=== PATIENT | female | born 1935 | race Caucasian/White ===

== ENCOUNTER 2017-02-08 10:56 | Outpatient (RCR) | payer MEDICARE | END 2017-05-09 | disposition home or self-care (01) | LOC: CARD 10:56 → MERGE 12:00 | PROVIDERS: ATTEND Internal Medicine Cardiovascular Disease | DX: I48.91 Unspecified atrial fibrillation (principal); R07.9 Chest pain, unspecified; I10 Essential (primary) hypertension; R00.2 Palpitations | CPT/HCPCS: 93225; 93226 ==

== ENCOUNTER → 2017-02-08 | Outpatient (CLI) | payer MEDICARE | LOC: CARD 10:46 → MERGE 11:00 | PROVIDERS: ATTEND Internal Medicine Cardiovascular Disease | DX: I48.91 Unspecified atrial fibrillation (principal); I10 Essential (primary) hypertension; R00.2 Palpitations; R07.9 Chest pain, unspecified | CPT/HCPCS: 93306 ==

== ENCOUNTER → 2017-02-15 | Outpatient (CLI) | payer MEDICARE ==
[~2017-02-15] VITALS: Ht 152.4 cm; Wt 47.2 kg
[~2017-02-15] MED LIST: CATHETER FLUSH 10 ML SYR IV PRN; REGADENOSON 0.4 MG/5 ML SYR (LEXISCAN) IV ONE
[2017-02-15 09:33] VITALS: BP 181/75
[2017-02-15 09:38] VITALS: BP 177/71
--- NOTE | 2017-02-15 16:24 | STRESS TEST ---
DATE OF SERVICE: 02/15/2017 LEXISCAN MYOVIEW STRESS TEST REPORT REFERRING PHYSICIAN Dr. Winter. Baseline heart rate is 75. Baseline blood pressure 178/81. Baseline EKG sinus rhythm with no ischemic changes. In summary, the patient was initially scheduled for an exercise Myoview stress test, was unable to exercise, test was converted to Lexiscan Myoview stress test. The patient received 10.31 mCi of technetium-99 Myoview and the resting images were obtained. Then, the patient received 0.4 mg of Lexiscan followed by 30.8 mCi of technetium-99 Myoview. Throughout the rest, there were no EKG changes. The resting and stress images were reviewed and compared in the short axis, horizontal long axis, and vertical long axis views. Review of the images showed good radiotracer uptake with no significant ischemia or infarction on SPECT images. SSS is 0. TID value 0.92. On the gated images, the left ventricle appeared to be normal size with good contractility. Calculated ejection fraction of 95%. I believe it is an overestimation due to small left ventricular size. CONCLUSION: 1. The patient tolerated Lexiscan well. 2. No ischemia or infarction on SPECT images. 3. Small left ventricular size with normal contractility. Calculated ejection fraction of 95%. I believe it is an over estimation of the contractility. Job ID: [id number] DocumentID: [id number] Dictated Date: 02/15/2017 12:02:46 Tongue Trimmer Date: 02/15/2017 15:23:07 Dictated By: JIAN STEPHENSON MD
== END ==
LOC: CARD 07:21 → MERGE 08:00
PROVIDERS: ATTEND Internal Medicine Cardiovascular Disease
DX: I48.91 Unspecified atrial fibrillation (principal); R07.9 Chest pain, unspecified; I10 Essential (primary) hypertension; R00.2 Palpitations
CPT/HCPCS: 78452; 93017

== ENCOUNTER 2018-02-12 09:10 | Observation (INO) | payer MEDICARE ==
[~2018-02-12] VITALS: Ht 152.4 cm; Wt 52.2 kg
[~2018-02-12 09:10] MED LIST changes: +ASPI-999 PO; -CATHETER FLUSH 10 ML SYR IV PRN; +METO-395; -REGADENOSON 0.4 MG/5 ML SYR (LEXISCAN) IV ONE
[2018-02-12] MEDS ORDERED: DILTIAZEM 25 MG/5 ML INJ (CARDIZEM) VIAL ONE (09:21)
[2018-02-12] MEDS ORDERED: DILTIAZEM 25 MG/5 ML INJ (CARDIZEM) VIAL IVP ONE (09:45)
[2018-02-12] MEDS ORDERED: DILTIAZEM IV FOR DRIP 125 MG in NS (IVPB) 100 ML IV SCH (09:45)
[2018-02-12 09:48] LABS: BASOPHILS % (AUTO) 1 % (0-10); EOSINOPHILS # (AUTO) 0.1 10^3/uL (0.0-0.3); EOSINOPHILS % (AUTO) 2 % (0-10); HEMATOCRIT 40 % (35-52); HEMOGLOBIN 13.4 G/DL (11.5-16.0); LYMPHOCYTES # (AUTO) 1.5 X 10^3 (1.0-4.0); LYMPHOCYTES % (AUTO) 37 % (12-44); MEAN CORPUSCULAR HEMOGLOBIN 31 PG (25-34); MEAN CORPUSCULAR HGB CONC 33 G/DL (32-36); MEAN CORPUSCULAR VOLUME 92 FL (80-99); MEAN PLATELET VOLUME 12.3 FL (7.4-10.4); MONOCYTES # (AUTO) 0.6 X 10^3 (0.0-1.0); MONOCYTES % (AUTO) 14 % (0-12); NEUTROPHILS # (AUTO) 1.9 X 10^3 (1.8-7.8); NEUTROPHILS % (AUTO) 47 % (42-75); PLATELET COUNT 140 10^3/uL (130-400); RED BLOOD COUNT 4.37 10^6/uL (4.35-5.85); RED CELL DISTRIBUTION WIDTH 12.4 % (10.0-14.5); WHITE BLOOD COUNT 4.1 10^3/uL (4.3-11.0)
[2018-02-12 10:02] LABS: ALANINE AMINOTRANSFERASE 31 U/L (0-55); ALBUMIN 4.4 GM/DL (3.2-4.5); ALKALINE PHOSPHATASE 84 U/L (40-136); BILIRUBIN,TOTAL 0.5 MG/DL (0.1-1.0); BUN/CREATININE RATIO 19; CALCIUM 9.5 MG/DL (8.5-10.1); CARBON DIOXIDE 20 MMOL/L (21-32); CHLORIDE 100 MMOL/L (98-107); CREATININE SERUM 0.83 MG/DL (0.60-1.30); GFR ESTIMATED > 60; GLUCOSE 137 MG/DL (70-105); POTASSIUM 3.8 MMOL/L (3.6-5.0); SODIUM 133 MMOL/L (135-145); TOTAL PROTEIN 7.9 GM/DL (6.4-8.2)
--- NOTE | 2018-02-12 10:20 | Diagnostic Imaging Report ---
INDICATION: Palpitations, shortness of air. FINDINGS: The lungs are clear. The heart and vessels normal. There is no effusion or pneumothorax. IMPRESSION: No acute appearing abnormality. Dictated by: Dictated on workstation # [id number]
--- NOTE | 2018-02-12 10:31 | ED Cardiac General ---
History of Present Illness General Chief Complaint: Cardiac/General Problems Stated Complaint: HEART FLUTTERING, BP HIGH Nursing Triage Note: PT CO OF HEART FLIPPING AND SOME SOA AND CHEST PRESSURE. STATES STARTED AT 0700 THIS AM Source: patient, family Exam Limitations: no limitations History of Present Illness Date Seen by Provider: Feb 12, 2018 Time Seen by Provider: 10:29 Initial Comments This 82-year-old white female presents with palpitations which she began this morning approximately an hour prior to presentation. Patient has had some associated pressure in her chest and shortness of breath. Patient had a history of atrial fibrillation in the past but on her most recent evaluation with her envelope fold operator, Dr. Wise, she was in a sinus rhythm. Allergies and Home Medications Allergies Coded Allergies: No Allergy Information Available (Unverified , 01/15/17) Patient Home Medication List Home Medication List Reviewed: Yes Review of Systems Review of Systems Constitutional: see HPI EENTM: No Blurred Vision, No Mouth Pain, No Nose Pain Respiratory: See HPI; Denies Cough; Shortness of Air Cardiovascular: See HPI, Chest Pain, Palpitations Gastrointestinal: Denies Abdomen Distended, Denies Diarrhea, Denies Vomiting Genitourinary: No Symptoms Reported Musculoskeletal: No back pain Skin: No change in color Psychiatric/Neurological: No Symptoms Reported Endocrine: No Symptoms Reported Hematologic/Lymphatic: No Symptoms Reported Past Ogmvxcl-Refrzt-Ftzkfi Hx Past Med/Social Hx: Reviewed Nursing Past Med/Soc Hx Patient Social History Recent Foreign Travel: No Contact w/Someone Who Travel: No Recent Infectious Disease Expo: No Recent Hopitalizations: No Seasonal Allergies Seasonal Allergies: No Past Medical History Surgeries: Yes (HYST/BSO) Appendectomy, Hysterectomy, Oophorectomy Respiratory: Yes Pneumonia Cardiac: Yes 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, Hypertension Neurological: No DOSIMETRIST History: Hysterectomy, Menopausal Genitourinary: No Gastrointestinal: No Musculoskeletal: No Endocrine: No HEENT: No Cancer: No Psychosocial: No Integumentary: No Blood Disorders: No Physical Exam Vital Signs Vital Signs - First Documented 02/12/18 09:13 Temp 98.0 Pulse 155 Resp 16 B/P (MAP) 180/100 (126) Pulse Ox 100 O2 Delivery Nasal Cannula O2 Flow Rate 2.00 Capillary Refill : Less Than 3 Seconds Height, Weight, BMI Height: 5'0" Weight: 115lbs. 0.0oz. 52.790351ly; 20.3 BMI Method:Stated General Appearance: No Apparent Distress, WD/WN HEENT: Normal ENT Inspection Neck: Normal Inspection Respiratory: Lungs Clear Cardiovascular: Tachycardia Gastrointestinal: Normal Bowel Sounds Extremity: Normal Range of Motion Neurologic/Psychiatric: Alert, Oriented x3, No Motor/Sensory Deficits Skin: Normal Color, Warm/Dry Progress/Results/Core Measures Results/Orders Lab Results Laboratory Tests Test 02/12/18 09:20 Range/Units White Blood Count 4.1 L 4.3-11.0 10^3/uL Red Blood Count 4.37 4.35-5.85 10^6/uL Hemoglobin 13.4 11.5-16.0 G/DL Hematocrit 40 35-52 % Mean Corpuscular Volume 92 80-99 FL Mean Corpuscular Hemoglobin 31 25-34 PG Mean Corpuscular Hemoglobin Concent 33 32-36 G/DL Red Cell Distribution Width 12.4 10.0-14.5 % Platelet Count 140 130-400 10^3/uL Mean Platelet Volume 12.3 H 7.4-10.4 FL Neutrophils (%) (Auto) 47 42-75 % Lymphocytes (%) (Auto) 37 12-44 % Monocytes (%) (Auto) 14 H 0-12 % Eosinophils (%) (Auto) 2 0-10 % Basophils (%) (Auto) 1 0-10 % Neutrophils # (Auto) 1.9 1.8-7.8 X 10^3 Lymphocytes # (Auto) 1.5 1.0-4.0 X 10^3 Monocytes # (Auto) 0.6 0.0-1.0 X 10^3 Eosinophils # (Auto) 0.1 0.0-0.3 10^3/uL Basophils # (Auto) 0.0 0.0-0.1 10^3/uL Sodium Level 133 L 135-145 MMOL/L Potassium Level 3.8 3.6-5.0 MMOL/L Chloride Level 100 98-107 MMOL/L Carbon Dioxide Level 20 L 21-32 MMOL/L Anion Gap 13 5-14 MMOL/L Blood Urea Nitrogen 16 7-18 MG/DL Creatinine 0.83 0.60-1.30 MG/DL Estimat Glomerular Filtration Rate > 60 BUN/Creatinine Ratio 19 Glucose Level 137 H 70-105 MG/DL Calcium Level 9.5 8.5-10.1 MG/DL Corrected Calcium 9.2 8.5-10.1 MG/DL Total Bilirubin 0.5 0.1-1.0 MG/DL Aspartate Amino Transf (AST/SGOT) 23 5-34 U/L Alanine Aminotransferase (ALT/SGPT) 31 0-55 U/L Alkaline Phosphatase 84 40-136 U/L Troponin I < 0.30 <0.30 NG/ML Total Protein 7.9 6.4-8.2 GM/DL Albumin 4.4 3.2-4.5 GM/DL My Orders Orders - SHANTA DECKER MD Diltiazem Injection (Cardizem Injection) (02/12/18 09:21) Troponin I (02/12/18 09:41) Ekg Tracing (02/12/18:41) Comprehensive Metabolic Panel (02/12/18 09:41) Cbc With Automated Diff (02/12/18 09:41) Chest 1 View, Ap/Pa Only (02/12/18 09:41) Diltiazem Injection (Cardizem Injection) (02/12/18 09:45) Ns (Ivpb) (Sodium C... W/Diltiazem Iv Fo (02/12/18 09:45) Medications Given in ED Current Medications Medications Dose Ordered Sig/Elle Route Start Time Stop Time Status Last Admin Dose Admin Diltiazem HCl 25 mg STK-MED ONCE .ROUTE 02/12/18 09:21 02/12/18 09:23 DC 02/12/18 09:22 10 MG Vital Signs/I&O 02/12/18 02/12/18 09:13 09:57 Temp 98.0 Pulse 155 134 Resp 16 16 B/P (MAP) 180/100 (126) 137/86 Pulse Ox 100 99 O2 Delivery Nasal Cannula O2 Flow Rate 2.00 Blood Pressure Mean: 103 Progress Progress Note : Time: 10:33 Progress Note The patient's initial EKG demonstrated apparent A. fib with RVR. The patient was given 10 mg bolus of Cardizem and placed on a 10 mg per hour drip. The patient's rate decreased to an average ventricular response of approximately 100. The patient continued on the Cardizem drip until there was a questionable brief syncopal episode. Repeat EKG demonstrated a sinus rhythm with a rate of approximately 70 with sinus pauses. The patient's EKG she did not demonstrate evidence of an acute FL. The Cardizem drip was discontinued. Initial ECG Impression Date: Feb 12, 2018 Departure Communication (Admissions) Time/Spoke to Admitting Phy: 10:[address] Wise indirectly while he was in the catheter lab. I will arrange for a monitored bed for the patient and am awaiting his final approval. I will write orders for the patient to bridge her to her bed. Impression Primary Impression: Atrial fibrillation Qualified Codes: I48.0 - Paroxysmal atrial fibrillation Disposition: 09 ADMITTED INPATIENT Condition: Improved Admissions Decision to Admit Reason: Admit from ER (General) Decision to Admit/Date: Feb 12, 2018 Time/Decision to Admit Time: 10:45 Departure-Patient Inst. Referrals: GLADSI FRANCIS MD (PCP/Family) Primary Care Physician SHANTA DECKER MD Feb 12, 2018 10:31
[2018-02-12] MEDS ORDERED: APIXABAN 5 MG (ELIQUIS) TABLET PO ONE (11:45)
--- NOTE | 2018-02-12 12:10 | Consultation-Cardiology ---
HPI-Cardiology Cardiology Consultation Date of Consultation 02/12/18 Date of Admission Time Seen by Provider: 12:06 Indication: chest pain palpitation HPI 82 years old lady with history of questionable atrial flutter ablation in the past. Was in her usual state of health until this morning when she woke up with palpitation and feeling some tightness in her chest and shortness of breath. Came into the emergency room and noted to be in atrial fibrillation with rapid ventricular response. She was given Cardizem and converted to sinus rhythm. Since then she has been feeling well. No further episodes were reported, had transient episode of bradycardia resulted in near syncope. Currently sitting comfortably in bed, denied any chest pain or shortness of breath. Home Medications & Allergies Allergies: Coded Allergies: No Known Drug Allergies (Unverified , 02/12/18) Home Medication List Reviewed: Yes ISR-[id number]-Pjxrvp Hx Patient Social History Marital Status: Recent Foreign Travel: No Recent Infectious Disease Expo: No Recent Hopitalizations: No Past Medical History past medical history as described below Family Medical History Family Medical Hx noncontributory to her current condition Review of Systems Constitutional: no symptoms reported, see HPI EENTM: see HPI, no symptoms reported Respiratory: see HPI; No cough; dyspnea on exertion; No hemoptysis, No orthopnea, No phlegm; short of breath; No stridor, No wheezing, No other Cardiovascular: see HPI, chest pain; No edema, No Hx of Intervention; palpitations; No syncope, No vascular heart diseas, No other Gastrointestinal: no symptoms reported, see HPI Genitourinary: no symptoms reported, see HPI Musculoskeletal: no symptoms reported, see HPI Skin: no symptoms reported, see HPI Psychiatric/Neurological: No Symptoms Reported, See HPI Reviewed Test Results Reviewed Test Results Lab Laboratory Tests Test 02/12/18 09:20 02/12/18 11:05 Range/Units White Blood Count 4.1 L 4.3-11.0 10^3/uL Red Blood Count 4.37 4.35-5.85 10^6/uL Hemoglobin 13.4 11.5-16.0 G/DL Hematocrit 40 35-52 % Mean Corpuscular Volume 92 80-99 FL Mean Corpuscular Hemoglobin 31 25-34 PG Mean Corpuscular Hemoglobin Concent 33 32-36 G/DL Red Cell Distribution Width 12.4 10.0-14.5 % Platelet Count 140 130-400 10^3/uL Mean Platelet Volume 12.3 H 7.4-10.4 FL Neutrophils (%) (Auto) 47 42-75 % Lymphocytes (%) (Auto) 37 12-44 % Monocytes (%) (Auto) 14 H 0-12 % Eosinophils (%) (Auto) 2 0-10 % Basophils (%) (Auto) 1 0-10 % Neutrophils # (Auto) 1.9 1.8-7.8 X 10^3 Lymphocytes # (Auto) 1.5 1.0-4.0 X 10^3 Monocytes # (Auto) 0.6 0.0-1.0 X 10^3 Eosinophils # (Auto) 0.1 0.0-0.3 10^3/uL Basophils # (Auto) 0.0 0.0-0.1 10^3/uL Sodium Level 133 L 135-145 MMOL/L Potassium Level 3.8 3.6-5.0 MMOL/L Chloride Level 100 98-107 MMOL/L Carbon Dioxide Level 20 L 21-32 MMOL/L Anion Gap 13 5-14 MMOL/L Blood Urea Nitrogen 16 7-18 MG/DL Creatinine 0.83 0.60-1.30 MG/DL Estimat Glomerular Filtration Rate > 60 BUN/Creatinine Ratio 19 Glucose Level 137 H 70-105 MG/DL Calcium Level 9.5 8.5-10.1 MG/DL Corrected Calcium 9.2 8.5-10.1 MG/DL Total Bilirubin 0.5 0.1-1.0 MG/DL Aspartate Amino Transf (AST/SGOT) 23 5-34 U/L Alanine Aminotransferase (ALT/SGPT) 31 0-55 U/L Alkaline Phosphatase 84 40-136 U/L Troponin I < 0.30 < 0.30 <0.30 NG/ML Total Protein 7.9 6.4-8.2 GM/DL Albumin 4.4 3.2-4.5 GM/DL Physical Exam Vital Signs Vital Signs - First Documented 02/12/18 09:13 Temp 98.0 Pulse 155 Resp 16 B/P (MAP) 180/100 (126) Pulse Ox 100 O2 Delivery Nasal Cannula O2 Flow Rate 2.00 Capillary Refill : Less Than 3 Seconds Height, Weight, BMI Height: 5'0" Weight: 115lbs. 0.0oz. [id number]; 20.3 BMI Method:Stated General Appearance: No Apparent Distress, WD/WN Eyes: Bilateral Eye Normal Inspection, Bilateral Eye PERRL, Bilateral Eye EOMI HEENT: PERRL/EOMI, TMs Normal, Normal ENT Inspection, Pharynx Normal Neck: Full Range of Motion, Normal Inspection, Non Tender, Supple, Carotid Bruit Respiratory: Chest Non Tender, Lungs Clear, Normal Breath Sounds, No Accessory Muscle Use, No Respiratory Distress Cardiovascular: Regular Rate, Rhythm, No Edema, No Gallop, No JVD, No Murmur, Normal Peripheral Pulses Gastrointestinal: Normal Bowel Sounds, No Organomegaly, No Pulsatile Mass, Non Tender, Soft Back: Normal Inspection, No CVA Tenderness, No Vertebral Tenderness Extremity: Normal Capillary Refill, Normal Inspection, Normal Range of Motion, Non Tender, No Calf Tenderness, No Pedal Edema Neurologic/Psychiatric: Alert, Oriented x3, No Motor/Sensory Deficits, Normal Mood/Affect Skin: Normal Color, Warm/Dry Lymphatic: No Adenopathy A/P-Cardiology Admission Diagnosis acute atrial fibrillation Chest pain nonspecific etiology Palpitation Hypertension Assessment/Plan Paroxysmal atrial fibrillation/flutter, was tachycardic in the emergency room, converted to sinus rhythm, currently feeling well. We will monitor on telemetry , started on Eliquis. I will restart beta blockers. Palpitation, history of irregular heartbeat, reported that she had atrial fibrillation in the 70s or 80s. Currently feeling well. Had a Holter monitor in January 2017 showing multiple PACs and PVCs multiple short runs of paroxysmal atrial tachycardia. Has been on Toprol-XL 50 mg and tolerating it well. Atypical chest pain, reporting improvement, occurred while she was tachycardic. Stress test and 2-D echocardiogram done January 2017 negative for ischemia or infarct, normal EF. Continue to monitor. Hypertension, restart Toprol and monitor blood pressure Nonobstructive carotid artery stenosis per carotid duplex done February 2017. Continue to monitor. Family history of heart disease. JIAN STEPHENSON MD Feb 12, 2018 12:10
[2018-02-12 13:00] VITALS: BP 137/63
[2018-02-12] MEDS: NS IV 1000 ML 1,000 ML IV SCH (13:24)
[2018-02-12] MEDS ORDERED: FLU QUADRIvalent (5+ YOA) 2018-2019 (AFLURIA) 0.5 ML IM ONE (16:00)
[2018-02-12 16:35] VITALS: BP 146/69
[2018-02-12 20:00] VITALS: BP 121/60
[2018-02-12] MEDS: APIXABAN 2.5 MG (ELIQUIS) TABLET PO SCH (20:24)
[2018-02-12 23:50] VITALS: BP 100/52
[2018-02-13 04:30] VITALS: BP 114/57
[2018-02-13 06:49] LABS: BASOPHILS % (AUTO) 0 % (0-10); EOSINOPHILS # (AUTO) 0.1 10^3/uL (0.0-0.3); EOSINOPHILS % (AUTO) 2 % (0-10); HEMATOCRIT 34 % (35-52); HEMOGLOBIN 11.2 G/DL (11.5-16.0); LYMPHOCYTES # (AUTO) 1.2 X 10^3 (1.0-4.0); LYMPHOCYTES % (AUTO) 35 % (12-44); MEAN CORPUSCULAR HEMOGLOBIN 30 PG (25-34); MEAN CORPUSCULAR HGB CONC 33 G/DL (32-36); MEAN CORPUSCULAR VOLUME 93 FL (80-99); MEAN PLATELET VOLUME 12.1 FL (7.4-10.4); MONOCYTES # (AUTO) 0.5 X 10^3 (0.0-1.0); MONOCYTES % (AUTO) 13 % (0-12); NEUTROPHILS # (AUTO) 1.7 X 10^3 (1.8-7.8); NEUTROPHILS % (AUTO) 50 % (42-75); PLATELET COUNT 116 10^3/uL (130-400); RED BLOOD COUNT 3.68 10^6/uL (4.35-5.85); RED CELL DISTRIBUTION WIDTH 12.6 % (10.0-14.5); WHITE BLOOD COUNT 3.4 10^3/uL (4.3-11.0)
[2018-02-13 07:15] LABS: ALANINE AMINOTRANSFERASE 20 U/L (0-55); ALBUMIN 3.7 GM/DL (3.2-4.5); ALKALINE PHOSPHATASE 62 U/L (40-136); BILIRUBIN,TOTAL 0.6 MG/DL (0.1-1.0); BUN/CREATININE RATIO 18; CARBON DIOXIDE 23 MMOL/L (21-32); CHLORIDE 110 MMOL/L (98-107); CREATININE SERUM 0.72 MG/DL (0.60-1.30); GFR ESTIMATED > 60; GLUCOSE 87 MG/DL (70-105); POTASSIUM 4.1 MMOL/L (3.6-5.0); SODIUM 141 MMOL/L (135-145); TOTAL PROTEIN 6.3 GM/DL (6.4-8.2)
[2018-02-13 08:00] VITALS: BP 135/60
[2018-02-13] MEDS: NS IV 1000 ML 1,000 ML IV SCH (08:22)
[2018-02-13] MEDS: APIXABAN 2.5 MG (ELIQUIS) TABLET PO SCH (08:22)
[2018-02-13] MEDS ORDERED: meTOproloL SUCCINATE 50 MG (TOPROL XL) TAB PO SCH (09:00)
[2018-02-13] MEDS ORDERED: APIX2.5T PO (09:37)
--- NOTE | 2018-02-13 09:40 | Clinic Account Progress/Dx ---
Clinic Account Progress/Dx DIAGNOSIS: Date Seen by Provider: Feb 13, 2018 Time Seen by Provider: 09:40 atrial fibrillation, acute Hypertension Palpitation Sinus bradycardia JIAN STEPHENSON MD Feb 13, 2018 09:40
--- NOTE | 2018-02-13 09:40 | Cardiology Progress Note ---
Subjective Date Seen by Provider: Feb 13, 2018 Time Seen by Provider: 09:38 Subjective/Events-last exam patient is feeling better. No further arrhythmia was noted overnight, asking to go home Review of Systems General: No Chills, No Night Sweats, No Fatigue, No Malaise, No Appetite, No Other HEENT: No Head Aches, No Visual Changes, No Eye Pain, No Ear Pain, No Dysphasia , No Sinus Congestion, No Post Nasal Drip, No Sore Throat, No Other Pulmonary: No Dyspnea, No Cough, No Pleuritic Chest Pain, No Other Cardiovascular: No: Chest Pain, Palpitations, Orthopnea, Paroxysmal Noc. Dyspnea, Edema, Lt Headedness, Other Objective-Cardiology Exam Last Set of Vital Signs Vital Signs 02/12/18 02/13/18 02/13/18 11:58 08:00 08:21 Temp 97.8 Pulse 64 Resp 20 B/P (MAP) 135/60 (85) Pulse Ox 97 O2 Delivery Room Air O2 Flow Rate 2.00 Capillary Refill : Less Than 3 Seconds I&O Intake and Output 02/12/18 23:59 Intake Total 640 ml Balance 640 ml Intake Oral 640 ml # Voids 3 Daily Weight Change No General: Alert, Oriented X3, Cooperative HEENT: Atraumatic, PERRLA Neck: Supple, No JVD, No Thyromegaly Lungs: Clear to Auscultation, Normal Air Movement Heart: Regular Rate, Normal S1, Normal S2, No Murmurs Abdomen: Normal Bowel Sounds, Soft, No Tenderness, No Hepatosplenomegaly, No Masses Extremities: No Clubbing, No Cyanosis, No Edema, Normal Pulses, No Tenderness/ Swelling Skin: No Rashes, No Breakdown, No Significant Lesion Neuro: Normal Gait, Normal Speech, Strength at 5/5 X4 Ext, Normal Tone, Sensation Intact Psych/Mental Status: Mental Status NL, Mood NL Results Lab Laboratory Tests 02/13/18 06:31 A/P-Cardiology Admission Diagnosis acute atrial fibrillation Chest pain nonspecific etiology Palpitation Hypertension Assessment/Plan Paroxysmal atrial fibrillation/flutter, was tachycardic in the emergency room, converted to sinus rhythm, currently feeling well. was discharged home. [id number] score is 4, yearly risk of stroke without oral anticoagulation is 4 percent, started on Eliquis 2.5 mg twice daily due to the age over 79 and weight is 60 kg Palpitation, history of irregular heartbeat, reported that she had atrial fibrillation in the 70s or 80s. Currently feeling well. Had a Holter monitor in January 2017 showing multiple PACs and PVCs multiple short runs of paroxysmal atrial tachycardia. Has been on Toprol-XL 50 mg and tolerating it well. Atypical chest pain, reporting improvement, occurred while she was tachycardic. Stress test and 2-D echocardiogram done January 2017 negative for ischemia or infarct, normal EF. Continue to monitor. Hypertension, Continue on Toprol as an outpatient Nonobstructive carotid artery stenosis per carotid duplex done February 2017. Continue to monitor. Family history of heart disease. Clinical Quality Measures DVT/VTE Risk/Contraindication: Risk Factor Score Per Nursin RFS Level Per Nursing on Admit: 2=Moderate JIAN STEPHENSON MD Feb 13, 2018 09:39
[2018-02-13 11:23] VITALS: BP 135/60
== END 2018-02-13 09:37 | disposition home or self-care (01) ==
LOC: EDUNIT# 09:10 → ER 09:11 → UNDOADMOB 10:48 → 4TH 10:48 → UNDODISOB 02-13 11:20
PROVIDERS: ADMIT Internal Medicine Cardiovascular Disease; ATTEND Internal Medicine Cardiovascular Disease
DX: I48.0 Paroxysmal atrial fibrillation (principal); I48.92 Unspecified atrial flutter; I10 Essential (primary) hypertension; R00.2 Palpitations; R00.1 Bradycardia, unspecified; R07.89 Other chest pain; I65.29 Occlusion and stenosis of unspecified carotid artery; Z82.49 Family history of ischemic heart disease and other diseases of the circulatory system
CPT/HCPCS: 36415; 71045; 80053; 84443; 84484; 85025; 93005; 93306; G0378

== ENCOUNTER 2018-03-23 13:50 | Emergency (ER) | payer MEDICARE ==
[~2018-03-23] VITALS: Ht 152.4 cm; Wt 51.3 kg
[~2018-03-23 13:50] MED LIST changes: +APIX2.5T PO
[2018-03-23] MEDS ORDERED: NS IV 1000 ML 1,000 ML IV ONE (15:15)
[2018-03-23 15:29] LABS: BASOPHILS % (AUTO) 0 % (0-10); EOSINOPHILS # (AUTO) 0.1 10^3/uL (0.0-0.3); EOSINOPHILS % (AUTO) 2 % (0-10); HEMATOCRIT 38 % (35-52); HEMOGLOBIN 12.6 G/DL (11.5-16.0); LYMPHOCYTES # (AUTO) 1.1 X 10^3 (1.0-4.0); LYMPHOCYTES % (AUTO) 22 % (12-44); MEAN CORPUSCULAR HEMOGLOBIN 30 PG (25-34); MEAN CORPUSCULAR HGB CONC 33 G/DL (32-36); MEAN CORPUSCULAR VOLUME 92 FL (80-99); MONOCYTES # (AUTO) 0.7 X 10^3 (0.0-1.0); MONOCYTES % (AUTO) 15 % (0-12); NEUTROPHILS % (AUTO) 61 % (42-75); PLATELET COUNT 173 10^3/uL (130-400); RED BLOOD COUNT 4.15 10^6/uL (4.35-5.85); RED CELL DISTRIBUTION WIDTH 12.2 % (10.0-14.5); WHITE BLOOD COUNT 4.9 10^3/uL (4.3-11.0)
[2018-03-23 15:48] LABS: ALANINE AMINOTRANSFERASE 12 U/L (0-55); ALBUMIN 4.3 GM/DL (3.2-4.5); ALKALINE PHOSPHATASE 95 U/L (40-136); BILIRUBIN,TOTAL 0.3 MG/DL (0.1-1.0); BUN/CREATININE RATIO 23; CALCIUM 9.9 MG/DL (8.5-10.1); CARBON DIOXIDE 22 MMOL/L (21-32); CHLORIDE 102 MMOL/L (98-107); CREATININE SERUM 0.74 MG/DL (0.60-1.30); GFR ESTIMATED > 60; GLUCOSE 111 MG/DL (70-105); POTASSIUM 4.5 MMOL/L (3.6-5.0); SODIUM 134 MMOL/L (135-145)
[2018-03-23 16:07] LABS: TSH (THYROID ANALYZER) 2.58 UIU/ML (0.35-4.94)
--- NOTE | 2018-03-23 16:28 | ED Cardiac General ---
History of Present Illness General Chief Complaint: Cardiac/General Problems Stated Complaint: HIGH BP Nursing Triage Note: PT PRESENTS TO ED WITH COMPLAINTS OF PALPIATIONS AND SOA STARING AT 1130 TODAY. PT HAS HX OF AFIB. Source: patient Exam Limitations: no limitations History of Present Illness Date Seen by Provider: Mar 23, 2018 Time Seen by Provider: 15:06 Initial Comments This 82-year-old woman presents to the emergency room with chief complaint of atrial fibrillation with rapid heart rate. She has a history of paroxysmal atrial fibrillation. She takes Eliquis and metoprolol. She has had minimal chest discomfort and shortness of breath. Her heart rate is in the 130s. Symptoms started around 11:[address] 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 Dr. Winter is her PCP. Allergies and Home Medications Allergies Coded Allergies: No Known Drug Allergies (Unverified , 02/12/18) Home Medications Apixaban 2.5 Mg Tablet, 2.5 MG PO BID Prescribed by: JIAN WISE on 02/13/18 0937 Metoprolol Succinate 100 Mg Tab.er.24h, 50 MG DAILY, (Reported) Patient Home Medication List Home Medication List Reviewed: Yes Review of Systems Review of Systems Constitutional: no symptoms reported EENTM: No Symptoms Reported Respiratory: See HPI Cardiovascular: See HPI Gastrointestinal: No Symptoms Reported Genitourinary: No Symptoms Reported Musculoskeletal: no symptoms reported Skin: no symptoms reported Psychiatric/Neurological: No Symptoms Reported Endocrine: No Symptoms Reported Hematologic/Lymphatic: No Symptoms Reported Past Vdjvzjv-Wnimaf-Uddtjv Hx Past Med/Social Hx: Reviewed and Corrections made Patient Social History Alcohol Use: Denies Use Recreational Drug Use: No Smoking Status: Never a Smoker Recent Foreign Travel: No Contact w/Someone Who Travel: No Recent Infectious Disease Expo: No Recent Hopitalizations: No Physical Abuse: No Sexual Abuse: No Mistreated: No Fear: No Immunizations Up To Date Date of Pneumonia Vaccine: Feb 12, 2015 Seasonal Allergies Seasonal Allergies: No Past Medical History Surgeries: Yes (HYST/BSO) Appendectomy, Hysterectomy, Oophorectomy Respiratory: Yes Pneumonia Cardiac: Yes 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 (Paroxysmal), Hypertension Neurological: No : No Reproductive Disorders: No 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 0.0oz. 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 Norm as Tested Skin: Normal Color, Warm/Dry Progress/Results/Core Measures Results/Orders Lab Results Laboratory Tests Test 03/23/18 15:20 Range/Units White Blood Count 4.9 4.3-11.0 10^3/uL Red Blood Count 4.15 L 4.35-5.85 10^6/uL Hemoglobin 12.6 11.5-16.0 G/DL Hematocrit 38 35-52 % Mean Corpuscular Volume 92 80-99 FL Mean Corpuscular Hemoglobin 30 25-34 PG Mean Corpuscular Hemoglobin Concent 33 32-36 G/DL Red Cell Distribution Width 12.2 10.0-14.5 % Platelet Count 173 130-400 10^3/uL Mean Platelet Volume 12.0 H 7.4-10.4 FL Neutrophils (%) (Auto) 61 42-75 % Lymphocytes (%) (Auto) 22 12-44 % Monocytes (%) (Auto) 15 H 0-12 % Eosinophils (%) (Auto) 2 0-10 % Basophils (%) (Auto) 0 0-10 % Neutrophils # (Auto) 3.0 1.8-7.8 X 10^3 Lymphocytes # (Auto) 1.1 1.0-4.0 X 10^3 Monocytes # (Auto) 0.7 0.0-1.0 X 10^3 Eosinophils # (Auto) 0.1 0.0-0.3 10^3/uL Basophils # (Auto) 0.0 0.0-0.1 10^3/uL Sodium Level 134 L 135-145 MMOL/L Potassium Level 4.5 3.6-5.0 MMOL/L Chloride Level 102 98-107 MMOL/L Carbon Dioxide Level 22 21-32 MMOL/L Anion Gap 10 5-14 MMOL/L Blood Urea Nitrogen 17 7-18 MG/DL Creatinine 0.74 0.60-1.30 MG/DL Estimat Glomerular Filtration Rate > 60 BUN/Creatinine Ratio 23 Glucose Level 111 H 70-105 MG/DL Calcium Level 9.9 8.5-10.1 MG/DL Corrected Calcium 9.7 8.5-10.1 MG/DL Magnesium Level 2.5 H 1.8-2.4 MG/DL Total Bilirubin 0.3 0.1-1.0 MG/DL Aspartate Amino Transf (AST/SGOT) 18 5-34 U/L Alanine Aminotransferase (ALT/SGPT) 12 0-55 U/L Alkaline Phosphatase 95 40-136 U/L Troponin I < 0.30 <0.30 NG/ML B-Type Natriuretic Peptide 65.7 <100.0 PG/ML Total Protein 8.0 6.4-8.2 GM/DL Albumin 4.3 3.2-4.5 GM/DL TSH [place] 2.58 0.35-4.94 UIU/ML My Orders Orders - ROSALIA FRANCO MD BNP (03/23/18 14:27) Cbc With Automated Diff (03/23/18 14:27) Comprehensive Metabolic Panel (03/23/18 14:27) Saline Lock/Iv-Start (03/23/18 14:27) Ekg Tracing (03/23/18 14:27) Monitor-Rhythm Ecg Trace Only (03/23/18 14:27) Thyroid Analyzer (03/23/18 15:15) Troponin I (03/23/18 15:15) Saline Lock/Iv-Start (03/23/18 15:15) Ns Iv 1000 Ml (Sodium Chloride 0.9%) (03/23/18 15:15) Chest 1 View, Ap/Pa Only (03/23/18 15:16) Magnesium (03/23/18 15:39) Medications Given in ED Vital Signs/I&O 03/23/18 03/23/18 15:00 16:50 Temp 98.3 98.2 Pulse 131 70 Resp 20 18 B/P (MAP) 165/105 (125) 118/61 (80) Pulse Ox 97 98 03/24/18 00:00 Intake Total 1000 ml Balance 1000 ml Blood Pressure Mean: 125 Progress Progress Note : Progress Note Patient was given IV hydration. There was intent to start a Cardizem drip but patient converted to normal sinus rhythm without intervention. She stayed in sinus rhythm throughout the remainder of her ER visit. Case was discussed with Dr. Wise who recommended that she continue her current medication regimen. She is to return to the emergency room if she has a prolonged episode of A. fib lasting greater than 24 hours or if she becomes symptomatic with another A. fib episode. See discharge instructions. EKG #1: EKG Time: 15:08 Rate: 130 Rhythm: A Fib/Flutter ECG Impression: 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 w/RVR Comment Atrial fibrillation with RVR. No overt ST elevation or depression. EKG #2: EKG Time: 15:14 Rate: 75 Rhythm: Normal Sinus Intervals: Normal ECG Impression: Normal Comment Normal sinus rhythm with no ST elevation or depression. No abnormal intervals or axis deviation. This is a change from prior which was A. fib with RVR. This represents conversion to normal sinus rhythm. Diagnostic Imaging Diagonstic Imaging: Xray Plain Films/CT/US/NM/MRI: chest Comments Chest x-ray viewed by me and report reviewed. See report below: NAME: GRABIEL WINKLER [facility] REC#: [id number] PT STATUS: DEP ER : 1935 PHYSICIAN: ROSALIA FRANCO MD ADMIT DATE: 03/23/18/ER Signed Date of Exam: 03/23/18 CHEST 1 VIEW, AP/PA ONLY PATIENT HISTORY: Shortness of air. TECHNIQUE: Single frontal view of the chest. COMPARISON: 02/12/2018. FINDINGS: The lung volumes are large. No focal consolidation is seen. No large pleural effusion or pneumothorax is seen. The cardiomediastinal silhouette is normal in size and contour. No acute osseous abnormality is seen. IMPRESSION: Large lung volumes with no acute pulmonary abnormality seen. Dictated by: Dictated on workstation # [id number] Dict: 03/23/18 1621 Trans: 03/23/18 1726 Interpreted by: WILFREDO ESPINO MD Electronically signed by: WILRFEDO ESPINO MD 03/23/18 1726 Departure Impression Primary Impression: Paroxysmal atrial fibrillation with RVR Disposition: 01 HOME, SELF-CARE Condition: Improved Departure-Patient Inst. Decision time for Depature: 16:20 Referrals: GLADIS WINTER MD (PCP/Family) Primary Care Physician Patient Instructions: 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 (DC) Add. Discharge Instructions: Continue your medications as directed. Follow-up with Dr. Wise in the clinic as soon as possible. Return to the emergency room if you have prolonged atrial fibrillation over 24 hours or if you have significant symptoms such as shortness of breath, chest pain, lightheadedness, etc. associated with atrial fibrillation. All discharge instructions reviewed with patient and/or family. Voiced understanding. Copy Copies To 1: JIAN WISE MD Copies To 2: GLADIS WINTER MD, JOSHUA T MD Mar 23, 2018 16:28
[2018-03-23 16:50] VITALS: BP 118/61
== END 2018-03-23 16:50 | disposition home or self-care (01) ==
LOC: EDUNIT# 13:50 → ER 13:51
DX: I48.0 Paroxysmal atrial fibrillation (principal); I10 Essential (primary) hypertension; Z79.01 Long term (current) use of anticoagulants; Z90.710 Acquired absence of both cervix and uterus; Z87.19 Personal history of other diseases of the digestive system; Z90.49 Acquired absence of other specified parts of digestive tract; Z87.01 Personal history of pneumonia (recurrent)
CPT/HCPCS: 36415; 71045; 80053; 83735; 83880; 84443; 84484; 85025; 93005; 93041

== ENCOUNTER 2018-04-21 17:46 | Emergency (ER) | payer MEDICARE | END 2018-04-21 19:31 | disposition home or self-care (01) | LOC: ER 17:46 ==

== ENCOUNTER → 2018-04-27 | Day surgery (SDC) | payer MEDICARE ==
[~2018-04-27] VITALS: Ht 152.4 cm; Wt 50.8 kg
[~2018-04-27] MED LIST changes: +LIDOCAINE 1% INJ 20 ML 20 ML VIAL INJ ONE; +LIDOCAINE 1% INJ 20 ML 20 ML VIAL ONE
[2018-04-27 10:00] VITALS: BP 178/85
--- NOTE | 2018-04-27 13:16 | Implantation of Loop Monitor ---
Implant of Loop Monitior IMPLANTATION OF LOOP MONITOR REPORT DATE OF PROCEDURE: 04/27/18 PREOP DIAGNOSIS: paroxysmal atrial fibrillation POSTOP DIAGNOSIS: paroxysmal atrial fibrillation PROCEDURE DETAILS: The patient is a 82 female with history of paroxysmal atrial fibrillation requiring long-term surveillance. Therefore implantable loop recorder was discussed and agreed with the patient. Informed consent was taken. All risks and complications were discussed at length. The patient was draped and prepped in the usual sterile fashion. Local anesthesia was lidocaine, which was given in the substernal area close to the 4th intercostal space. Loop monitor [employer] Serial number [id number] was implanted according to the protocol. Steri-Strips were placed at the end of the procedure. There were no complications and the patient tolerated the procedure well. The device was interrogated with a voltage of. ANESTHESIA: Local anesthesia with lidocaine. COMPLICATIONS: None CONCLUSION: successful loop recorder implantation with no complication FINAL DIAGNOSIS: paroxysmal atrial fibrillation JIAN STEPHENSON MD Apr 27, 2018 13:16
--- NOTE | 2018-04-27 13:45 | NUR ---
ambulatory on dc, follow up appt made
== END | disposition home or self-care (01) ==
LOC: CATH 09:33
PROVIDERS: ATTEND Internal Medicine Cardiovascular Disease
DX: I48.0 Paroxysmal atrial fibrillation (principal); I10 Essential (primary) hypertension; R07.9 Chest pain, unspecified; K92.2 Gastrointestinal hemorrhage, unspecified; Z79.01 Long term (current) use of anticoagulants; Z82.49 Family history of ischemic heart disease and other diseases of the circulatory system
CPT/HCPCS: 33285

== ENCOUNTER 2018-05-25 08:29 | Emergency (ER) | payer MEDICARE ==
[~2018-05-25] VITALS: Ht 152.4 cm; Wt 51.3 kg
[~2018-05-25 08:29] MED LIST changes: -LIDOCAINE 1% INJ 20 ML 20 ML VIAL INJ ONE; -LIDOCAINE 1% INJ 20 ML 20 ML VIAL ONE
--- NOTE | 2018-05-25 08:42 | ED Fall/Injury ---
General Stated Complaint: FALL;HEAD INJ Source: patient Exam Limitations: no limitations History of Present Illness Date Seen by Provider: May 25, 2018 Time Seen by Provider: 08:35 Initial Comments Patient presents to the ER by private conveyance with chief complaint of getting up this morning walking down her steps and she did not realize it was icy so she was not using the hand rail and fell. When she fell she bumped the left side of her head and had a small hematoma that she says has gone down now but she also hyperextended her right shoulder and has having some pain in her shoulder and right lateral posterior neck. She has no history of shoulder or neck injuries or surgeries. She is on Eliquis so she wanted to get checked out to make sure she was not having a bleed. She's having no weakness numbness confusion, gait instability, dysuria, fevers, chills, cough. She slipped on ice. She denies loss of consciousness. She's having no nausea. Allergies and Home Medications Allergies Coded Allergies: No Known Drug Allergies (Unverified , 02/12/18) Home Medications Apixaban 2.5 Mg Tablet, 2.5 MG PO BID Prescribed by: JIAN STEPHENSON on 02/13/18 0937 Metoprolol Succinate 100 Mg Tab.er.24h, 50 MG DAILY, (Reported) Patient Home Medication List Home Medication List Reviewed: Yes Review of Systems Review of Systems Constitutional: No chills, No diaphoresis Eyes: Denies Blindness, Denies Blurred Vision, Denies Drainage Ears, Nose, Mouth, Throat: denies ear pain, denies ear discharge Respiratory: No cough, No short of breath Cardiovascular: No chest pain, No edema Gastrointestinal: No abdominal pain, No constipation, No diarrhea Genitourinary: No discharge, No dysuria Musculoskeletal: No back pain; joint pain, neck pain (right shoulder and right posterior lateral) Past Mlycamn-Vvovzb-Khdaiw Hx Patient Social History Alcohol Use: Denies Use Recreational Drug Use: No Smoking Status: Never a Smoker 2nd Hand Smoke Exposure: Yes Recent Hopitalizations: Yes (2 MONTHS AGO FOR AFIB) Immunizations Up To Date Date of Pneumonia Vaccine: Feb 12, 2015 Seasonal Allergies Seasonal Allergies: No Past Medical History Surgeries: Yes (HYST/BSO) Appendectomy, Hysterectomy, Oophorectomy Respiratory: Yes (USES O2 AT NIGHT) Pneumonia Cardiac: Yes 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, Hypertension Neurological: No Reproductive Disorders: No 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 0.0oz. 50.634555rd; 21.9 BMI Method:Stated General Appearance: WD/WN, no apparent distress HEENT: PERRL/EOMI, normal ENT inspection, TMs normal, pharynx normal, other ( left parietal scalp there is a 2 x 3 cm mildly tender soft, small hematoma) Neck: full range of motion, supple, normal inspection, other (mild posterior lateral paraspinous muscle tenderness. Mild tenderness midline at the C5 through C7 level) Cardiovascular: normal peripheral pulses, regular rate, rhythm, no edema Respiratory: chest non-tender, lungs clear, no respiratory distress, no accessory muscle use Peripheral Pulses: 2+ Radial Pulses (R), 2+ Radial Pulses (L) Gastrointestinal: non tender, soft Back: normal inspection, no vertebral tenderness Extremities: normal range of motion, normal capillary refill, other (of this on range of motion of right shoulder but there is tenderness anterior and posterior in the right glenohumeral joint) Neurologic/Psychiatric: frame nailer II-XII nml as tested, no motor/sensory deficits, alert, normal mood/affect, oriented x 3 Skin: normal color, warm/dry Rasheeda Coma Score Best Eye Response: (4) Open Spontaneously Best Verbal Response: (5) Oriented Best Motor Response: (6) Obeys Commands Rasheeda Total: 15 Progress/Results/Core Measures Results/Orders My Orders Orders - MARTINEZ GONZALEZ Ct Head/Cervical Spine Wo (05/25/18 08:40) Shoulder, Right, 3 Views (05/25/18 08:40) Vital Signs/I&O 05/25/18 08:31 Temp 97.2 Pulse 72 Resp 18 B/P (MAP) 179/85 (116) Pulse Ox 97 O2 Delivery Room Air Progress Progress Note #1: Time: 09:[address] head and neck without contrast to evaluate for her headache injury on Eliquis and her right posterior lateral neck pain.. She is on Eliquis. X-ray of the right shoulder. She has declined anything for pain at this time. Progress Note #2: Time: 10:20 Progress Note Patient's not having much soreness or pain in her neck. C-collar cleared. Right shoulder is okay and she still doesn't want anything for pain. We've discussed conservative care of musculoskeletal injury. Diagnostic Imaging Diagonstic Imaging: Xray Plain Films/CT/US/NM/MRI: other (right shoulder) Comments [facility], [place] NAME: GRABIEL WINKLER MED REC#: [id number] PT STATUS: REG ER : 1935 PHYSICIAN: MARTINEZ GONZALEZ MD ADMIT DATE: 05/25/18/ER Draft Date of Exam:05/25/18 SHOULDER, RIGHT, 3 VIEWS INDICATION: Fall. Shoulder pain. COMPARISON: None. FINDINGS: 3 views of the right shoulder were obtained. There is no fracture, dislocation, or other acute bony abnormality identified. The soft tissues appear unremarkable. No radiopaque foreign bodies identified. The visualized portions of the right lung are clear. IMPRESSION: No acute fractures or dislocations of the right shoulder. Dictated on workstation # [id number] Dict: 05/25/1823 Trans: 05/25/18 0926 CARLOS [id number] Interpreted by: DELICIA SOLITARIO MD Electronically signed by: Reviewed: Reviewed by Me Diagonstic Imaging: CT (noncontrasted) Plain Films/CT/US/NM/MRI: c-spine, head Comments [facility], [place] NAME: GRABIEL WINKLER [facility] REC#: [id number] PT STATUS: REG ER : 1935 PHYSICIAN: MARTINEZ GONZALEZ MD ADMIT DATE: 05/25/18/ER Draft Date of Exam:05/25/18 CT HEAD/CERVICAL SPINE WO PROCEDURE: CT head and CT cervical spine without contrast. TECHNIQUE: Multiple contiguous axial images were obtained through the brain and cervical spine without the use of intravenous contrast. Sagittal and coronal reformations through the cervical spine were then performed. INDICATION: Fall. Trauma to the head. COMPARISON: None FINDINGS: CT HEAD: The ventricles and cortical sulci are diffusely prominent, compatible with age-related volume loss. There are confluent areas of abnormal, low attenuation in the periventricular white matter. This is consistent with small vessel ischemic changes; age-indeterminate. There is no prior study available for comparison. There is no midline shift or mass-effect. No acute intra-axial hemorrhage is seen. There are no abnormal areas of increased or decreased density to suggest acute hemorrhage or edema. No extra-axial masses or collections are present. The bony calvarium is intact. The visualized paranasal sinuses are unremarkable. The mastoid air cells are clear. CT CERVICAL SPINE: Static alignment of the cervical spine is maintained. There is no significant anterolisthesis or retrolisthesis. There is no evidence of jumped facets. Vertebral body heights are maintained. There is no evidence of acute fracture. No bony fragments are seen within the spinal canal. There are mild multilevel degenerative changes consistent with intervertebral disc height loss, as well as multilevel disc osteophyte complex formations and facet arthropathy. These changes appear greatest at the C6-C7 level. Pre- and paravertebral soft tissue structures are unremarkable. Note is made of calcified carotid atherosclerosis. Included portions of the lung apices are unremarkable. IMPRESSION: 1. No acute intracranial abnormality. No CT evidence of mass, acute infarct or intracranial hemorrhage. 2. Small vessel ischemic changes in the periventricular and subcortical white matter; likely chronic. 3. No acute fracture or dislocation of the cervical spine. 4. Mild multilevel degenerative changes, greatest at C6-C7. Dictated on workstation # [id number] Dict: 05/25/18912 Trans: 05/25/18 0921 FLETCHER [id number] Interpreted by: DELICIA SOLITARIO MD Electronically signed by: Reviewed: Reviewed by Me Departure Impression Primary Impression: Fall (on) (from) other stairs and steps, initial encounter Additional Impression: Shoulder pain, right Qualified Codes: M25.511 - Pain in right shoulder Disposition: 01 HOME, SELF-CARE Condition: Stable Departure-Patient Inst. Decision time for Depature: 10:18 Referrals: SELF,GLADIS MD (PCP/Family) Primary Care Physician Patient Instructions: Active Range of Motion Exercises, Neck and Shoulders, LOCAL PHYSICIAN LIST Add. Discharge Instructions: Follow-up with primary care if not seeing some improvement in the next 1-2 weeks. Do the active range of motion exercises lined out in your discharge paperwork several times a day. Use heat and ice as well as topical creams such as icy hot or Biofreeze. Tylenol 1000 mg every 8 hours in addition to ibuprofen 600 mg every 8 hours. MARTINEZ GONZALEZ May 25, 2018 08:42
--- NOTE | 2018-05-25 08:51 | NUR ---
TO CT PER CART C COLLAR REMAINS IN PLACE.
--- NOTE | 2018-05-25 09:17 | NUR ---
BACK FROM CT C COLLAR REMAINS IN PLACE.
--- NOTE | 2018-05-25 09:21 | Diagnostic Imaging Report ---
PROCEDURE: CT head and CT cervical spine without contrast. TECHNIQUE: Multiple contiguous axial images were obtained through the brain and cervical spine without the use of intravenous contrast. Sagittal and coronal reformations through the cervical spine were then performed. INDICATION: Fall. Trauma to the head. COMPARISON: None FINDINGS: CT HEAD: The ventricles and cortical sulci are diffusely prominent, compatible with age-related volume loss. There are confluent areas of abnormal, low attenuation in the periventricular white matter. This is consistent with small vessel ischemic changes; age-indeterminate. There is no prior study available for comparison. There is no midline shift or mass-effect. No acute intra-axial hemorrhage is seen. There are no abnormal areas of increased or decreased density to suggest acute hemorrhage or edema. No extra-axial masses or collections are present. The bony calvarium is intact. The visualized paranasal sinuses are unremarkable. The mastoid air cells are clear. CT CERVICAL SPINE: Static alignment of the cervical spine is maintained. There is no significant anterolisthesis or retrolisthesis. There is no evidence of jumped facets. Vertebral body heights are maintained. There is no evidence of acute fracture. No bony fragments are seen within the spinal canal. There are mild multilevel degenerative changes consistent with intervertebral disc height loss, as well as multilevel disc osteophyte complex formations and facet arthropathy. These changes appear greatest at the C6-C7 level. Pre- and paravertebral soft tissue structures are unremarkable. Note is made of calcified carotid atherosclerosis. Included portions of the lung apices are unremarkable. IMPRESSION: 1. No acute intracranial abnormality. No CT evidence of mass, acute infarct or intracranial hemorrhage. 2. Small vessel ischemic changes in the periventricular and subcortical white matter; likely chronic. 3. No acute fracture or dislocation of the cervical spine. 4. Mild multilevel degenerative changes, greatest at C6-C7. Dictated by: Dictated on workstation # [id number]
--- NOTE | 2018-05-25 09:26 | Diagnostic Imaging Report ---
INDICATION: Fall. Shoulder pain. COMPARISON: None. FINDINGS: 3 views of the right shoulder were obtained. There is no fracture, dislocation, or other acute bony abnormality identified. The soft tissues appear unremarkable. No radiopaque foreign bodies identified. The visualized portions of the right lung are clear. IMPRESSION: No acute fractures or dislocations of the right shoulder. Dictated by: Dictated on workstation # [id number]
[2018-05-25 10:36] VITALS: BP 148/74
== END 2018-05-25 10:40 | disposition home or self-care (01) ==
LOC: EDUNIT# 08:29 → ER 08:30
DX: M25.511 Pain in right shoulder (principal); S09.90XA Unspecified injury of head, initial encounter; I48.91 Unspecified atrial fibrillation; I10 Essential (primary) hypertension; R40.2142 Coma scale, eyes open, spontaneous, at arrival to emergency department; R40.2252 Coma scale, best verbal response, oriented, at arrival to emergency department; R40.2362 Coma scale, best motor response, obeys commands, at arrival to emergency department; Z87.19 Personal history of other diseases of the digestive system; Z79.01 Long term (current) use of anticoagulants; Z90.710 Acquired absence of both cervix and uterus; Z90.49 Acquired absence of other specified parts of digestive tract; Z87.01 Personal history of pneumonia (recurrent); W00.1XXA Fall from stairs and steps due to ice and snow, initial encounter
CPT/HCPCS: 70450; 72125; 73030

== ENCOUNTER → 2018-07-18 | Outpatient (CLI) | payer MEDICARE ==
--- NOTE | 2018-07-18 09:36 | Diagnostic Imaging Report ---
INDICATION: Chest and back pain. TIME OF EXAM: 9:25 AM Comparison is made with prior chest from 04/21/2018. FINDINGS: The heart size is stable. The pulmonary vascularity is unremarkable. No infiltrate, effusion or pneumothorax is detected. IMPRESSION: No acute cardiopulmonary process is detected. Dictated by: Dictated on workstation # [id number]
== END ==
LOC: RAD FS 09:21
PROVIDERS: ATTEND Family Medicine
DX: R07.9 Chest pain, unspecified (principal); R09.1 Pleurisy; M54.5 Low back pain
CPT/HCPCS: 71046

== ENCOUNTER 2018-07-29 11:14 | Emergency (ER) | payer MEDICARE ==
[~2018-07-29] VITALS: Ht 149.9 cm; Wt 51.3 kg
[2018-07-29 11:50] LABS: BASOPHILS % (AUTO) 0 % (0-10); EOSINOPHILS # (AUTO) 0.1 10^3/uL (0.0-0.3); EOSINOPHILS % (AUTO) 1 % (0-10); HEMATOCRIT 40 % (35-52); HEMOGLOBIN 13.1 G/DL (11.5-16.0); LYMPHOCYTES % (AUTO) 17 % (12-44); MEAN CORPUSCULAR HEMOGLOBIN 30 PG (25-34); MEAN CORPUSCULAR HGB CONC 33 G/DL (32-36); MEAN CORPUSCULAR VOLUME 92 FL (80-99); MEAN PLATELET VOLUME 10.8 FL (7.4-10.4); MONOCYTES # (AUTO) 0.9 X 10^3 (0.0-1.0); MONOCYTES % (AUTO) 15 % (0-12); NEUTROPHILS # (AUTO) 3.9 X 10^3 (1.8-7.8); NEUTROPHILS % (AUTO) 66 % (42-75); PLATELET COUNT 167 10^3/uL (130-400); RED CELL DISTRIBUTION WIDTH 12.4 % (10.0-14.5); WHITE BLOOD COUNT 5.8 10^3/uL (4.3-11.0)
[2018-07-29 12:01] LABS: PROTHROMBIN TIME PATIENT 13.4 SEC (12.2-14.7)
[2018-07-29 12:08] LABS: ALANINE AMINOTRANSFERASE 12 U/L (0-55); ALBUMIN 4.4 GM/DL (3.2-4.5); ALKALINE PHOSPHATASE 105 U/L (40-136); AMYLASE 34 U/L (25-125); BILIRUBIN,TOTAL 0.3 MG/DL (0.1-1.0); BUN/CREATININE RATIO 14; CALCIUM 10.1 MG/DL (8.5-10.1); CARBON DIOXIDE 23 MMOL/L (21-32); CHLORIDE 103 MMOL/L (98-107); CREATININE SERUM 0.84 MG/DL (0.60-1.30); GFR ESTIMATED > 60; GLUCOSE 105 MG/DL (70-105); LIPASE 27 U/L (8-78); MAGNESIUM 2.2 MG/DL (1.8-2.4); POTASSIUM 4.1 MMOL/L (3.6-5.0); SODIUM 138 MMOL/L (135-145); TOTAL PROTEIN 8.1 GM/DL (6.4-8.2)
--- NOTE | 2018-07-29 12:19 | ED Cardiac General ---
History of Present Illness General Chief Complaint: General Problems/Pain Stated Complaint: CHEST/UPPER ABD PAIN Nursing Triage Note: AMB TO ROOM REPORTS ABD PAIN FOR 2 WEEKS.YESTERDAY STARTED TOHAVE PAIN ON INSPIATION IN CHEST. SAW DR TYRONE GOTTI PLACED ON CIPRO FOR UTI PATIENT REPORTS SHE HAS NOT TAKEN IT BECAUSE SHE IS AFRAID OF SIDE EFFECTS . ALSO STATES HAS BEEN OUT OF HER ELAQUIS HAS NOT TAKEN BECAUSE SHE HAS NO REFILL'S ,BUT HX OF A FIB. Source: patient Exam Limitations: no limitations History of Present Illness Date Seen by Provider: Jul 29, 2018 Time Seen by Provider: 11:35 Initial Comments 83-year-old female who presents to the emergency room with complaints of mid to epigastric abdominal pain that from time to time radiates to her chest with deep inspiration and is worse when she pushes on her chest for the past 2 weeks. 4 days ago she was seen by her primary care provider for urinary tract symptoms and was placed on Cipro for urinary tract infection but has not taken her medication due to the potential side effects. She reports: Dr. Wise's office today because she is out of her Eliquis and has not taken it for 2 weeks. She takes Eliquis for history of A. fib. She denies shortness of breath, nausea, vomiting, lightheadedness. Timing/Duration: other ( 2 weeks) Location: epigastric Associated Systoms: Denies Symptoms Allergies and Home Medications Allergies Coded Allergies: No Known Drug Allergies (Unverified , 02/12/18) Home Medications Apixaban 2.5 Mg Tablet, 2.5 MG PO BID Prescribed by: JIAN WISE on 02/13/18 0937 Cephalexin 500 Mg Capsule, 500 MG PO TID Prescribed by: CINDA MOSES on 07/29/18 1315 Metoprolol Succinate 100 Mg Tab.er.24h, 50 MG DAILY, (Reported) Patient Home Medication List Home Medication List Reviewed: Yes Review of Systems Review of Systems Constitutional: see HPI; No chills, No fever Respiratory: See HPI, Other (pain with deep breathing) Cardiovascular: See HPI, Chest Pain (with deep breathing) Gastrointestinal: See HPI, Abdominal Pain (epigastric) All Other Systems Reviewed Negative Unless Noted: Yes Past Hdtaenz-Uollww-Rwjfhi Hx Past Med/Social Hx: Reviewed Nursing Past Med/Soc Hx Patient Social History Alcohol Use: Denies Use Recreational Drug Use: No Smoking Status: Never a Smoker 2nd Hand Smoke Exposure: Yes Recent Foreign Travel: No Contact w/Someone Who Travel: No Recent Infectious Disease Expo: No Recent Hopitalizations: Yes (2 MONTHS AGO FOR AFIB) Immunizations Up To Date Date of Pneumonia Vaccine: Feb 12, 2015 Seasonal Allergies Seasonal Allergies: No Past Medical History Surgeries: Yes (HYST/BSO) Appendectomy, Hysterectomy, Oophorectomy Respiratory: Yes (USES O2 AT NIGHT) Pneumonia Cardiac: Yes 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, Hypertension Neurological: No Reproductive Disorders: No [employer] History: Hysterectomy, Menopausal Genitourinary: No Gastrointestinal: Yes Chronic Constipation Musculoskeletal: No Endocrine: No HEENT: No Cancer: No Psychosocial: No Integumentary: No Blood Disorders: No Family Medical History Reviewed Nursing Family Hx Physical Exam Vital Signs Vital Signs - First Documented 07/29/18 11:30 Temp 98.9 Pulse 83 Resp 18 B/P (MAP) 172/82 (112) Pulse Ox 99 O2 Delivery Room Air Capillary Refill : Less Than 3 Seconds Height, Weight, BMI Height: 4'11.00" Weight: 113lbs. 0.0oz. 51.317497cj; 21.9 BMI Method:Stated General Appearance: No Apparent Distress, WD/WN Respiratory: Chest Non Tender, Lungs Clear, Normal Breath Sounds, No Accessory Muscle Use, No Respiratory Distress Cardiovascular: Regular Rate, Rhythm, No Edema, No Gallop, No JVD, No Murmur, Normal Peripheral Pulses Gastrointestinal: Normal Bowel Sounds, No Organomegaly, No Pulsatile Mass, Non Tender Extremity: Normal Capillary Refill, No Pedal Edema Neurologic/Psychiatric: Alert, Oriented x3, Normal Mood/Affect Skin: Normal Color, Warm/Dry Progress/Results/Core Measures Results/Orders Lab Results Laboratory Tests Test 07/29/18 11:41 07/29/18 12:36 Range/Units White Blood Count 5.8 4.3-11.0 10^3/uL Red Blood Count 4.31 L 4.35-5.85 10^6/uL Hemoglobin 13.1 11.5-16.0 G/DL Hematocrit 40 35-52 % Mean Corpuscular Volume 92 80-99 FL Mean Corpuscular Hemoglobin 30 25-34 PG Mean Corpuscular Hemoglobin Concent 33 32-36 G/DL Red Cell Distribution Width 12.4 10.0-14.5 % Platelet Count 167 130-400 10^3/uL Mean Platelet Volume 10.8 H 7.4-10.4 FL Neutrophils (%) (Auto) 66 42-75 % Lymphocytes (%) (Auto) 17 12-44 % Monocytes (%) (Auto) 15 H 0-12 % Eosinophils (%) (Auto) 1 0-10 % Basophils (%) (Auto) 0 0-10 % Neutrophils # (Auto) 3.9 1.8-7.8 X 10^3 Lymphocytes # (Auto) 1.0 1.0-4.0 X 10^3 Monocytes # (Auto) 0.9 0.0-1.0 X 10^3 Eosinophils # (Auto) 0.1 0.0-0.3 10^3/uL Basophils # (Auto) 0.0 0.0-0.1 10^3/uL Prothrombin Time 13.4 12.2-14.7 SEC INR Comment 1.0 0.8-1.4 Activated Partial Thromboplast Time 36 H 24-35 SEC D-Dimer < 0.27 0.00-0.49 UG/ML Sodium Level 138 135-145 MMOL/L Potassium Level 4.1 3.6-5.0 MMOL/L Chloride Level 103 98-107 MMOL/L Carbon Dioxide Level 23 21-32 MMOL/L Anion Gap 12 5-14 MMOL/L Blood Urea Nitrogen 12 7-18 MG/DL Creatinine 0.84 0.60-1.30 MG/DL Estimat Glomerular Filtration Rate > 60 BUN/Creatinine Ratio 14 Glucose Level 105 70-105 MG/DL Calcium Level 10.1 8.5-10.1 MG/DL Corrected Calcium 9.8 8.5-10.1 MG/DL Magnesium Level 2.2 1.8-2.4 MG/DL Total Bilirubin 0.3 0.1-1.0 MG/DL Aspartate Amino Transf (AST/SGOT) 14 5-34 U/L Alanine Aminotransferase (ALT/SGPT) 12 0-55 U/L Alkaline Phosphatase 105 40-136 U/L Myoglobin 22.9 10.0-92.0 NG/ML Troponin I < 0.028 <0.028 NG/ML B-Type Natriuretic Peptide 118.7 H <100.0 PG/ML Total Protein 8.1 6.4-8.2 GM/DL Albumin 4.4 3.2-4.5 GM/DL Amylase Level 34 25-125 U/L Lipase 27 8-78 U/L Urine Color YELLOW Urine Clarity CLEAR Urine pH 5 5-9 Urine Specific Leonard 1.010 L 1.016-1.022 Urine Protein NEGATIVE NEGATIVE Urine Glucose (UA) NEGATIVE NEGATIVE Urine Ketones NEGATIVE NEGATIVE Urine Nitrite NEGATIVE NEGATIVE Urine Bilirubin NEGATIVE NEGATIVE Urine Urobilinogen NORMAL NORMAL MG/DL Urine Leukocyte Esterase 3+ H NEGATIVE Urine RBC (Auto) 2+ H NEGATIVE Urine RBC 0-2 /HPF Urine WBC >100 H /HPF Urine Squamous Epithelial Cells 0-2 /HPF Urine Crystals NONE /LPF Urine Bacteria MODERATE H /HPF Urine Casts NONE /LPF Urine Mucus NEGATIVE /LPF Urine Culture Indicated YES Micro Results Microbiology 07/29/18 Urine Culture - Final, Complete Escherichia coli My Orders Orders - CINDA MOSES Cbc With Automated Diff (07/29/18 11:45) Magnesium (07/29/18 11:45) Chest 1 View, Ap/Pa Only (07/29/18 11:45) Ekg Tracing (07/29/18 11:45) Cardiac Profile 1 (07/29/18 11:45) Comprehensive Metabolic Panel (07/29/18 11:45) Myoglobin Serum (07/29/18 11:45) Protime With Inr (07/29/18 11:45) Partial Thromboplastin Time (07/29/18 11:45) O2 (07/29/18 11:45) Monitor-Rhythm Ecg Trace Only (07/29/18 11:45) Ed Iv/Invasive Line Start (07/29/18 11:45) Lipase (07/29/18 11:45) Amylase (07/29/18 11:45) BNP (07/29/18 11:45) Fibrin Degradation Products (07/29/18 11:45) Ua Culture If Indicated (07/29/18 11:46) Urine Culture (07/29/18 12:36) Ceftriaxone For Iv Use (Rocephin For I (07/29/18 13:15) Medications Given in ED Vital Signs/I&O 07/29/18 07/29/18 11:30 13:52 Temp 98.9 Pulse 83 135 Resp 18 18 B/P (MAP) 172/82 (112) 135/73 (93) Pulse Ox 99 98 O2 Delivery Room Air Blood Pressure Mean: 112 Progress Progress Note : Time: 13:14 Progress Note I have seen and evaluated the patient. I've informed her of her laboratory and imaging studies. She agrees to take a dose of Rocephin in the emergency room and has taken Keflex in the past without difficulty. Her antibiotic will be switched to Keflex for her urinary tract infection. She agrees with plan of care , plans for discharge, return precautions were given. Diagnostic Imaging Diagonstic Imaging: Xray Plain Films/CT/US/NM/MRI: chest Comments [facility]. [place], [place] NAME: GRABIEL WINKLER [facility] REC#: [id number] PT STATUS: REG ER : 1935 PHYSICIAN: CINDA MOSES ADMIT DATE: 07/29/18/ER Draft Date of Exam:07/29/18 CHEST 1 VIEW, AP/PA ONLY CLINICAL INDICATION: Patient reports abdominal pain for 2 weeks. Patient having chest pain on inspiration. EXAM: Portable chest x-ray upright view. COMPARISONS: Chest x-ray dated 07/18/2018. FINDINGS: Lungs/pleura: Lungs are clear. There is no pneumothorax. There is no pleural effusion. Mediastinum: Unremarkable. Pulmonary vasculature: Unremarkable. Heart: Unremarkable. Bones/extrathoracic soft tissue: Unremarkable. IMPRESSION: Stable chest x-ray exam with no interval radiographic evidence of acute cardiopulmonary process. Dictated on workstation # [id number] Dict: 07/29/18 1226 Trans: 07/29/18 1229 [id number] Interpreted by: MALA JOHN MD Electronically signed by: Reviewed: Reviewed by Me Departure Impression Primary Impression: Urinary tract infection Additional Impression: Atypical chest pain Disposition: 01 HOME, SELF-CARE Condition: Stable/Unchanged Departure-Patient Inst. Decision time for Depature: 13:14 Referrals: GLADIS FRANCIS MD (PCP/Family) Primary Care Physician Patient Instructions: Urinary Tract Infection, Adult (DC) Add. Discharge Instructions: Take medications as directed. Drink plenty of fluids to stay hydrated and help flush out your urinary tract. Dr. Wise's office has refilled your Eliquis, your prescriptions at [facility]. Take Eliquis as directed. Follow-up with your primary care provider within 1 week for recheck. Return back to the emergency room for worsening symptoms or concerns as needed. All discharge instructions reviewed with patient and/or family. Voiced understanding. Scripts Cephalexin (Keflex) 500 Mg Capsule 500 MG PO TID for 7 Days, #21 CAP Prov: CINDA MOSES 07/29/18 CINDA MOSES Jul 29, 2018 12:19
--- NOTE | 2018-07-29 12:29 | Diagnostic Imaging Report ---
CLINICAL INDICATION: Patient reports abdominal pain for 2 weeks. Patient having chest pain on inspiration. EXAM: Portable chest x-ray upright view. COMPARISONS: Chest x-ray dated 07/18/2018. FINDINGS: Lungs/pleura: Lungs are clear. There is no pneumothorax. There is no pleural effusion. Mediastinum: Unremarkable. Pulmonary vasculature: Unremarkable. Heart: Unremarkable. Bones/extrathoracic soft tissue: Unremarkable. IMPRESSION: Stable chest x-ray exam with no interval radiographic evidence of acute cardiopulmonary process. Dictated by: Dictated on workstation # [id number]
--- NOTE | 2018-07-29 12:32 | NUR ---
AMB TO BATHROOM
[2018-07-29 12:56] LABS: BACTERIA,URINE MODERATE /HPF; BILIRUBIN,URINE NEGATIVE (NEGATIVE); CLARITY,URINE CLEAR; COLOR,URINE YELLOW; GLUCOSE, URINE (UA) NEGATIVE (NEGATIVE); KETONES,URINE NEGATIVE (NEGATIVE); LEUKOCYTE ESTERASE ,URINE 3+ (NEGATIVE); NITRITE,URINE NEGATIVE (NEGATIVE); PH,URINE 5 (5-9); PROTEIN,URINE NEGATIVE (NEGATIVE); RBC,URINE 0-2 /HPF; SQUAMOUS EPITHELIAL CELL,UR 0-2 /HPF; UROBILINOGEN,URINE NORMAL (NORMAL); WBC,URINE >100 /HPF
[2018-07-29] MEDS ORDERED: CEPH-507 PO (13:15)
[2018-07-29] MEDS ORDERED: cefTRIAXone FOR IV USE 1,000 MG in WATER (STERILE) FOR INJECTION 10 ML IV ONE (13:15)
--- NOTE | 2018-07-29 13:22 | NUR ---
WHEN STARTING ROCEPNIN PATIENT UNSURE OF HAVING ANTIBITOIC WITH SIDE EFFECTS ASSURED HER THAT WE WOULD BE WATCHING. WHILE MEDS INFUSED.
[2018-07-29 13:52] VITALS: BP 135/73
--- OUTSIDE RECORDS SUMMARY | 2018-07-29 14:00 | XMS REPORT | Continuity of Care Document ---
Demographics x Preferred Language Unknown Marital Status Unknown Advent Affiliation Unknown Race Unknown Ethnic Group Unknown Author Organization Unknown Address Unknown Allergies There is no data. Medications There is no data. Problems There is no data. Procedures There is no data. Results Test Result Range LIPID PANEL - 07/18/18 08:00 CHOLESTEROL, TOTAL 220 mg/dL <200 HDL CHOLESTEROL 71 mg/dL >50 TRIGLYCERIDES 92 mg/dL <150 LDL-CHOLESTEROL 129 mg/dL (calc) NRG CHOL/HDLC RATIO 3.1 (calc) <5.0 NON HDL CHOLESTEROL 149 mg/dL (calc) <130 CMP - 07/18/18 08:00 GLUCOSE 93 mg/dL 65-99 UREA NITROGEN (BUN) 19 mg/dL 7-25 CREATININE 0.79 mg/dL 0.60-0.88 eGFR NON-AFR. BURKINAN 69 mL/min/1.73m2 > OR=60 eGFR 80 mL/min/1.73m2 > OR=60 BUN/CREATININE RATIO NOT APPLICABLE (calc) 6-22 SODIUM 139 mmol/L 135-146 POTASSIUM 4.0 mmol/L 3.5-5.3 CHLORIDE 103 mmol/L 98-110 CARBON DIOXIDE 28 mmol/L 20-32 CALCIUM 9.5 mg/dL 8.6-10.4 PROTEIN, TOTAL 7.6 g/dL 6.1-8.1 ALBUMIN 4.5 g/dL 3.6-5.1 GLOBULIN 3.1 g/dL (calc) 1.9-3.7 ALBUMIN/GLOBULIN RATIO 1.5 (calc) 1.0-2.5 BILIRUBIN, TOTAL 0.6 mg/dL 0.2-1.2 ALKALINE PHOSPHATASE 85 U/L 33-130 AST 15 U/L 10-35 ALT 8 U/L 6-29 PT/INR - 07/18/18 08:00 INR 1.0 NRG PT 10.3 sec 9.0-11.5 Encounters ACCT No. Visit Date/Time Discharge Status Pt. Type Provider Facility Loc./Unit Complaint [id number] 07/26/2018 11:20:00 [facility] TITO, GLADIS CARPIOK ESTELA [id number] 07/18/2018 08:00:00 Document Registration
== END 2018-07-29 13:55 | disposition home or self-care (01) ==
LOC: EDUNIT# 11:14 → ER 11:17
DX: N39.0 Urinary tract infection, site not specified (principal); R07.9 Chest pain, unspecified; I48.91 Unspecified atrial fibrillation; Z91.14 Patient's other noncompliance with medication regimen; Z90.710 Acquired absence of both cervix and uterus; Z90.49 Acquired absence of other specified parts of digestive tract; Z99.81 Dependence on supplemental oxygen; Z87.01 Personal history of pneumonia (recurrent); Z87.19 Personal history of other diseases of the digestive system
CPT/HCPCS: 36415; 71045; 80053; 81000; 82150; 83690; 83735; 83874; 83880; 84484; 85025; 85379; 85610; 85730; 87077; 87088; 87186; 93041

== ENCOUNTER 2018-11-11 01:53 | Inpatient (IN) | payer MEDICARE | END 2018-11-12 12:45 | disposition home or self-care (01) | LOC: ER 01:53 → ICU 06:13 ==

== ENCOUNTER → 2019-01-10 | Outpatient (CLI) | payer MEDICARE ==
[~2019-01-10] MED LIST changes: +ACET-2267 PO; +CEPH-507 PO
--- NOTE | 2019-01-10 16:15 | Diagnostic Imaging Report ---
INDICATION: Asymptomatic postmenopausal screening COMPARISON: Baseline FINDINGS: AP Spine L1-L4: [BMD (g/cm2): 0.804] [T-Score: -3.3] [Z-Score: -0.9] [BMD Previous: 0.898] [BMD % Change: -10.5] LT Hip Neck: [BMD (g/cm2): 0.602] [T-Score: -3.1] [Z-Score: -0.5] LT Hip Total: [BMD (g/cm2):0.639] [T-Score:-2.9] [Z-Score: -0.3] [BMD Previous: 0.697] [BMD % Change: -8.3] RT Hip Neck: [BMD (g/cm2):0.631] [T-Score:-2.9] [Z-Score:3.2] RT Hip Total: [BMD (g/cm2):0.672] [T-score:-2.7] [Z-Score:-0.1] [BMD Previous:0.725] [BMD % Change:-7.3] *Indicates significant change from prior examination based on 95% confidence level. World Health Organization criteria for BMD interpretation classify patients as Normal (T-score at or above -1.0), Osteopenic (T-score between -1.0 and -2.5) or Osteoporotic (T-score at or below -2.5). LIMITATIONS AND MODIFICATION: None. FRACTURE RISK (FRAX SCORE): The ten year probability of (%): Major Osteoporotic Fracture: [N/A] Hip Fracture: [N/A] IMPRESSION: 1. Osteoporosis. 2. Baseline examination. 3. See below National Osteoporosis Foundation guidelines on when to potentially initiate pharmacologic therapy. Based on the National Osteoporosis Foundation Guidelines, pharmacologic treatment should be initiated in any of the following, unless clinical conditions suggest otherwise: * Any patient with prior fragility fracture of the hip or vertebrae. A spine fracture indicates 5X risk for subsequent spine fracture and 2X risk for subsequent hip fracture. * Osteoporosis (T-score <-2.5). * Postmenopausal women and men age 50 and older with low bone mass/osteopenia (T-score between -1.0 and -2.5) by DXA and 10-year major osteoporotic fracture greater than 20% or a 10-year probability of hip fracture greater than 3%. These fracture risks are supplied above in the FRAX score, if applicable. * Clinician judgement and/or patient preferences may indicate treatment for people with 10-year fracture probabilities above or below these levels. Dictated by: Dictated on workstation # [id number]
== END ==
LOC: RAD 12:39
PROVIDERS: ATTEND Family Medicine
DX: M81.0 Age-related osteoporosis without current pathological fracture (principal); M19.90 Unspecified osteoarthritis, unspecified site
CPT/HCPCS: 77080

== ENCOUNTER → 2019-07-10 | Outpatient (CLI) | payer MEDICARE ==
[~2019-07-10] MED LIST changes: -METO-395; +MTP100TCR
--- NOTE | 2019-07-10 15:45 | Diagnostic Imaging Report ---
INDICATION: Right wrist pain and swelling. TECHNIQUE: AP, oblique, and lateral views of the right wrist were obtained. FINDINGS: There is a linear lucency in the radial styloid, suspicious for an avulsion fracture. Correlate for point tenderness in this area. There is advanced degenerative change of the 1st carpometacarpal joint. There is degenerative change of the mid carpal joint on the radial side. IMPRESSION: Degenerative findings as described above. There is a linear lucency in the radial styloid which may represent a nondisplaced fracture. Correlate for point tenderness in this area. Dictated by: Dictated on workstation # [id number]
== END ==
LOC: RAD FS 15:13
PROVIDERS: ATTEND Nurse Practitioner Family
DX: M19.031 Primary osteoarthritis, right wrist (principal)
CPT/HCPCS: 73110

== ENCOUNTER → 2019-08-28 | Outpatient (CLI) | payer MEDICARE ==
--- NOTE | 2019-08-28 11:50 | Diagnostic Imaging Report ---
INDICATION: Right shoulder pain and neck stiffness. AP and transscapular views of the right shoulder obtained. No fracture or acute bony abnormality is seen. Glenohumeral joint and AC joint appear unremarkable. IMPRESSION: Negative right shoulder. Dictated by: Dictated on workstation # [id number]
--- NOTE | 2019-08-28 12:00 | Diagnostic Imaging Report ---
INDICATION: Neck pain and stiffness. TECHNIQUE: AP, odontoid, and lateral views of the cervical spine are obtained. FINDINGS: There is diffuse osseous demineralization. There is slight anterolisthesis of C4 on C5, likely related to degenerative facet arthropathy. There is narrowing of the C6-C7 disc space. No acute fracture or subluxation is identified. Prevertebral soft tissues are unremarkable. IMPRESSION: Degenerative findings, most pronounced at C4-C5 and C6-C7, without radiographic evidence of acute cervical spinal abnormality. Dictated by: Dictated on workstation # [id number]
== END ==
LOC: RAD FS 11:30
PROVIDERS: ATTEND Nurse Practitioner Family
DX: M25.511 Pain in right shoulder (principal); M47.812 Spondylosis without myelopathy or radiculopathy, cervical region
CPT/HCPCS: 72040; 73030

== ENCOUNTER 2019-10-18 20:10 | Emergency (ER) | payer MEDICARE ==
[~2019-10-18] VITALS: Ht 152 cm; Wt 57.6 kg
[2019-10-18] MEDS ORDERED: dilTIAZem DRIP PRE-MIX 125 ML IV SCH (20:30)
[2019-10-18] MEDS ORDERED: ASPIRIN 81 MG CHEW (CHILDREN'S ASA) PO ONE (20:30)
--- NOTE | 2019-10-18 20:37 | ED Cardiac General ---
History of Present Illness General Chief Complaint: Cardiac/General Problems Stated Complaint: BACK PAIN,AFIB Nursing Triage Note: PT AMBULATE TO ROOM 05 WITH C/O IRREGULAR HEART RHYTHM AND BACK PAIN. Source: patient, old records History of Present Illness Date Seen by Provider: Oct 18, 2019 Time Seen by Provider: 20:18 Initial Comments PT ARRIVES VIA POV FROM HOME STATES SHE IS HAVING AN "AFIB ATTACK" AND MID BACK PAIN SYMPTOMS BEGAN AFTER SHE WENT OUT AND ATE PIZZ[employer] FOR LUNCH C/O MILD SHORTNESS OF BREATH NO SWEATS NO SWELLING IN LEGS/ FEET STATES SHE HAS BEEN SLIGHTLY DIZZY, NO SYNCOPE NO NAUSEA/VOMITING PT STATES SYMPTOMS ARE WORSE WITH WALKING AND IMPROVED WITH REST PT HAS HAD THIS MULTIPLE TIMES, AND HAS SPONTANEOUSLY CONVERTED OR CONVERTED WITH MEDICATIONS IN THE PAST, NEVER REQUIRED CARDIOVERSION. STATES SHE TAKES ELIQUIS BID AND TOOK HER SECOND DOSE TODAY AT 1500 PT TOOK AN EXTRA 1/2 OF METOPROLOL AT 1500 WELL, WITHOUT IMPROVEMENT. STATES SOMETIMES IT WORKS AND SOMETIMES IT DOESN'T HAS NOT TAKEN HER EVENING MEDICATIONS YET. NO MISSED DOSES OF MEDICATIONS OR MEDICATION CHANGES. PT STATES SHE DOES NOT HAVE A PCP ANYMORE--WAS SEEING DR. FRANCIS IN [facility]: DR. STEPHENSON--HAS NOT SEEN HIM IN A FEW MONTHS--SEES EVERY 6 MONTHS. Allergies and Home Medications Allergies Coded Allergies: No Known Drug Allergies (Unverified , 02/12/18) Home Medications Acetaminophen 500 Mg Tablet, 500-1,000 MG PO Q6H PRN for PAIN-MILD, (Reported) Apixaban 2.5 Mg Tablet, 2.5 MG PO BID, (Reported) Metoprolol Succinate 100 Mg Tab.er.24h, 50 MG BID, (Reported) TAKES 1/2 (100MG) TABLET Patient Home Medication List Home Medication List Reviewed: Yes Review of Systems Review of Systems Constitutional: see HPI; No diaphoresis; dizziness; No malaise, No weakness EENTM: No Symptoms Reported Respiratory: See HPI, SOA With Exertion Cardiovascular: See HPI; Denies Chest Pain, Denies Edema; Irregular Heart Rate, Lightheadedness, Palpitations; Denies Syncope Gastrointestinal: No Symptoms Reported; Denies Abdominal Pain, Denies Nausea, Denies Vomiting Genitourinary: No Symptoms Reported Musculoskeletal: see HPI, back pain Skin: no symptoms reported Psychiatric/Neurological: No Symptoms Reported Endocrine: No Symptoms Reported Hematologic/Lymphatic: No Symptoms Reported Past Wmuclcc-Jbpxja-Faupfo Hx Past Med/Social Hx: Reviewed and Corrections made Patient Social History Alcohol Use: Denies Use Recreational Drug Use: No Smoking Status: Never a Smoker 2nd Hand Smoke Exposure: Yes Recent Foreign Travel: No Contact w/Someone Who Travel: No Recent Infectious Disease Expo: No Recent Hopitalizations: No Physical Abuse: No Sexual Abuse: No Mistreated: No Fear: No Immunizations Up To Date Date of Pneumonia Vaccine: Feb 12, 2015 Seasonal Allergies Seasonal Allergies: No Past Medical History Surgeries: Yes (HYST/BSO; ANKLE FX/ORIF) Appendectomy, Hysterectomy, Oophorectomy, Orthopedic Respiratory: Yes Asthma Currently Using CPAP: No Currently Using BIPAP: No Cardiac: Yes 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, Hypertension Neurological: No Reproductive Disorders: No 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, Menopausal Genitourinary: Yes Bladder Infection Gastrointestinal: Yes Chronic Constipation Musculoskeletal: No Endocrine: Yes Hypothyroidsim HEENT: Yes Cataract Loss of Vision: Bilateral Hearing Impairment: Denies Cancer: No Psychosocial: No Integumentary: No Blood Disorders: No Adverse Reaction/Blood Tranf: No Family Medical History Alzheimer's disease 19 FATHER, Onset:50's - 60 G8 BROTHER, Onset:50's - 60 Cardiovascular disease 19 FATHER, Onset:50's - 60 G8 BROTHER, Onset:50's - 60 No Pertinent Family Hx Physical Exam Vital Signs Vital Signs - First Documented 10/18/19 10/18/19 20:18 23:45 Temp 36.9 Pulse 151 Resp 18 B/P (MAP) 143/115 (124) Pulse Ox 98 O2 Delivery Room Air O2 Flow Rate 2.00 Capillary Refill : Less Than 3 Seconds Height, Weight, BMI Height: 4'11.00" Weight: 116lbs. 0.0oz. 52.956676oc; 24.00 BMI Method:Stated General Appearance: No Apparent Distress, WD/WN, Anxious Neck: Full Range of Motion, Normal Inspection, Non Tender, Supple; No Carotid Bruit, No JVD Respiratory: No Accessory Muscle Use, No Respiratory Distress, Rales (BILATERAL MID AND LOWER LUNGS WITH RALES) Cardiovascular: No JVD, Normal Peripheral Pulses, Systolic Murmur (1-2/6), Irregularly Irregular, Tachycardia Gastrointestinal: Non Tender, Soft Extremity: Normal Capillary Refill, Normal Inspection, Normal Range of Motion, Non Tender, No Calf Tenderness, No Pedal Edema Neurologic/Psychiatric: Alert, Oriented x3, No Motor/Sensory Deficits, Normal Mood/Affect, sensor technician II-XII Norm as Tested Skin: Normal Color, Warm/Dry Progress/Results/Core Measures Results/Orders Lab Results Laboratory Tests Test 10/18/19 20:25 10/18/19 23:30 Range/Units White Blood Count 5.3 4.3-11.0 10^3/uL Red Blood Count 4.37 4.35-5.85 10^6/uL Hemoglobin 12.9 11.5-16.0 G/DL Hematocrit 39 35-52 % Mean Corpuscular Volume 89 80-99 FL Mean Corpuscular Hemoglobin 30 25-34 PG Mean Corpuscular Hemoglobin Concent 33 32-36 G/DL Red Cell Distribution Width 13.2 10.0-14.5 % Platelet Count 168 130-400 10^3/uL Mean Platelet Volume 11.4 H 7.4-10.4 FL Neutrophils (%) (Auto) 57 42-75 % Lymphocytes (%) (Auto) 26 12-44 % Monocytes (%) (Auto) 15 H 0-12 % Eosinophils (%) (Auto) 1 0-10 % Basophils (%) (Auto) 0 0-10 % Neutrophils # (Auto) 3.0 1.8-7.8 X 10^3 Lymphocytes # (Auto) 1.4 1.0-4.0 X 10^3 Monocytes # (Auto) 0.8 0.0-1.0 X 10^3 Eosinophils # (Auto) 0.1 0.0-0.3 10^3/uL Basophils # (Auto) 0.0 0.0-0.1 10^3/uL Prothrombin Time 14.7 12.2-14.7 SEC INR Comment 1.1 0.8-1.4 Activated Partial Thromboplast Time 43 H 24-35 SEC Sodium Level 134 L 135-145 MMOL/L Potassium Level 3.9 3.6-5.0 MMOL/L Chloride Level 103 98-107 MMOL/L Carbon Dioxide Level 21 21-32 MMOL/L Anion Gap 10 5-14 MMOL/L Blood Urea Nitrogen 17 7-18 MG/DL Creatinine 0.76 0.60-1.30 MG/DL Estimat Glomerular Filtration Rate > 60 BUN/Creatinine Ratio 22 Glucose Level 111 H 70-105 MG/DL Calcium Level 9.0 8.5-10.1 MG/DL Corrected Calcium 8.9 8.5-10.1 MG/DL Magnesium Level 2.5 H 1.6-2.4 MG/DL Total Bilirubin 0.4 0.1-1.0 MG/DL Aspartate Amino Transf (AST/SGOT) 17 5-34 U/L Alanine Aminotransferase (ALT/SGPT) 9 0-55 U/L Alkaline Phosphatase 89 40-136 U/L Total Creatine Kinase 34 29-168 U/L Creatine Kinase MB 0.7 <6.6 NG/ML Myoglobin 24.9 10.0-92.0 NG/ML Troponin I < 0.028 < 0.028 <0.028 NG/ML B-Type Natriuretic Peptide 219.9 H <100.0 PG/ML Total Protein 7.8 6.4-8.2 GM/DL Albumin 4.1 3.2-4.5 GM/DL Amylase Level 40 25-125 U/L Lipase 26 8-78 U/L Free Thyroxine 0.96 0.70-1.48 NG/DL TSH [place] Testing 6.01 H 0.35-4.94 UIU/ML My Orders Orders - RALPH MCGUIRE DO Ed Iv/Invasive Line Start (10/18/19 20:19) Ekg Tracing (10/18/19 20:19) O2 (10/18/19 20:19) Monitor-Rhythm Ecg Trace Only (10/18/19 20:19) BNP (10/18/19 20:19) Magnesium (10/18/19 20:19) Thyroid Analyzer (10/18/19 20:19) Cbc With Automated Diff (10/18/19 20:19) Chest 1 View, Ap/Pa Only (10/18/19 20:19) Comprehensive Metabolic Panel (10/18/19 20:19) Myoglobin Serum (10/18/19 20:19) Protime With Inr (10/18/19 20:19) Partial Thromboplastin Time (10/18/19 20:19) O2 (10/18/19 20:19) Ed Iv/Invasive Line Start (10/18/19 20:19) Creatine Kinase (10/18/19 20:19) Creatine Kinase Mb (10/18/19 20:19) Lipase (10/18/19 20:19) Amylase (10/18/19 20:19) Troponin I (10/18/19 20:19) Aspirin Chewable Tablet (Baby Aspirin Ch (10/18/19 20:30) Diltiazem Injection (Cardizem Injection) (10/18/19 20:30) Diltiazem Drip Pre-Mix (Cardizem Drip Pr (10/18/19 20:30) Free T4 (Free Thyroxine) (10/18/19 20:25) Ed Iv/Invasive Line Start (10/18/19 21:55) Ns Iv 1000 Ml (Sodium Chloride 0.9%) (10/18/19 21:55) Ekg Tracing (10/18/19 22:03) Ekg Tracing (10/18/19 22:03) Ekg Tracing (10/18/19 22:46) Ekg Tracing (10/18/19 22:48) Pantoprazole Injection (Protonix Injecti (10/18/19 23:00) Ed Iv/Invasive Line Start (10/18/19 23:07) Ns Iv 1000 Ml (Sodium Chloride 0.9%) (10/18/19 23:07) Ondansetron Injection (Zofran Injectio (10/18/19 23:30) Ed Iv/Invasive Line Start (10/18/19 23:19) Lactated Ringers (Lr 1000 Ml Iv Solution (10/18/19 23:19) Ekg Tracing (10/18/19 23:28) Troponin I (10/18/19 23:28) Fentanyl Injection (Sublimaze Injection (10/19/19 00:00) Atropine Injection (Atropine Injection) (10/19/19 00:00) Atropine 0.4 Mg/Ml 3 Ml Syr (Atropine 0. (10/18/19 23:59) Atropine Inj 10 Mg Syringe (Atropine In (10/19/19 00:15) Ekg Tracing (10/19/19 00:29) Ekg Tracing (10/19/19 00:29) Atropine Inj 10 Mg Syringe (Atropine In (10/19/19 01:30) Atropine Inj 10 Mg Syringe (Atropine In (10/19/19 02:15) Ekg Tracing (10/19/19 04:54) Medications Given in ED Current Medications Medications Dose Ordered Sig/Elle Route Start Time Stop Time Status Last Admin Dose Admin Aspirin 324 mg ONCE ONCE PO 10/18/19 20:30 10/18/19 20:31 DC 10/18/19 20:37 324 MG Atropine Sulfate 0.2 mg ONCE ONCE IV 10/19/19 00:15 10/19/19 00:16 DC 10/19/19 00:15 0.2 MG Atropine Sulfate 0.2 mg ONCE ONCE IV 10/19/19 01:30 10/19/19 01:31 DC 10/19/19 01:26 0.2 MG Atropine Sulfate 0.2 mg ONCE ONCE IV 10/19/19 02:15 10/19/19 02:16 DC 10/19/19 02:06 0.2 MG Atropine Sulfate 1.2 mg STK-MED ONCE .ROUTE 10/18/19 23:59 10/19/19 00:01 DC 10/19/19 00:08 0.2 MG Diltiazem HCl 10 mg ONCE ONCE IVP 10/18/19 20:30 10/18/19 20:31 DC 10/18/19 20:46 10 MG Lactated Ringer's 1,000 ml @ 0 mls/hr Q0M ONCE IV 10/18/19 23:19 10/18/19 23:21 DC 10/18/19 23:25 999 MLS/HR Ondansetron HCl 4 mg ONCE ONCE IVP 10/18/19 23:30 10/18/19 23:31 DC 10/18/19 23:25 4 MG Pantoprazole 40 mg ONCE ONCE IV 10/18/19 23:00 10/18/19 23:01 DC 10/18/19 23:01 40 MG Vital Signs/I&O 10/18/19 10/18/19 20:18 23:45 Temp 36.9 Pulse 151 Resp 18 B/P (MAP) 143/115 (124) Pulse Ox 98 O2 Delivery Room Air Nasal Cannula O2 Flow Rate 2.00 10/19/19 00:00 Intake Total 2000 ml Balance 2000 ml Blood Pressure Mean: 124 Progress Progress Note : Progress Note GIVEN ASPIRIN GIVEN CARDIZEM BOLUS AND PLACED ON A CARDIZEM DRIP--TITRATED UP, THEN DOWN AND EVENTUALLY DC'D , DUE TO JUNCTIONAL BRADYCARDIA AND HYPOTENSION--PT HAVING INTERMITTENT, BRIEF EPISODES SINUS RHYTHM MIDNIGHT--PT NOW IS IN SINUS RHYTHM, BUT STILL WITH BRADYCARDIA GIVEN IV FLUIDS, AND PERIODIC DOSES OF ATROPINE 0.2 MG TO INCREASE HEART RATE AND BLOOD PRESSURE PT STATES SHE IS FEELING BETTER PT C/O EPIGASTRIC BURNING AND NAUSEA--GIVEN PROTONIX AND ZOFRAN. NAUSEA RES OLVED. EVENTUALLY AGREED TO PAIN MEDICATION FOR EPIGASTRIC PAIN--GIVEN 12.5 MCG FENTANYL--EPIGASTRIC PAIN RESOLVED CURRENTLY NO ICU OR CARDIAC STEP DOWN BEDS AVAILABLE HERE, AND PT REFUSES TO BE TRANSFERRED TO ANOTHER FACILITY PT REPEATS A MULTITUDE OF TIMES, THAT "IT WILL GO BACK TO NORMAL IN AN HOUR" PT HELD IN ER REPEAT EKG'S DONE AND 3 HOUR TROPONIN DRAWN--EKG'S NOW SHOWING SINUS BRADYCARDIA, AND REPEAT TROPONIN NEGATIVE. 0400--PT STILL IN SINUS RHYTHM, RATE IN 60'S, BP > 110 SYSTOLIC. PT RESTING QUIETLY. STATES SHE FEELS MUCH BETTER REMAINED IN SINUS RHYTHM AND BP REMAINED STABLE, AT TIME OF DISMISSAL Initial ECG Impression Date: Oct 18, 2019 Initial ECG Impression Time: 20:23 Initial ECG Rate: 142 Initial ECG Rhythm: A Fib/Flutter Initial ECG Impression: 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 w/RVR EKG : EKG Time: 21:50 Rate: 46 Rhythm: SINUS AND JUNCTIONAL BRADYCARDIA Comment EKG#3 AT 2152--RATE 46, JUNCTIONAL RHYTHM EKG#4 AT 2241--RATE 41, JUNCTIONAL RHYTHM EKG #5 AT 2243--RATE 41, SINUS BRADYCARDIA AND JUNCTIONAL RHYTHM EKG #6 AT 2338--RATE 35, JUNCTIONAL RHYTHM. EKG #7 AT 0011--RATE 34, SINUS BRADYCARDIA EKG #8 AT 0016--RATE 39, SINUS BRADYCARDIA EKG #9 AT 0509--RATE 58, NSR, NO ACUTE CHANGES Diagnostic Imaging Comments CXR--CLEAR, NO ACUTE PROCESS, PER RADIOLOGIST REPORT AT 2100 Reviewed: Reviewed by Me Departure Communication (Admissions) 0530--SPOKE WITH DR. STEPHENSON, IS AGREEABLE TO SENDING PT HOME, SHE HAS REMAINED IN SINUS RHYTHM AND VITALS HAVE STABILIZED. HE WILL SEE PT IN FOLLOW UP NEXT WEEK. NO CHANGE IN MEDICATIONS Impression Primary Impression: Paroxysmal atrial fibrillation with rapid ventricular response Disposition: HOME, SELF-CARE Condition: Improved Departure-Patient Inst. Referrals: [facility] (PCP) Primary Care Physician CARROLL MENDOZA APRN (Family) Primary Care Physician JIAN STEPHENSON MD Patient Instructions: 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 (DC) Add. Discharge Instructions: HOME, REST CONTINUE YOUR REGULAR MEDICATIONS PRESCRIBED FOLLOW UP WITH DR. STEPHENSON THIS WEEK FOR FURTHER CARE All discharge instructions reviewed with patient and/or family. Voiced understanding. RALPH MCGUIRE DO Oct 18, 2019 20:37
[2019-10-18 20:42] LABS: BASOPHILS % (AUTO) 0 % (0-10); EOSINOPHILS # (AUTO) 0.1 10^3/uL (0.0-0.3); EOSINOPHILS % (AUTO) 1 % (0-10); HEMATOCRIT 39 % (35-52); HEMOGLOBIN 12.9 G/DL (11.5-16.0); LYMPHOCYTES # (AUTO) 1.4 X 10^3 (1.0-4.0); LYMPHOCYTES % (AUTO) 26 % (12-44); MEAN CORPUSCULAR HEMOGLOBIN 30 PG (25-34); MEAN CORPUSCULAR HGB CONC 33 G/DL (32-36); MEAN CORPUSCULAR VOLUME 89 FL (80-99); MEAN PLATELET VOLUME 11.4 FL (7.4-10.4); MONOCYTES # (AUTO) 0.8 X 10^3 (0.0-1.0); MONOCYTES % (AUTO) 15 % (0-12); NEUTROPHILS % (AUTO) 57 % (42-75); PLATELET COUNT 168 10^3/uL (130-400); RED CELL DISTRIBUTION WIDTH 13.2 % (10.0-14.5); WHITE BLOOD COUNT 5.3 10^3/uL (4.3-11.0)
--- NOTE | 2019-10-18 20:49 | Diagnostic Imaging Report ---
EXAMINATION: Chest 1 view HISTORY: Atrial fibrillation COMPARISON: None available. FINDINGS: The lungs are clear without edema or pneumonia. No pleural effusion or pneumothorax. Heart size is normal. IMPRESSION: 1. Clear lungs. Dictated by: Dictated on workstation # [id number]
[2019-10-18 20:56] LABS: INR 1.1 (0.8-1.4); PROTHROMBIN TIME PATIENT 14.7 SEC (12.2-14.7)
--- NOTE | 2019-10-18 21:01 | NUR ---
CARDIZEM INCREASED TO 10MG PER HOUR PER PROVIDER.
[2019-10-18 21:09] LABS: MAGNESIUM 2.5 MG/DL (1.6-2.4)
[2019-10-18 21:13] LABS: ALANINE AMINOTRANSFERASE 9 U/L (0-55); ALBUMIN 4.1 GM/DL (3.2-4.5); ALKALINE PHOSPHATASE 89 U/L (40-136); AMYLASE 40 U/L (25-125); BILIRUBIN,TOTAL 0.4 MG/DL (0.1-1.0); BUN/CREATININE RATIO 22; CARBON DIOXIDE 21 MMOL/L (21-32); CHLORIDE 103 MMOL/L (98-107); CREATINE KINASE 34 U/L (29-168); CREATININE SERUM 0.76 MG/DL (0.60-1.30); GFR ESTIMATED > 60; GLUCOSE 111 MG/DL (70-105); LIPASE 26 U/L (8-78); POTASSIUM 3.9 MMOL/L (3.6-5.0); SODIUM 134 MMOL/L (135-145); TOTAL PROTEIN 7.8 GM/DL (6.4-8.2)
--- NOTE | 2019-10-18 21:19 | NUR ---
CARDIZEM INCREASED TO 15MG/HR PER PROVIDER.
[2019-10-18 21:21] LABS: CREATINE KINASE MB 0.7 NG/ML (<6.6)
[2019-10-18 21:32] LABS: TSH (THYROID ANALYZER) 6.01 UIU/ML (0.35-4.94)
[2019-10-18] MEDS ORDERED: NS IV 1000 ML 1,000 ML IV SCH ×2 (21:55→23:07)
--- NOTE | 2019-10-18 22:09 | NUR ---
CARDIZEM DECREASED TO 12.5MG/HR PER PROVIDER.
--- NOTE | 2019-10-18 22:19 | NUR ---
CARDIZEM DECREASED TO 10MG/HR PER PROVIDER.
[2019-10-18 22:30] LABS: FREE T4 (FREE THYROXINE) 0.96 NG/DL (0.70-1.48)
--- OUTSIDE RECORDS SUMMARY | 2019-10-18 22:32 | XMS REPORT ---
Author Author Heide FRANCIS [facility] Address [address] [place] [address] Care Team Providers Care Puller Machine Name Role Phone GLADIS FRANCIS Unavailable PROBLEMS Type Condition ICD9-CM Code [id number] Code Onset Dates Condition S tatus SNOMED Code Problem Essential hypertension I10 Active 51880783 Problem Hyperlipemia, mixed E78.2 Active 196163777 Problem Memory loss R41.3 Active 12280406 Problem Palpitations R00.2 Active 8634686 2 Problem Paroxysmal atrial fibrillation I48.0 Active 043622902 Problem Age-related osteoporosis without current pathological fracture M81.0 Active 574386908 Problem Mammogram declined V64.2 Active 7 97629161 Problem CVD (cardiovascular disease) I25.10 A ctive 017240358483620 Problem Dysphagia R13.10 Active 83775003 Problem Nocturnal hypoxemia G47.34 Active 251682631 ALLERGIES No Information ENCOUNTERS Encounter Location Date Diagnosis [address] [address] Jul, Acute cystitis without hematuria N30.[address] [address] Jul, Acute cystitis without hematuria N30.00 [facility] [address] [place] [address] Jul, [facility] [address] [place] [address] Jul, Dysuria R30.0 and Acute cystitis without hematuria N30.[address] [address] Jul, Essential hypertension I10 and Hyperlipe gerardo, mixed E78.[address] [address] Jul, Essential hypertension I10 and Pleurisy R09.1 [facility] [address] [address] 18 Jun, 2018 Paroxysmal atrial fibrillation I48.0 and Essential hypertension I10 IMMUNIZATIONS No Known Immunizations SOCIAL HISTORY Never Assessed REASON FOR VISIT Requests return call PLAN OF CARE VITAL SIGNS MEDICATIONS Unknown Medications RESULTS No Results PROCEDURES No Known procedures INSTRUCTIONS MEDICATIONS ADMINISTERED No Known Medications MEDICAL (GENERAL) HISTORY Type Description Date Medical History Paroxysmal atrial fibrillation Medical History Essential hypertension Medical History Dysphagia Medical History Memory loss Medical History CVD (cardiovascular disease) Medical History Palpitations Medical History Mammogram declined Medical History Age-related osteoporosis without current pathological fracture Medical History Nocturnal hypoxemia Surgical History hysterectomy
--- OUTSIDE RECORDS SUMMARY | 2019-10-18 22:32 | XMS REPORT ---
Author Author Heide FRANCIS [facility] Address [address] [place] [address] Care Team Providers Care Chemical Unit Operator Name Role Phone GRACE FRANCISWELL Unavailable PROBLEMS Type Condition ICD9-CM Code [id number] Code Onset Dates Condition S tatus SNOMED Code Problem Hyperlipemia, mixed E78.2 Active 257641365 Problem Nocturnal hypoxemia G47.34 Active 672335177 Problem Palpitations R00.2 Active 5118107 2 Problem Osteoarthritis, unspecified osteoarthritis type, unspecified site M19.90 Active 837345130 Problem Essential hypertension I10 Active 76275046 Problem Mild depression F32.0 Active 3104 45722 Problem Paroxysmal atrial fibrillation I48.0 Active 946642508 Problem Age-related osteoporosis without current pathological fracture M81.0 Active 254099861 Problem Memory loss R41.3 Active 54282487 Problem CVD (cardiovascular disease) I25.10 A ctive 470707707702557 Problem Dysphagia R13.10 Active 35581170 ALLERGIES Substance Reaction Event Type Date Status Antihistamine dizziness Drug Allergy Jul, Active Adhisive Tape rash Non Drug Allergy Jul, Active Nuts hives Non Drug Allergy Jul, Active Keflex hives Drug Allergy Jul, Active Influenza Virus Vaccine Live hives Drug Allergy Jul, Active Erythromycin hives Drug Allergy Jul, Active Benadryl dizziness Drug Allergy Jul, Active SulfADIAZINE hives Drug Allergy Jul, Active ENCOUNTERS Encounter Location Date Diagnosis [facility] [address] [facility] [id number] [place] [address] Jun, Closed fracture of left wris t, initial encounter S62.102A [address] [id number] [place] [address] Jun, Arthralgia of right wrist M2 5.5[address] [id number] [place] [address] Jun, Essential hypertension I10 ; Hyperlipemia, mixed E78.2 ; Mild depression F32.0 and Osteoarthritis, unspecified osteoarthritis type, unspecified site M19.90 [facility] [address] [id number] [place] [address] May, [address] [id number], [place] [address] Mar, [address] [id number], [place] [address] Jan, Breast pain, right N64.[address] [id number], [place] [address] Jan, Abnormal mammogram of right breast R92.[address] [id number], [place] [address] Dec, Breast pain, right N64.[address] [id number], [place] [address] Dec, Breast pain, right N64.[address] [id number] [place] [address] Dec, Thoracic back pain, unspecif ied back pain laterality, unspecified chronicity M54.6 [facility] [address] [facility] [id number] [address] [place] [address] Dec, Age related osteoporosis, un specified pathological fracture presence M81.0 [facility] [address] [id number], [place] [address] Dec, Osteoarthritis, unspecified osteoarthritis type, unspecified site M19.90 and Age related osteoporosis, unspecified pathological fracture presence M81.0 [facility] [address] [id number], [place] [address] Dec, Age-related osteoporosis wit hout current pathological fracture M81.[address] [id number] [place] [address] Dec, Breast pain, right N64.4 ; E ssential hypertension I10 ; Osteoarthritis, unspecified osteoarthritis type, unspecified site M19.90 ; Hoarseness R49.0 and Hyperlipemia, mixed E78.2 [facility] [address] [id number] [place] [address] Jul, Acute cystitis without hemat uria N30.00 [facility] [address] [id number] [place] [address] Jul, Acute cystitis without hemat uria N30.00 [facility] [id number] [place] [address] Jul, [facility] [address] [facility] [id number] [place] [address] Jul, Dysuria R30.0 and Acute cystitis without hematuria N30.00 [facility] [address] [id number] [place] [address] Jul, Essential hypertension I10 a nd Hyperlipemia, mixed E78.[address] [id number], [place] [address] Jul, Essential hypertension I10 a nd Pleurisy R09.[address] [id number] [place] [address] Jun, Paroxysmal atrial fibrillati on I48.0 and Essential hypertension I10 IMMUNIZATIONS No Known Immunizations SOCIAL HISTORY Never Assessed REASON FOR VISIT back pain PLAN OF CARE Activity Details Follow Up prn Reason: VITAL SIGNS Height 4'11.5" in 2018-07-18 Weight 113 lbs 2018-07-18 BMI 22.44 kg/m2 2018-07-18 Blood pressure systolic 136 mmHg 2018-07-18 Blood pressure diastolic 68 mmHg 2018-07-18 MEDICATIONS Medication Instructions Dosage Frequency Start Date End Date Duration S tatus Eliquis 2.5 MG Orally 2 times a day as directed 12h Active Vitamin D3 1000 UNIT Orally Once a day 1 capsule 24h 30 day(s) Active Vitamin B12 1000 MCG Orally Once a day 1 tablet 24h 30 day(s) Active Metoprolol Succinate ER 100 MG Orally Once a day 1 tablet 24h 30 day(s) Active RESULTS No Results PROCEDURES Procedure Date Ordered Result Body Site [facility] VISIT ESTABLISHED PATIENT July 18, 2018 INSTRUCTIONS MEDICATIONS ADMINISTERED No Known Medications MEDICAL (GENERAL) HISTORY Type Description Date Medical History Paroxysmal atrial fibrillation Medical History Essential hypertension Medical History Dysphagia Medical History Memory loss Medical History CVD (cardiovascular disease) Medical History Palpitations Medical History Mammogram declined Medical History Age-related osteoporosis without current pathological fracture Medical History Nocturnal hypoxemia Medical History Mammogram declined Surgical History hysterectomy Hospitalization History A fib X10
--- OUTSIDE RECORDS SUMMARY | 2019-10-18 22:33 | XMS REPORT | Continuity of Care Document ---
Demographics x Preferred Language Unknown Marital Status Unknown [employer]ar[employer] Affiliation Unknown Race Unknown Ethnic Group Unknown Author Organization Unknown Address Unknown Phone Unavailable Allergies Active Description Code Type Severity Reaction Onset Reported/Identified Relationship to Patient Clinical Status Yes No Allergy Information Available [id number] Drug Allergy Unknown N/A 016 Yes No Allergy Information Available [id number] Drug Allergy Unknown N/A 016 Yes No Known Drug Allergies [id number] Drug Allergy Unknown N/A 02/12/2018 Medications There is no data. Problems Date Dx Coded Attending Type Code Diagnosis Diagnosed By 03/16/2016 MAYNOR BUIKURTISA K Ot I10 ESSENTIAL (PRIMARY) HYPERTENSION 03/16/2016 MAYNOR BUI RALPH K Ot I48.91 UNSPECIFIED ATRIAL FIBRILLATION 03/16/2016 Ot I10 ESSENT IAL (PRIMARY) HYPERTENSION 03/16/2016 Ot I48.91 UNS PECIFIED ATRIAL FIBRILLATION 03/17/2016 MAYNOR BUI RALPH K Ot I10 ESSENTIAL (PRIMARY) HYPERTENSION 03/17/2016 MAYNOR BUI, RALPH K Ot I48.91 UNSPECIFIED ATRIAL FIBRILLATION 03/18/2016 MAYNOR BUI RALPH K Ot I10 ESSENTIAL (PRIMARY) HYPERTENSION 03/18/2016 MAYNOR RALPH K Ot I48.91 UNSPECIFIED ATRIAL FIBRILLATION 03/22/2016 MAYNORBeverley BUI RALPH K Ot I10 ESSENTIAL (PRIMARY) HYPERTENSION 03/22/2016 KURTIS MCGUIRE DOA K Ot I48.91 UNSPECIFIED ATRIAL FIBRILLATION 02/09/2017 JIAN STEPHENSON MD Ot I10 ESSENTIAL (PRIMARY) HYPERTENSION 02/09/2017 JIAN STEPHENSON MD Ot I48. 91 UNSPECIFIED ATRIAL FIBRILLATION 02/09/2017 JIAN STEPHENSON MD Ot R00. 2 PALPITATIONS 02/09/2017 JIAN STEPHENSON MD Ot R07. 9 CHEST PAIN, UNSPECIFIED 02/10/2017 JIAN STEPHENSON MD Ot I10 ESSENTIAL (PRIMARY) HYPERTENSION 02/10/2017 JIAN STEPHENSON MD Ot I48. 91 UNSPECIFIED ATRIAL FIBRILLATION 02/10/2017 JIAN STEPHENSON MD Ot R00. 2 PALPITATIONS 02/10/2017 JIAN STEPHENSON MD J Ot R07. 9 CHEST PAIN, UNSPECIFIED 02/10/2017 JIAN STEPHENSON MD J Ot I10 ESSENTIAL (PRIMARY) HYPERTENSION 02/10/2017 JIAN STEPHENSON MD J Ot I48. 91 UNSPECIFIED ATRIAL FIBRILLATION 02/10/2017 JIAN STEPHENSON MD J Ot R00. 2 PALPITATIONS 02/10/2017 JIAN STEPHENSON MD J Ot R07. 9 CHEST PAIN, UNSPECIFIED 02/15/2017 JIAN STEPHENSON MD J Ot I10 ESSENTIAL (PRIMARY) HYPERTENSION 02/15/2017 JIAN STEPHENSON MD J Ot I48. 91 UNSPECIFIED ATRIAL FIBRILLATION 02/15/2017 JIAN STEPHENSON MD Ot R00. 2 PALPITATIONS 02/15/2017 JIAN STEPHENSON MD Ot R07. 9 CHEST PAIN, UNSPECIFIED 02/15/2017 JIAN STEPHENSON MD J Ot I10 ESSENTIAL (PRIMARY) HYPERTENSION 02/15/2017 JIAN STEPHENSON MD J Ot I48. 91 UNSPECIFIED ATRIAL FIBRILLATION 02/15/2017 JIAN STEPHENSON MD J Ot R00. 2 PALPITATIONS 02/15/2017 JIAN STEPHENSON MD Ot R07. 9 CHEST PAIN, UNSPECIFIED 03/02/2017 JIAN STEPHENSON MD J Ot I10 ESSENTIAL (PRIMARY) HYPERTENSION 03/02/2017 JIAN STEPHENSON MD J Ot I48. 91 UNSPECIFIED ATRIAL FIBRILLATION 03/02/2017 JIAN STEPHENSON MD Ot R00. 2 PALPITATIONS 03/02/2017 JIAN STEPHENSON MD Ot R07. 9 CHEST PAIN, UNSPECIFIED 03/09/2017 JIAN STEPHENSON MD J Ot I10 ESSENTIAL (PRIMARY) HYPERTENSION 03/09/2017 JIAN STEPHENSON MD J Ot I48. 91 UNSPECIFIED ATRIAL FIBRILLATION 03/09/2017 JIAN STEPHENSON MD J Ot R00. 2 PALPITATIONS 03/09/2017 JIAN STEPHENSON MD J Ot R07. 9 CHEST PAIN, UNSPECIFIED 03/18/2017 JIAN STEPHENSON MD J Ot I10 ESSENTIAL (PRIMARY) HYPERTENSION 03/18/2017 JIAN STEPHENSON MD J Ot I48. 91 UNSPECIFIED ATRIAL FIBRILLATION 03/18/2017 JIAN STEPHENSON MD J Ot R00. 2 PALPITATIONS 03/18/2017 JIAN STEPHENSON MD J Ot R07. 9 CHEST PAIN, UNSPECIFIED 05/09/2017 SEEMA COX, JIAN Edwards Ot I10 ESSENTIAL (PRIMARY) HYPERTENSION 05/09/2017 SEEMA COX, JIAN Edwards Ot I48. 91 UNSPECIFIED ATRIAL FIBRILLATION 05/09/2017 SEEMA COX, JIAN Edwards Ot R00. 2 PALPITATIONS 05/09/2017 JIAN STEPHENSON MD Ot R07. 9 CHEST PAIN, UNSPECIFIED 05/14/2017 JIAN STEPHENSON MD Ot I10 ESSENTIAL (PRIMARY) HYPERTENSION 05/14/2017 SEEMA COX, JIAN Edwards Ot I48. 91 UNSPECIFIED ATRIAL FIBRILLATION 05/14/2017 JIAN STEPHENSON MD Ot R00. 2 PALPITATIONS 05/14/2017 JIAN STEPHENSON MD Ot R07. 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 08/09/2017 MAYNOR DO, RALPH K Ot R00.9 UNSPECIFIED ABNORMALITIES OF HEART BEAT 08/09/2017 MAYNOR DO, RALPH K Ot Z87.01 PERSONAL HISTORY OF PNEUMONIA (RECURRENT 08/09/2017 MAYNOR DO, RALPH K Ot Z90.49 ACQUIRED ABSENCE OF OTHER SPECIFIED PART 08/09/2017 MAYNOR DO, RALPH K Ot Z90.710 ACQUIRED ABSENCE OF BOTH CERVIX AND UTER 08/11/2017 MAYNOR DO, RALPH K Ot I10 ESSENTIAL (PRIMARY) HYPERTENSION 08/11/2017 MAYNOR DO, RALPH K Ot I48.91 UNSPECIFIED ATRIAL FIBRILLATION 08/11/2017 MAYNOR DO, RALPH K Ot 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 91 UNSPECIFIED ATRIAL FIBRILLATION 08/16/2017 SEEMA COX, JIAN Edwards Ot R00. 2 PALPITATIONS 08/16/2017 SEEMA COX, JIAN Edwards Ot R07. 9 CHEST PAIN, UNSPECIFIED 08/16/2017 JIAN STEPHENSON MD Ot I10 ESSENTIAL (PRIMARY) HYPERTENSION 08/16/2017 JIAN STEPHENSON MD Ot I48. 91 UNSPECIFIED ATRIAL FIBRILLATION 08/16/2017 JIAN STEPHENSON MD Ot R00. 2 PALPITATIONS 08/16/2017 JIAN STEPHENSON MD Ot R07. 9 CHEST PAIN, UNSPECIFIED 08/16/2017 JIAN STEPHENSON MD Ot I10 ESSENTIAL (PRIMARY) HYPERTENSION 08/16/2017 JIAN SETPHENSON MD Ot I48. 91 UNSPECIFIED ATRIAL FIBRILLATION 08/16/2017 JIAN STEPHENSON MD Ot R00. 2 PALPITATIONS 08/16/2017 JIAN STEPHENSON MD Ot R07. 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 91 UNSPECIFIED ATRIAL FIBRILLATION 02/12/2018 JIAN STEPHENSON MD Ot R00. 2 PALPITATIONS 02/12/2018 JIAN STEPHENSON MD Ot R07. 9 CHEST PAIN, UNSPECIFIED 02/13/2018 JIAN STEPHENSON MD Ot I10 ESSENTIAL (PRIMARY) HYPERTENSION 02/13/2018 JIAN STEPHENSON MD Ot I48. 0 PAROXYSMAL ATRIAL FIBRILLATION 02/13/2018 JIAN STEPHENSON MD Ot I48. 92 UNSPECIFIED ATRIAL FLUTTER 02/13/2018 JIAN STEPHENSON MD Ot I65. 29 OCCLUSION AND STENOSIS OF UNSPECIFIED CA 02/13/2018 JIAN STEPHENSON MD Ot R00. 1 BRADYCARDIA, UNSPECIFIED 02/13/2018 JIAN STEPHENSON MD Ot R00. 2 PALPITATIONS 02/13/2018 JIAN STEPHENSON MD Ot R07. 89 OTHER CHEST PAIN 02/13/2018 JIAN STEPHENSON MD, Ot Z82. 49 FAMILY HX OF ISCHEM HEART DIS AND OTH DI 03/23/2018 ROSALIA FRANCO MD, Ot I10 ESSENTIAL (PRIMARY) HYPERTENSION 03/23/2018 ROSALIA FRANCO MD, Ot I48.0 PAROXYSMAL ATRIAL FIBRILLATION 03/23/2018 ROSALIA FRANCO MD, Ot R00.0 TACHYCARDIA, UNSPECIFIED 03/23/2018 ROSALIA FRANCO MD, Ot Z79.01 HALFWAY (CURRENT) USE OF ANTICOAGULANT 03/23/2018 ROSALIA FRANCO MD Ot Z87.01 PERSONAL HISTORY OF PNEUMONIA (RECURRENT 03/23/2018 ROSALIA FRANCO MD, Ot Z87.19 PERSONAL HISTORY OF OTHER DISEASES OF 03/23/2018 ROSALIA FRANCO MD Ot Z90.49 ACQUIRED ABSENCE OF OTHER SPECIFIED PART 03/23/2018 ROSALIA FRANCO MD Ot Z90.710 ACQUIRED ABSENCE OF BOTH CERVIX AND UTER 03/25/2018 ROSALIA FRANCO MD, Ot I10 ESSENTIAL (PRIMARY) HYPERTENSION 03/25/2018 ROSALIA FRANCO MD, Ot I48.0 PAROXYSMAL ATRIAL FIBRILLATION 03/25/2018 ROSALIA FRANCO MD, Ot R00.0 TACHYCARDIA, UNSPECIFIED 03/25/2018 ROSALIA FRANCO MD Ot Z79.01 BRASS SORTER (CURRENT) USE OF ANTICOAGULANT 03/25/2018 ROSALIA FRANCO MD Ot Z87.01 PERSONAL HISTORY OF PNEUMONIA (RECURRENT 03/25/2018 ROSALIA FRANCO MD Ot Z87.19 PERSONAL HISTORY OF OTHER DISEASES OF 03/25/2018 ROSALIA FRANCO MD Ot Z90.49 ACQUIRED ABSENCE OF OTHER SPECIFIED PART 03/25/2018 ROSALIA FRANCO MD Ot Z90.710 ACQUIRED ABSENCE OF BOTH CERVIX AND UTER 04/05/2018 ROSALIA FRANCO MD Ot I10 ESSENTIAL (PRIMARY) HYPERTENSION 04/05/2018 ROSALIA FRANCO MD Ot I48.0 PAROXYSMAL ATRIAL FIBRILLATION 04/05/2018 ROSALIA FRANCO MD Ot R00.0 TACHYCARDIA, UNSPECIFIED 04/05/2018 ROSALIA FRANCO MD Ot Z79.01 HALFWAY (CURRENT) USE OF ANTICOAGULANT 04/05/2018 ROSALIA FRANCO MD Ot Z87.01 PERSONAL HISTORY OF PNEUMONIA (RECURRENT 04/05/2018 ROSALIA FRANCO MD Ot Z87.19 PERSONAL HISTORY OF OTHER DISEASES OF 04/05/2018 ROSALIA FRANCO MD Ot Z90.49 ACQUIRED ABSENCE OF OTHER SPECIFIED PART 04/05/2018 ROSALIA FRANCO MD Ot Z90.710 ACQUIRED ABSENCE OF BOTH CERVIX AND UTER 04/21/2018 MARTINEZ GONZALEZ MD J Ot I10 ESSENTIAL (PRIMARY) HYPERTENSION 04/21/2018 MARTINEZ GONZALEZ MD Ot I48. 91 UNSPECIFIED ATRIAL FIBRILLATION 04/21/2018 MARTINEZ GONZALEZ MD Ot R00. 2 PALPITATIONS 04/21/2018 MARTINEZ GONZALEZ MD J Ot Z79. 01 BRASS SORTER (CURRENT) USE OF ANTICOAGULANT 04/21/2018 MARTINEZ GONZALEZ MD J Ot Z87. 01 PERSONAL HISTORY OF PNEUMONIA (RECURRENT 04/21/2018 CANELO GONZALEZ MDUS J Ot Z87. 19 PERSONAL HISTORY OF OTHER DISEASES OF TH 04/21/2018 MARTINEZ GONZALEZ MD Ot Z90. 49 ACQUIRED ABSENCE OF OTHER SPECIFIED PART 04/21/2018 MARTINEZ GONZALEZ MD Ot Z90.710 ACQUIRED ABSENCE OF BOTH CERVIX AND UTER 04/22/2018 JIAN STEPHENSON MD Ot I10 ESSENTIAL (PRIMARY) HYPERTENSION 04/22/2018 JIAN STEPHENSON MD Ot I48. 91 UNSPECIFIED ATRIAL FIBRILLATION 04/22/2018 JIAN STEPHENSON MD Ot R00. 2 PALPITATIONS 04/22/2018 JIAN STEPHENSON MD Ot R07. 9 CHEST PAIN, UNSPECIFIED 04/22/2018 JIAN STEPHENSON MD Ot I10 ESSENTIAL (PRIMARY) HYPERTENSION 04/22/2018 JIAN STEPHENSON MD Ot I48. 91 UNSPECIFIED ATRIAL FIBRILLATION 04/22/2018 JIAN STEPHENSON MD Ot R00. 2 PALPITATIONS 04/22/2018 JIAN STEPHENSON MD Ot R07. 9 CHEST PAIN, UNSPECIFIED 04/22/2018 JIAN STEPHENSON MD Ot I10 ESSENTIAL (PRIMARY) HYPERTENSION 04/22/2018 JIAN STEPHENSON MD Ot I48. 91 UNSPECIFIED ATRIAL FIBRILLATION 04/22/2018 JIAN STEPHENSON MD Ot R00. 2 PALPITATIONS 04/22/2018 JIAN STEPHENSON MD Ot R07. 9 CHEST PAIN, UNSPECIFIED 04/25/2018 MARTINEZ GONZALEZ MD Ot I10 ESSENTIAL (PRIMARY) HYPERTENSION 04/25/2018 MARTINEZ GONZALEZ MD Ot I48. 91 UNSPECIFIED ATRIAL FIBRILLATION 04/25/2018 MARTINEZ GONZALEZ MD Ot R00. 2 PALPITATIONS 04/25/2018 MARTINEZ GONZALEZ MD Ot Z79. 01 BRASS SORTER (CURRENT) USE OF ANTICOAGULANT 04/25/2018 MARTINEZ GONZALEZ MD Ot Z87. 01 PERSONAL HISTORY OF PNEUMONIA (RECURRENT 04/25/2018 MARTINEZ GONZALEZ MD Ot Z87. 19 PERSONAL HISTORY OF OTHER DISEASES OF TH 04/25/2018 MARTINEZ GONZALEZ MD Ot Z90. 49 ACQUIRED ABSENCE OF OTHER SPECIFIED PART 04/25/2018 MARTINEZ GONZALEZ MD Ot Z90.710 ACQUIRED ABSENCE OF BOTH CERVIX AND UTER 05/02/2018 JIAN STEPHENSON MD Ot I10 ESSENTIAL (PRIMARY) HYPERTENSION 05/02/2018 JIAN STEPHENSON MD Ot I48. 0 PAROXYSMAL ATRIAL FIBRILLATION 05/02/2018 JIAN STEPHENSON MD Ot K92. 2 GASTROINTESTINAL HEMORRHAGE, UNSPECIFIED 05/02/2018 JIAN STEPHENSON MD Ot R07. 9 CHEST PAIN, UNSPECIFIED 05/02/2018 JIAN STEPHENSON MD Ot Z79. 01 HALFWAY (CURRENT) USE OF ANTICOAGULANT 05/02/2018 JIAN STEPHENSON MD Ot Z82. 49 FAMILY HX OF ISCHEM HEART DIS AND OTH DI 05/16/2018 JIAN STEPHENSON MD Ot I10 ESSENTIAL (PRIMARY) HYPERTENSION 05/16/2018 JIAN STEPHENSON MD Ot I48. 0 PAROXYSMAL ATRIAL FIBRILLATION 05/16/2018 JIAN STEPHENSON MD Ot K92. 2 GASTROINTESTINAL HEMORRHAGE, UNSPECIFIED 05/16/2018 JIAN STEPHENSON MD Ot R07. 9 CHEST PAIN, UNSPECIFIED 05/16/2018 JIAN STEPHENSON MD Ot Z79. 01 HALFWAY (CURRENT) USE OF ANTICOAGULANT 05/16/2018 JIAN STEPHENSON MD Ot Z82. 49 FAMILY HX OF ISCHEM HEART DIS AND OTH DI 05/25/2018 MARTINEZ GONZALEZ MD, Ot I10 ESSENTIAL (PRIMARY) HYPERTENSION 05/25/2018 MARTINEZ GONZALEZ MD Ot I48. 91 UNSPECIFIED ATRIAL FIBRILLATION 05/25/2018 MARTINEZ GONZALEZ MD Ot M25.511 PAIN IN RIGHT SHOULDER 05/25/2018 MARTINEZ GONZALEZ MD Ot R40.2142 COMA SCALE, EYES OPEN, SPONTANEOUS, EMR 05/25/2018 MARTINEZ GONZALEZ MD Ot R40.2252 COMA SCALE, BEST VERBAL RESPONSE, ORIENT 05/25/2018 MARTINEZ GONZALEZ MD Ot R40.2362 COMA SCALE, BEST MOTOR RESPONSE, OBEYS C 05/25/2018 MARTINEZ GONZALEZ MD Ot S09.90XA UNSPECIFIED INJURY OF HEAD, INITIAL ENCO 05/25/2018 MARTINEZ GONZALEZ MD Ot W00.1XXA FALL FROM STAIRS AND STEPS DUE TO ICE AN 05/25/2018 MARTINEZ GONZALEZ MD Ot Z79. 01 HALFWAY (CURRENT) USE OF ANTICOAGULANT 05/25/2018 MARTINEZ GONZALEZ MD Ot Z87. 01 PERSONAL HISTORY OF PNEUMONIA (RECURRENT 05/25/2018 MARTINEZ GONZALEZ MD Ot Z87. 19 PERSONAL HISTORY OF OTHER DISEASES OF TH 05/25/2018 MARTINEZ GONZALEZ MD Ot Z90. 49 ACQUIRED ABSENCE OF OTHER SPECIFIED PART 05/25/2018 MARTINEZ GONZALEZ MD Ot Z90.710 ACQUIRED ABSENCE OF BOTH CERVIX AND UTER 05/27/2018 MARTINEZ GONZALEZ MD Ot I10 ESSENTIAL (PRIMARY) HYPERTENSION 05/27/2018 MARTINEZ GONZALEZ MD Ot I48. 91 UNSPECIFIED ATRIAL FIBRILLATION 05/27/2018 MARTINEZ GONZALEZ MD, Ot M25.511 PAIN IN RIGHT SHOULDER 05/27/2018 MARTINEZ GONZALEZ MD Ot R40.2142 COMA SCALE, EYES OPEN, SPONTANEOUS, EMR 05/27/2018 MARTINEZ GONZALEZ MD, Ot R40.2252 COMA SCALE, BEST VERBAL RESPONSE, ORIENT 05/27/2018 MARTINEZ GONZALEZ MD Ot R40.2362 COMA SCALE, BEST MOTOR RESPONSE, OBEYS C 05/27/2018 MARTINEZ GONZALEZ MD Ot S09.90XA UNSPECIFIED INJURY OF HEAD, INITIAL ENCO 05/27/2018 MARTINEZ GONZALEZ MD, Ot W00.1XXA FALL FROM STAIRS AND STEPS DUE TO ICE AN 05/27/2018 MARTINEZ GONZALEZ MD, Ot Z79. 01 BRASS SORTER (CURRENT) USE OF ANTICOAGULANT 05/27/2018 MARTINEZ GONZALEZ MD, Ot Z87. 01 PERSONAL HISTORY OF PNEUMONIA (RECURRENT 05/27/2018 MARTINEZ GONZALEZ MD, Ot Z87. 19 PERSONAL HISTORY OF OTHER DISEASES OF 05/27/2018 MARTINEZ GONZALEZ MD, Ot Z90. 49 ACQUIRED ABSENCE OF OTHER SPECIFIED PART 05/27/2018 MARTINEZ GONZALEZ MD, Ot Z90.710 ACQUIRED ABSENCE OF BOTH CERVIX AND UTER 07/20/2018 SELF GLADIS COX Ot M54.5 LOW BACK PAIN 07/20/2018 SELF GLADIS COX Ot R07.9 CHEST PAIN, UNSPECIFIED 07/20/2018 SELF GLADIS COX Ot R09.1 PLEURISY 07/20/2018 SELF GLADIS COX Ot M54.5 LOW BACK PAIN 07/20/2018 SELF GLADIS COX Ot R07.9 CHEST PAIN, UNSPECIFIED 07/20/2018 SELF GLADIS COX Ot R09.1 PLEURISY 07/29/2018 CINDA MOSES Ot I48.91 UNSPECIFIED ATRIAL FIBRILLATION 07/29/2018 CINDA MOSES Ot N39.0 URINARY TRACT INFECTION, SITE NOT SPECIF 07/29/2018 CINDA MOSES Ot R07.9 CHEST PAIN, UNSPECIFIED 07/29/2018 BERNCINDA CASTAÑEDA Ot R10.13 EPIGASTRIC PAIN 07/29/2018 CINDA MOSES Ot Z87.01 PERSONAL HISTORY OF PNEUMONIA (RECURRENT 07/29/2018 CINDA MOSES Ot Z87.19 PERSONAL HISTORY OF OTHER DISEASES OF 07/29/2018 MARIANAGARRY CINDA Ot Z90.49 ACQUIRED ABSENCE OF OTHER SPECIFIED PART 07/29/2018 CINDA MOSES Ot Z90.710 ACQUIRED ABSENCE OF BOTH CERVIX AND UTER 07/29/2018 CINDA MOSES Ot Z91.14 PATIENT'S OTHER NONCOMPLIANCE WITH MEDIC 07/29/2018 CINDA MOSES Ot Z99.81 DEPENDENCE ON SUPPLEMENTAL OXYGEN 11/12/2018 AZ FISH MD Ot 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 11/12/2018 AZ FISH MD Ot I10 ESSENTIAL (PRIMARY) HYPERTENSION 11/12/2018 AZ FISH MD Ot I48 .0 PAROXYSMAL ATRIAL FIBRILLATION 11/12/2018 AZ FISH MD Ot I65.29 OCCLUSION AND STENOSIS OF UNSPECIFIED CA 11/12/2018 AZ FISH MD Ot K59.09 OTHER CONSTIPATION 11/12/2018 AZ FISH MD Ot R91 .1 SOLITARY PULMONARY NODULE 11/12/2018 AZ FISH MD Ot Z79.01 HALFWAY (CURRENT) USE OF ANTICOAGULANT 11/12/2018 AZ FISH MD Ot Z82.49 FAMILY HX OF ISCHEM HEART DIS AND OTH DI 11/12/2018 AZ FISH MD Ot Z87.01 PERSONAL HISTORY OF PNEUMONIA (RECURRENT 11/12/2018 AZ FISH MD Ot 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 11/12/2018 AZ FISH MD Ot I11 .0 HYPERTENSIVE HEART DISEASE WITH HEART FA 11/12/2018 AZ FISH MD Ot I48 .0 PAROXYSMAL ATRIAL FIBRILLATION 11/12/2018 AZ FISH MD Ot I50 .9 HEART FAILURE, UNSPECIFIED 11/12/2018 AZ FISH MD Ot I65.29 OCCLUSION AND STENOSIS OF UNSPECIFIED CA 11/12/2018 AZ FISH MD Ot K59.09 OTHER CONSTIPATION 11/12/2018 AZ FISH MD Ot R91 .1 SOLITARY PULMONARY NODULE 11/12/2018 ZA FISH MD Ot Z79.01 BRASS SORTER (CURRENT) USE OF ANTICOAGULANT 11/12/2018 AZ FISH MD Ot Z82.49 FAMILY HX OF ISCHEM HEART DIS AND OTH DI 11/12/2018 AZ FISH MD Ot Z87.01 PERSONAL HISTORY OF PNEUMONIA (RECURRENT 12/07/2018 JIAN STEPHENSON MD Ot I10 ESSENTIAL (PRIMARY) HYPERTENSION 12/07/2018 JIAN STEPHENSON MD Ot I48. 91 UNSPECIFIED ATRIAL FIBRILLATION 12/07/2018 JIAN STEPHENSON MD J Ot R00. 2 PALPITATIONS 12/07/2018 JIAN STEPHENSON MD J Ot R07. 9 CHEST PAIN, UNSPECIFIED 12/07/2018 JIAN STEPHENSON MD J Ot I10 ESSENTIAL (PRIMARY) HYPERTENSION 12/07/2018 JIAN STEPHENSON MD J Ot I48. 91 UNSPECIFIED ATRIAL FIBRILLATION 12/07/2018 JIAN STEPHENSON MD Ot R00. 2 PALPITATIONS 12/07/2018 JIAN STEPHENSON MD Ot R07. 9 CHEST PAIN, UNSPECIFIED 12/07/2018 JIAN STEPHENSON MD J Ot I10 ESSENTIAL (PRIMARY) HYPERTENSION 12/07/2018 JIAN STEPHENSON MD J Ot I48. 91 UNSPECIFIED ATRIAL FIBRILLATION 12/07/2018 JIAN STEPHENSON MD Ot R00. 2 PALPITATIONS 12/07/2018 JIAN STEPHENSON MD Ot R07. 9 CHEST PAIN, UNSPECIFIED 12/07/2018 JIAN STEPHENSON MD Ot I10 ESSENTIAL (PRIMARY) HYPERTENSION 12/07/2018 JIAN STEPHENSON MD Ot I48. 0 PAROXYSMAL ATRIAL FIBRILLATION 12/07/2018 JIAN STEPHENSON MD Ot K92. 2 GASTROINTESTINAL HEMORRHAGE, UNSPECIFIED 12/07/2018 JIAN STEPHENSON MD Ot R07. 9 CHEST PAIN, UNSPECIFIED 12/07/2018 JIAN STEPHENSON MD Ot Z79. 01 BRASS SORTER (CURRENT) USE OF ANTICOAGULANT 12/07/2018 JIAN STEPHENSON MD Ot Z82. 49 FAMILY HX OF ISCHEM HEART DIS AND OTH DI 12/07/2018 SELF GLADIS COX Ot M54.5 LOW BACK PAIN 12/07/2018 GLADIS FRANCIS MD Ot R07.9 CHEST PAIN, UNSPECIFIED 12/07/2018 GLADIS FRANCIS MD Ot R09.1 PLEURISY 01/09/2019 SELF GLADIS COX Ot M19.90 UNSPECIFIED OSTEOARTHRITIS, UNSPECIFIED 01/09/2019 TITO COX, GLADIS Ot M19.90 UNSPECIFIED OSTEOARTHRITIS, UNSPECIFIED 01/10/2019 SELF , GLADIS Ot M19.90 UNSPECIFIED OSTEOARTHRITIS, UNSPECIFIED 01/10/2019 SELF , GLADIS Ot M19.90 UNSPECIFIED OSTEOARTHRITIS, UNSPECIFIED 04/17/2019 JIAN STEPHENSON MD Ot I10 ESSENTIAL (PRIMARY) HYPERTENSION 04/17/2019 JIAN STEPHENSON MD Ot I48. 91 UNSPECIFIED ATRIAL FIBRILLATION 04/17/2019 JIAN STEPHENSON MD Ot R00. 2 PALPITATIONS 04/17/2019 JIAN STEPHENSON MD Ot R07. 9 CHEST PAIN, UNSPECIFIED 04/17/2019 JIAN STEPHENSON MD Ot I10 ESSENTIAL (PRIMARY) HYPERTENSION 04/17/2019 JIAN STEPHENSON MD Ot I48. 91 UNSPECIFIED ATRIAL FIBRILLATION 04/17/2019 JIAN STEPHENSON MD Ot R00. 2 PALPITATIONS 04/17/2019 JIAN STEPHENSON MD Ot R07. 9 CHEST PAIN, UNSPECIFIED 04/17/2019 JIAN STEPHENSON MD Ot I10 ESSENTIAL (PRIMARY) HYPERTENSION 04/17/2019 JIAN STEPHENSON MD Ot I48. 91 UNSPECIFIED ATRIAL FIBRILLATION 04/17/2019 JIAN STEPHENSON MD Ot R00. 2 PALPITATIONS 04/17/2019 JIAN STEPHENSON MD Ot R07. 9 CHEST PAIN, UNSPECIFIED 04/17/2019 JIAN STEPHENSON MD Ot I10 ESSENTIAL (PRIMARY) HYPERTENSION 04/17/2019 JIAN STEPHENSON MD Ot I48. 0 PAROXYSMAL ATRIAL FIBRILLATION 04/17/2019 JIAN STEPHENSON MD Ot K92. 2 GASTROINTESTINAL HEMORRHAGE, UNSPECIFIED 04/17/2019 JIAN STEPHENSON MD Ot R07. 9 CHEST PAIN, UNSPECIFIED 04/17/2019 JIAN STEPHENSON MD Ot Z79. 01 HALFWAY (CURRENT) USE OF ANTICOAGULANT 04/17/2019 JIAN STEPHENSON MD Ot Z82. 49 FAMILY HX OF ISCHEM HEART DIS AND OTH DI 04/17/2019 GLADIS FRANCIS MD Ot M54.5 LOW BACK PAIN 04/17/2019 GLADIS FRANCIS MD Ot R07.9 CHEST PAIN, UNSPECIFIED 04/17/2019 GLADIS FRANCIS MD Ot R09.1 PLEURISY 04/17/2019 GLADIS FRANCIS MD Ot M19.90 UNSPECIFIED OSTEOARTHRITIS, UNSPECIFIED 04/17/2019 SELF GLADIS COX Ot M81.0 AGE-RELATED OSTEOPOROSIS W/O CURRENT PAT 07/10/2019 SEEMA COX, JIAN Edwards Ot I10 ESSENTIAL (PRIMARY) HYPERTENSION 07/10/2019 SEEMA COX, JIAN Edwards Ot I48. 91 UNSPECIFIED ATRIAL FIBRILLATION 07/10/2019 SEEMA COX, JIAN J Ot R00. 2 PALPITATIONS 07/10/2019 SEEMA COX, JIAN J Ot R07. 9 CHEST PAIN, UNSPECIFIED 07/10/2019 SEEMA COX, JIAN J Ot I10 ESSENTIAL (PRIMARY) HYPERTENSION 07/10/2019 SEEMA COX, JIAN J Ot I48. 91 UNSPECIFIED ATRIAL FIBRILLATION 07/10/2019 SEEMA COX, JIAN J Ot R00. 2 PALPITATIONS 07/10/2019 SEEMA COX, JIAN Edwards Ot R07. 9 CHEST PAIN, UNSPECIFIED 07/10/2019 SEEMA COX, JIAN J Ot I10 ESSENTIAL (PRIMARY) HYPERTENSION 07/10/2019 SEEMA COX, JIAN J Ot I48. 91 UNSPECIFIED ATRIAL FIBRILLATION 07/10/2019 SEEMA COX, JIAN J Ot R00. 2 PALPITATIONS 07/10/2019 SEEMA COX, JIAN Edwards Ot R07. 9 CHEST PAIN, UNSPECIFIED 07/10/2019 SEEMA COX, JIAN J Ot I10 ESSENTIAL (PRIMARY) HYPERTENSION 07/10/2019 SEEMA COX, JIAN Edwards Ot I48. 0 PAROXYSMAL ATRIAL FIBRILLATION 07/10/2019 SEEMA COX, JIAN Edwards Ot K92. 2 GASTROINTESTINAL HEMORRHAGE, UNSPECIFIED 07/10/2019 JIAN STEPHENSON MD Ot R07. 9 CHEST PAIN, UNSPECIFIED 07/10/2019 SEEMA COX, JIAN Edwards Ot Z79. 01 HALFWAY (CURRENT) USE OF ANTICOAGULANT 07/10/2019 JIAN STEPHENSON MD Ot Z82. 49 FAMILY HX OF ISCHEM HEART DIS AND OTH DI 07/10/2019 GLADIS FRANCIS MD Ot M54.5 LOW BACK PAIN 07/10/2019 GLADIS FRANCIS MD Ot R07.9 CHEST PAIN, UNSPECIFIED 07/10/2019 GLADIS FRANCIS MD Ot R09.1 PLEURISY 07/10/2019 GLADIS FRANCIS MD Ot M19.90 UNSPECIFIED OSTEOARTHRITIS, UNSPECIFIED 07/10/2019 GLADIS FRANCIS MD Ot M81.0 AGE-RELATED OSTEOPOROSIS W/O CURRENT PAT 07/13/2019 ECTOR MENDOZA Ot M19.03 1 PRIMARY OSTEOARTHRITIS, RIGHT WRIST 07/13/2019 ECTOR MENDOZA Ot M19.03 1 PRIMARY OSTEOARTHRITIS, RIGHT WRIST 07/18/2019 SEEMA COX, BASGOOD J Ot I10 ESSENTIAL (PRIMARY) HYPERTENSION 07/18/2019 SEEMA COX, BASHAR J Ot I48. 91 UNSPECIFIED ATRIAL FIBRILLATION 07/18/2019 SEEMA COX, BASHAR J Ot R00. 2 PALPITATIONS 07/18/2019 SEEMA COX, JIAN J Ot R07. 9 CHEST PAIN, UNSPECIFIED 07/18/2019 SEEMA COX, BASHAR J Ot I10 ESSENTIAL (PRIMARY) HYPERTENSION 07/18/2019 SEEMA COX, BASHAR J Ot I48. 91 UNSPECIFIED ATRIAL FIBRILLATION 07/18/2019 JIAN STEPHENSON MD J Ot R00. 2 PALPITATIONS 07/18/2019 SEEMA COX, JIAN J Ot R07. 9 CHEST PAIN, UNSPECIFIED 07/18/2019 SEEMA COX, BASHAR J Ot I10 ESSENTIAL (PRIMARY) HYPERTENSION 07/18/2019 SEEMA COX, BASHAR J Ot I48. 91 UNSPECIFIED ATRIAL FIBRILLATION 07/18/2019 SEEMA COX, JIAN J Ot R00. 2 PALPITATIONS 07/18/2019 SEEMA COX, BASHAR J Ot R07. 9 CHEST PAIN, UNSPECIFIED 07/18/2019 SEEMA COX, BASHAR J Ot I10 ESSENTIAL (PRIMARY) HYPERTENSION 07/18/2019 SEEMA COX, JIAN J Ot I48. 0 PAROXYSMAL ATRIAL FIBRILLATION 07/18/2019 SEEMA COX, DAMIANHAR J Ot K92. 2 GASTROINTESTINAL HEMORRHAGE, UNSPECIFIED 07/18/2019 SEEMA COX, JIAN J Ot R07. 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 49 FAMILY HX OF ISCHEM HEART DIS AND OTH DI 07/18/2019 TITO COX, GLADIS Ot M54.5 LOW BACK PAIN 07/18/2019 GLADIS FRANCIS MD Ot R07.9 CHEST PAIN, UNSPECIFIED 07/18/2019 SELF GLADIS COX Ot R09.1 PLEURISY 07/18/2019 SELF GLADIS COX Ot M19.90 UNSPECIFIED OSTEOARTHRITIS, UNSPECIFIED 07/18/2019 SELF GLADIS COX Ot M81.0 AGE-RELATED OSTEOPOROSIS W/O CURRENT PAT 07/18/2019 ECTOR MENDOZA Ot M19.03 1 PRIMARY OSTEOARTHRITIS, RIGHT WRIST 07/20/2019 ECTOR MENDOZA Ot M19.03 1 PRIMARY OSTEOARTHRITIS, RIGHT WRIST Procedures There is no data. Results Test Result Range Complete blood count (CBC) with automate d white blood cell (WBC) differential - 03/16/16 05:25 Blood leukocytes automated count (number/volume) 4.5 10*3/uL 4.3-11.0 Blood erythrocytes automated count (number/volume) 4.41 10*6/uL 4.35-5.85 Venous blood hemoglobin measurement (mass/volume) 13.6 g/dL 11.5-16.0 Blood hematocrit (volume fraction) 40 % 35-52 Automated erythrocyte mean corpuscular volume 90 [ foz_us] 80-99 Automated erythrocyte mean corpuscular h emoglobin (mass per erythrocyte) 31 pg 25-34 Automated erythrocyte mean corpuscular h emoglobin concentration measurement (mass/volume) 34 g/dL 32-36 Automated erythrocyte distribution width ratio 11. 9 % 10.0- 14.5 Automated blood platelet count (count/volume) 159 10*3/uL 130-400 Automated blood platelet mean volume measurement 11.6 [foz_us] 7.4-10.4 Automated blood neutrophils/100 leukocytes 41 % 42-75 Automated blood lymphocytes/100 leukocytes 44 % 12-44 Blood monocytes/100 leukocytes 14 % 0-12 Automated blood eosinophils/100 leukocytes 1 % 0-10 Automated blood basophils/100 leukocytes 0 % 0-10 Blood neutrophils automated count (number/volume) 1.8 10*3 1.8-7.8 Blood lymphocytes automated count (number/volume) 2.0 10*3 1.0-4.0 Blood monocytes automated count (number/volume) 0. 6 10*3 0.0-1.0 Automated eosinophil count 0.1 10*3/uL 0 .0-0.3 Automated blood basophil count (count/volume) 0.0 10*3/uL 0.0-0.1 PT panel in platelet poor plasma by coag ulation assay - 03/16/16 05:25 Prothrombin time (PT) in platelet poor plasma by coagu lation assay 12.3 s 12.2-14.7 INR in platelet poor plasma or blood by coagulation as say 0.9 0.8-1.4 Activated partial thromboplastin time (a PTT) in platelet poor plasma bycoagulation assay - 03/16/16 05:25 Activated partial thromboplastin time (a PTT) in platelet poor plasma bycoagulation assay 32 s 24-35 Comprehensive metabolic panel - 03/16/16 05:25 Serum or plasma sodium measurement (moles/volume) 139 mmol/L 135-145 Serum or plasma potassium measurement (moles/volume) 3.8 mmol/L 3.6-5.0 Serum or plasma chloride measurement (moles/volume) 106 mmol/L 98-107 Carbon dioxide 23 mmol/L 21-32 Serum or plasma anion gap determination (moles/volume) 10 mmol/L 5-14 Serum or plasma urea nitrogen measurement (mass/volume ) 11 mg/dL 7-18 Serum or plasma creatinine measurement (mass/volume) 0.94 mg/dL 0.60-1.30 Serum or plasma urea nitrogen/creatinine mass ratio 12 NRG Serum or plasma creatinine measurement w ith calculation of estimated glomerular filtration rate 57 NRG Serum or plasma glucose measurement (mass/volume) 108 mg/dL 70-105 Serum or plasma calcium measurement (mass/volume) 9.2 mg/dL 8.5-10.1 Serum or plasma total bilirubin measurement (mass/volu me) 0.6 mg/dL 0.1-1.0 Serum or plasma alkaline phosphatase ranjith surement (enzymatic activity/volume) 66 U/L 40-136 Serum or plasma aspartate aminotransfera se measurement (enzymatic activity/volume) 16 U/L 5-34 Serum or plasma alanine aminotransferase measurement (enzymatic activity/volume) 8 U/L 0-55 Serum or plasma protein measurement (mass/volume) 7.1 g/dL 6.4-8.2 Serum or plasma albumin measurement (mass/volume) 4.4 g/dL 3.2-4.5 Magnesium - 03/16/16 05:25 Magnesium 2.2 mg/dL 1.8-2.4 Serum or plasma creatine kinase measurem ent (enzymatic activity/volume) - 03/16/16 05:25 Serum or plasma creatine kinase measurem ent (enzymatic activity/volume) 47 U/L 29-168 Serum or plasma lithium measurement (mol es/volume) - 03/16/16 05:25 BNP level 209.2 pg/mL <100.0 Serum or plasma creatine kinase MB measu rement (enzymatic activity/volume) - 03/16/16 05:25 Serum or plasma creatine kinase MB measu rement (enzymatic activity/volume) 0.7 ng/mL <6.6 Serum or plasma troponin i.cardiac measu rement (mass/volume) - 03/16/16 05:25 Serum or plasma troponin i.cardiac measurement (mass/v olume) < ng/mL <0.30 Serum or plasma thyrotropin measurement by detection limit <=0.05 miu/l (units/volume) - 03/16/16 05:25 Serum or plasma thyrotropin measurement by detection limit <=0.05 miu/l (units/volume) 3.08 u[iU]/mL 0.35-4.94 Complete blood count (CBC) with automate d white blood cell (WBC) differential - 08/09/17 01:44 Blood leukocytes automated count (number/volume) 4.6 10*3/uL 4.3-11.0 Blood erythrocytes automated count (number/volume) 3.98 10*6/uL 4.35-5.85 Venous blood hemoglobin measurement (mass/volume) 12.3 g/dL 11.5-16.0 Blood hematocrit (volume fraction) 36 % 35-52 Automated erythrocyte mean corpuscular volume 91 [ foz_us] 80-99 Automated erythrocyte mean corpuscular h emoglobin (mass per erythrocyte) 31 pg 25-34 Automated erythrocyte mean corpuscular h emoglobin concentration measurement (mass/volume) 34 g/dL 32-36 Automated erythrocyte distribution width ratio 12. 4 % 10.0- 14.5 Automated blood platelet count (count/volume) 150 10*3/uL 130-400 Automated blood platelet mean volume measurement 11.9 [foz_us] 7.4-10.4 Automated blood neutrophils/100 leukocytes 47 % 42-75 Automated blood lymphocytes/100 leukocytes 30 % 12-44 Blood monocytes/100 leukocytes 20 % 0-12 Automated blood eosinophils/100 leukocytes 2 % 0-10 Automated blood basophils/100 leukocytes 1 % 0-10 Blood neutrophils automated count (number/volume) 2.2 10*3 1.8-7.8 Blood lymphocytes automated count (number/volume) 1.4 10*3 1.0-4.0 Blood monocytes automated count (number/volume) 0. 9 10*3 0.0-1.0 Automated eosinophil count 0.1 10*3/uL 0 .0-0.3 Automated blood basophil count (count/volume) 0.0 10*3/uL 0.0-0.1 PT panel in platelet poor plasma by coag ulation assay - 08/09/17 01:44 Prothrombin time (PT) in platelet poor plasma by coagu lation assay 12.5 s 12.2-14.7 INR in platelet poor plasma or blood by coagulation as say 0.9 0.8-1.4 Activated partial thromboplastin time (a PTT) in platelet poor plasma bycoagulation assay - 08/09/17 01:44 Activated partial thromboplastin time (a PTT) in platelet poor plasma bycoagulation assay 34 s 24-35 Comprehensive metabolic panel - 08/09/17 01:44 Serum or plasma sodium measurement (moles/volume) 136 mmol/L 135-145 Serum or plasma potassium measurement (moles/volume) 4.3 mmol/L 3.6-5.0 Serum or plasma chloride measurement (moles/volume) 103 mmol/L 98-107 Carbon dioxide 25 mmol/L 21-32 Serum or plasma anion gap determination (moles/volume) 8 mmol/L 5-14 Serum or plasma urea nitrogen measurement (mass/volume ) 15 mg/dL 7-18 Serum or plasma creatinine measurement (mass/volume) 0.75 mg/dL 0.60-1.30 Serum or plasma urea nitrogen/creatinine mass ratio 20 NRG Serum or plasma creatinine measurement w ith calculation of estimated glomerular filtration rate > NRG Serum or plasma glucose measurement (mass/volume) 109 mg/dL 70-105 Serum or plasma calcium measurement (mass/volume) 9.3 mg/dL 8.5-10.1 Serum or plasma total bilirubin measurement (mass/volu me) 0.4 mg/dL 0.1-1.0 Serum or plasma alkaline phosphatase ranjith surement (enzymatic activity/volume) 86 U/L 40-136 Serum or plasma aspartate aminotransfera se measurement (enzymatic activity/volume) 15 U/L 5-34 Serum or plasma alanine aminotransferase measurement (enzymatic activity/volume) 10 U/L 0-55 Serum or plasma protein measurement (mass/volume) 7.1 g/dL 6.4-8.2 Serum or plasma albumin measurement (mass/volume) 4.1 g/dL 3.2-4.5 Serum or plasma creatine kinase measurem ent (enzymatic activity/volume) - 08/09/17 01:44 Serum or plasma creatine kinase measurem ent (enzymatic activity/volume) 28 U/L 29-168 Blood manual differential performed dete ction - 08/09/17 01:44 Blood monocytes/100 leukocytes 19 % NRG Manual blood segmented neutrophils/100 leukocytes 57 % NRG Blood band neutrophils/100 leukocytes 1 % NRG Manual blood lymphocytes/100 leukocytes 22 % NRG Manual eosinophils/100 leukocytes in nose 1 % NRG Blood erythrocyte morphology finding identification NORMAL NRG Serum or plasma lithium measurement (mol es/volume) - 08/09/17 01:44 BNP level 218.3 pg/mL <100.0 Serum or plasma creatine kinase MB measu rement (enzymatic activity/volume) - 08/09/17 01:44 Serum or plasma creatine kinase MB measu rement (enzymatic activity/volume) 0.5 ng/mL <6.6 Serum or plasma troponin i.cardiac measu rement (mass/volume) - 08/09/17 01:44 Serum or plasma troponin i.cardiac measurement (mass/v olume) < ng/mL <0.30 Serum or plasma thyrotropin measurement by detection limit <=0.05 miu/l (units/volume) - 08/09/17 01:44 Serum or plasma thyrotropin measurement by detection limit <=0.05 miu/l (units/volume) 4.76 u[iU]/mL 0.35-4.94 Complete blood count (CBC) with automate d white blood cell (WBC) differential - 02/12/18 09:20 Blood leukocytes automated count (number/volume) 4.1 10*3/uL 4.3-11.0 Blood erythrocytes automated count (number/volume) 4.37 10*6/uL 4.35-5.85 Venous blood hemoglobin measurement (mass/volume) 13.4 g/dL 11.5-16.0 Blood hematocrit (volume fraction) 40 % 35-52 Automated erythrocyte mean corpuscular volume 92 [ foz_us] 80-99 Automated erythrocyte mean corpuscular h emoglobin (mass per erythrocyte) 31 pg 25-34 Automated erythrocyte mean corpuscular h emoglobin concentration measurement (mass/volume) 33 g/dL 32-36 Automated erythrocyte distribution width ratio 12. 4 % 10.0- 14.5 Automated blood platelet count (count/volume) 140 10*3/uL 130-400 Automated blood platelet mean volume measurement 12.3 [foz_us] 7.4-10.4 Automated blood neutrophils/100 leukocytes 47 % 42-75 Automated blood lymphocytes/100 leukocytes 37 % 12-44 Blood monocytes/100 leukocytes 14 % 0-12 Automated blood eosinophils/100 leukocytes 2 % 0-10 Automated blood basophils/100 leukocytes 1 % 0-10 Blood neutrophils automated count (number/volume) 1.9 10*3 1.8-7.8 Blood lymphocytes automated count (number/volume) 1.5 10*3 1.0-4.0 Blood monocytes automated count (number/volume) 0. 6 10*3 0.0-1.0 Automated eosinophil count 0.1 10*3/uL 0 .0-0.3 Automated blood basophil count (count/volume) 0.0 10*3/uL 0.0-0.1 Comprehensive metabolic panel - 02/12/18 09:20 Serum or plasma sodium measurement (moles/volume) 133 mmol/L 135-145 Serum or plasma potassium measurement (moles/volume) 3.8 mmol/L 3.6-5.0 Serum or plasma chloride measurement (moles/volume) 100 mmol/L 98-107 Carbon dioxide 20 mmol/L 21-32 Serum or plasma anion gap determination (moles/volume) 13 mmol/L 5-14 Serum or plasma urea nitrogen measurement (mass/volume ) 16 mg/dL 7-18 Serum or plasma creatinine measurement (mass/volume) 0.83 mg/dL 0.60-1.30 Serum or plasma urea nitrogen/creatinine mass ratio 19 NRG Serum or plasma creatinine measurement w ith calculation of estimated glomerular filtration rate > NRG Serum or plasma glucose measurement (mass/volume) 137 mg/dL 70-105 Serum or plasma calcium measurement (mass/volume) 9.5 mg/dL 8.5-10.1 Serum or plasma total bilirubin measurement (mass/volu me) 0.5 mg/dL 0.1-1.0 Serum or plasma alkaline phosphatase ranjith surement (enzymatic activity/volume) 84 U/L 40-136 Serum or plasma aspartate aminotransfera se measurement (enzymatic activity/volume) 23 U/L 5-34 Serum or plasma alanine aminotransferase measurement (enzymatic activity/volume) 31 U/L 0-55 Serum or plasma protein measurement (mass/volume) 7.9 g/dL 6.4-8.2 Serum or plasma albumin measurement (mass/volume) 4.4 g/dL 3.2-4.5 CALCIUM CORRECTED 9.2 mg/dL 8.5-10.1 Serum or plasma troponin i.cardiac measu rement (mass/volume) - 02/12/18 09:20 Serum or plasma troponin i.cardiac measurement (mass/v olume) < ng/mL <0.30 Serum or plasma troponin i.cardiac measu rement (mass/volume) - 02/12/18 11:05 Serum or plasma troponin i.cardiac measurement (mass/v olume) < ng/mL <0.30 Complete blood count (CBC) with automate d white blood cell (WBC) differential - 02/13/18 06:31 Blood leukocytes automated count (number/volume) 3.4 10*3/uL 4.3-11.0 Blood erythrocytes automated count (number/volume) 3.68 10*6/uL 4.35-5.85 Venous blood hemoglobin measurement (mass/volume) 11.2 g/dL 11.5-16.0 Blood hematocrit (volume fraction) 34 % 35-52 Automated erythrocyte mean corpuscular volume 93 [ foz_us] 80-99 Automated erythrocyte mean corpuscular h emoglobin (mass per erythrocyte) 30 pg 25-34 Automated erythrocyte mean corpuscular h emoglobin concentration measurement (mass/volume) 33 g/dL 32-36 Automated erythrocyte distribution width ratio 12. 6 % 10.0- 14.5 Automated blood platelet count (count/volume) 116 10*3/uL 130-400 Automated blood platelet mean volume measurement 12.1 [foz_us] 7.4-10.4 Automated blood neutrophils/100 leukocytes 50 % 42-75 Automated blood lymphocytes/100 leukocytes 35 % 12-44 Blood monocytes/100 leukocytes 13 % 0-12 Automated blood eosinophils/100 leukocytes 2 % 0-10 Automated blood basophils/100 leukocytes 0 % 0-10 Blood neutrophils automated count (number/volume) 1.7 10*3 1.8-7.8 Blood lymphocytes automated count (number/volume) 1.2 10*3 1.0-4.0 Blood monocytes automated count (number/volume) 0. 5 10*3 0.0-1.0 Automated eosinophil count 0.1 10*3/uL 0 .0-0.3 Automated blood basophil count (count/volume) 0.0 10*3/uL 0.0-0.1 Comprehensive metabolic panel - 02/13/18 06:31 Serum or plasma sodium measurement (moles/volume) 141 mmol/L 135-145 Serum or plasma potassium measurement (moles/volume) 4.1 mmol/L 3.6-5.0 Serum or plasma chloride measurement (moles/volume) 110 mmol/L 98-107 Carbon dioxide 23 mmol/L 21-32 Serum or plasma anion gap determination (moles/volume) 8 mmol/L 5-14 Serum or plasma urea nitrogen measurement (mass/volume ) 13 mg/dL 7-18 Serum or plasma creatinine measurement (mass/volume) 0.72 mg/dL 0.60-1.30 Serum or plasma urea nitrogen/creatinine mass ratio 18 NRG Serum or plasma creatinine measurement w ith calculation of estimated glomerular filtration rate > NRG Serum or plasma glucose measurement (mass/volume) 87 mg/dL 70-105 Serum or plasma calcium measurement (mass/volume) 9.0 mg/dL 8.5-10.1 Serum or plasma total bilirubin measurement (mass/volu me) 0.6 mg/dL 0.1-1.0 Serum or plasma alkaline phosphatase ranjith surement (enzymatic activity/volume) 62 U/L 40-136 Serum or plasma aspartate aminotransfera se measurement (enzymatic activity/volume) 17 U/L 5-34 Serum or plasma alanine aminotransferase measurement (enzymatic activity/volume) 20 U/L 0-55 Serum or plasma protein measurement (mass/volume) 6.3 g/dL 6.4-8.2 Serum or plasma albumin measurement (mass/volume) 3.7 g/dL 3.2-4.5 CALCIUM CORRECTED 9.2 mg/dL 8.5-10.1 Serum or plasma troponin i.cardiac measu rement (mass/volume) - 02/13/18 06:31 Serum or plasma troponin i.cardiac measurement (mass/v olume) < ng/mL <0.30 THYROID STIMULATING HORMONE - 02/13/18 0 6:31 THYROID STIMULATING HORMONE 2.93 u[iU]/mL 0.35-4.94 Complete blood count (CBC) with automate d white blood cell (WBC) differential - 03/23/18 15:20 Blood leukocytes automated count (number/volume) 4.9 10*3/uL 4.3-11.0 Blood erythrocytes automated count (number/volume) 4.15 10*6/uL 4.35-5.85 Venous blood hemoglobin measurement (mass/volume) 12.6 g/dL 11.5-16.0 Blood hematocrit (volume fraction) 38 % 35-52 Automated erythrocyte mean corpuscular volume 92 [ foz_us] 80-99 Automated erythrocyte mean corpuscular h emoglobin (mass per erythrocyte) 30 pg 25-34 Automated erythrocyte mean corpuscular h emoglobin concentration measurement (mass/volume) 33 g/dL 32-36 Automated erythrocyte distribution width ratio 12. 2 % 10.0- 14.5 Automated blood platelet count (count/volume) 173 10*3/uL 130-400 Automated blood platelet mean volume measurement 12.0 [foz_us] 7.4-10.4 Automated blood neutrophils/100 leukocytes 61 % 42-75 Automated blood lymphocytes/100 leukocytes 22 % 12-44 Blood monocytes/100 leukocytes 15 % 0-12 Automated blood eosinophils/100 leukocytes 2 % 0-10 Automated blood basophils/100 leukocytes 0 % 0-10 Blood neutrophils automated count (number/volume) 3.0 10*3 1.8-7.8 Blood lymphocytes automated count (number/volume) 1.1 10*3 1.0-4.0 Blood monocytes automated count (number/volume) 0. 7 10*3 0.0-1.0 Automated eosinophil count 0.1 10*3/uL 0 .0-0.3 Automated blood basophil count (count/volume) 0.0 10*3/uL 0.0-0.1 Comprehensive metabolic panel - 03/23/18 15:20 Serum or plasma sodium measurement (moles/volume) 134 mmol/L 135-145 Serum or plasma potassium measurement (moles/volume) 4.5 mmol/L 3.6-5.0 Serum or plasma chloride measurement (moles/volume) 102 mmol/L 98-107 Carbon dioxide 22 mmol/L 21-32 Serum or plasma anion gap determination (moles/volume) 10 mmol/L 5-14 Serum or plasma urea nitrogen measurement (mass/volume ) 17 mg/dL 7-18 Serum or plasma creatinine measurement (mass/volume) 0.74 mg/dL 0.60-1.30 Serum or plasma urea nitrogen/creatinine mass ratio 23 NRG Serum or plasma creatinine measurement w ith calculation of estimated glomerular filtration rate > NRG Serum or plasma glucose measurement (mass/volume) 111 mg/dL 70-105 Serum or plasma calcium measurement (mass/volume) 9.9 mg/dL 8.5-10.1 Serum or plasma total bilirubin measurement (mass/volu me) 0.3 mg/dL 0.1-1.0 Serum or plasma alkaline phosphatase ranjith surement (enzymatic activity/volume) 95 U/L 40-136 Serum or plasma aspartate aminotransfera se measurement (enzymatic activity/volume) 18 U/L 5-34 Serum or plasma alanine aminotransferase measurement (enzymatic activity/volume) 12 U/L 0-55 Serum or plasma protein measurement (mass/volume) 8.0 g/dL 6.4-8.2 Serum or plasma albumin measurement (mass/volume) 4.3 g/dL 3.2-4.5 CALCIUM CORRECTED 9.7 mg/dL 8.5-10.1 Magnesium - 03/23/18 15:20 Magnesium 2.5 mg/dL 1.8-2.4 Serum or plasma troponin i.cardiac measu rement (mass/volume) - 03/23/18 15:20 Serum or plasma troponin i.cardiac measurement (mass/v olume) < ng/mL <0.30 Serum or plasma thyrotropin measurement by detection limit <=0.05 miu/l (units/volume) - 03/23/18 15:20 Serum or plasma thyrotropin measurement by detection limit <=0.05 miu/l (units/volume) 2.58 u[iU]/mL 0.35-4.94 Serum or plasma lithium measurement (mol es/volume) - 03/23/18 15:20 BNP level 65.7 pg/mL <100.0 Complete blood count (CBC) with automate d white blood cell (WBC) differential - 04/21/18 17:45 Blood leukocytes automated count (number/volume) 4.6 10*3/uL 4.3-11.0 Blood erythrocytes automated count (number/volume) 4.08 10*6/uL 4.35-5.85 Venous blood hemoglobin measurement (mass/volume) 12.3 g/dL 11.5-16.0 Blood hematocrit (volume fraction) 37 % 35-52 Automated erythrocyte mean corpuscular volume 91 [ foz_us] 80-99 Automated erythrocyte mean corpuscular h emoglobin (mass per erythrocyte) 30 pg 25-34 Automated erythrocyte mean corpuscular h emoglobin concentration measurement (mass/volume) 33 g/dL 32-36 Automated erythrocyte distribution width ratio 12. 3 % 10.0- 14.5 Automated blood platelet count (count/volume) 141 10*3/uL 130-400 Automated blood platelet mean volume measurement 11.8 [foz_us] 7.4-10.4 Automated blood neutrophils/100 leukocytes 58 % 42-75 Automated blood lymphocytes/100 leukocytes 28 % 12-44 Blood monocytes/100 leukocytes 12 % 0-12 Automated blood eosinophils/100 leukocytes 2 % 0-10 Automated blood basophils/100 leukocytes 0 % 0-10 Blood neutrophils automated count (number/volume) 2.7 10*3 1.8-7.8 Blood lymphocytes automated count (number/volume) 1.3 10*3 1.0-4.0 Blood monocytes automated count (number/volume) 0. 5 10*3 0.0-1.0 Automated eosinophil count 0.1 10*3/uL 0 .0-0.3 Automated blood basophil count (count/volume) 0.0 10*3/uL 0.0-0.1 Comprehensive metabolic panel - 04/21/18 17:45 Serum or plasma sodium measurement (moles/volume) 134 mmol/L 135-145 Serum or plasma potassium measurement (moles/volume) 4.2 mmol/L 3.6-5.0 Serum or plasma chloride measurement (moles/volume) 102 mmol/L 98-107 Carbon dioxide 22 mmol/L 21-32 Serum or plasma anion gap determination (moles/volume) 10 mmol/L 5-14 Serum or plasma urea nitrogen measurement (mass/volume ) 18 mg/dL 7-18 Serum or plasma creatinine measurement (mass/volume) 0.75 mg/dL 0.60-1.30 Serum or plasma urea nitrogen/creatinine mass ratio 24 NRG Serum or plasma creatinine measurement w ith calculation of estimated glomerular filtration rate > NRG Serum or plasma glucose measurement (mass/volume) 116 mg/dL 70-105 Serum or plasma calcium measurement (mass/volume) 9.1 mg/dL 8.5-10.1 Serum or plasma total bilirubin measurement (mass/volu me) 0.3 mg/dL 0.1-1.0 Serum or plasma alkaline phosphatase ranjith surement (enzymatic activity/volume) 85 U/L 40-136 Serum or plasma aspartate aminotransfera se measurement (enzymatic activity/volume) 19 U/L 5-34 Serum or plasma alanine aminotransferase measurement (enzymatic activity/volume) 12 U/L 0-55 Serum or plasma protein measurement (mass/volume) 7.1 g/dL 6.4-8.2 Serum or plasma albumin measurement (mass/volume) 4.1 g/dL 3.2-4.5 CALCIUM CORRECTED 9.0 mg/dL 8.5-10.1 THYROID STIMULATING HORMONE - 04/21/18 1 7:45 THYROID STIMULATING HORMONE 3.86 u[iU]/mL 0.35-4.94 LIPID PANEL - 07/18/18 08:00 CHOLESTEROL, TOTAL 220 mg/dL <200 HDL CHOLESTEROL 71 mg/dL >50 TRIGLYCERIDES 92 mg/dL <150 LDL-CHOLESTEROL 129 mg/dL (calc) NRG CHOL/HDLC RATIO 3.1 (calc) <5.0 NON HDL CHOLESTEROL 149 mg/dL (calc) <13 0 CMP - 07/18/18 08:00 GLUCOSE 93 mg/dL 65-99 UREA NITROGEN (BUN) 19 mg/dL 7-25 CREATININE 0.79 mg/dL 0.60-0.88 eGFR NON-AFR. BELGIAN 69 mL/min/1.73m2 > OR = 60 eGFR 80 mL/min/1.73m2 > OR = 60 BUN/CREATININE RATIO NOT APPLICABLE (calc) 6-22 SODIUM 139 mmol/L 135-146 POTASSIUM 4.0 mmol/L 3.5-5.3 CHLORIDE 103 mmol/L 98-110 CARBON DIOXIDE 28 mmol/L 20-32 CALCIUM 9.5 mg/dL 8.6-10.4 PROTEIN, TOTAL 7.6 g/dL 6.1-8.1 ALBUMIN 4.5 g/dL 3.6-5.1 GLOBULIN 3.1 g/dL (calc) 1.9-3.7 ALBUMIN/GLOBULIN RATIO 1.5 (calc) 1.0-2. 5 BILIRUBIN, TOTAL 0.6 mg/dL 0.2-1.2 ALKALINE PHOSPHATASE 85 U/L 33-130 AST 15 U/L 10-35 ALT 8 U/L 6-29 PT/INR - 07/18/18 08:00 INR 1.0 NRG PT 10.3 sec 9.0-11.5 Complete blood count (CBC) with automate d white blood cell (WBC) differential - 07/29/18 11:41 Blood leukocytes automated count (number/volume) 5.8 10*3/uL 4.3-11.0 Blood erythrocytes automated count (number/volume) 4.31 10*6/uL 4.35-5.85 Venous blood hemoglobin measurement (mass/volume) 13.1 g/dL 11.5-16.0 Blood hematocrit (volume fraction) 40 % 35-52 Automated erythrocyte mean corpuscular volume 92 [ foz_us] 80-99 Automated erythrocyte mean corpuscular h emoglobin (mass per erythrocyte) 30 pg 25-34 Automated erythrocyte mean corpuscular h emoglobin concentration measurement (mass/volume) 33 g/dL 32-36 Automated erythrocyte distribution width ratio 12. 4 % 10.0- 14.5 Automated blood platelet count (count/volume) 167 10*3/uL 130-400 Automated blood platelet mean volume measurement 10.8 [foz_us] 7.4-10.4 Automated blood neutrophils/100 leukocytes 66 % 42-75 Automated blood lymphocytes/100 leukocytes 17 % 12-44 Blood monocytes/100 leukocytes 15 % 0-12 Automated blood eosinophils/100 leukocytes 1 % 0-10 Automated blood basophils/100 leukocytes 0 % 0-10 Blood neutrophils automated count (number/volume) 3.9 10*3 1.8-7.8 Blood lymphocytes automated count (number/volume) 1.0 10*3 1.0-4.0 Blood monocytes automated count (number/volume) 0. 9 10*3 0.0-1.0 Automated eosinophil count 0.1 10*3/uL 0 .0-0.3 Automated blood basophil count (count/volume) 0.0 10*3/uL 0.0-0.1 PT panel in platelet poor plasma by coag ulation assay - 07/29/18 11:41 Prothrombin time (PT) in platelet poor plasma by coagu lation assay 13.4 s 12.2-14.7 INR in platelet poor plasma or blood by coagulation as say 1.0 0.8-1.4 Activated partial thromboplastin time (a PTT) in platelet poor plasma bycoagulation assay - 07/29/18 11:41 Activated partial thromboplastin time (a PTT) in platelet poor plasma bycoagulation assay 36 s 24-35 Comprehensive metabolic panel - 07/29/18 11:41 Serum or plasma sodium measurement (moles/volume) 138 mmol/L 135-145 Serum or plasma potassium measurement (moles/volume) 4.1 mmol/L 3.6-5.0 Serum or plasma chloride measurement (moles/volume) 103 mmol/L 98-107 Carbon dioxide 23 mmol/L 21-32 Serum or plasma anion gap determination (moles/volume) 12 mmol/L 5-14 Serum or plasma urea nitrogen measurement (mass/volume ) 12 mg/dL 7-18 Serum or plasma creatinine measurement (mass/volume) 0.84 mg/dL 0.60-1.30 Serum or plasma urea nitrogen/creatinine mass ratio 14 NRG Serum or plasma creatinine measurement w ith calculation of estimated glomerular filtration rate > NRG Serum or plasma glucose measurement (mass/volume) 105 mg/dL 70-105 Serum or plasma calcium measurement (mass/volume) 10.1 mg/dL 8.5-10.1 Serum or plasma total bilirubin measurement (mass/volu me) 0.3 mg/dL 0.1-1.0 Serum or plasma alkaline phosphatase ranjith surement (enzymatic activity/volume) 105 U/L 40-136 Serum or plasma aspartate aminotransfera se measurement (enzymatic activity/volume) 14 U/L 5-34 Serum or plasma alanine aminotransferase measurement (enzymatic activity/volume) 12 U/L 0-55 Serum or plasma protein measurement (mass/volume) 8.1 g/dL 6.4-8.2 Serum or plasma albumin measurement (mass/volume) 4.4 g/dL 3.2-4.5 CALCIUM CORRECTED 9.8 mg/dL 8.5-10.1 Magnesium - 07/29/18 11:41 Magnesium 2.2 mg/dL 1.8-2.4 Serum or plasma troponin i.cardiac measu rement (mass/volume) - 07/29/18 11:41 Serum or plasma troponin i.cardiac measurement (mass/v olume) < ng/mL <0.028 Myoglobin, serum - 07/29/18 11:41 Myoglobin, serum 22.9 ng/mL 10.0-92.0 Serum or plasma amylase measurement (enz ymatic activity/volume) - 07/29/18 11:41 Serum or plasma amylase measurement (enzymatic activit y/volume) 34 U/L 25-125 Lipase - 07/29/18 11:41 Lipase 27 U/L 8-78 Serum or plasma lithium measurement (mol es/volume) - 07/29/18 11:41 BNP level 118.7 pg/mL <100.0 Fibrin D-dimer FEU measurement in platel et poor plasma (mass/volume) - 07/29/18 11:41 Fibrin D-dimer FEU measurement in platelet poor plasma (mass/volume) < ug/mL 0.00-0.49 Complete urinalysis with reflex to cultu re - 07/29/18 12:36 Urine color determination YELLOW NRG Urine clarity determination CLEAR NR G Urine pH measurement by test strip 5 5-9 Specific gravity of urine by test strip 1.010 1.016-1.022 Urine protein assay by test strip, semi-quantitative NEGATIVE NEGATIVE Urine glucose detection by automated test strip NE GATIVE NEGATIVE Erythrocytes detection in urine sediment by light micr oscopy 2+ NEGATIVE Urine ketones detection by automated test strip NE GATIVE NEGATIVE Urine nitrite detection by test strip NEGATIVE NEGATIVE Urine total bilirubin detection by test strip NEGA TIVE NEGATIVE Urine urobilinogen measurement by automated test strip (mass/volume) NORMAL NORMAL Urine leukocyte esterase detection by dipstick 3+ NEGATIVE Automated urine sediment erythrocyte cou nt by microscopy (number/high power field) [HPF] NRG Automated urine sediment leukocyte count by microscopy (number/high power field) > [HPF] NRG Bacteria detection in urine sediment by light microsco py MODERATE NRG Squamous epithelial cells detection in u rine sediment by light microscopy 0-2 NRG Crystals detection in urine sediment by light microsco py NONE NRG Casts detection in urine sediment by light microscopy NONE NRG Mucus detection in urine sediment by light microscopy NEGATIVE NRG Complete urinalysis with reflex to culture YES NRG Bacterial urine culture - 07/29/18 12:36 Bacterial urine culture [id number] NRG COLONY COUNT >100,000/ML NRG FTX;REPORTABLE SUSCEPTIBILITY REPORT RCD 07/31 09:0 5 NRG FREE TEXT ENTRY 3 ORGANISM ID REPORT D 07/30 14:0 5 NRG RML Sensitivity Panel - 07/29/18 12:36 Gentamicin susceptibility test by minimum inhibitory c oncentration <= NRG Trimethoprim/sulfamethoxazole susceptibi lity test by minimum inhibitoryconcentration <= NRG Levofloxacin susceptibility test by minimum inhibitory concentration <= NRG Ampicillin susceptibility test by minimum inhibitory c oncentration <= NRG Cefazolin susceptibility test by minimum inhibitory co ncentration <= NRG Ceftriaxone susceptibility test by minimum inhibitory concentration <= NRG Ciprofloxacin susceptibility test by minimum inhibitor y concentration <= NRG Meropenem susceptibility test by minimum inhibitory co ncentration <= NRG Nitrofurantoin susceptibility test by mi nimum inhibitory concentration <= NRG Amoxicillin and clavulanate potassium susc BRADLEY <= NRG UA W/ MICROSCOPY - 08/08/18 12:22 COLOR YELLOW YELLOW APPEARANCE CLEAR CLEAR SPECIFIC GRAVITY 1.009 1.001-1.035 PH 6.5 5.0-8.0 GLUCOSE NEGATIVE NEGATIVE BILIRUBIN NEGATIVE NEGATIVE KETONES NEGATIVE NEGATIVE OCCULT BLOOD NEGATIVE NEGATIVE PROTEIN NEGATIVE NEGATIVE NITRITE NEGATIVE NEGATIVE LEUKOCYTE ESTERASE NEGATIVE NEGATIVE WBC 0-5 /HPF < OR = 5 RBC NONE SEEN /HPF < OR = 2 SQUAMOUS EPITHELIAL CELLS 10-20 /HPF < O R = 5 BACTERIA FEW /HPF NONE SEEN HYALINE CAST NONE SEEN /LPF NONE SEEN YEAST MODERATE /HPF NONE SEEN Complete blood count (CBC) with automate d white blood cell (WBC) differential - 11/11/18 01:55 Blood leukocytes automated count (number/volume) 5.2 10*3/uL 4.3-11.0 Blood erythrocytes automated count (number/volume) 4.40 10*6/uL 4.35-5.85 Venous blood hemoglobin measurement (mass/volume) 13.0 g/dL 11.5-16.0 Blood hematocrit (volume fraction) 40 % 35-52 Automated erythrocyte mean corpuscular volume 91 [ foz_us] 80-99 Automated erythrocyte mean corpuscular h emoglobin (mass per erythrocyte) 30 pg 25-34 Automated erythrocyte mean corpuscular h emoglobin concentration measurement (mass/volume) 33 g/dL 32-36 Automated erythrocyte distribution width ratio 13. 1 % 10.0- 14.5 Automated blood platelet count (count/volume) 140 10*3/uL 130-400 Automated blood platelet mean volume measurement 11.3 [[facility]] 7.4-10.4 Automated blood neutrophils/100 leukocytes 45 % 42-75 Automated blood lymphocytes/100 leukocytes 33 % 12-44 Blood monocytes/100 leukocytes 21 % 0-12 Automated blood eosinophils/100 leukocytes 1 % 0-10 Automated blood basophils/100 leukocytes 0 % 0-10 Blood neutrophils automated count (number/volume) 2.3 10*3 1.8-7.8 Blood lymphocytes automated count (number/volume) 1.7 10*3 1.0-4.0 Blood monocytes automated count (number/volume) 1. 1 10*3 0.0-1.0 Automated eosinophil count 0.1 10*3/uL 0 .0-0.3 Automated blood basophil count (count/volume) 0.0 10*3/uL 0.0-0.1 PT panel in platelet poor plasma by coag ulation assay - 11/11/18 01:55 Prothrombin time (PT) in platelet poor plasma by coagu lation assay 13.2 s 12.2-14.7 INR in platelet poor plasma or blood by coagulation as say 1.0 0.8-1.4 Activated partial thromboplastin time (a PTT) in platelet poor plasma bycoagulation assay - 11/11/18 01:55 Activated partial thromboplastin time (a PTT) in platelet poor plasma bycoagulation assay 36 s 24-35 Comprehensive metabolic panel - 11/11/18 01:55 Serum or plasma sodium measurement (moles/volume) 139 mmol/L 135-145 Serum or plasma potassium measurement (moles/volume) 4.3 mmol/L 3.6-5.0 Serum or plasma chloride measurement (moles/volume) 102 mmol/L 98-107 Carbon dioxide 25 mmol/L 21-32 Serum or plasma anion gap determination (moles/volume) 12 mmol/L 5-14 Serum or plasma urea nitrogen measurement (mass/volume ) 20 mg/dL 7-18 Serum or plasma creatinine measurement (mass/volume) 0.86 mg/dL 0.60-1.30 Serum or plasma urea nitrogen/creatinine mass ratio 23 NRG Serum or plasma creatinine measurement w ith calculation of estimated glomerular filtration rate > NRG Serum or plasma glucose measurement (mass/volume) 103 mg/dL 70-105 Serum or plasma calcium measurement (mass/volume) 10.1 mg/dL 8.5-10.1 Serum or plasma total bilirubin measurement (mass/volu me) 0.3 mg/dL 0.1-1.0 Serum or plasma alkaline phosphatase ranjith surement (enzymatic activity/volume) 102 U/L 40-136 Serum or plasma aspartate aminotransfera se measurement (enzymatic activity/volume) 17 U/L 5-34 Serum or plasma alanine aminotransferase measurement (enzymatic activity/volume) 9 U/L 0-55 Serum or plasma protein measurement (mass/volume) 7.9 g/dL 6.4-8.2 Serum or plasma albumin measurement (mass/volume) 4.3 g/dL 3.2-4.5 CALCIUM CORRECTED 9.9 mg/dL 8.5-10.1 Magnesium - 11/11/18 01:55 Magnesium 2.3 mg/dL 1.8-2.4 Manual absolute plasma cell count - 10/18 10/05 01:55 Blood monocytes/100 leukocytes 20 % NRG Manual blood segmented neutrophils/100 leukocytes 41 % NRG Blood band neutrophils/100 leukocytes 4 % NRG Manual blood lymphocytes/100 leukocytes 35 % NRG Blood erythrocyte morphology finding identification NORMAL NRG Manual blood nucleated erythrocytes/100 leukocytes ratio 1 NRG Serum or plasma troponin i.cardiac measu rement (mass/volume) - 11/11/18 01:55 Serum or plasma troponin i.cardiac measurement (mass/v olume) < ng/mL <0.028 Myoglobin, serum - 11/11/18 01:55 Myoglobin, serum 25.5 ng/mL 10.0-92.0 Serum or plasma lithium measurement (mol es/volume) - 11/11/18 01:55 BNP PT 269.3 pg/mL <100.0 Serum or plasma thyrotropin measurement by detection limit <=0.05 miu/l (units/volume) - 11/11/18 01:55 Serum or plasma thyrotropin measurement by detection limit <=0.05 miu/l (units/volume) 4.77 u[iU]/mL 0.35-4.94 Complete urinalysis with reflex to cultu re - 11/11/18 02:22 Urine color determination YELLOW NRG Urine clarity determination CLEAR NR G Urine pH measurement by test strip 7 5-9 Specific gravity of urine by test strip 1.010 1.016-1.022 Urine protein assay by test strip, semi-quantitative NEGATIVE NEGATIVE Urine glucose detection by automated test strip NE GATIVE NEGATIVE Erythrocytes detection in urine sediment by light micr oscopy NEGATIVE NEGATIVE Urine ketones detection by automated test strip NE GATIVE NEGATIVE Urine nitrite detection by test strip NEGATIVE NEGATIVE Urine total bilirubin detection by test strip NEGA TIVE NEGATIVE Urine urobilinogen measurement by automated test strip (mass/volume) NORMAL NORMAL Urine leukocyte esterase detection by dipstick NEG ATIVE NEGATIVE Automated urine sediment erythrocyte cou nt by microscopy (number/high power field) NONE NRG Automated urine sediment leukocyte count by microscopy (number/high power field) NONE NRG Bacteria detection in urine sediment by light microsco py NEGATIVE NRG Squamous epithelial cells detection in u rine sediment by light microscopy RARE NRG Crystals detection in urine sediment by light microsco py NONE NRG Casts detection in urine sediment by light microscopy NONE NRG Mucus detection in urine sediment by light microscopy NEGATIVE NRG Complete urinalysis with reflex to culture NO NRG Serum or plasma troponin i.cardiac measu rement (mass/volume) - 11/11/18 04:00 Serum or plasma troponin i.cardiac measurement (mass/v olume) < ng/mL <0.028 Complete blood count (CBC) with automate d white blood cell (WBC) differential - 11/12/18 03:27 Blood leukocytes automated count (number/volume) 5.4 10*3/uL 4.3-11.0 Blood erythrocytes automated count (number/volume) 3.72 10*6/uL 4.35-5.85 Venous blood hemoglobin measurement (mass/volume) 11.0 g/dL 11.5-16.0 Blood hematocrit (volume fraction) 34 % 35-52 Automated erythrocyte mean corpuscular volume 92 [ foz_us] 80-99 Automated erythrocyte mean corpuscular h emoglobin (mass per erythrocyte) 30 pg 25-34 Automated erythrocyte mean corpuscular h emoglobin concentration measurement (mass/volume) 32 g/dL 32-36 Automated erythrocyte distribution width ratio 13. 5 % 10.0- 14.5 Automated blood platelet count (count/volume) 123 10*3/uL 130-400 Automated blood platelet mean volume measurement 11.9 [foz_us] 7.4-10.4 Automated blood neutrophils/100 leukocytes 49 % 42-75 Automated blood lymphocytes/100 leukocytes 34 % 12-44 Blood monocytes/100 leukocytes 17 % 0-12 Automated blood eosinophils/100 leukocytes 1 % 0-10 Automated blood basophils/100 leukocytes 0 % 0-10 Blood neutrophils automated count (number/volume) 2.6 10*3 1.8-7.8 Blood lymphocytes automated count (number/volume) 1.8 10*3 1.0-4.0 Blood monocytes automated count (number/volume) 0. 9 10*3 0.0-1.0 Automated eosinophil count 0.1 10*3/uL 0 .0-0.3 Automated blood basophil count (count/volume) 0.0 10*3/uL 0.0-0.1 Whole blood basic metabolic panel - 10/18 11/04 03:27 Serum or plasma sodium measurement (moles/volume) 139 mmol/L 135-145 Serum or plasma potassium measurement (moles/volume) 3.7 mmol/L 3.6-5.0 Serum or plasma chloride measurement (moles/volume) 106 mmol/L 98-107 Carbon dioxide 23 mmol/L 21-32 Serum or plasma anion gap determination (moles/volume) 10 mmol/L 5-14 Serum or plasma urea nitrogen measurement (mass/volume ) 20 mg/dL 7-18 Serum or plasma creatinine measurement (mass/volume) 0.82 mg/dL 0.60-1.30 Serum or plasma urea nitrogen/creatinine mass ratio 24 NRG Serum or plasma creatinine measurement w ith calculation of estimated glomerular filtration rate > NRG Serum or plasma glucose measurement (mass/volume) 86 mg/dL 70-105 Serum or plasma calcium measurement (mass/volume) 8.8 mg/dL 8.5-10.1 Serum or plasma phosphate measurement (m ass/volume) - 11/12/18 03:27 Serum or plasma phosphate measurement (mass/volume) 3.2 mg/dL 2.3-4.7 Magnesium - 11/12/18 03:27 Magnesium 1.8 mg/dL 1.8-2.4 Lipid 1996 panel - 11/12/18 03:27 Serum or plasma triglyceride measurement (mass/volume) 71 mg/dL <150 Serum or plasma cholesterol measurement (mass/volume) 160 mg/dL < 200 Serum or plasma cholesterol in HDL measurement (mass/v olume) 51 mg/dL 40-60 Cholesterol in LDL [mass/volume] in serum or plasma by direct assay 105 mg/dL 1-129 Serum or plasma cholesterol in VLDL measurement (mass/ volume) 14 mg/dL 5-40 [facility] - 01/03/19 16:49 GLUCOSE 116 mg/dL 65-99 UREA NITROGEN (BUN) 19 mg/dL 7-25 CREATININE 0.86 mg/dL 0.60-0.88 eGFR NON-AFR. BELGIAN 62 mL/min/1.73m2 > OR = 60 eGFR 72 mL/min/1.73m2 > OR = 60 BUN/CREATININE RATIO NOT APPLICABLE (calc) 6-22 SODIUM 139 mmol/L 135-146 POTASSIUM 4.2 mmol/L 3.5-5.3 CHLORIDE 103 mmol/L 98-110 CARBON DIOXIDE 26 mmol/L 20-32 CALCIUM 9.3 mg/dL 8.6-10.4 PROTEIN, TOTAL 7.5 g/dL 6.1-8.1 ALBUMIN 4.3 g/dL 3.6-5.1 GLOBULIN 3.2 g/dL (calc) 1.9-3.7 ALBUMIN/GLOBULIN RATIO 1.3 (calc) 1.0-2. 5 BILIRUBIN, TOTAL 0.5 mg/dL 0.2-1.2 ALKALINE PHOSPHATASE 93 U/L 33-130 AST 14 U/L 10-35 ALT 7 U/L 6-29 VITAMIN D, 25-H - 01/03/19 16:49 VITAMIN D,25-OH,TOTAL,IA 31 ng/mL 30-10 0 [facility] - 07/10/19 16:04 GLUCOSE 102 mg/dL 65-139 UREA NITROGEN (BUN) 22 mg/dL 7-25 CREATININE 0.84 mg/dL 0.60-0.88 eGFR NON-AFR. BELGIAN 64 mL/min/1.73m2 > OR = 60 eGFR 74 mL/min/1.73m2 > OR = 60 BUN/CREATININE RATIO NOT APPLICABLE (calc) 6-22 SODIUM 137 mmol/L 135-146 POTASSIUM 4.5 mmol/L 3.5-5.3 CHLORIDE 103 mmol/L 98-110 CARBON DIOXIDE 26 mmol/L 20-32 CALCIUM 9.5 mg/dL 8.6-10.4 PROTEIN, TOTAL 7.4 g/dL 6.1-8.1 ALBUMIN 4.1 g/dL 3.6-5.1 GLOBULIN 3.3 g/dL (calc) 1.9-3.7 ALBUMIN/GLOBULIN RATIO 1.2 (calc) 1.0-2. 5 BILIRUBIN, TOTAL 0.5 mg/dL 0.2-1.2 ALKALINE PHOSPHATASE 83 U/L 37-153 AST 13 U/L 10-35 ALT 8 U/L 6-29 URIC ACID, SERUM - 07/10/19 16:04 URIC ACID 3.4 mg/dL 2.5-7.0 ESR/SED RATE - 07/10/19 16:04 SED RATE BY MODIFIED WESTERGREN 19 mm/h < OR = 30 RA (RHEUMATOID) FACTOR - 07/10/19 16:04 RHEUMATOID FACTOR 15 IU/mL <14 [facility] - 07/10/19 16:04 AUDREY SCREEN, IFA NEGATIVE NEGATIVE Complete blood count (CBC) with automate d white blood cell (WBC) differential - 10/18/19 20:25 Blood leukocytes automated count (number/volume) 5.3 10*3/uL 4.3-11.0 Blood erythrocytes automated count (number/volume) 4.37 10*6/uL 4.35-5.85 Venous blood hemoglobin measurement (mass/volume) 12.9 g/dL 11.5-16.0 Blood hematocrit (volume fraction) 39 % 35-52 Automated erythrocyte mean corpuscular volume 89 [ foz_us] 80-99 Automated erythrocyte mean corpuscular h emoglobin (mass per erythrocyte) 30 pg 25-34 Automated erythrocyte mean corpuscular h emoglobin concentration measurement (mass/volume) 33 g/dL 32-36 Automated erythrocyte distribution width ratio 13. 2 % 10.0- 14.5 Automated blood platelet count (count/volume) 168 10*3/uL 130-400 Automated blood platelet mean volume measurement 11.4 [foz_us] 7.4-10.4 Automated blood neutrophils/100 leukocytes 57 % 42-75 Automated blood lymphocytes/100 leukocytes 26 % 12-44 Blood monocytes/100 leukocytes 15 % 0-12 Automated blood eosinophils/100 leukocytes 1 % 0-10 Automated blood basophils/100 leukocytes 0 % 0-10 Blood neutrophils automated count (number/volume) 3.0 10*3 1.8-7.8 Blood lymphocytes automated count (number/volume) 1.4 10*3 1.0-4.0 Blood monocytes automated count (number/volume) 0. 8 10*3 0.0-1.0 Automated eosinophil count 0.1 10*3/uL 0 .0-0.3 Automated blood basophil count (count/volume) 0.0 10*3/uL 0.0-0.1 PT panel in platelet poor plasma by coag ulation assay - 10/18/19 20:25 Prothrombin time (PT) in platelet poor plasma by coagu lation assay 14.7 s 12.2-14.7 INR in platelet poor plasma or blood by coagulation as say 1.1 0.8-1.4 Activated partial thromboplastin time (a PTT) in platelet poor plasma bycoagulation assay - 10/18/19 20:25 Activated partial thromboplastin time (a PTT) in platelet poor plasma bycoagulation assay 43 s 24-35 Magnesium - 10/18/19 20:25 Magnesium 2.5 mg/dL 1.6-2.4 Comprehensive metabolic panel - 10/18/19 20:25 Serum or plasma sodium measurement (moles/volume) 134 mmol/L 135-145 Serum or plasma potassium measurement (moles/volume) 3.9 mmol/L 3.6-5.0 Serum or plasma chloride measurement (moles/volume) 103 mmol/L 98-107 Carbon dioxide 21 mmol/L 21-32 Serum or plasma anion gap determination (moles/volume) 10 mmol/L 5-14 Serum or plasma urea nitrogen measurement (mass/volume ) 17 mg/dL 7-18 Serum or plasma creatinine measurement (mass/volume) 0.76 mg/dL 0.60-1.30 Serum or plasma urea nitrogen/creatinine mass ratio 22 NRG Serum or plasma creatinine measurement w ith calculation of estimated glomerular filtration rate > NRG Serum or plasma glucose measurement (mass/volume) 111 mg/dL 70-105 Serum or plasma calcium measurement (mass/volume) 9.0 mg/dL 8.5-10.1 Serum or plasma total bilirubin measurement (mass/volu me) 0.4 mg/dL 0.1-1.0 Serum or plasma alkaline phosphatase ranjith surement (enzymatic activity/volume) 89 U/L 40-136 Serum or plasma aspartate aminotransfera se measurement (enzymatic activity/volume) 17 U/L 5-34 Serum or plasma alanine aminotransferase measurement (enzymatic activity/volume) 9 U/L 0-55 Serum or plasma protein measurement (mass/volume) 7.8 g/dL 6.4-8.2 Serum or plasma albumin measurement (mass/volume) 4.1 g/dL 3.2-4.5 CALCIUM CORRECTED 8.9 mg/dL 8.5-10.1 Serum or plasma creatine kinase measurem ent (enzymatic activity/volume) - 10/18/19 20:25 Serum or plasma creatine kinase measurem ent (enzymatic activity/volume) 34 U/L 29-168 Serum or plasma creatine kinase MB measu rement (enzymatic activity/volume) - 10/18/19 20:25 Serum or plasma creatine kinase MB measu rement (enzymatic activity/volume) 0.7 ng/mL <6.6 Myoglobin, serum - 10/18/19 20:25 Myoglobin, serum 24.9 ng/mL 10.0-92.0 Serum or plasma lithium measurement (mol es/volume) - 10/18/19 20:25 BNP PT 219.9 pg/mL <100.0 Serum or plasma amylase measurement (enz ymatic activity/volume) - 10/18/19 20:25 Serum or plasma amylase measurement (enzymatic activit y/volume) 40 U/L 25-125 Lipase - 10/18/19 20:25 Lipase 26 U/L 8-78 Serum or plasma troponin i.cardiac measu rement (mass/volume) - 10/18/19 20:25 Serum or plasma troponin i.cardiac measurement (mass/v olume) < ng/mL <0.028 Serum or plasma thyroxine (T4) free jamia urement (mass/volume) - 10/18/19 20:25 Serum or plasma thyroxine (T4) free measurement (mass/ volume) 0.96 ng/dL 0.70-1.48 Serum or plasma thyrotropin measurement by detection limit <=0.05 miu/l (units/volume) - 10/18/19 20:25 Serum or plasma thyrotropin measurement by detection limit <=0.05 miu/l (units/volume) 6.01 u[iU]/mL 0.35-4.94 Encounters ACCT No. Visit Date/Time Discharge Status Pt. Type Provider Facility Loc./Unit Complaint [id number] 08/28/2019 10:40:00 08/28/2019 23:59: 59 CLS Outpatient SELF[facility]ADIS [facility] [id number] 07/10/2019 14:40:00 Document Registration [id number] 01/03/2019 15:15:00 Document Registration [id number] 08/08/2018 12:40:00 Document Registration [id number] 07/18/2018 08:00:00 Document Registration [id number] 08/28/2019 11:30:00 23:59:59 CLS Outpatient REJIECTOR INSTRUCTION DEAN [facility] RAD FS M25.511 [id number] 07/10/2019 15:13:00 23:59:59 CLS Outpatient REJIECTOR INSTRUCTION DEAN [facility] RAD FS M25.531 [id number] 01/10/2019 12:39:00 23:59:59 CLS Outpatient SELF GLADIS COX [facility] RAD OSTEOARTHRITIS [id number] 12/21/2018 07:45:00 23:59:59 CLS Preadmit TAB ROLDAN [facility] CARD AF [id number] 11/11/2018 11:40:00 12:37:00 DIS Inpatient AZ FISH MD [facility] ICU ATRIAL FIB WITH RVR;MIL D CHF [id number] 07/29/2018 11:17:00 13:55:00 DIS Emergency CINDA MOSES [facility] ER CHEST/UPPER ABD PAIN [id number] 07/18/2018 09:21:00 23:59:59 CLS Outpatient SELF GLDAIS COX [facility] RAD FS R09.1 [id number] 05/25/2018 08:30:00 10:40:00 DIS Emergency MARTINEZ GONZALEZ MD [facility] ER FALL;HEAD INJ [id number] 04/27/2018 09:33:00 23:59:59 CLS Outpatient JIAN STEPHENSON MD [facility] AFIB [id number] 04/21/2018 17:46:00 19:31:00 DIS Emergency LISA COX, MARTINEZ Edwards [facility] ER SOB [id number] 03/23/2018 13:51:00 018 16:50:00 DIS Emergency SALVADOR COX, ROSALIA Celestin [facility] ER HIGH BP [id number] 02/12/2018 13:00:00 018 09:37:00 DIS Inpatient JIAN STEPHENSON MD [facility] 4TH A-FIB,RVR,CONVERTED [id number] 08/09/2017 01:37:00 018 06:58:00 DIS Emergency MAYNOR RALPH BUI [facility] ER IRREG HEART [id number] 05/10/2017 12:00:00 23:59:59 CLS Preadmit JIAN STEPHENSON MD [facility] CARD AF [id number] 02/08/2017 10:56:00 018 00:01:00 DIS Outpatient JIAN STEPHENSON MD [facility] CARD AF [id number] 02/15/2017 07:21:00 23:59:59 CLS Outpatient JIAN STEPHENSON MD [facility] CARD AF [id number] 02/08/2017 10:46:00 23:59:59 CLS Outpatient JIAN STEPHENSON MD [facility] CARD AF [id number] 10/18/2019 20:11:[address] Emergency MAYNOR RALPH BUI [facility] ER BACK PAIN,AFIB [id number] 03/16/2016 05:18:00 Document Registration [id number] 01/15/2017 08:30:00 017 23:59:59 CLS Preadmit JIAN STEPHENSON MD [facility] CARD AF [id number] 01/15/2017 08:28:00 23:59:59 CLS Preadmit JIAN STEPHENSON MD [facility] CARD AF [id number] 03/16/2016 05:18:00 016 06:31:00 DIS Emergency RALPH MCGUIRE DO [facility] ER A FIB
--- NOTE | 2019-10-18 22:40 | NUR ---
CARDIZEM DECREASED TO 7.5MG/HR PER PROVIDER.
--- NOTE | 2019-10-18 22:55 | NUR ---
CARDIZEM DECREASED TO 5MG/HR PER PROVIDER.
[2019-10-18] MEDS ORDERED: PANTOPRAZOLE 40 MG (PROTONIX) VIAL IV ONE (23:00)
--- NOTE | 2019-10-18 23:10 | NUR ---
CARDIZEM STOPPED PER PROVIDER.
[2019-10-18] MEDS ORDERED: LACTATED RINGERS 1,000 ML IV ONE (23:19)
[2019-10-18] MEDS ORDERED: ONDANSETRON 4 MG/2 ML (SDV) Z0FRAN IVP ONE (23:30)
[2019-10-18] MEDS ORDERED: ATROPINE 1.2 MG/3 ML (0.4 MG/ML) SYR ONE (23:59)
[2019-10-19] MEDS ORDERED: fentaNYL INJECTION 100 MCG/2 ML AMP IVP ONE
[2019-10-19] MEDS ORDERED: ATROPINE INJ 0.4 MG/ML SDV IV ONE
[2019-10-19] MEDS ORDERED: ATROPINE INJECTION 1 MG/10 ML SYR (ABBOTT) IV ONE ×3 (00:15→02:15)
--- NOTE | 2019-10-19 03:46 | NUR ---
PT SLEEPING IN BED. PT AWAKENS EASILY AND STATES THERE IS NOTHING SHE NEEDS AT THIS TIME.
--- NOTE | 2019-10-19 05:34 | NUR ---
PT'S SON CONTACTED AND GIVEN UPDATE ON PT CONDITION. SON INFORMED THAT PT WILL BE DISCHARGED AND SON STATES THAT HE WILL COME TO GET PT.
[2019-10-19 06:24] VITALS: BP 147/79
== END 2019-10-19 06:24 | disposition home or self-care (01) ==
LOC: EDUNIT# 20:10 → ER 20:11
DX: I48.0 Paroxysmal atrial fibrillation (principal); J45.909 Unspecified asthma, uncomplicated; I10 Essential (primary) hypertension; K59.09 Other constipation; E03.9 Hypothyroidism, unspecified; R11.0 Nausea; R10.13 Epigastric pain; Z79.01 Long term (current) use of anticoagulants; Z79.899 Other long term (current) drug therapy
CPT/HCPCS: 36415; 71045; 80053; 82150; 82550; 82553; 83690; 83735; 83874; 83880; 84439; 84443; 84484; 85025; 85610; 85730; 93005; 93041; 96361; 96365; 96366; 96375; 96376

== ENCOUNTER 2020-06-09 09:16 | Emergency (ER) | payer MEDICARE ==
[~2020-06-09] VITALS: Ht 152 cm; Wt 45.0 kg
[2020-06-09] MEDS ORDERED: ASPIRIN 81 MG CHEW (CHILDREN'S ASA) PO ONE (09:30)
[2020-06-09 09:35] LABS: BASOPHILS % (AUTO) 0 % (0-10); EOSINOPHILS % (AUTO) 0 % (0-10); HEMATOCRIT 37 % (35-52); HEMOGLOBIN 12.3 g/dL (11.5-16.0); LYMPHOCYTES % (AUTO) 23 % (12-44); MEAN CORPUSCULAR HEMOGLOBIN 30 pg (25-34); MEAN CORPUSCULAR HGB CONC 33 g/dL (32-36); MEAN CORPUSCULAR VOLUME 92 fL (80-99); MEAN PLATELET VOLUME 11.6 fL (9.0-12.2); MONOCYTES # (AUTO) 0.7 10^3/uL (0.0-1.0); MONOCYTES % (AUTO) 15 % (0-12); NEUTROPHILS # (AUTO) 2.7 10^3/uL (1.8-7.8); NEUTROPHILS % (AUTO) 60 % (42-75); PLATELET COUNT 150 10^3/uL (130-400); WHITE BLOOD COUNT 4.4 10^3/uL (4.3-11.0)
[2020-06-09 09:41] LABS: ALBUMIN 3.8 GM/DL (3.2-4.5); CHLORIDE 104 MMOL/L (98-107); INR 1.1 (0.8-1.4); PROTHROMBIN TIME PATIENT 14.4 SEC (12.2-14.7); SODIUM 137 MMOL/L (135-145)
[2020-06-09 09:42] LABS: CALCIUM 8.6 MG/DL (8.5-10.1)
[2020-06-09 09:43] LABS: GLUCOSE 99 MG/DL (70-105); TOTAL PROTEIN 7.4 GM/DL (6.4-8.2)
[2020-06-09 09:44] LABS: CARBON DIOXIDE 23 MMOL/L (21-32)
[2020-06-09 09:45] LABS: BILIRUBIN,TOTAL 0.9 MG/DL (0.1-1.0)
[2020-06-09 09:47] LABS: ALKALINE PHOSPHATASE 85 U/L (40-136); CREATININE SERUM 0.81 MG/DL (0.60-1.30); GFR ESTIMATED > 60
[2020-06-09 09:48] LABS: BUN/CREATININE RATIO 17
[2020-06-09 09:50] LABS: ALANINE AMINOTRANSFERASE 9 U/L (0-55); MAGNESIUM 2.1 MG/DL (1.6-2.4)
--- NOTE | 2020-06-09 09:55 | Diagnostic Imaging Report ---
EXAMINATION: Chest radiograph, portable AP view. DATE: 06/09/2020 9:43 AM INDICATION: 84-year-old female, chest pain. COMPARISON: October 18, 2019. FINDINGS: Stable overall appearance of the cardiomediastinal silhouette. There is no identified pneumothorax. There are reticulonodular appearing opacities in the left midlung which appear fairly similar to the comparison exam. There is no identified interval focal airspace consolidation. IMPRESSION: 1. Predominantly reticulonodular appearing opacities in the left midlung which appear similar to October 18, 2019. 2. No radiographically apparent interval acute cardiopulmonary abnormality. Dictated by: Dictated on workstation # [id number]
--- NOTE | 2020-06-09 11:10 | ED Cardiac General ---
History of Present Illness General Chief Complaint: Cardiac/General Problems Stated Complaint: PALPITATIONS Nursing Triage Note: ARRIVED VIA EMS FROM HOME AFTER WAKING UP WITH PALPITATIONS AND POSSILBE SYNCOPAL EPISODE. STATES SHE FEELS BETTER NOW. Source: patient, EMS Exam Limitations: no limitations History of Present Illness Date Seen by Provider: Jun 09, 2020 Time Seen by Provider: 09:22 Initial Comments Here with report of waking up with palpitations. States that she could feel it pounding in her chest. Does have history of A. fib and occasional RVR. She had not taken her medicine yet this morning. She did take it for that. Apparently she has previously been on half dose of metoprolol but took both halves so had taken a full dose this morning. EMS was summoned as she was feeling like she w as going to pass out or nearly passed out. On EMS arrival, patient was noted to be in sinus rhythm and actually doing better. Had normal blood pressures. Normal blood sugar. Patient brought here for further evaluation. 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 ASA po HOME SCHOOL TEACHER: No (On Eliquis) Associated Systoms: Chest Pain; No Cough, No Diaphoresis, No Fever/Chills, No Headaches, No Nausea/Vomiting, No Shortness of Air; Syncope, Weakness Allergies and Home Medications Allergies Coded Allergies: No Known Drug Allergies (Unverified , 02/12/18) Home Medications Acetaminophen 500 Mg Tablet, 500-1,000 MG PO Q6H PRN for PAIN-MILD, (Reported) Apixaban 2.5 Mg Tablet, 2.5 MG PO BID, (Reported) Metoprolol Succinate 100 Mg Tab.er.24h, 50 MG BID, (Reported) TAKES 1/2 (100MG) TABLET Patient Home Medication List Home Medication List Reviewed: Yes Review of Systems Review of Systems Constitutional: see HPI; No chills, No fever EENTM: No Symptoms Reported Respiratory: See HPI Cardiovascular: See HPI Gastrointestinal: See HPI Genitourinary: No Symptoms Reported Psychiatric/Neurological: See HPI All Other Systems Reviewed Negative Unless Noted: Yes Past Fdpbodp-Mgwhgb-Qukoza Hx Past Med/Social Hx: Reviewed Nursing Past Med/Soc Hx Patient Social History Alcohol Use: Denies Use 2nd Hand Smoke Exposure: Yes Recent Infectious Disease Expo: No Recent Hopitalizations: No Immunizations Up To Date Date of Pneumonia Vaccine: Feb 12, 2015 Seasonal Allergies Seasonal Allergies: No Past Medical History Surgeries: Yes (HYST/BSO; ANKLE FX/ORIF) Appendectomy, Hysterectomy, Oophorectomy, Orthopedic Respiratory: Yes Asthma Currently Using CPAP: No Currently Using BIPAP: No Cardiac: Yes 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, Hypertension Neurological: No Reproductive Disorders: No 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 History: Hysterectomy, Menopausal Genitourinary: Yes Bladder Infection Gastrointestinal: Yes Chronic Constipation Musculoskeletal: No Endocrine: Yes Hypothyroidsim HEENT: Yes Cataract Loss of Vision: Bilateral Hearing Impairment: Denies Cancer: No Psychosocial: No Integumentary: No Blood Disorders: No Adverse Reaction/Blood Tranf: No Family Medical History Reviewed Nursing Family Hx Alzheimer's disease 19 FATHER, Onset:50's - 60 G8 BROTHER, Onset:50's - 60 Cardiovascular disease 19 FATHER, Onset:50's - 60 G8 BROTHER, Onset:50's - 60 No Pertinent Family Hx Physical Exam Vital Signs Vital Signs - First Documented 06/09/20 09:16 Temp 36.4 Pulse 70 Resp 16 B/P (MAP) 153/67 (95) Pulse Ox 96 O2 Delivery Room Air Capillary Refill : Less Than 3 Seconds Height, Weight, BMI Height: 4'11.00" Weight: 116lbs. 0.0oz. 52.332367bj; 19.00 BMI Method:Stated General Appearance: No Apparent Distress, WD/WN HEENT: PERRL/EOMI, Pharynx Normal Neck: Non Tender, Supple Respiratory: Lungs Clear, Normal Breath Sounds Cardiovascular: Regular Rate, Rhythm, No Murmur Gastrointestinal: Non Tender, Soft Extremity: Normal Range of Motion, Non Tender Neurologic/Psychiatric: Alert, Oriented x3 Skin: Normal Color, Warm/Dry Progress/Results/Core Measures Results/Orders Lab Results Laboratory Tests Test 06/09/20 09:22 06/09/20 11:25 Range/Units White Blood Count 4.4 4.3-11.0 10^3/uL Red Blood Count 4.05 3.80-5.11 10^6/uL Hemoglobin 12.3 11.5-16.0 g/dL Hematocrit 37 35-52 % Mean Corpuscular Volume 92 80-99 fL Mean Corpuscular Hemoglobin 30 25-34 pg Mean Corpuscular Hemoglobin Concent 33 32-36 g/dL Red Cell Distribution Width 12.5 10.0-14.5 % Platelet Count 150 130-400 10^3/uL Mean Platelet Volume 11.6 9.0-12.2 fL Immature Granulocyte % (Auto) 2 % Neutrophils (%) (Auto) 60 42-75 % Lymphocytes (%) (Auto) 23 12-44 % Monocytes (%) (Auto) 15 H 0-12 % Eosinophils (%) (Auto) 0 0-10 % Basophils (%) (Auto) 0 0-10 % Neutrophils # (Auto) 2.7 1.8-7.8 10^3/uL Lymphocytes # (Auto) 1.0 1.0-4.0 10^3/uL Monocytes # (Auto) 0.7 0.0-1.0 10^3/uL Eosinophils # (Auto) 0.0 0.0-0.3 10^3/uL Basophils # (Auto) 0.0 0.0-0.1 10^3/uL Immature Granulocyte # (Auto) 0.1 0.0-0.1 10^3/uL Prothrombin Time 14.4 12.2-14.7 SEC INR Comment 1.1 0.8-1.4 Activated Partial Thromboplast Time 29 24-35 SEC Sodium Level 137 135-145 MMOL/L Potassium Level 4.0 3.6-5.0 MMOL/L Chloride Level 104 98-107 MMOL/L Carbon Dioxide Level 23 21-32 MMOL/L Anion Gap 10 5-14 MMOL/L Blood Urea Nitrogen 14 7-18 MG/DL Creatinine 0.81 0.60-1.30 MG/DL Estimat Glomerular Filtration Rate > 60 BUN/Creatinine Ratio 17 Glucose Level 99 70-105 MG/DL Calcium Level 8.6 8.5-10.1 MG/DL Corrected Calcium 8.8 8.5-10.1 MG/DL Magnesium Level 2.1 1.6-2.4 MG/DL Total Bilirubin 0.9 0.1-1.0 MG/DL Aspartate Amino Transf (AST/SGOT) 16 5-34 U/L Alanine Aminotransferase (ALT/SGPT) 9 0-55 U/L Alkaline Phosphatase 85 40-136 U/L Myoglobin 32.8 10.0-92.0 NG/ML Troponin I < 0.028 < 0.028 <0.028 NG/ML Total Protein 7.4 6.4-8.2 GM/DL Albumin 3.8 3.2-4.5 GM/DL My Orders Orders - MANAN PINO MD Cbc With Automated Diff (06/09/20 09:29) Magnesium (06/09/20:29) Chest 1 View, Ap/Pa Only (06/09/20:29) Ekg Tracing (06/09/20:29) Comprehensive Metabolic Panel (06/09/20:) Myoglobin Serum (06/09/20:) Protime With Inr (06/09/20) Partial Thromboplastin Time (06/09/20:29) Monitor-Rhythm Ecg Trace Only (06/09/20:) Lipid Panel (06/10/20 06:00) Troponin I (06/09/20:29) Aspirin Chewable Tablet (Baby Aspirin Ch (06/09/20 09:30) Troponin I (06/09/20 11:04) Medications Given in ED Current Medications Medications Dose Ordered Sig/Elle Route Start Time Stop Time Status Last Admin Dose Admin Aspirin 324 mg ONCE ONCE PO 06/09/20 09:30 06/09/20 09:31 DC 06/09/20 09:44 324 MG Vital Signs/I&O 06/09/20 09:16 Temp 36.4 Pulse 70 Resp 16 B/P (MAP) 153/67 (95) Pulse Ox 96 O2 Delivery Room Air Blood Pressure Mean: 95 Progress Progress Note : Progress Note Seen and evaluated. IV, labs, EKG and chest x-ray ordered. ASA 324 mg p.o. ordered. Monitor patient. 1100: Patient doing much better and heart rate in the 60s. No return of atrial fibrillation or rapid rate. We will repeat troponin and continue to monitor. If troponin remains negative and patient remains in sinus rhythm with rate control that and will likely DC home. Patient is in agreement with this. Monitor patient. 1153: Repeat troponin negative. Remains in sinus rhythm and overall feeling well. No indication for admission and is safe to go home at this point. Patient agrees and prefers. Patient's daughter called for a ride. Discharged home with return precautions. Patient verbalized understanding of instructions and agreement with plan. Initial ECG Impression Date: Jun 09, 2020 Initial ECG Impression Time: 09:22 Initial ECG Rate: 67 Initial ECG Rhythm: Normal Sinus Comment Sinus rhythm with normal axis. No evidence of ST elevation SD. Similar morphology to previous of 10/18/2019 although improved rate. Interpreted by me. Diagnostic Imaging Diagonstic Imaging: Xray Plain Films/CT/US/NM/MRI: chest Comments [facility], [place] NAME: GRABIEL WINKLER [facility] REC#: [id number] PT STATUS: REG ER : 1935 PHYSICIAN: MANAN PINO MD ADMIT DATE: 06/09/20/ER Signed Date of Exam:06/09/20 CHEST 1 VIEW, AP/PA ONLY EXAMINATION: Chest radiograph, portable AP view. DATE: 06/09/2020 9:43 AM INDICATION: 84-year-old female, chest pain. COMPARISON: October 18, 2019. FINDINGS: Stable overall appearance of the cardiomediastinal silhouette. There is no identified pneumothorax. There are reticulonodular appearing opacities in the left midlung which appear fairly similar to the comparison exam. There is no identified interval focal airspace consolidation. IMPRESSION: 1. Predominantly reticulonodular appearing opacities in the left midlung which appear similar to October 18, 2019. 2. No radiographically apparent interval acute cardiopulmonary abnormality. Dictated by: Dictated on workstation # [id number] Dict: 06/09/2048 Trans: 06/09/20 100[address] [facility] [phone] Interpreted by: PRABHAKAR ELIZONDO MD Electronically signed by: PRABHAKAR ELIZONDO MD 06/09/20 1001 Departure Impression Primary Impression: Paroxysmal atrial fibrillation with rapid ventricular response Disposition: 01 HOME, SELF-CARE Condition: Improved Departure-Patient Inst. Decision time for Depature: 11:55 Referrals: [facility]/SEArvind (PCP) Primary Care Physician CARROLL MENDOZA APRN (Family) Primary Care Physician Patient Instructions: 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 (DC) Add. Discharge Instructions: All discharge instructions reviewed with patient and/or family. Voiced understanding. Continue to take home medications as previously prescribed. Follow-up with your doctor this week for recheck and further evaluation. Return for worse pain, fever, vomiting, weakness, breathing problems or other concerns as needed. MANAN PINO MD Jun 09, 2020 11:10
[2020-06-09 12:04] VITALS: BP 121/81
== END 2020-06-09 12:04 | disposition home or self-care (01) ==
LOC: EDUNIT# 09:16 → ER 09:17
DX: I48.0 Paroxysmal atrial fibrillation (principal); I10 Essential (primary) hypertension; Z77.22 Contact with and (suspected) exposure to environmental tobacco smoke (acute) (chronic); Z82.49 Family history of ischemic heart disease and other diseases of the circulatory system; Z79.01 Long term (current) use of anticoagulants
CPT/HCPCS: 36415; 71045; 80053; 83735; 83874; 84484; 85025; 85610; 85730; 93005; 93041

== ENCOUNTER → 2020-08-20 | Outpatient (CLI) | payer MEDICARE | LOC: CARD 08:11 | PROVIDERS: ATTEND Physician Assistant | DX: I08.3 Combined rheumatic disorders of mitral, aortic and tricuspid valves (principal); I10 Essential (primary) hypertension | CPT/HCPCS: 93306 ==

== ENCOUNTER 2021-01-14 14:15 | Inpatient (IN) | payer MEDICARE ==
[~2021-01-14] VITALS: Ht 149.9 cm; Wt 53.5 kg
[2021-01-14 14:17] VITALS: BP 138/99
[2021-01-14] MEDS ORDERED: ASPIRIN 81 MG CHEW (CHILDREN'S ASA) PO ONE (14:30)
[2021-01-14] MEDS ORDERED: dilTIAZem DRIP PRE-MIX 125 ML IV SCH (14:30)
[2021-01-14 14:39] LABS: BASOPHILS # (AUTO) 0.1 10^3/uL (0.0-0.1); BASOPHILS % (AUTO) 0 % (0-10); EOSINOPHILS % (AUTO) 0 % (0-10); HEMATOCRIT 38 % (35-52); HEMOGLOBIN 12.2 g/dL (11.5-16.0); LYMPHOCYTES # (AUTO) 1.6 X 10^3 (1.0-4.0); LYMPHOCYTES % (AUTO) 13 % (12-44); MEAN CORPUSCULAR HEMOGLOBIN 30 pg (25-34); MEAN CORPUSCULAR HGB CONC 33 g/dL (32-36); MEAN CORPUSCULAR VOLUME 93 fL (80-99); MEAN PLATELET VOLUME 12.6 fL (9.0-12.2); MONOCYTES # (AUTO) 1.9 X 10^3 (0.0-1.0); MONOCYTES % (AUTO) 16 % (0-12); NEUTROPHILS # (AUTO) 7.9 X 10^3 (1.8-7.8); NEUTROPHILS % (AUTO) 66 % (42-75); PLATELET COUNT 165 10^3/uL (130-400)
[2021-01-14 14:46] LABS: ALBUMIN 3.9 GM/DL (3.2-4.5)
[2021-01-14 14:48] LABS: CALCIUM 9.4 MG/DL (8.5-10.1)
[2021-01-14 14:49] LABS: INR 1.1 (0.8-1.4); PROTHROMBIN TIME PATIENT 14.8 SEC (12.2-14.7); TOTAL PROTEIN 7.8 GM/DL (6.4-8.2)
[2021-01-14 14:51] LABS: BILIRUBIN,TOTAL 1.9 MG/DL (0.1-1.0)
[2021-01-14 14:53] LABS: CREATININE SERUM 1.12 MG/DL (0.60-1.30)
[2021-01-14 14:55] LABS: MAGNESIUM 2.2 MG/DL (1.6-2.4)
--- NOTE | 2021-01-14 15:09 | ED General ---
General Chief Complaint: COVID19 Suspect/Confirmed Stated Complaint: CP,WEANKESS,SOB,AFIB Nursing Triage Note: PT SENT FROM [facility] FOR FURTHER EVALUATION OF SOA, FATIGUE, AND AFIB. Source of Information: Patient Exam Limitations: No Limitations (SANAZ HART APRN) History of Present Illness Date Seen by Provider: Jan 14, 2021 Time Seen by Provider: 14:30 Initial Comments To ER by private vehicle from [facility] with reports of about 2 weeks of body aches shortness of breath diarrhea nausea as well as palpitations. No chest pain no cough no fevers. She is not vaccinated against Covid. She was found to be in atrial fibrillation with rapid ventricular respon se. She is on Eliquis for a history of paroxysmal atrial fibrillation. However she has not been taking it consistently for about 2 months because of intermittent left-sided nosebleeds. She states that she has been taking about 1 pill a day and only on some days. Timing/Duration: 5-6 Days Severity: Moderate Associated Systoms: Malaise, Weakness (SANAZ HART APRN) Allergies and Home Medications Allergies Coded Allergies: No Known Drug Allergies (Unverified , 02/12/18) Patient Home Medication List Home Medication List Reviewed: Yes (SANAZ HART APRN) Apixaban (Eliquis) 2.5 Mg Tablet, 2.5 MG PO BID, (Reported) Entered as Reported by: HEAVEN ROGERS on 11/11/18 1314 Last Action: Reviewed Metoprolol Succinate (Metoprolol Succinate) 100 Mg Tab.er.24h, 50 MG BID, (Repor arabella) Entered as Reported by: YODIT REDDY on 08/09/17 0147 Last Action: Reviewed Review of Systems Review of Systems Constitutional: see HPI, malaise, weakness EENTM: see HPI Respiratory: no symptoms reported Cardiovascular: see HPI; No chest pain; palpitations Genitourinary: no symptoms reported Musculoskeletal: no symptoms reported Skin: no symptoms reported Psychiatric/Neurological: No Symptoms Reported Hematologic/Lymphatic: No Symptoms Reported (SANAZ HART APRN) Past Evetxvu-Rhiimu-Gnehmf Hx Patient Social History Tobacco Use?: No Use of E-Cig and/or Vaping dev: No Substance use?: No Alcohol Use?: No Pt feels they are or have been: No (SANAZ HART APRN) Seasonal Allergies Seasonal Allergies: No (SANAZ HART APRN) Past Medical History Surgeries: Yes (HYST/BSO; ANKLE FX/ORIF) Appendectomy, Hysterectomy, Oophorectomy, Orthopedic Respiratory: Yes Asthma Currently Using CPAP: No Currently Using BIPAP: No Cardiac: Yes 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, Hypertension Neurological: No Reproductive Disorders: No 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, 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 Genitourinary: Yes Bladder Infection Gastrointestinal: Yes Chronic Constipation Musculoskeletal: No Endocrine: Yes Hypothyroidsim HEENT: Yes Cataract Loss of Vision: Bilateral Hearing Impairment: Denies Cancer: No Psychosocial: No Integumentary: No Blood Disorders: No Adverse Reaction/Blood Tranf: No (SANAZ HART APRN) Family Medical History Alzheimer's disease 19 FATHER, Onset:50's - 60 G8 BROTHER, Onset:50's - 60 Cardiovascular disease 19 FATHER, Onset:50's - 60 G8 BROTHER, Onset:50's - 60 No Pertinent Family Hx (SANAZ HART APRN) Physical Exam Vital Signs Vital Signs - First Documented 01/14/21 14:17 Pulse 163 Resp 22 B/P (MAP) 138/99 (112) Pulse Ox 99 O2 Delivery Room Air (ROSALIA FRANCO MD) Vital Signs Capillary Refill : Less Than 3 Seconds (SANAZ HART APRN) Height, Weight, BMI Height: 4'11.00" Weight: 116lbs. 0.0oz. 52.110259ad; 23.00 BMI Method:Stated General Appearance: No Apparent Distress, WD/WN Eyes: Bilateral Eye Normal Inspection, Bilateral Eye PERRL, Bilateral Eye EOMI Neck: Full Range of Motion, Normal Inspection Respiratory: No Accessory Muscle Use, No Respiratory Distress Cardiovascular: Irregularly Irregular, Tachycardia (EKG initially shows atrial fibrillation with a rapid ventricular response rate of 186.) Gastrointestinal: Normal Bowel Sounds, Non Tender, Soft Extremity: Normal Capillary Refill, Normal Inspection Neurologic/Psychiatric: Alert, Oriented x3 Skin: Normal Color, Warm/Dry (SANAZ HART APRN) Progress/Results/Core Measures Suspected Sepsis SIRS Temperature: Pulse: 163 Respiratory Rate: 22 Laboratory Tests 01/14/21 14:25: White Blood Count 12.0H Blood Pressure 138 /99 Mean: 112 Laboratory Tests 01/14/21 14:25: Creatinine 1.12, INR Comment 1.1, Platelet Count 165, Total Bilirubin 1.9H (SANAZ HART APRN) Results/Orders Lab Results Laboratory Tests Test 01/14/21 14:25 Range/Units White Blood Count 12.0 H 4.3-11.0 10^3/uL Red Blood Count 4.02 3.80-5.11 10^6/uL Hemoglobin 12.2 11.5-16.0 g/dL Hematocrit 38 35-52 % Mean Corpuscular Volume 93 80-99 fL Mean Corpuscular Hemoglobin 30 25-34 pg Mean Corpuscular Hemoglobin Concent 33 32-36 g/dL Red Cell Distribution Width 14.2 10.0-14.5 % Platelet Count 165 130-400 10^3/uL Mean Platelet Volume 12.6 H 9.0-12.2 fL Immature Granulocyte % (Auto) 5 % Neutrophils (%) (Auto) 66 42-75 % Lymphocytes (%) (Auto) 13 12-44 % Monocytes (%) (Auto) 16 H 0-12 % Eosinophils (%) (Auto) 0 0-10 % Basophils (%) (Auto) 0 0-10 % Neutrophils # (Auto) 7.9 H 1.8-7.8 X 10^3 Lymphocytes # (Auto) 1.6 1.0-4.0 X 10^3 Monocytes # (Auto) 1.9 H 0.0-1.0 X 10^3 Eosinophils # (Auto) 0.0 0.0-0.3 10^3/uL Basophils # (Auto) 0.1 0.0-0.1 10^3/uL Immature Granulocyte # (Auto) 0.5 H 0.0-0.1 10^3/uL Prothrombin Time 14.8 H 12.2-14.7 SEC INR Comment 1.1 0.8-1.4 Activated Partial Thromboplast Time 32 24-35 SEC D-Dimer 2.12 H 0.00-0.49 UG/ML Sodium Level 130 L 135-145 MMOL/L Potassium Level 5.0 3.6-5.0 MMOL/L Chloride Level 98 98-107 MMOL/L Carbon Dioxide Level 20 L 21-32 MMOL/L Anion Gap 12 5-14 MMOL/L Blood Urea Nitrogen 39 H 7-18 MG/DL Creatinine 1.12 0.60-1.30 MG/DL Estimat Glomerular Filtration Rate 46 BUN/Creatinine Ratio 35 Glucose Level 123 H 70-105 MG/DL Calcium Level 9.4 8.5-10.1 MG/DL Corrected Calcium 9.5 8.5-10.1 MG/DL Magnesium Level 2.2 1.6-2.4 MG/DL Total Bilirubin 1.9 H 0.1-1.0 MG/DL Aspartate Amino Transf (AST/SGOT) 208 H 5-34 U/L Alanine Aminotransferase (ALT/SGPT) 241 H 0-55 U/L Alkaline Phosphatase 128 40-136 U/L Myoglobin 175.0 H 10.0-92.0 NG/ML Troponin I < 0.028 <0.028 NG/ML B-Type Natriuretic Peptide 1419.9 H <100.0 PG/ML Total Protein 7.8 6.4-8.2 GM/DL Albumin 3.9 3.2-4.5 GM/DL SARS-CoV-2 RNA (RT-PCR) Not Detected Not Detecte (ROSALIA FRANCO MD) Vital Signs/I&O 01/14/21 14:17 Pulse 163 Resp 22 B/P (MAP) 138/99 (112) Pulse Ox 99 O2 Delivery Room Air (ROSALIA FRANCO MD) Vital Signs/I&O Capillary Refill : Less Than 3 Seconds (SANAZ HART APRN) Blood Pressure Mean: 112 Departure Communication (Admissions) NAME: GRABIEL WINKLER [facility] REC#: [id number] PT STATUS: REG ER : 1935 PHYSICIAN: SANAZ HART APRN ADMIT DATE: 01/14/21/ER Draft Date of Exam:01/14/21 CHEST 1 VIEW, AP/PA ONLY INDICATION: Chest pain. COMPARISON: June 09, 2020. TECHNIQUE: Single radiograph of the chest dated January 14, 2021. FINDINGS: The cardiac silhouette is within normal limits in size. No significant pulmonary vascular congestion. Mild interstitial opacities are identified within the bilateral mid and lower lungs, left greater than right. These have slightly worsened since the prior examination. No significant pleural effusion. No pneumothorax. No acute osseous abnormality. IMPRESSION: Mild left greater than right interstitial opacities, slightly worsened since the prior examination. This may relate to an underlying interstitial infiltrate, COVID could be considered. Interstitial edema is felt less likely given lack of pulmonary vascular congestion and pleural effusion. Dictated on workstation # [id number] Dict: 01/14/21 1521 Trans: 01/14/21 1531 [id number] [id number] Interpreted by: BLANCA BOCANEGRA MD Electronically signed by: (SANAZ HART APRN) Impression Primary Impression: Paroxysmal atrial fibrillation with rapid ventricular response Disposition: ADMITTED INPATIENT Condition: Stable Admissions Decision to Admit Reason: Admit from ER (General) Decision to Admit/Date: Jan 14, 2021 Time/Decision to Admit Time: 15:08 (SANAZ HART APRN) Departure-Patient Inst. Referrals: LUH RUVALCABA MD (PCP/Family) Primary Care Physician ATTENDING PHYSICIAN NOTE: I was physically present as attending physician in the emergency department during the care of this patient, but I was not directly involved in the decision making or delivery of care for this patient. (ROSALIA FRANCO MD) SANAZ HART APRN Jan 14, 2021 15:08 ROSALIA FRANCO MD Jan 16, 2021 11:10
--- NOTE | 2021-01-14 15:32 | Diagnostic Imaging Report ---
INDICATION: Chest pain. COMPARISON: June 09, 2020. TECHNIQUE: Single radiograph of the chest dated January 14, 2021. FINDINGS: The cardiac silhouette is within normal limits in size. No significant pulmonary vascular congestion. Mild interstitial opacities are identified within the bilateral mid and lower lungs, left greater than right. These have slightly worsened since the prior examination. No significant pleural effusion. No pneumothorax. No acute osseous abnormality. IMPRESSION: Mild left greater than right interstitial opacities, slightly worsened since the prior examination. This may relate to an underlying interstitial infiltrate, COVID could be considered. Interstitial edema is felt less likely given lack of pulmonary vascular congestion and pleural effusion. Dictated by: Dictated on workstation # [id number]
[2021-01-14] MEDS ORDERED: APIXABAN 5 MG (ELIQUIS) TABLET PO ONE (15:45)
[2021-01-14] MEDS ORDERED: FUROSEMIDE 40 MG/4 ML INJ (LASIX) IVP ONE (16:15)
--- NOTE | 2021-01-14 18:41 | Tele-ICU Progress Note ---
Progress Note Video assessment done , Hemodynamically stable Available charting reviewed, discussed with RN NO TELE-ICU CONSULT REQUESTED CONTINUE TO MONITOR PER USUAL TELE-ICU PROTOCOL No need for Tele-ICU interventions Plans as delineated by bedside physicians / consultants Now in ICU, BP stable , on RA , AA A/P PAF , RVR - rate 120 with Cardizem gtt -K WNL, - AC - was on eleiquis at home Focused Exam Height, Weight, BMI Height: 4'11.00" Weight: 116lbs. 0.0oz. 52.310425dw; 23.85 BMI Method:Stated BRIDGETTE JOSÉ MD Jan 14, 2021 18:41
[2021-01-14] MEDS ORDERED: CATHETER FLUSH 10 ML SYR IV PRN (19:15)
[2021-01-14] MEDS: dilTIAZem DRIP PRE-MIX 125 ML IV SCH ×2 (20:10→22:54)
[2021-01-14] MEDS ORDERED: APIXABAN 5 MG (ELIQUIS) TABLET PO SCH (21:00)
[2021-01-14] MEDS: CATHETER FLUSH 10 ML SYR IV SCH (21:40)
[2021-01-15 05:23] LABS: BASOPHILS % (AUTO) 0 % (0-10); EOSINOPHILS # (AUTO) 0.1 10^3/uL (0.0-0.3); EOSINOPHILS % (AUTO) 1 % (0-10); HEMATOCRIT 35 % (35-52); HEMOGLOBIN 11.1 g/dL (11.5-16.0); LYMPHOCYTES # (AUTO) 1.2 10^3/uL (1.0-4.0); LYMPHOCYTES % (AUTO) 17 % (12-44); MEAN CORPUSCULAR HEMOGLOBIN 30 pg (25-34); MEAN CORPUSCULAR HGB CONC 32 g/dL (32-36); MEAN CORPUSCULAR VOLUME 93 fL (80-99); MEAN PLATELET VOLUME 12.8 fL (9.0-12.2); MONOCYTES # (AUTO) 1.1 10^3/uL (0.0-1.0); MONOCYTES % (AUTO) 16 % (0-12); NEUTROPHILS # (AUTO) 4.3 10^3/uL (1.8-7.8); NEUTROPHILS % (AUTO) 63 % (42-75); PLATELET COUNT 120 10^3/uL (130-400); WHITE BLOOD COUNT 6.8 10^3/uL (4.3-11.0)
[2021-01-15 05:54] LABS: ALBUMIN 3.5 GM/DL (3.2-4.5); BILIRUBIN,TOTAL 1.4 MG/DL (0.1-1.0); CREATININE SERUM 0.88 MG/DL (0.60-1.30); MAGNESIUM 2.2 MG/DL (1.6-2.4); PHOSPHORUS 2.6 MG/DL (2.3-4.7); POTASSIUM 3.4 MMOL/L (3.6-5.0); TOTAL PROTEIN 6.7 GM/DL (6.4-8.2)
[2021-01-15] MEDS: CATHETER FLUSH 10 ML SYR IV SCH ×3 (06:31→22:28)
[2021-01-15] MEDS: dilTIAZem DRIP PRE-MIX 125 ML IV SCH ×2 (07:22→22:29)
[2021-01-15] MEDS ORDERED: KCL 20 MEQ TAB (K-DUR) PO ONE (08:00)
[2021-01-15] MEDS ORDERED: APIXABAN 5 MG (ELIQUIS) TABLET PO SCH (08:00)
[2021-01-15] MEDS: APIXABAN 2.5 MG (ELIQUIS) TABLET PO SCH ×2 (08:42→17:12)
--- NOTE | 2021-01-15 09:44 | Tele-ICU Consult ---
History of Present Illness History of Present Illness Date Seen by Provider: Jan 15, 2021 Time Seen by Provider: 09:38 Date of Admission History of Present Illness 85 F with a fib now V rate is about 120-160, on IV Cardizem drip @ 15 mg/min BP 110/67, pt is awake alert, oriented, not cyanotic, not diaphoretic, Last echo I can see in 2017 was normal LVEF Will get echo Covid neg CXR looks mildly congested, had good response to Lasix in ED Allergies and Home Medications Allergies Coded Allergies: No Known Drug Allergies (Unverified , 02/12/18) Home Medications Apixaban 2.5 Mg Tablet, 2.5 MG PO BID, (Reported) Metoprolol Succinate 100 Mg Tab.er.24h, 50 MG BID, (Reported) TAKES 1/2 (100MG) TABLET Past Medical/Social/Family Hx Patient Social History Tobacco Use?: No Smoking Status: Never a Smoker Smokeless Tobacco Frequency: Never a User Use of E-Cig and/or Vaping dev: No Substance use?: No Alcohol Use?: No Pt stated abuse/neglect: No Immunizations Up To Date Influenza Vaccine Up-to-Date: No; Not Current Tetanus Booster (TDap): Unknown Hepatitis A: Yes Date of Pneumonia Vaccine: Feb 12, 2015 Current Status status: No status: No Advance Directives: Yes Advance Directive Location: WITH SON Communicates: Verbally Primary Language: Uruguayan Preferred Spoken Language: Uruguayan Is interpretation needed?: No Sensory deficits: Vision impairment Implanted or Applied Medical D: None Past Medical History PMHx: Atrial fibrillation SurgHx: Hysterectomy Ankle fracture repair Review of Systems Constitutional: see HPI EENTM: see HPI Respiratory: see HPI Cardiovascular: see HPI Gastrointestinal: see HPI Genitourinary: see HPI Musculoskeletal: see HPI Skin: see HPI Psychiatric/Neurological: See HPI Sepsis Event Evaluation Height, Weight, BMI Height: 4'11.00" Weight: 116lbs. 0.0oz. 52.254778ck; 23.85 BMI Method:Stated Exam Exam Patient acknowledged, consented, and participated in this virtual visit which was conducted using real time audio/video Vital Signs Date Time Temp Pulse Resp B/P (MAP) Pulse Ox O2 Delivery O2 Flow Rate FiO2 01/15/21 08:41 97 Nasal Cannula 2.00 01/15/21 07:52 97 Nasal Cannula 2.00 01/15/21 07:51 35.5 01/15/21 06:37 122 01/15/21 06:15 128 18 96/72 95 Nasal Cannula 2.00 01/15/21 05:00 111 17 107/84 97 Nasal Cannula 2.00 01/15/21 04:00 94 Nasal Cannula 2.00 01/15/21 04:00 36.3 01/15/21 04:00 116 24 94/71 95 Nasal Cannula 2.00 01/15/21 04:00 92 Nasal Cannula 2.00 01/15/21 03:00 98 17 107/63 Nasal Cannula 2.00 01/15/21 02:00 103 29 106/72 96 Nasal Cannula 2.00 01/15/21 01:00 84 20 97/66 96 Nasal Cannula 2.00 01/15/21 01:00 84 01/15/21 00:41 92 Nasal Cannula 2.00 01/15/21 00:00 129 24 100/76 90 Room Air 01/14/21 23:30 36.1 01/14/21 23:28 90 Room Air 01/14/21 23:00 97 21 99/55 90 Room Air 01/14/21 22:00 98 110/73 91 Room Air 01/14/21 21:00 97 12 140/83 94 Room Air 01/14/21 20:48 35.8 01/14/21 20:00 92 Room Air 01/14/21 20:00 121 29 149/76 91 Room Air 01/14/21 19:45 105 20 116/78 90 Room Air 01/14/21 19:30 95 16 109/100 90 Room Air 01/14/21 19:15 112 26 142/99 90 Room Air 01/14/21 19:00 113 22 140/104 86 Room Air 01/14/21 19:00 113 01/14/21 18:49 36.1 01/14/21 18:20 93 Room Air 01/14/21 14:17 163 22 138/99 (112) 99 Room Air I & O 01/15/21 07:00 Intake Total 314.9 ml Output Total 1100 ml Balance -785.1 ml Height & Weight Height: 4'11.00" Weight: 116lbs. 0.0oz. 52.550023lv; 23.85 BMI Method:Stated General Appearance: No Apparent Distress, WD/WN, Anxious, Mild Distress Neck: Full Range of Motion, Normal Inspection Respiratory: No Accessory Muscle Use, No Respiratory Distress, Crackles, Other (lower lobe coarse crackles) Cardiovascular: Irregularly Irregular, Tachycardia (EKG initially shows atrial fibrillation with a rapid ventricular response rate of 186.) Capillary Refill: Less Than 3 Seconds Gastrointestinal: normal bowel sounds, non tender Extremity: Normal Capillary Refill, Normal Inspection, Pedal Edema (trace edema in ankles) Neurologic/Psychiatric: Alert, Oriented x3 Skin: Normal Color, Warm/Dry Results Lab Laboratory Tests 01/14/21 14:25 01/15/21 04:32 Assessment/Plan Assessment/Plan a fib with still high V rate on 15 mg/m of IV Cardizem, will give IV lopressor 2.5 mg x 1 would get echo, cardiology to see I gave IV lopressor 2.5 which slowed HR but briefly dropped BP to 80/60 Given IV bolus by analytics leader, RN called that she is in resp distress and has lower lobe crackles, will give 20 mg IV push Lasix Critical Care: Critically Ill Patient Time spent with patient (mins): 35 CORINNA CHAVEZ MD Jan 15, 2021 09:44
[2021-01-15] MEDS ORDERED: meTOprolol 5 MG/5 ML (LOPRESSOR) VIAL IV ONE (10:00)
[2021-01-15] MEDS ORDERED: NS IV 1000 ML 1,000 ML ONE (10:06)
[2021-01-15] MEDS ORDERED: NS IV 1000 ML 1,000 ML IV ONE (10:15)
[2021-01-15] MEDS ORDERED: FUROSEMIDE 40 MG/4 ML INJ (LASIX) ONE (11:26)
[2021-01-15] MEDS ORDERED: FUROSEMIDE 40 MG/4 ML INJ (LASIX) IVP ONE (11:30)
--- NOTE | 2021-01-15 13:27 | Consultation-Cardiology ---
HPI-Cardiology Cardiology Consultation Date of Consultation 01/15/21 Date of Admission Time Seen by Provider: 13:24 Indication: Atrial fibrillation HPI 85-year-old lady with paroxysmal atrial fibrillation/flutter, admitted through the emergency room with atrial fibrillation rapid ventricular response, was having palpitation, on my evaluation she was still tachycardic and borderline hypotensive. Denied any chest pain. No syncope or near syncopal episode. No shortness of breath. Home Medications & Allergies Allergies: Coded Allergies: No Known Drug Allergies (Unverified , 02/12/18) Home Medication List Reviewed: Yes UNV-Bubpej-Otibyb Hx Patient Social History Smoking Status: Never a Smoker 2nd Hand Smoke Exposure: Yes Recent Hopitalizations: No Have you traveled recently?: No Alcohol Use?: No Immunizations Up To Date Date of Pneumonia Vaccine: Feb 12, 2015 Family Medical History Significant Family History: No Pertinent Family Hx Family History: Alzheimer's disease 19 FATHER, Onset:50's - 60 G8 BROTHER, Onset:50's - 60 Cardiovascular disease 19 FATHER, Onset:50's - 60 G8 BROTHER, Onset:50's - 60 Review of Systems-General Review of Systems Constitutional: see HPI EENTM: see HPI Respiratory: see HPI Cardiovascular: see HPI Gastrointestinal: see HPI Genitourinary: see HPI Musculoskeletal: see HPI Skin: see HPI Psychiatric/Neurological: See HPI Reviewed Test Results Reviewed Test Results Lab Laboratory Tests Test 01/14/21 14:25 01/15/21 04:32 Range/Units White Blood Count 12.0 H 6.8 4.3-11.0 10^3/uL Red Blood Count 4.02 3.73 L 3.80-5.11 10^6/uL Hemoglobin 12.2 11.1 L 11.5-16.0 g/dL Hematocrit 38 35 35-52 % Mean Corpuscular Volume 93 93 80-99 fL Mean Corpuscular Hemoglobin 30 30 25-34 pg Mean Corpuscular Hemoglobin Concent 33 32 32-36 g/dL Red Cell Distribution Width 14.2 14.0 10.0-14.5 % Platelet Count 165 120 L 130-400 10^3/uL Mean Platelet Volume 12.6 H 12.8 H 9.0-12.2 fL Immature Granulocyte % (Auto) 5 3 % Neutrophils (%) (Auto) 66 63 42-75 % Lymphocytes (%) (Auto) 13 17 12-44 % Monocytes (%) (Auto) 16 H 16 H 0-12 % Eosinophils (%) (Auto) 0 1 0-10 % Basophils (%) (Auto) 0 0 0-10 % Neutrophils # (Auto) 7.9 H 4.3 1.8-7.8 10^3/uL Lymphocytes # (Auto) 1.6 1.2 1.0-4.0 10^3/uL Monocytes # (Auto) 1.9 H 1.1 H 0.0-1.0 10^3/uL Eosinophils # (Auto) 0.0 0.1 0.0-0.3 10^3/uL Basophils # (Auto) 0.1 0.0 0.0-0.1 10^3/uL Immature Granulocyte # (Auto) 0.5 H 0.2 H 0.0-0.1 10^3/uL Prothrombin Time 14.8 H 12.2-14.7 SEC INR Comment 1.1 0.8-1.4 Activated Partial Thromboplast Time 32 24-35 SEC D-Dimer 2.12 H 0.00-0.49 UG/ML Sodium Level 130 L 135 135-145 MMOL/L Potassium Level 5.0 3.4 L 3.6-5.0 MMOL/L Chloride Level 98 100 98-107 MMOL/L Carbon Dioxide Level 20 L 24 21-32 MMOL/L Anion Gap 12 11 5-14 MMOL/L Blood Urea Nitrogen 39 H 32 H 7-18 MG/DL Creatinine 1.12 0.88 0.60-1.30 MG/DL Estimat Glomerular Filtration Rate 46 61 BUN/Creatinine Ratio 35 36 Glucose Level 123 H 97 70-105 MG/DL Calcium Level 9.4 9.0 8.5-10.1 MG/DL Corrected Calcium 9.5 9.4 8.5-10.1 MG/DL Magnesium Level 2.2 2.2 1.6-2.4 MG/DL Total Bilirubin 1.9 H 1.4 H 0.1-1.0 MG/DL Aspartate Amino Transf (AST/SGOT) 208 H 232 H 5-34 U/L Alanine Aminotransferase (ALT/SGPT) 241 H 299 H 0-55 U/L Alkaline Phosphatase 128 105 40-136 U/L Myoglobin 175.0 H 10.0-92.0 NG/ML Troponin I < 0.028 <0.028 NG/ML B-Type Natriuretic Peptide 1419.9 H <100.0 PG/ML Total Protein 7.8 6.7 6.4-8.2 GM/DL Albumin 3.9 3.5 3.2-4.5 GM/DL SARS-CoV-2 RNA (RT-PCR) Not Detected Not Detecte Percent Immature Platelet Fraction 13.5 H 0.0-7.6 % Phosphorus Level 2.6 2.3-4.7 MG/DL Triglycerides Level 93 <150 MG/DL Cholesterol Level 143 < 200 MG/DL LDL Cholesterol Direct 100 1-129 MG/DL VLDL Cholesterol 19 5-40 MG/DL HDL Cholesterol 37 L 40-60 MG/DL Physical Exam Physical Exam Vital Signs Vital Signs - First Documented 01/14/21 01/14/21 01/15/21 14:17 18:49 00:41 Temp 36.1 Pulse 163 Resp 22 B/P (MAP) 138/99 (112) Pulse Ox 99 O2 Delivery Room Air O2 Flow Rate 2.00 Capillary Refill : Less Than 3 Seconds Height, Weight, BMI Height: 4'11.00" Weight: 116lbs. 0.0oz. 52.256295tx; 23.85 BMI Method:Stated General Appearance: No Apparent Distress, WD/WN, Anxious, Mild Distress Neck: Full Range of Motion, Normal Inspection Respiratory: No Accessory Muscle Use, No Respiratory Distress, Crackles, Other (lower lobe coarse crackles) Cardiovascular: Irregularly Irregular, Tachycardia (EKG initially shows atrial fibrillation with a rapid ventricular response rate of 186.) Gastrointestinal: Normal Bowel Sounds, Non Tender, Soft Extremity: Normal Capillary Refill, Normal Inspection, Pedal Edema (trace edema in ankles) Neurologic/Psychiatric: Alert, Oriented x3 Skin: Normal Color, Warm/Dry A/P-Cardiology Admission Diagnosis Paroxysmal atrial fibrillation Palpitation Tachycardia Hypotension Assessment/Plan Paroxysmal atrial fibrillation, currently in atrial fibrillation with rapid ventricular response, patient reported that she has stopped taking Eliquis and she was taking it sporadically due to nosebleed. She is on Cardizem drip and still borderline tachycardic, I had a long discussion with the patient and her family and recommended ANMOL and electrical cardioversion, patient is very hesitant to have any procedure done, does not want any procedure although she is tachycardic. I will try to add digoxin and evaluate tolerance and response. [id number] score of 4, yearly risk of stroke without oral anticoagulation is 4%. Patient was on Eliquis 2.5 mg twice daily but apparently she was not taking it at home, she has used the pill or 2 occasionally History of peripheral edema, better at this time History of GI bleed with blood in her stool in the past, monitor H&H, has been refusing colonoscopy Hypertension, currently borderline hypotensive Mild carotid stenosis nonobstructive disease Family history of atherosclerotic disease. JIAN STEPHENSON MD Jan 15, 2021 13:27
[2021-01-15] MEDS ORDERED: DIGOXIN 0.25 MG/ML (LANOXIN) 2 ML AMP IV NR (13:30)
[2021-01-15] MEDS ORDERED: ACETAMINOPHEN 325 MG TABLET PO PRN (15:45)
[2021-01-15] MEDS ORDERED: meTOproloL SUCCINATE 50 MG (TOPROL XL) TAB PO NR (17:15)
--- NOTE | 2021-01-15 21:59 | Diagnostic Imaging Report ---
EXAM: Pelvis radiograph EXAM DATE: 01/15/2021 COMPARISON: None. HISTORY: Foreign body evaluation. TECHNIQUE: Single view of the pelvis. FINDINGS: There is no acute fracture, dislocation, or destructive osseous process. Moderate amount of air and stool seen throughout the colon. No radiopaque foreign body is seen to correspond to missing catheter piece per patient history. Soft tissues are normal. IMPRESSION: 1. No visualized radiopaque foreign body. Dictated by: Dictated on workstation # [id number]
--- NOTE | 2021-01-15 22:00 | History & Physical ---
HPI History of Present Illness: 85 yo F that presented to the ER with shortenss of breath that has been getting worse the last few weeks. Upon arriving to the ER patient was found to have a heart rate in the 180s. She has known atrial fibrillation and takes her OAC ocassionally due to severe nose bleed last year. Patient denies any chest pain with episodes but is short of breath. States that she has not missed any of her rate control medications. Source: patient Exam Limitations: no limitations Date seen by provider: Jan 15, 2021 Time Seen by Provider: 10:45 Attending Physician Dina Rosas MD PCP Haider Guerra MD Consult Date of Admission Jan 14, 2021 at 15:46 Home Medications Home Medications Reviewed patient Home Medication Reconciliation performed by pharmacy medication reconciliations lab support technician and/or nursing. Patients Allergies have been reviewed. Allergies Coded Allergies: No Known Drug Allergies (Unverified , 02/12/18) [id number]-Zhwpfk Hx Patient Social History Smoking Status: Never a Smoker 2nd Hand Smoke Exposure: Yes Recent Hopitalizations: No Alcohol Use?: No Have you traveled recently?: No Immunizations Up To Date Date of Pneumonia Vaccine: Feb 12, 2015 Past Medical History PMHx: Atrial fibrillation SurgHx: Hysterectomy Ankle fracture repair Family Medical History Significant Family History: No Pertinent Family Hx Family History: Alzheimer's disease 19 FATHER, Onset:50's - 60 G8 BROTHER, Onset:50's - 60 Cardiovascular disease 19 FATHER, Onset:50's - 60 G8 BROTHER, Onset:50's - 60 Review of Systems ([facility]) Constitutional: No dizziness; malaise, weakness EENTM: no symptoms reported; No mouth pain, No nose congestion, No nose pain Respiratory: No cough, No dyspnea on exertion; short of breath Cardiovascular: No chest pain, No edema; palpitations Gastrointestinal: no symptoms reported; No abdominal pain, No constipation, No diarrhea, No loss of appetite, No nausea, No vomiting Genitourinary: no symptoms reported; No dysuria : No Musculoskeletal: no symptoms reported Skin: No lesions, No rash Psychiatric/Neurological: No Symptoms Reported Reviewed Test Results Reviewed Test Results Lab Laboratory Tests Test 01/15/21 04:32 Range/Units White Blood Count 6.8 4.3-11.0 10^3/uL Red Blood Count 3.73 L 3.80-5.11 10^6/uL Hemoglobin 11.1 L 11.5-16.0 g/dL Hematocrit 35 35-52 % Mean Corpuscular Volume 93 80-99 fL Mean Corpuscular Hemoglobin 30 25-34 pg Mean Corpuscular Hemoglobin Concent 32 32-36 g/dL Red Cell Distribution Width 14.0 10.0-14.5 % Platelet Count 120 L 130-400 10^3/uL Mean Platelet Volume 12.8 H 9.0-12.2 fL Immature Granulocyte % (Auto) 3 % Neutrophils (%) (Auto) 63 42-75 % Lymphocytes (%) (Auto) 17 12-44 % Monocytes (%) (Auto) 16 H 0-12 % Eosinophils (%) (Auto) 1 0-10 % Basophils (%) (Auto) 0 0-10 % Neutrophils # (Auto) 4.3 1.8-7.8 10^3/uL Lymphocytes # (Auto) 1.2 1.0-4.0 10^3/uL Monocytes # (Auto) 1.1 H 0.0-1.0 10^3/uL Eosinophils # (Auto) 0.1 0.0-0.3 10^3/uL Basophils # (Auto) 0.0 0.0-0.1 10^3/uL Immature Granulocyte # (Auto) 0.2 H 0.0-0.1 10^3/uL Percent Immature Platelet Fraction 13.5 H 0.0-7.6 % Sodium Level 135 135-145 MMOL/L Potassium Level 3.4 L 3.6-5.0 MMOL/L Chloride Level 100 98-107 MMOL/L Carbon Dioxide Level 24 21-32 MMOL/L Anion Gap 11 5-14 MMOL/L Blood Urea Nitrogen 32 H 7-18 MG/DL Creatinine 0.88 0.60-1.30 MG/DL Estimat Glomerular Filtration Rate 61 BUN/Creatinine Ratio 36 Glucose Level 97 70-105 MG/DL Calcium Level 9.0 8.5-10.1 MG/DL Corrected Calcium 9.4 8.5-10.1 MG/DL Phosphorus Level 2.6 2.3-4.7 MG/DL Magnesium Level 2.2 1.6-2.4 MG/DL Total Bilirubin 1.4 H 0.1-1.0 MG/DL Aspartate Amino Transf (AST/SGOT) 232 H 5-34 U/L Alanine Aminotransferase (ALT/SGPT) 299 H 0-55 U/L Alkaline Phosphatase 105 40-136 U/L Total Protein 6.7 6.4-8.2 GM/DL Albumin 3.5 3.2-4.5 GM/DL Triglycerides Level 93 <150 MG/DL Cholesterol Level 143 < 200 MG/DL LDL Cholesterol Direct 100 1-129 MG/DL VLDL Cholesterol 19 5-40 MG/DL HDL Cholesterol 37 L 40-60 MG/DL Physical Exam-([facility]) Physical Exam Vital Signs VS - Last 72 Hours, by Label 01/14/21 01/14/21 01/14/21 01/14/21 14:17 18:20 18:49 19:00 Temp 36.1 Pulse 163 113 Resp 22 B/P (MAP) 138/99 (112) Pulse Ox 99 93 O2 Delivery Room Air Room Air 01/14/21 01/14/21 01/14/21 01/14/21 19:00 19:15 19:30 19:45 Pulse 113 112 95 105 Resp 22 26 16 20 B/P (MAP) 140/104 142/99 109/100 116/78 Pulse Ox 86 90 90 90 O2 Delivery Room Air Room Air Room Air Room Air 01/14/21 01/14/21 01/14/21 01/14/21 20:00 20:00 20:48 21:00 Temp 35.8 Pulse 121 97 Resp 29 12 B/P (MAP) 149/76 140/83 Pulse Ox 91 92 94 O2 Delivery Room Air Room Air Room Air 01/14/21 01/14/21 01/14/21 01/14/21 22:00 23:00 23:28 23:30 Temp 36.1 Pulse 98 97 Resp 21 B/P (MAP) 110/73 99/55 Pulse Ox 91 90 90 O2 Delivery Room Air Room Air Room Air 01/15/21 01/15/21 01/15/21 01/15/21 00:00 00:41 01:00 01:00 Pulse 129 84 84 Resp 24 20 B/P (MAP) 100/76 97/66 Pulse Ox 90 92 96 O2 Delivery Room Air Nasal Cannula Nasal Cannula O2 Flow Rate 2.00 2.00 01/15/21 01/15/21 01/15/21 01/15/21 02:00 03:00 04:00 04:00 Pulse 103 98 116 Resp 29 17 24 B/P (MAP) 106/72 107/63 94/71 Pulse Ox 96 92 95 O2 Delivery Nasal Cannula Nasal Cannula Nasal Cannula Nasal Cannula O2 Flow Rate 2.00 2.00 2.00 2.00 01/15/21 01/15/21 01/15/21 01/15/21 04:00 04:00 05:00 06:15 Temp 36.3 Pulse 111 128 Resp 17 18 B/P (MAP) 107/84 96/72 Pulse Ox 94 97 95 O2 Delivery Nasal Cannula Nasal Cannula Nasal Cannula O2 Flow Rate 2.00 2.00 2.00 01/15/21 01/15/21 01/15/21 01/15/21 06:37 07:00 07:51 07:52 Temp 35.5 Pulse 122 126 Resp 25 B/P (MAP) 105/65 Pulse Ox 90 97 O2 Delivery Nasal Cannula Nasal Cannula O2 Flow Rate 2.00 2.00 01/15/21 01/15/21 01/15/21 01/15/21 08:00 08:41 09:00 10:00 Pulse 122 147 134 Resp 15 37 19 B/P (MAP) 129/98 98/74 86/53 Pulse Ox 93 97 86 95 O2 Delivery Nasal Cannula Nasal Cannula Nasal Cannula Nasal Cannula O2 Flow Rate 2.00 2.00 2.00 2.00 01/15/21 01/15/21 01/15/21 01/15/21 11:00 11:42 11:43 12:00 Pulse 129 122 Resp 20 33 B/P (MAP) 121/101 114/91 Pulse Ox 87 93 90 O2 Delivery Nasal Cannula Nasal Cannula Nasal Cannula Nasal Cannula O2 Flow Rate 2.00 7.00 8.00 8.00 01/15/21 01/15/21 01/15/21 01/15/21 12:01 12:29 13:00 14:00 Temp 35.9 Pulse 114 124 160 Resp 32 26 B/P (MAP) 114/80 96/49 Pulse Ox 95 O2 Delivery Nasal Cannula Nasal Cannula O2 Flow Rate 8.00 8.00 01/15/21 01/15/21 01/15/21 01/15/21 15:00 16:00 16:00 16:52 Temp 36.3 Pulse 144 151 Resp 26 26 B/P (MAP) 126/81 132/85 Pulse Ox 91 98 88 O2 Delivery Nasal Cannula Nasal Cannula Nasal Cannula O2 Flow Rate 8.00 8.00 8.00 01/15/21 01/15/21 01/15/21 01/15/21 17:00 18:00 19:00 20:00 Temp 36.7 Pulse 130 123 112 Resp 26 39 B/P (MAP) 144/99 100/58 Pulse Ox 74 91 O2 Delivery Nasal Cannula Nasal Cannula O2 Flow Rate 8.00 8.00 01/15/21 20:07 Pulse Ox 97 O2 Delivery Nasal Cannula O2 Flow Rate 8.00 Capillary Refill : Less Than 3 Seconds General Appearance: WD/WN, no apparent distress Neck: non-tender, full range of motion Respiratory: chest non-tender, lungs clear, normal breath sounds, no respiratory distress, no accessory muscle use Cardiovascular: no edema, no murmur, tachycardia Gastrointestinal: normal bowel sounds, non tender, soft Extremities: normal range of motion, normal inspection, no pedal edema, no calf tenderness, normal capillary refill 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/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 as tested, no motor/sensory deficits, alert, normal mood/affect, oriented x 3 Skin: normal color, warm/dry Lymphatic: no adenopathy Assessment/Plan Assessment/Plan Admission Status: Observation (1) Paroxysmal atrial fibrillation with rapid ventricular response Status: Acute Assessment & Plan: - Cardiology consulted and managing, appreciate recommendations (2) Elevated LFTs Status: Acute Assessment & Plan: - Abdominal US ordered (3) HTN (hypertension) Status: Chronic Assessment & Plan: - Continue home meds Qualifiers: Qualified Codes: I10 - Essential (primary) hypertension (4) DVT prophylaxis Status: Acute Assessment & Plan: - Continue OAC DINA ROSAS MD Jan 15, 2021 22:00
[2021-01-16] MEDS ORDERED: LORazepam INJ 2 MG/ML (ATIVAN) VIAL IVP PRN (03:30)
[2021-01-16] MEDS ORDERED: LORazepam INJ 2 MG/ML (ATIVAN) VIAL ONE (03:33)
[2021-01-16 04:59] LABS: BASOPHILS % (AUTO) 0 % (0-10); EOSINOPHILS % (AUTO) 0 % (0-10); HEMATOCRIT 36 % (35-52); HEMOGLOBIN 11.8 g/dL (11.5-16.0); LYMPHOCYTES # (AUTO) 0.9 10^3/uL (1.0-4.0); LYMPHOCYTES % (AUTO) 13 % (12-44); MEAN CORPUSCULAR HEMOGLOBIN 30 pg (25-34); MEAN CORPUSCULAR HGB CONC 33 g/dL (32-36); MEAN CORPUSCULAR VOLUME 94 fL (80-99); MEAN PLATELET VOLUME 12.5 fL (9.0-12.2); MONOCYTES # (AUTO) 1.3 10^3/uL (0.0-1.0); MONOCYTES % (AUTO) 19 % (0-12); NEUTROPHILS # (AUTO) 4.6 10^3/uL (1.8-7.8); NEUTROPHILS % (AUTO) 65 % (42-75); PLATELET COUNT 128 10^3/uL (130-400); WHITE BLOOD COUNT 7.1 10^3/uL (4.3-11.0)
[2021-01-16 05:10] LABS: ALBUMIN 3.5 GM/DL (3.2-4.5); POTASSIUM 3.7 MMOL/L (3.6-5.0)
[2021-01-16 05:11] LABS: CALCIUM 8.6 MG/DL (8.5-10.1)
[2021-01-16 05:15] LABS: BILIRUBIN,TOTAL 1.4 MG/DL (0.1-1.0)
[2021-01-16] MEDS: CATHETER FLUSH 10 ML SYR IV SCH ×3 (05:15→22:00)
[2021-01-16 05:16] LABS: CREATININE SERUM 0.74 MG/DL (0.60-1.30); PHOSPHORUS 1.3 MG/DL (2.3-4.7)
[2021-01-16 05:19] LABS: MAGNESIUM 2.1 MG/DL (1.6-2.4)
[2021-01-16 05:22] LABS: ANISOCYTOSIS SLIGHT; BAND NEUTROPHILS 5 %; BASOPHILS % (MANUAL) 0 %; EOSINOPHILS % (MANUAL) 0 %; LYMPHOCYTES % (MANUAL) 20 %; MONOCYTES % (MANUAL) 9 %; NEUTROPHILS % (MANUAL) 64 %; POLYCHROMASIA SLIGHT; REACTIVE LYMPHOCYTES 2 %; ROULEAUX SLIGHT
[2021-01-16] MEDS: POTASSIUM CL 10MEQ/50ML IVPB 50 ML IV SCH (05:48)
[2021-01-16] MEDS: KCL 20 MEQ TAB (K-DUR) PO SCH (05:49)
[2021-01-16] MEDS: MAGNESIUM 1 GM/100 ML IVPB 100 ML IV SCH (05:49)
[2021-01-16] MEDS ORDERED: NS IV 1000 ML 1,000 ML ONE (07:42)
[2021-01-16] MEDS ORDERED: LIDOCAINE 2% VISCOUS 15 ML UDC ONE (07:42)
[2021-01-16] MEDS ORDERED: proPOfol 200 MG/20 ML (DIPRIVAN) VIAL IV ONE ×2 (08:05→10:48)
[2021-01-16] MEDS ORDERED: MIDAZOLAM 5 MG/5 ML (VERSED) VIAL ONE (08:05)
--- NOTE | 2021-01-16 08:51 | Conscious Sedation/ASA ---
Conscious Sedation Pre-Proced Time 08:00 ASA Score 3 For ASA 3 and 4: Consider anesthesia and medical clearance. Also, for patients with a history of failed moderate sedation consider anesthesia. Airway Lungs Heart ASA score ASA 1: a normal healthy patient ASA 2: a patient with a mild systemic disease (mid diabetes, controlled hypertension, obesity x ASA 3: a patient with a severe systemic disease that limits activity (angina, COPD, prior Myocardial infarction) ASA 4: a patient with an incapacitating disease that is a constant threat to life (CHF, renal failure) ASA 5: a moribund patient not expected to survive 24 hrs. (ruptured aneurysm) ASA 6: a declared brain- patient whose organs are being harvested. For emergent operations, add the letter E after the classification Mallampati Classification Grade 3 Sedation Plan Analgesia, Amnesia, Plan communicated to team members, Discussed options with patient/fam, Discussed risks with patient/fam The patient is an appropriate candidate to undergo the planned procedure, sedation, and anesthesia. The patient immediately re-assessed prior to indication. JIAN STEPHENSON MD Jan 16, 2021 08:51
--- NOTE | 2021-01-16 08:56 | Cardiology Progress Note ---
Subjective Date Seen by Provider: Jan 16, 2021 Time Seen by Provider: 08:53 Subjective/Events-last exam Patient is feeling well, still very anxious. Still in atrial fibrillation Review of Systems General: No Chills, No Night Sweats; Fatigue; No Malaise, No Appetite, No Other HEENT: No Head Aches, No Visual Changes, No Eye Pain, No Ear Pain, No Dysphasia, No Sinus Congestion, No Post Nasal Drip, No Sore Throat, No Other Pulmonary: No Dyspnea, No Cough, No Pleuritic Chest Pain, No Other Cardiovascular: Palpitations; No: Chest Pain, Orthopnea, Paroxysmal Noc. Dyspnea, Edema, Lt Headedness, Other Objective-Cardiology Exam Last Set of Vital Signs Vital Signs 01/16/21 01/16/21 06:00 08:00 Temp 35.8 Pulse 99 Resp 22 B/P (MAP) 94/67 Pulse Ox 94 O2 Delivery Nasal Cannula O2 Flow Rate 6.00 I&O Intake and Output 01/16/21 00:00 Intake Total 2000 ml Output Total 1925 ml Balance 75 ml Intake Oral 1000 ml IV Total 1000 ml Output Urine Total 1925 ml General: Alert, Oriented X3, Cooperative HEENT: Atraumatic, PERRLA Neck: Supple, No JVD, No Thyromegaly Lungs: Clear to Auscultation, Normal Air Movement Heart: Normal S1, Normal S2, No Murmurs, Other (Atrial fibrillation with rapid ventricular response) Abdomen: Normal Bowel Sounds, Soft, No Tenderness, No Hepatosplenomegaly, No Masses Extremities: No Clubbing, No Cyanosis, No Edema, Normal Pulses, No Tenderness/Swelling Skin: No Rashes, No Breakdown, No Significant Lesion Neuro: Normal Gait, Normal Speech, Strength at 5/5 X4 Ext, Normal Tone, Sensation Intact Psych/Mental Status: Mental Status NL, Mood NL Results Lab Laboratory Tests 01/16/21 04:05 A/P-Cardiology Admission Diagnosis Paroxysmal atrial fibrillation Palpitation Tachycardia Hypotension Assessment/Plan Paroxysmal atrial fibrillation, currently in atrial fibrillation with rapid ventricular response, patient reported that she has stopped taking Eliquis and she was taking it sporadically due to nosebleed. ANMOL was done today which showed normal left ventricular size and function, prominent left atrium and left atrial appendage with echogenic density suspicious of a thrombus in the left atrial appendage subsequently cardioversion cannot be done and she will need to be on uninterrupted oral anticoagulation for 6 weeks. I started her on digoxin, metoprolol and started oral Cardizem and planning to stop the drip and evaluate if we can achieve adequate heart rate control. [id number] score of 4, yearly risk of stroke without oral anticoagulation is 4%. Patient was on Eliquis 2.5 mg twice daily but apparently she was not taking it at home, she has used the pill or 2 occasionally, educated on the importance of compliance with medication History of peripheral edema, better at this time History of GI bleed with blood in her stool in the past, monitor H&H, has been refusing colonoscopy, starting Protonix Hypertension, currently borderline hypotensive Mild carotid stenosis nonobstructive disease Family history of atherosclerotic disease. JIAN STEPHENSON MD Jan 16, 2021 08:56
[2021-01-16] MEDS: PANTOPRAZOLE 40 MG (PROTONIX) TAB PO SCH (09:00)
--- NOTE | 2021-01-16 09:46 | Diagnostic Imaging Report ---
INDICATION: PROCEDURE: Ultrasound abdomen complete. TECHNIQUE: Multiple real-time grayscale images were obtained of the abdomen in various projections. INDICATION: Elevated liver enzymes FINDINGS: The liver is normal in size. There is a cyst in the dome of the liver measuring 3.5 cm. There is hepatopedal flow in the main portal vein. There is no cholelithiasis, gallbladder wall thickening or pericholecystic fluid. The common bile duct not well-visualized. The visualized portions of the pancreas are unremarkable. Spleen is normal in size. The aorta is nonaneurysmal. There is a 6 cm cyst in the left kidney. Kidneys are otherwise unremarkable. There is no ascites. Emerson's sign is negative. IMPRESSION: Cyst in the liver and left kidney, otherwise unremarkable abdominal ultrasound Dictated by: Dictated on workstation # [id number]
--- NOTE | 2021-01-16 10:03 | Anesthesia-General Post-Op ---
MAC Patient Condition Mental Status/LOC: Same as Preop Cardiovascular: Satisfactory Nausea/Vomiting: Absent Respiratory: Satisfactory Pain: Controlled Complications: Absent Post Op Complications Complications None Follow Up Care/Instructions Patient Instructions None needed. Anesthesiology Discharge Order Discharge Order Patient is doing well, no complaints, stable vital signs, no apparent adverse anesthesia problems. DOMINGO CELAYA DO Jan 16, 2021 10:02
[2021-01-16] MEDS: APIXABAN 2.5 MG (ELIQUIS) TABLET PO SCH ×2 (10:56→18:16)
[2021-01-16] MEDS: DIGOXIN 0.125 MG (LANOXIN) TAB PO SCH (10:56)
[2021-01-16] MEDS: meTOproloL SUCCINATE 50 MG (TOPROL XL) TAB PO SCH ×2 (10:58→20:56)
--- NOTE | 2021-01-16 11:25 | Diagnostic Imaging Report ---
EXAMINATION: CT pelvis without intravenous contrast. TECHNIQUE: Multiple contiguous axial images were obtained through the pelvis without the administration of intravenous contrast. All CT scans use one or more of the following dose optimizing techniques: automated exposure control, MA and/or KvP adjustment based on patient size and exam type or iterative reconstruction. HISTORY: Possible foreign body, self-removal of a left Sarmiento with the tip missing. COMPARISON: None available. FINDINGS: Visualized portions of the kidneys are normal. There is no hydronephrosis. Urinary bladder is normal. No foreign body is seen in the bladder or urethra. Visualized bowel is normal in caliber without obstruction or inflammation. No free fluid or air. No pelvic lymphadenopathy. Aorta is normal in caliber without aneurysm. There are no suspicious osseus lesions. IMPRESSION: 1. No foreign body seen in the bladder or urethra. Dictated by: Dictated on workstation # [id number]
--- NOTE | 2021-01-16 14:46 | Pulmonary Progress Note ---
SANAZ CHANG MED STUDENT 01/16/21 1446: Subjective Date Seen by a Provider: Jan 16, 2021 Time Seen by a Provider: 06:55 Subjective/Events-last exam Heide states she does not have any pain or nausea. She is on 6L NC. Per night RN, became severly confused last night and pulled at lines and tubing, pulling her dunn catheter out. The tip of the dunn catheter is reportedly missing. The patient is currently confused but pleasant, not restless. Sepsis Event Evaluation Height, Weight, BMI Height: 4'11.00" Weight: 116lbs. 0.0oz. 52.710194fe; 23.85 BMI Method:Stated Exam Exam Patient acknowledged, consented, and participated in this virtual visit which was conducted using real time audio/video Vital Signs Date Time Temp Pulse Resp B/P (MAP) Pulse Ox O2 Delivery O2 Flow Rate FiO2 01/16/21 12:00 35.3 01/16/21 12:00 128 16 107/70 96 Nasal Cannula 6.00 01/16/21 11:00 140 29 117/98 95 Nasal Cannula 6.00 01/16/21 10:00 98 21 122/99 99 Nasal Cannula 6.00 01/16/21 09:00 115 21 100/69 93 Nasal Cannula 6.00 01/16/21 08:00 121 25 104/60 94 Nasal Cannula 6.00 01/16/21 08:00 35.8 01/16/21 07:00 105 32 103/77 98 Nasal Cannula 6.00 01/16/21 07:00 117 01/16/21 06:00 99 22 94/67 94 Nasal Cannula 6.00 01/16/21 05:00 101 22 100/69 92 Nasal Cannula 6.00 01/16/21 04:05 Nasal Cannula 6.00 01/16/21 04:04 36.0 Nasal Cannula 6.00 01/16/21 04:00 133 21 102/56 96 Nasal Cannula 6.00 01/16/21 03:00 115 21 112/98 98 Nasal Cannula 6.00 01/16/21 02:00 105 21 108/73 98 Nasal Cannula 6.00 01/16/21 01:00 106 18 116/88 100 Nasal Cannula 6.00 01/16/21 01:00 130 01/16/21 00:00 121 24 97 Nasal Cannula 6.00 01/16/21 00:00 36.0 01/15/21 23:59 97 Nasal Cannula 8.00 01/15/21 23:00 130 20 10 Nasal Cannula 6.00 01/15/21 22:00 114 21 114/85 100 Nasal Cannula 6.00 01/15/21 21:00 131 22 90 Nasal Cannula 6.00 01/15/21 20:07 97 Nasal Cannula 8.00 01/15/21 20:00 112 26 117/88 100 Nasal Cannula 6.00 01/15/21 20:00 36.7 01/15/21 19:00 112 26 119/108 96 Nasal Cannula 6.00 01/15/21 19:00 112 01/15/21 18:00 123 39 100/58 91 Nasal Cannula 8.00 01/15/21 17:00 130 26 144/99 74 Nasal Cannula 8.00 01/15/21 16:52 88 Nasal Cannula 8.00 01/15/21 16:00 151 26 132/85 98 Nasal Cannula 8.00 01/15/21 16:00 36.3 01/15/21 15:00 144 26 126/81 91 Nasal Cannula 8.00 I & O 01/16/21 07:00 Intake Total 2000 ml Output Total 1875 ml Balance 125 ml Height & Weight Height: 4'11.00" Weight: 116lbs. 0.0oz. 52.416517is; 23.85 BMI Method:Stated General Appearance: No Apparent Distress, WD/WN, Anxious, Mild Distress Neck: Full Range of Motion, Normal Inspection Respiratory: No Accessory Muscle Use, No Respiratory Distress, Crackles (on exhalation) Cardiovascular: Irregularly Irregular, Tachycardia (rate currently 110-140) Capillary Refill: Less Than 3 Seconds Gastrointestinal: normal bowel sounds, non tender, soft Extremity: Normal Capillary Refill, Normal Inspection, Pedal Edema (trace edema in ankles) Neurologic/Psychiatric: Alert; No Oriented x3; Other Skin: Normal Color, Warm/Dry Results Lab Laboratory Tests 01/15/21 04:32 01/16/21 04:05 Assessment/Plan Assessment/Plan Afib with RVR -rate currently 110-140's -cardiology plans ANMOL with possible defibrillation this am -currently on Eliquis Nighttime agitation -illness and hospitalization are likely contributory, but patient does seem to have some baseline mental decline -imaging study to search for the missing part of the dunn catheter per radiology's suggestion increased oxygen demand -now on 6L NC. Lungs clear; low suspicion for primary respiratory pathology at this time BRIDGETTE JOSÉ MD 01/16/21 1640: Supervisory-Addendum Brief Verification & Attestation Participated in pt care: history, MDM, physical Personally performed: exam, history, MDM, supervision of care Care discussed with: Medical Student Procedures: n/a PLAN as above A medical student performed and documented this service. I reviewed all information documented by the medical student and made modifications to such information, when appropriate. Medical student performed patients physical exam. Medical decision making was done during tele-rounds with this medical student and a bedside RN . Plans in collaboration with bedside consultants and IM MDs. Discussed with RN to reach out if any questions or concerns A total of 20minutes of critical care time was devoted to this patient today, required to treat and/or prevent further deterioration of critical care condition ( as above) . SANAZ CHANG MED STUDENT Jan 16, 2021 14:46 BRIDGETTE JOSÉ MD Jan 16, 2021 16:40
--- NOTE | 2021-01-16 15:49 | CONSULTATION REPORT ---
DATE OF SERVICE: 01/16/2021 ATTENDING PRIMARY CARE PHYSICIAN: Dr. Haider Guerra. HISTORY OF PRESENT ILLNESS: The patient is an 85-year-old female who was brought to the Emergency Department from the [facility] by private vehicle for complaints of body aches as well as shortness of breath, diarrhea, nausea as well as palpitations. She was found to be in atrial fibrillation with RVR and is on Eliquis for history of paroxysmal atrial fibrillation. She had reported she has not been taking it consistently for about two months because of intermittent left side nosebleeds. She was admitted to the ICU. She is confused and during her stay last night, she was found in the morris and she had removed her IV as well as her Sarmiento catheter. Staff identified that a portion of the tip of the Sarmiento catheter was missing and the tubing and bag were intact. They were unable to locate the missing portion of the Sarmiento catheter and we were consulted. She did undergo an abdominal ultrasound this morning, in which there was only a cyst identified of the liver and left kidney, but otherwise unremarkable. She then underwent a CT of the pelvis where there was no foreign body identified in the bladder or urethra. PAST MEDICAL HISTORY: Atrial fibrillation. PAST SURGICAL HISTORY: Hysterectomy, repair of ankle fracture, appendectomy, cataracts. ALLERGIES: No known drug allergies. MEDICATIONS: Eliquis 2.5 mg b.i.d., metoprolol 50 mg b.i.d. SOCIAL HISTORY: Negative for smoke. Negative for alcohol. FAMILY HISTORY: Father and brother, cardiovascular disease and Alzheimer's disease. VITAL SIGNS: Blood pressure is 107/70. Pulse 128, respirations 16, pulse ox 96% on 6 liters nasal cannula, temperature 35.3 degrees Celsius. REVIEW OF SYSTEMS: This is a well-nourished elderly female who is confused. She did report episodes of shortness of breath, but no difficulty breathing. No chest pain, but did report palpitations. No nausea, vomiting or abdominal pain. No diarrhea or constipation. No red blood per rectum. No dark tarry stools. No fever or chills. She did report weakness. All other review of systems negative. PHYSICAL EXAMINATION: CHEST: Clear. Good breath sounds bilaterally. HEART: Irregular. No murmurs with tachycardia. EXTREMITIES: No lower extremity edema. Negative Homans sign. HEENT: No scleral icterus. NECK: No cervical lymphadenopathy. ABDOMEN: Soft, nontender, nondistended. SKIN: Warm, dry and pink. NEUROLOGIC: She is awake, alert and oriented x2 to person and time, but not to place. ASSESSMENT AND PLAN: An 85-year-old female with atrial fibrillation with RVR, who also has episodes of confusion. She did remove her Sarmiento catheter as well as IV last night and part of the Sarmiento catheter tip was missing and not able to be located by staff. We were consulted and did order a CT cystogram, which was normal with no foreign bodies identified. We will continue to have staff watch the patient for avoiding any signs of obstruction. Job ID: [id number] DocumentID: [id number] Dictated Date: 01/16/2021 15:33:08 Wafer Fab Operator Date: 01/16/2021 15:47:52 Dictated By: CINDY COX APRN
--- NOTE | 2021-01-16 21:28 | Progress Note ---
Subjective Subjective/Events-last exam Patient denies any chest pain or palpitations. Still having shortness of breath. Tolerating PO diet. Review of Systems Pulmonary: Dyspnea; No Cough Cardiovascular: No: Chest Pain, Palpitations Gastrointestinal: No: Nausea, Vomiting, Abdominal Pain Neurological: Weakness, Incoordination Objective Exam Last Set of Vital Signs Vital Signs Date Time Temp Pulse Resp B/P (MAP) Pulse Ox O2 Delivery O2 Flow Rate FiO2 01/16/21 21:07 35.8 98 Room Air 01/16/21 16:00 114 23 102/63 6.00 Capillary Refill : Less Than 3 Seconds I&O Intake and Output 01/16/21 00:00 Intake Total 2000 ml Output Total 1925 ml Balance 75 ml Intake Oral 1000 ml IV Total 1000 ml Output Urine Total 1925 ml General: Alert, Oriented X3, Mild Distress Lungs: Clear to Auscultation, Normal Air Movement Heart: Regular Rate, No Murmurs Abdomen: Normal Bowel Sounds, Soft, No Tenderness, No Masses Extremities: No Edema, No Tenderness/Swelling Neuro: Normal Speech, Sensation Intact, Cranial Nerves 3-12 NL Results/Procedures Lab Laboratory Tests 01/16/21 04:05: White Blood Count 7.1, Red Blood Count 3.88, Hemoglobin 11.8, Hematocrit 36, Mean Corpuscular Volume 94, Mean Corpuscular Hemoglobin 30, Mean Corpuscular H emoglobin Concent 33, Red Cell Distribution Width 13.9, Platelet Count 128L, Mean Platelet Volume 12.5H, Immature Granulocyte % (Auto) 3, Neutrophils (%) (Auto) 65, Lymphocytes (%) (Auto) 13, Monocytes (%) (Auto) 19H, Eosinophils (%) (Auto) 0, Basophils (%) (Auto) 0, Neutrophils # (Auto) 4.6, Lymphocytes # (Auto) 0.9L, Monocytes # (Auto) 1.3H, Eosinophils # (Auto) 0.0, Basophils # (Auto) 0.0, Immature Granulocyte # (Auto) 0.2H, Neutrophils % (Manual) 64, Lymphocytes % (Manual) 20, Monocytes % (Manual) 9, Eosinophils % (Manual) 0, Basophils % (Manual) 0, Band Neutrophils 5, Reactive Lymphocytes 2, Polychromasia SLIGHT, Anisocytosis SLIGHT, Rouleau SLIGHT, Sodium Level 135, Potassium Level 3.7, Chloride Level 102, Carbon Dioxide Level 23, Anion Gap 10, Blood Urea Nitrogen 15, Creatinine 0.74, Estimat Glomerular Filtration Rate 74, BUN/Creatinine Ratio 20, Glucose Level 105, Calcium Level 8.6, Corrected Calcium 9.0, Phosphorus Level 1.3L, Magnesium Level 2.1, Total Bilirubin 1.4H, Aspartate Amino Transf (AST/SGOT) 143H, Alanine Aminotransferase (ALT/SGPT) 313H, Alkaline Phosphatase 109, Total Protein 7.0, Albumin 3.5 Microbiology 01/14/21 MRSA Screen - Final, Complete MRSA not isolated Assessment/Plan Assessment/Plan (1) Paroxysmal atrial fibrillation with rapid ventricular response Status: Acute Assessment & Plan: - Cardiology consulted and managing, appreciate recommendations 01/16: ANMOL done with concerns for clot so patient did not receive cardioversion (2) Elevated LFTs Status: Acute Assessment & Plan: - Abdominal US ordered 01/16: Small simple cyst in liver and kidney (3) HTN (hypertension) Status: Chronic Assessment & Plan: - Continue home meds Qualifiers: Qualified Codes: I10 - Essential (primary) hypertension (4) DVT prophylaxis Status: Acute Assessment & Plan: - Continue OAC MARY HURTADO MD Jan 16, 2021 21:28
[2021-01-17 04:59] LABS: BASOPHILS % (AUTO) 0 % (0-10); EOSINOPHILS % (AUTO) 1 % (0-10); HEMATOCRIT 36 % (35-52); HEMOGLOBIN 11.6 g/dL (11.5-16.0); LYMPHOCYTES # (AUTO) 0.8 10^3/uL (1.0-4.0); LYMPHOCYTES % (AUTO) 16 % (12-44); MEAN CORPUSCULAR HEMOGLOBIN 30 pg (25-34); MEAN CORPUSCULAR HGB CONC 32 g/dL (32-36); MEAN CORPUSCULAR VOLUME 94 fL (80-99); MEAN PLATELET VOLUME 12.3 fL (9.0-12.2); MONOCYTES % (AUTO) 18 % (0-12); NEUTROPHILS # (AUTO) 3.4 10^3/uL (1.8-7.8); NEUTROPHILS % (AUTO) 64 % (42-75); PLATELET COUNT 158 10^3/uL (130-400); WHITE BLOOD COUNT 5.3 10^3/uL (4.3-11.0)
[2021-01-17 05:25] LABS: ALBUMIN 3.5 GM/DL (3.2-4.5); POTASSIUM 3.5 MMOL/L (3.6-5.0)
[2021-01-17 05:28] LABS: TOTAL PROTEIN 6.9 GM/DL (6.4-8.2)
[2021-01-17 05:29] LABS: BILIRUBIN,TOTAL 1.1 MG/DL (0.1-1.0)
[2021-01-17 05:31] LABS: CREATININE SERUM 0.71 MG/DL (0.60-1.30); PHOSPHORUS 1.6 MG/DL (2.3-4.7)
[2021-01-17 05:34] LABS: MAGNESIUM 2.1 MG/DL (1.6-2.4)
[2021-01-17] MEDS: MAGNESIUM 1 GM/100 ML IVPB 100 ML IV SCH (06:00)
[2021-01-17] MEDS: POTASSIUM CL 10MEQ/50ML IVPB 50 ML IV SCH (06:00)
[2021-01-17] MEDS: KCL 20 MEQ TAB (K-DUR) PO SCH (06:01)
[2021-01-17] MEDS: CATHETER FLUSH 10 ML SYR IV SCH ×3 (06:17→22:37)
[2021-01-17] MEDS ORDERED: KCL 20 MEQ TAB (K-DUR) PO ONE (08:00)
[2021-01-17] MEDS: meTOproloL SUCCINATE 50 MG (TOPROL XL) TAB PO SCH ×2 (08:01→19:52)
[2021-01-17] MEDS: APIXABAN 2.5 MG (ELIQUIS) TABLET PO SCH ×2 (08:01→17:03)
[2021-01-17] MEDS: DIGOXIN 0.125 MG (LANOXIN) TAB PO SCH (08:01)
[2021-01-17] MEDS: PANTOPRAZOLE 40 MG (PROTONIX) TAB PO SCH (08:02)
--- NOTE | 2021-01-17 08:20 | Cardiology Progress Note ---
Subjective Date Seen by Provider: Jan 17, 2021 Time Seen by Provider: 08:18 Subjective/Events-last exam Patient is laying down in bed, feeling better, was confused and agitated yesterday, pulled out her IV, feeling better today. Review of Systems General: No Chills, No Night Sweats; Fatigue; No Malaise, No Appetite, No Other HEENT: No Head Aches, No Visual Changes, No Eye Pain, No Ear Pain, No Dysphasia, No Sinus Congestion, No Post Nasal Drip, No Sore Throat, No Other Pulmonary: No Dyspnea, No Cough, No Pleuritic Chest Pain, No Other Cardiovascular: No: Chest Pain, Palpitations, Orthopnea, Paroxysmal Noc. Dyspnea, Edema, Lt Headedness, Other Objective-Cardiology Exam Last Set of Vital Signs Vital Signs 01/16/21 01/17/21 01/17/21 01/17/21 01/17/21 18:00 03:56 06:00 07:00 08:06 Temp 35.8 Pulse 85 Resp 21 B/P (MAP) 105/84 Pulse Ox 97 O2 Delivery Room Air O2 Flow Rate 6.00 I&O Intake and Output 01/17/21 00:00 Intake Total 430 ml Output Total 250 ml Balance 180 ml Intake Oral 430 ml Output Urine Total 250 ml # Voids 3 # Bowel Movements 1 General: Alert, Oriented X3, Mild Distress HEENT: Atraumatic, PERRLA Neck: Supple, No JVD, No Thyromegaly Lungs: Clear to Auscultation, Normal Air Movement Heart: Normal S1, Normal S2, No Murmurs, Other (Atrial fibrillation) Abdomen: Normal Bowel Sounds, Soft, No Tenderness, No Masses Extremities: No Edema, No Tenderness/Swelling Skin: No Rashes, No Breakdown, No Significant Lesion Neuro: Normal Speech, Sensation Intact, Cranial Nerves 3-12 NL Psych/Mental Status: Mental Status NL, Mood NL Results Lab Laboratory Tests 01/17/21 04:25 A/P-Cardiology Admission Diagnosis Paroxysmal atrial fibrillation Palpitation Tachycardia Hypotension Assessment/Plan Paroxysmal atrial fibrillation, currently in atrial fibrillation with rapid ventricular response, patient reported that she has stopped taking Eliquis and she was taking it sporadically due to nosebleed. ANMOL was done on January 16, 2021 which showed normal left ventricular size and function, prominent left atrium and left atrial appendage with echogenic density suspicious of a thrombus in the left atrial appendage subsequently cardioversion cannot be done and she will need to be on uninterrupted oral anticoagulation for 6 weeks. Patient is currently on Cardizem CD 240 mg daily, metoprolol 50 mg twice daily and digoxin 0.125 mg daily. Monitor heart rate [id number] score of 4, yearly risk of stroke without oral anticoagulation is 4%. Patient was on Eliquis 2.5 mg twice daily but apparently she was not taking it at home, she has used the pill or 2 occasionally, educated on the importance of compliance with medication History of peripheral edema, better at this time History of GI bleed with blood in her stool in the past, monitor H&H, has been refusing colonoscopy, starting Protonix Hypertension, currently borderline hypotensive Mild carotid stenosis nonobstructive disease Family history of atherosclerotic disease. JAIN STEPHENSON MD Jan 17, 2021 08:20
--- NOTE | 2021-01-17 09:37 | Tele-ICU Progress Note ---
Subjective Date Seen by a Provider: Jan 17, 2021 Time Seen by a Provider: 09:33 Subjective/Events-last exam She is admitted with atrial fibrillation with rapid ventricular rate currently on diltiazem drip and oral diltiazem and metoprolol has been started. Currently her heart rate is ranging anywhere from 85-120/min. She is in no acute respiratory distress. Video visit made and discussed with the patient. Sepsis Event Evaluation Height, Weight, BMI Height: 4'11.00" Weight: 116lbs. 0.0oz. 52.017615im; 23.85 BMI Method:Stated Exam Exam Patient acknowledged, consented, and participated in this virtual visit which was conducted using real time audio/video Vital Signs Date Time Temp Pulse Resp B/P (MAP) Pulse Ox O2 Delivery O2 Flow Rate FiO2 01/17/21 09:00 121 21 95 Room Air 01/17/21 08:06 97 Room Air 01/17/21 08:00 105 11 98/84 95 Room Air 01/17/21 07:00 85 01/17/21 07:00 111 24 90/61 94 Room Air 01/17/21 06:00 142 21 105/84 88 Room Air 01/17/21 05:00 128 21 99/64 91 Room Air 01/17/21 04:00 123 22 131/85 94 Room Air 01/17/21 04:00 Room Air 01/17/21 03:56 35.8 01/17/21 03:00 105 22 90/53 94 Room Air 01/17/21 02:00 16 23 90/77 94 Room Air 01/17/21 01:00 120 01/17/21 01:00 120 32 116/60 95 Room Air 01/17/21 00:18 36.5 01/17/21 00:00 129 24 106/80 94 Room Air 01/17/21 00:00 Room Air 01/16/21 23:00 133 21 95/80 88 Room Air 01/16/21 22:00 134 24 123/81 94 Room Air 01/16/21 21:07 35.8 98 Room Air 01/16/21 21:00 112 16 106/85 96 Room Air 01/16/21 20:00 154 17 120/88 92 Room Air 01/16/21 20:00 Room Air 01/16/21 19:00 130 01/16/21 19:00 130 28 102/64 94 Room Air 01/16/21 18:00 142 27 129/99 96 Nasal Cannula 6.00 01/16/21 17:00 126 27 96 Nasal Cannula 6.00 01/16/21 16:00 114 23 102/63 Nasal Cannula 6.00 01/16/21 16:00 Room Air 01/16/21 15:00 125 27 103/55 Nasal Cannula 6.00 01/16/21 14:00 105 22 102/86 Nasal Cannula 6.00 01/16/21 13:00 117 01/16/21 13:00 128 22 95/70 Nasal Cannula 6.00 01/16/21 12:00 35.3 01/16/21 12:00 Room Air 01/16/21 12:00 128 16 107/70 96 Nasal Cannula 6.00 01/16/21 11:00 140 29 117/98 95 Nasal Cannula 6.00 01/16/21 10:00 98 21 122/99 99 Nasal Cannula 6.00 I & O 01/17/21 07:00 Intake Total 650 ml Output Total 0 ml Balance 650 ml Height & Weight Height: 4'11.00" Weight: 116lbs. 0.0oz. 52.468129xl; 23.85 BMI Method:Stated General Appearance: No Apparent Distress, WD/WN, Anxious, Mild Distress Neck: Full Range of Motion, Normal Inspection Respiratory: No Accessory Muscle Use, No Respiratory Distress, Crackles (on exhalation) Cardiovascular: Irregularly Irregular, Tachycardia (rate currently 110-140) Capillary Refill: Less Than 3 Seconds Gastrointestinal: normal bowel sounds, non tender, soft Extremity: Normal Capillary Refill, Normal Inspection, Pedal Edema (trace edema in ankles) Neurologic/Psychiatric: Alert; No Oriented x3; Other Skin: Normal Color, Warm/Dry Other comments PE PER ATTENDING Results Lab Laboratory Tests 01/16/21 04:05 01/17/21 04:25 Meds REVIEWED Radiology NAME: GRABIEL WINKLER MED REC#: [id number] PT STATUS: ADM Rk : 1935 PHYSICIAN: SANAZ HART APRN ADMIT DATE: 01/14/21/ICU Signed Date of Exam:01/14/21 CHEST 1 VIEW, AP/PA ONLY INDICATION: Chest pain. COMPARISON: June 09, 2020. TECHNIQUE: Single radiograph of the chest dated January 14, 2021. FINDINGS: The cardiac silhouette is within normal limits in size. No significant pulmonary vascular congestion. Mild interstitial opacities are identified within the bilateral mid and lower lungs, left greater than right. These have slightly worsened since the prior examination. No significant pleural effusion. No pneumothorax. No acute osseous abnormality. IMPRESSION: Mild left greater than right interstitial opacities, slightly worsened since the prior examination. This may relate to an underlying interstitial infiltrate, COVID could be considered. Interstitial edema is felt less likely given lack of pulmonary vascular congestion and pleural effusion. Dictated by: Dictated on workstation # [id number] Dict: 01/14/21 1521 Trans: 01/14/21 1727 [id number] Interpreted by: BLANCA BOCANEGRA MD Electronically signed by: BLANCA BOCANEGRA MD 01/14/211726 Assessment/Plan Assessment/Plan 1. Paroxysmal atrial fibrillation with rapid ventricular response was on Cardizem drip which was discontinued and started on oral diltiazem. 2. History of peripheral edema improved. 3. History of hypertension currently stable. 4. Questionable left atrial appendage thrombus. Recommendations 1. Continue anticoagulation with the Eliquis 2. Cardizem CD and metoprolol for control of the ventricular rate 3. Monitor for any hypotension. 4. Potassium and magnesium have been supplemented. 5. Video visit made and discussed with the COAL TRAMMER. Critical Care: Critically Ill Patient Time spent with patient (mins): 25 GLEN CHAVEZ MD Jan 17, 2021 09:37
--- NOTE | 2021-01-17 10:52 | Progress Note - Hospitalist ---
Subjective HPI/CC On Admission Date Seen by Provider: Jan 17, 2021 Time Seen by Provider: 10:45 Subjective/Events-last exam Patient seen and examined Patient feels pretty good wet room worker spoke with son and they are trying to get additional caregivers in the home Dr. Wise is managing medication for A. fib Cardioversion not performed due to possible clot seen in the atrium Eliquis maintained Transferring to stepdown Discharge tomorrow Review of Systems General: Fatigue Cardiovascular: Palpitations Objective Exam Vital Signs Vital Signs Date Time Temp Pulse Resp B/P (MAP) Pulse Ox O2 Delivery O2 Flow Rate FiO2 01/18/21 04:00 77 16 142/77 96 Room Air 01/17/21 16:00 36.9 01/16/21 18:00 6.00 Capillary Refill : Less Than 3 Seconds General Appearance: No Apparent Distress, WD/WN, Chronically ill, Thin Respiratory: Lungs Clear, Normal Breath Sounds Cardiovascular: Irregularly Irregular, Tachycardia Neurologic/Psychiatric: Alert, Oriented x3, No Motor/Sensory Deficits, Normal Mood/Affect Results/Procedures Lab Patient resulted labs reviewed. Assessment/Plan Assessment and Plan Assess & Plan/Chief Complaint Assessment: Chronic A. fib now with rapid ventricular response Possible clot in atrium on ANMOL Cardioversion not performed Advanced age Frail status Cognitive deficit Plan: Transfer to stepdown Appreciate Dr. Wise Critical Care Critically Ill Patient CHRISTINA KOWALSKI DO Jan 17, 2021 10:52
[2021-01-17] MEDS: dilTIAZem DRIP PRE-MIX 125 ML IV SCH (18:28)
[2021-01-18 06:08] LABS: BASOPHILS % (AUTO) 0 % (0-10); EOSINOPHILS % (AUTO) 1 % (0-10); HEMATOCRIT 34 % (35-52); HEMOGLOBIN 10.8 g/dL (11.5-16.0); LYMPHOCYTES # (AUTO) 1.3 10^3/uL (1.0-4.0); LYMPHOCYTES % (AUTO) 24 % (12-44); MEAN CORPUSCULAR HEMOGLOBIN 30 pg (25-34); MEAN CORPUSCULAR HGB CONC 32 g/dL (32-36); MEAN CORPUSCULAR VOLUME 94 fL (80-99); MEAN PLATELET VOLUME 12.1 fL (9.0-12.2); MONOCYTES # (AUTO) 0.8 10^3/uL (0.0-1.0); MONOCYTES % (AUTO) 15 % (0-12); NEUTROPHILS # (AUTO) 3.1 10^3/uL (1.8-7.8); NEUTROPHILS % (AUTO) 56 % (42-75); PLATELET COUNT 143 10^3/uL (130-400); WHITE BLOOD COUNT 5.5 10^3/uL (4.3-11.0)
[2021-01-18 06:22] LABS: ALBUMIN 3.3 GM/DL (3.2-4.5); POTASSIUM 4.6 MMOL/L (3.6-5.0)
[2021-01-18 06:23] LABS: CALCIUM 9.1 MG/DL (8.5-10.1)
[2021-01-18 06:25] LABS: TOTAL PROTEIN 6.5 GM/DL (6.4-8.2)
[2021-01-18 06:26] LABS: BILIRUBIN,TOTAL 0.7 MG/DL (0.1-1.0)
[2021-01-18 06:28] LABS: CREATININE SERUM 0.81 MG/DL (0.60-1.30); PHOSPHORUS 1.9 MG/DL (2.3-4.7)
[2021-01-18 06:31] LABS: MAGNESIUM 2.6 MG/DL (1.6-2.4)
[2021-01-18] MEDS: MAGNESIUM 1 GM/100 ML IVPB 100 ML IV SCH (07:10)
[2021-01-18] MEDS: CATHETER FLUSH 10 ML SYR IV SCH (07:10)
[2021-01-18] MEDS: POTASSIUM CL 10MEQ/50ML IVPB 50 ML IV SCH (07:10)
[2021-01-18] MEDS: KCL 20 MEQ TAB (K-DUR) PO SCH (07:10)
[2021-01-18] MEDS: PANTOPRAZOLE 40 MG (PROTONIX) TAB PO SCH (09:33)
[2021-01-18] MEDS: APIXABAN 2.5 MG (ELIQUIS) TABLET PO SCH (09:33)
[2021-01-18] MEDS: DIGOXIN 0.125 MG (LANOXIN) TAB PO SCH (09:33)
[2021-01-18] MEDS: meTOproloL SUCCINATE 50 MG (TOPROL XL) TAB PO SCH (09:33)
[2021-01-18] MEDS ORDERED: PANT40TA52 PO (11:47)
[2021-01-18] MEDS ORDERED: APIX2.5T PO (11:47)
[2021-01-18] MEDS ORDERED: DIGO125T18 PO (11:47)
[2021-01-18] MEDS ORDERED: METO50TA7 PO (11:47)
[2021-01-18] MEDS ORDERED: DILT240C91 PO (11:47)
--- NOTE | 2021-01-18 11:47 | Discharge Summary ---
Discharge Summary Hospital Course Was the Problem List Reviewed?: Yes Problems/Dx: (1) Paroxysmal atrial fibrillation with rapid ventricular response Status: Acute Hospital Course Date of Admission: Jan 16, 2021 at 12:51 Admission Diagnosis : Family Physician/Provider: Haider Guerra MD Date of Discharge: 01/18/21 Discharge Diagnosis: A. fib with RVR, dementia Hospital Course: Patient had a brief hospital course she was admitted for A. fib with RVR m ultiple medications were changed by Dr. Wise patient tolerated well and she was discharged in improved condition. Cognitive deficit noted. Labs and Pending Lab Test: Laboratory Tests 01/18/21 05:40: White Blood Count 5.5, Red Blood Count 3.57L, Hemoglobin 10.8L, Hematocrit 34L, Mean Corpuscular Volume 94, Mean Corpuscular Hemoglobin 30, Mean Corpuscular Hemoglobin Concent 32, Red Cell Distribution Width 14.1, Platelet Count 143, Mean Platelet Volume 12.1, Immature Granulocyte % (Auto) 5, Neutrophils (%) (Auto) 56, Lymphocytes (%) (Auto) 24, Monocytes (%) (Auto) 15H, Eosinophils (%) (Auto) 1, Basophils (%) (Auto) 0, Neutrophils # (Auto) 3.1, Lymphocytes # (Auto) 1.3, Monocytes # (Auto) 0.8, Eosinophils # (Auto) 0.0, Basophils # (Auto) 0.0, Immature Granulocyte # (Auto) 0.3H, Sodium Level 134L, Potassium Level 4.6, Chloride Level 104, Carbon Dioxide Level 21, Anion Gap 9, Blood Urea Nitrogen 14, Creatinine 0.81, Estimat Glomerular Filtration Rate 67, BUN/Creatinine Ratio 17, Glucose Level 97, Calcium Level 9.1, Corrected Calcium 9.7, Phosphorus Level 1.9L, Magnesium Level 2.6H, Total Bilirubin 0.7, Aspartate Amino Transf (AST/SGOT) 52H, Alanine Aminotransferase (ALT/SGPT) 162H, Alkaline Phosphatase 106, Total Protein 6.5, Albumin 3.3 Microbiology 01/14/21 MRSA Screen - Final, Complete MRSA not isolated Home Meds Active Reported Eliquis (Apixaban) 2.5 Mg Tablet 2.5 Mg PO BID Metoprolol Succinate 100 Mg Tab.er.24h 50 Mg BID TAKES 1/2 (100MG) TABLET Assessment/Pt Instructions Dr. Wise as scheduled Discharge Planning: <30 minutes discharge planning Discharge Instructions Discharge Diet: No Restrictions Activity as Tolerated: Yes Discharge Physical Examination Vital Signs Vital Signs Date Time Temp Pulse Resp B/P (MAP) Pulse Ox O2 Delivery O2 Flow Rate FiO2 01/18/21 11:30 36.5 70 13 126/68 97 Room Air 01/16/21 18:00 6.00 General Appearance: No Apparent Distress, WD/WN, Chronically ill Allergies: Coded Allergies: No Known Drug Allergies (Unverified , 02/12/18) Discharge Summary Date of Admission Jan 16, 2021 at 12:51 Date of Discharge Discharge Date: Jan 18, 2021 Discharge Diagnosis Assessment: Chronic A. fib now with rapid ventricular response Possible clot in atrium on ANMOL Cardioversion not performed Advanced age Frail status Cognitive deficit Plan: Transfer to stepdown Appreciate CHRISTINA Jimenez DO Jan 18, 2021 11:47
--- NOTE | 2021-01-18 12:03 | Progress Note - Cardiology ---
Cardiology SOAP Progress Note Subjective: No cp or palp or syncope or shortness of breath No swelling No n/v/d Wishes to go home Objective: I&O/Vital Signs 01/18/21 01/18/21 01/18/21 01/18/21 01:00 04:00 07:00 07:40 Temp 36.8 Pulse 63 77 67 65 Resp 16 21 B/P (MAP) 142/77 122/64 Pulse Ox 96 95 O2 Delivery Room Air Room Air 01/18/21 01/18/21 08:26 11:30 Temp 36.5 Pulse 70 Resp 13 B/P (MAP) 126/68 Pulse Ox 97 97 O2 Delivery Room Air Room Air 01/18/21 00:00 Intake Total 250 ml Balance 250 ml Weight (Pounds): 116 Weight (Ounces): 0.0 Weight (Calculated Kilograms): 52.772476 Constitutional: AAO x 3 Respiratory: No accessory muscle use; other (good, bilateral air entry) Cardiovascular: regular rate-rhythm, S1 and S2, systolic murmur (soft GISSELL at card base) Gastrointestional: No tender; soft; No guarding, No rebound; audible bowel sounds Extremities: No clubbing, No cyanosis, No significant edema Neurologic/Psychiatric: oriented x 3, other (moves all her limbs equally) Skin: No rash on exposed areas, No ulcerations on exposed areas Results/Procedures: Labs Laboratory Tests 01/18/21 05:40: White Blood Count 5.5, Red Blood Count 3.57L, Hemoglobin 10.8L, Hematocrit 34L, Mean Corpuscular Volume 94, Mean Corpuscular Hemoglobin 30, Mean Corpuscular Hemoglobin Concent 32, Red Cell Distribution Width 14.1, Platelet Count 143, Mean Platelet Volume 12.1, Immature Granulocyte % (Auto) 5, Neutrophils (%) (Auto) 56, Lymphocytes (%) (Auto) 24, Monocytes (%) (Auto) 15H, Eosinophils (%) (Auto) 1, Basophils (%) (Auto) 0, Neutrophils # (Auto) 3.1, Lymphocytes # (Auto) 1.3, Monocytes # (Auto) 0.8, Eosinophils # (Auto) 0.0, Basophils # (Auto) 0.0, Immature Granulocyte # (Auto) 0.3H, Sodium Level 134L, Potassium Level 4.6, Chloride Level 104, Carbon Dioxide Level 21, Anion Gap 9, Blood Urea Nitrogen 14, Creatinine 0.81, Estimat Glomerular Filtration Rate 67, BUN/Creatinine Ratio 17, Glucose Level 97, Calcium Level 9.1, Corrected Calcium 9.7, Phosphorus Level 1.9L, Magnesium Level 2.6H, Total Bilirubin 0.7, Aspartate Amino Transf (AST/SGOT) 52H, Alanine Aminotransferase (ALT/SGPT) 162H, Alkaline Phosphatase 106, Total Protein 6.5, Albumin 3.3 Microbiology 01/14/21 MRSA Screen - Final, Complete MRSA not isolated Laboratory Tests 01/17/21 04:25 01/18/21 05:40 A/P: Assessment: PAF - h/o noncompliance with meds, including rate-controlling agents and anticoag - ANMOL on 01/16/21: normal LVEF, 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 F/u with Dr Wise next week * I answered her CV-related questions ACACIA PALMER MD FACP [facility] CCDS Jan 18, 2021 12:03
== END 2021-01-18 13:15 | disposition home or self-care (01) | DRG 310 ==
LOC: EDUNIT# 14:15 → ER 14:17 → ICU 15:46 → UNDOADMOB 15:46 → OBSVTOIN 01-16 12:51 → INTOOBSV 01-16 12:51 → CSD 01-17 13:58 → ICU 01-17 13:58 → UNDODISIN 01-18 13:15
PROVIDERS: ADMIT Family Medicine; ATTEND Family Medicine
DX: I48.0 Paroxysmal atrial fibrillation (principal); I51.3 Intracardiac thrombosis, not elsewhere classified; F03.90 Unspecified dementia, unspecified severity, without behavioral disturbance, psychotic disturbance, mood disturbance, and anxiety; R45.1 Restlessness and agitation; R00.0 Tachycardia, unspecified; N28.1 Cyst of kidney, acquired; Z66 Do not resuscitate; K76.89 Other specified diseases of liver; R60.9 Edema, unspecified; E03.9 Hypothyroidism, unspecified; I65.29 Occlusion and stenosis of unspecified carotid artery; J45.909 Unspecified asthma, uncomplicated; K59.09 Other constipation; H54.7 Unspecified visual loss; Z87.19 Personal history of other diseases of the digestive system; Z79.01 Long term (current) use of anticoagulants; Z79.899 Other long term (current) drug therapy; Z20.822 Contact with and (suspected) exposure to COVID-19; Z82.49 Family history of ischemic heart disease and other diseases of the circulatory system
CPT/HCPCS: 36415; 71045; 72170; 72192; 76700; 80053; 80061; 80162; 83735; 83874; 83880; 84100; 84484; 85007; 85025; 85027; 85379; 85610; 85730; 87081; 87636; 93005; 93041; 93306; 93312; 93320; 93325; G0378

== ENCOUNTER 2021-01-29 08:20 | Emergency (ER) | payer MEDICARE ==
[~2021-01-29] VITALS: Ht 152 cm; Wt 49.0 kg
[~2021-01-29 08:20] MED LIST changes: +DIGO125T18 PO; +DILT240C91 PO; +METO50TA7 PO; +PANT40TA52 PO
--- NOTE | 2021-01-29 08:42 | ED Cardiac General ---
History of Present Illness General Chief Complaint: Cardiac/General Problems Stated Complaint: AFIB W RVR History of Present Illness Date Seen by Provider: Jan 29, 2021 Time Seen by Provider: 08:42 Initial Comments 85-year-old female presents with some mild shortness of breath and palpitations and tachycardia. Patient has a known history of atrial fib she is currently on diltiazem metoprolol Eliquis. She had only been on diltiazem until about 10 days ago when she was released from the hospital and had a medication adjustment. Patient reports that she only drinks about a glass of water a day because she just kind of forgets to drink. Patient had some mild shortness of breath and was very anxious when EMS arrived. Patient reports that since EMS arrived she has felt a lot better. Patient denies any fevers chills or other systemic complaints. Patient reports that she has not taken any of her medication this morning. Allergies and Home Medications Allergies Coded Allergies: No Known Drug Allergies (Unverified , 02/12/18) Patient Home Medication List Home Medication List Reviewed: Yes Apixaban (Eliquis) 2.5 Mg Tablet, 2.5 MG PO BID Prescribed by: CHRISTINA KOWALSKI on 01/18/21 114 Digoxin (Digox) 125 Mcg Tablet, 0.125 MG PO DAILY Prescribed by: CHRISTINA KOWALSKI on 01/18/21 114 Diltiazem HCl (Diltiazem 24Hr ER) 240 Mg Cap.er.24h, 240 MG PO DAILY Prescribed by: CHRISTINA KOWALSKI on 01/18/21 114 Metoprolol Succinate (Metoprolol Succinate) 50 Mg Tab.er.24h, 50 MG PO BID Prescribed by: CHRISTINA KOWALSKI on 01/18/21 114 Pantoprazole Sodium (Pantoprazole Sodium) 40 Mg Tablet.dr, 40 MG PO DAILY Prescribed by: CHRISTINA KOWALSKI on 01/18/21 114 Review of Systems Review of Systems Constitutional: No chills, No fever EENTM: No Symptoms Reported Respiratory: Cough, Shortness of Air Cardiovascular: Denies Chest Pain; Irregular Heart Rate, Palpitations Gastrointestinal: Denies Abdominal Pain, Denies Nausea Musculoskeletal: no symptoms reported Skin: no symptoms reported Psychiatric/Neurological: No Symptoms Reported Endocrine: No Symptoms Reported Hematologic/Lymphatic: No Symptoms Reported Past Ucpuwpi-Olqqso-Brbpbh Hx Seasonal Allergies Seasonal Allergies: No Past Medical History Surgery/Hospitalization HX: HYSTERECTOMY, APPY, CHOLY Surgeries: Yes (HYST/BSO; ANKLE FX/ORIF) Appendectomy, Hysterectomy, Oophorectomy, Orthopedic Respiratory: Yes Asthma Currently Using CPAP: No Currently Using BIPAP: No Cardiac: Yes 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, Hypertension Neurological: No Reproductive Disorders: No 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, 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 Genitourinary: Yes Bladder Infection Gastrointestinal: Yes Chronic Constipation Musculoskeletal: No Endocrine: Yes Hypothyroidsim HEENT: Yes Cataract Loss of Vision: Bilateral Hearing Impairment: Denies Cancer: No Psychosocial: No Integumentary: No Blood Disorders: No Adverse Reaction/Blood Tranf: No Family Medical History Alzheimer's disease 19 FATHER, Onset:50's - 60 G8 BROTHER, Onset:50s - Cardiovascular disease 19 FATHER, Onset:50's - 60 G8 BROTHER, Onset: - No Pertinent Family Hx Physical Exam Vital Signs Vital Signs - First Documented 01/29/21 08:35 Temp 36.4 Pulse 114 Resp 18 B/P (MAP) 141/82 (101) Pulse Ox 94 O2 Delivery Nasal Cannula Capillary Refill : Height, Weight, BMI Height: 4'11.00" Weight: 116lbs. 0.0oz. 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 II- XII Norm as Tested Skin: Normal Color, Warm/Dry Progress/Results/Core Measures Results/Orders Lab Results Laboratory Tests Test 01/29/21 08:40 01/29/21 09:38 Range/Units White Blood Count 7.3 4.3-11.0 10^3/uL Red Blood Count 3.87 3.80-5.11 10^6/uL Hemoglobin 11.8 11.5-16.0 g/dL Hematocrit 37 35-52 % Mean Corpuscular Volume 96 80-99 fL Mean Corpuscular Hemoglobin 31 25-34 pg Mean Corpuscular Hemoglobin Concent 32 32-36 g/dL Red Cell Distribution Width 15.1 H 10.0-14.5 % Platelet Count 180 130-400 10^3/uL Mean Platelet Volume 12.2 9.0-12.2 fL Immature Granulocyte % (Auto) 2 % Neutrophils (%) (Auto) 68 42-75 % Lymphocytes (%) (Auto) 14 12-44 % Monocytes (%) (Auto) 15 H 0-12 % Eosinophils (%) (Auto) 0 0-10 % Basophils (%) (Auto) 0 0-10 % Neutrophils # (Auto) 5.0 1.8-7.8 10^3/uL Lymphocytes # (Auto) 1.0 1.0-4.0 10^3/uL Monocytes # (Auto) 1.1 H 0.0-1.0 10^3/uL Eosinophils # (Auto) 0.0 0.0-0.3 10^3/uL Basophils # (Auto) 0.0 0.0-0.1 10^3/uL Immature Granulocyte # (Auto) 0.2 H 0.0-0.1 10^3/uL Sodium Level 135 135-145 MMOL/L Potassium Level 4.5 3.6-5.0 MMOL/L Chloride Level 104 98-107 MMOL/L Carbon Dioxide Level 19 L 21-32 MMOL/L Anion Gap 12 5-14 MMOL/L Blood Urea Nitrogen 18 7-18 MG/DL Creatinine 0.80 0.60-1.30 MG/DL Estimat Glomerular Filtration Rate 68 BUN/Creatinine Ratio 23 Glucose Level 110 H 70-105 MG/DL Calcium Level 9.1 8.5-10.1 MG/DL Corrected Calcium 9.3 8.5-10.1 MG/DL Magnesium Level 2.2 1.6-2.4 MG/DL Total Bilirubin 1.2 H 0.1-1.0 MG/DL Aspartate Amino Transf (AST/SGOT) 39 H 5-34 U/L Alanine Aminotransferase (ALT/SGPT) 60 H 0-55 U/L Alkaline Phosphatase 83 40-136 U/L Total Protein 7.2 6.4-8.2 GM/DL Albumin 3.7 3.2-4.5 GM/DL Urine Color YELLOW Urine Clarity CLEAR Urine pH 6.0 5-9 Urine Specific [place] 1.025 H 1.016-1.022 Urine Protein NEGATIVE NEGATIVE Urine Glucose (UA) NEGATIVE NEGATIVE Urine Ketones NEGATIVE NEGATIVE Urine Nitrite NEGATIVE NEGATIVE Urine Bilirubin NEGATIVE NEGATIVE Urine Urobilinogen 0.2 < = 1.0 MG/DL Urine Leukocyte Esterase 1+ H NEGATIVE Urine RBC (Auto) 1+ H NEGATIVE Urine RBC 2-5 H /HPF Urine WBC 5-10 H /HPF Urine Squamous Epithelial Cells 10-25 H /HPF Urine Crystals NONE /LPF Urine Bacteria MODERATE H /HPF Urine Casts NONE /LPF Urine Mucus SMALL H /LPF Urine Culture Indicated YES My Orders Orders - NAJERA,MYLES L DO Chest 1 View, Ap/Pa Only (01/29/21 08:42) Cbc With Automated Diff (01/29/21 08:42) Comprehensive Metabolic Panel (01/29/21 08:42) Magnesium (01/29/21 08:42) Ua Culture If Indicated (01/29/21 08:42) Nursing Communication (Order) (01/29/21 08:42) Ekg Tracing (01/29/21 08:39) Diltiazem Injection (Cardizem Injection) (01/29/21 09:00) Diltiazem Cd 24 Hr Capsule (Cardizem Cd (01/30/21 09:00) Urine Culture (01/29/21 09:38) Metoprolol Tartrate Injection (Lopressor (01/29/21 10:15) Medications Given in ED Current Medications Medications Dose Ordered Sig/Elle Route Start Time Stop Time Status Last Admin Dose Admin Diltiazem HCl 10 mg ONCE ONCE IVP 01/29/21 09:00 01/29/21 09:01 DC 01/29/21 09:02 10 MG Metoprolol Tartrate 5 mg ONCE ONCE IV 01/29/21 10:15 01/29/21 10:16 DC 01/29/21 10:14 5 MG Vital Signs/I&O 01/29/21 08:35 Temp 36.4 Pulse 114 Resp 18 B/P (MAP) 141/82 (101) Pulse Ox 94 O2 Delivery Nasal Cannula Progress Progress Note : Progress Note Patient symptoms improved with some IV fluids and medications. I suspect that patient had a combination of some mild dehydration along with not taking her a.m. meds with a history of A. fib. Patient symptoms improved significantly while staying. Patient has a suspect urine but seems to be contaminated so will await cultures. Patient stable discharged Initial ECG Impression Date: Jan 29, 2021 Initial ECG Impression Time: 08:39 Initial ECG Rate: 128 Initial ECG Rhythm: A Fib/Flutter Initial ECG Impression: 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 Comment Atrial fib Diagnostic Imaging Diagonstic Imaging: Xray Plain Films/CT/US/NM/MRI: chest Comments Date of Exam:01/29/21 CHEST 1 VIEW, AP/PA ONLY Indication: Shortness of breath and atrial fibrillation. TIME OF EXAM: 8:55 AM Comparison is made with prior chest from 01/14/2021. Heart size stable. There are some interstitial opacities in both lungs, similar to prior exam. No parenchymal consolidation is seen. There is no effusion or pneumothorax identified. IMPRESSION: Stable interstitial changes when compared to examination from 01/14/2021. Departure Impression Primary Impression: Atrial fibrillation Qualified Codes: I48.91 - Unspecified atrial fibrillation Disposition: 01 HOME, SELF-CARE Condition: Stable Departure-Patient Inst. Referrals: LUH RUVALCABA MD (PCP/Family) Primary Care Physician Patient Instructions: 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 Add. Discharge Instructions: Follow-up with Dr. Wise's office to review your medication Return to the ER as needed All discharge instructions reviewed with patient and/or family. Voiced understanding. MYLES NAJERA DO Jan 29, 2021 08:42
[2021-01-29 08:51] LABS: BASOPHILS % (AUTO) 0 % (0-10); EOSINOPHILS % (AUTO) 0 % (0-10); HEMATOCRIT 37 % (35-52); HEMOGLOBIN 11.8 g/dL (11.5-16.0); LYMPHOCYTES % (AUTO) 14 % (12-44); MEAN CORPUSCULAR HEMOGLOBIN 31 pg (25-34); MEAN CORPUSCULAR HGB CONC 32 g/dL (32-36); MEAN CORPUSCULAR VOLUME 96 fL (80-99); MEAN PLATELET VOLUME 12.2 fL (9.0-12.2); MONOCYTES # (AUTO) 1.1 10^3/uL (0.0-1.0); MONOCYTES % (AUTO) 15 % (0-12); NEUTROPHILS % (AUTO) 68 % (42-75); PLATELET COUNT 180 10^3/uL (130-400); WHITE BLOOD COUNT 7.3 10^3/uL (4.3-11.0)
--- NOTE | 2021-01-29 09:11 | Diagnostic Imaging Report ---
Indication: Shortness of breath and atrial fibrillation. TIME OF EXAM: 8:55 AM Comparison is made with prior chest from 01/14/2021. Heart size stable. There are some interstitial opacities in both lungs, similar to prior exam. No parenchymal consolidation is seen. There is no effusion or pneumothorax identified. IMPRESSION: Stable interstitial changes when compared to examination from 01/14/2021. Dictated by: Dictated on workstation # [id number]
[2021-01-29 09:17] LABS: ALBUMIN 3.7 GM/DL (3.2-4.5); BILIRUBIN,TOTAL 1.2 MG/DL (0.1-1.0); CALCIUM 9.1 MG/DL (8.5-10.1); CREATININE SERUM 0.8 MG/DL (0.60-1.30); MAGNESIUM 2.2 MG/DL (1.6-2.4); POTASSIUM 4.5 MMOL/L (3.6-5.0); TOTAL PROTEIN 7.2 GM/DL (6.4-8.2)
[2021-01-29 09:54] LABS: BILIRUBIN,URINE NEGATIVE (NEGATIVE); CLARITY,URINE CLEAR; COLOR,URINE YELLOW; GLUCOSE, URINE (UA) NEGATIVE (NEGATIVE); KETONES,URINE NEGATIVE (NEGATIVE); LEUKOCYTE ESTERASE ,URINE 1+ (NEGATIVE); NITRITE,URINE NEGATIVE (NEGATIVE); PROTEIN,URINE NEGATIVE (NEGATIVE)
[2021-01-29 10:03] LABS: BACTERIA,URINE MODERATE /HPF
[2021-01-29] MEDS ORDERED: meTOprolol 5 MG/5 ML (LOPRESSOR) VIAL IV ONE (10:15)
[2021-01-29 10:52] VITALS: BP 99/88
== END 2021-01-29 10:52 | disposition home or self-care (01) ==
LOC: EDUNIT# 08:20 → ER 08:21
DX: I48.91 Unspecified atrial fibrillation (principal); J45.909 Unspecified asthma, uncomplicated; I10 Essential (primary) hypertension; R00.0 Tachycardia, unspecified; Z79.01 Long term (current) use of anticoagulants
CPT/HCPCS: 36415; 71045; 80053; 81000; 83735; 85025; 87088; 93005

== ENCOUNTER 2021-02-11 10:55 | Inpatient (IN) | payer MEDICARE ==
[~2021-02-11] VITALS: Ht 152.4 cm; Wt 54.1 kg
--- NOTE | 2021-02-11 11:49 | Tele-ICU Consult ---
History of Present Illness History of Present Illness Date Seen by Provider: Feb 11, 2021 Time Seen by Provider: 11:11 Date of Admission This virtual visit was conducted using real time audio/video. Thank you for asking us to see this patient for Afib/RVR. Pt is admitted directly from facility mechanic's office. PMH: afib, lung nodule, htn. SH: smoking history N FH: Non-contributory. ROS: as in HPI PE: HR 110-130 afib O2 sat 93% on RA HEENT: No obvious masses, adenopathy or JVD. Chest: clear to auscultation. CV: Irreg. S1 S2 No murmur or added sounds. Abd: Non-tender. Bowel sounds Y. : Unremarkable. Sarmiento N. CHIEF ENGINEER'S HELPER/psychiatric: Alert and oriented, grossly intact. No obvious focal findings. Extremities: No edema. Capillary refill < 3 seconds. Skin: unremarkable. Results: Labs and imaging pending A/P: Afib/RVR; to start Cardizem drip. Labs pending. Video assessment done using teleICU camera, rest of exam as per RN. Critical Care: critically ill patient. cont Dig., Metoprolol and Eliquis. Consider DVT prophylaxis. Discussed with RN Rosamaria. Asked RN to reach out to eICU if any questions or concerns later. Time spent with patient/coordination of care with other health professionals (mins): 20 Allergies and Home Medications Allergies Coded Allergies: No Known Drug Allergies (Unverified , 02/12/18) Home Medications Apixaban 2.5 Mg Tablet, 2.5 MG PO BID Prescribed by: CHRISTINA KOWALSKI on 01/18/21 114 Digoxin 125 Mcg Tablet, 0.125 MG PO DAILY Prescribed by: CHRISTINA KOWALSKI on 01/18/21 114 Diltiazem HCl 240 Mg Cap.er.24h, 240 MG PO DAILY Prescribed by: CHRISTINA KOWALSKI on 01/18/21 114 Metoprolol Succinate 50 Mg Tab.er.24h, 50 MG PO BID Prescribed by: CHRISTINA KOWALSKI on 01/18/21 114 Pantoprazole Sodium 40 Mg Tablet.dr, 40 MG PO DAILY Prescribed by: CHRISTINA KOWALSKI on 01/18/21 114 Past Medical/Social/Family Hx Immunizations Up To Date Tetanus Booster (TDap): Unknown Hepatitis A: Yes Date of Pneumonia Vaccine: Feb 12, 2015 Current Status Primary Language: Tristanian Past Medical History PMHx: Atrial fibrillation SurgHx: Hysterectomy Ankle fracture repair Review of Systems Constitutional: no symptoms reported EENTM: see HPI Respiratory: see HPI Cardiovascular: see HPI Gastrointestinal: see HPI Genitourinary: see HPI Musculoskeletal: see HPI Skin: see HPI Psychiatric/Neurological: See HPI All Other Systems Reviewed Negative Unless Noted: Yes Sepsis Event Evaluation Height, Weight, BMI Height: 4'11.00" Weight: 116lbs. 0.0oz. 52.390171id; 21.00 BMI Method:Stated Exam Exam Patient acknowledged, consented, and participated in this virtual visit which was conducted using real time audio/video Height & Weight Height: 4'11.00" Weight: 116lbs. 0.0oz. 52.829505xw; 21.00 BMI Method:Stated General Appearance: No Apparent Distress Peripheral Pulses: 1+ Dorsalis Pedis (R), 1+ Left Dors-Pedis (L) Assessment/Plan Assessment/Plan See free text Critical Care: Critically Ill Patient MAYELA LOPEZ MD Feb 11, 2021 11:49
[2021-02-11] MEDS: dilTIAZem DRIP PRE-MIX 125 ML IV SCH ×2 (11:55→23:38)
[2021-02-11] MEDS ORDERED: meTOproloL SUCCINATE 50 MG (TOPROL XL) TAB PO NR (12:01)
[2021-02-11] MEDS ORDERED: DIGOXIN 0.25 MG/ML (LANOXIN) 2 ML AMP IV NR (12:01)
[2021-02-11 13:06] LABS: HEMATOCRIT 40 % (35-52); HEMOGLOBIN 12.7 g/dL (11.5-16.0); MEAN CORPUSCULAR HEMOGLOBIN 30 pg (25-34); MEAN CORPUSCULAR HGB CONC 32 g/dL (32-36); MEAN CORPUSCULAR VOLUME 95 fL (80-99); MEAN PLATELET VOLUME 11.9 fL (9.0-12.2); PLATELET COUNT 176 10^3/uL (130-400); WHITE BLOOD COUNT 5.7 10^3/uL (4.3-11.0)
[2021-02-11 13:25] LABS: CHLORIDE 102 MMOL/L (98-107); POTASSIUM 3.9 MMOL/L (3.6-5.0); SODIUM 133 MMOL/L (135-145)
[2021-02-11 13:26] LABS: CALCIUM 9.4 MG/DL (8.5-10.1)
[2021-02-11 13:27] LABS: GLUCOSE 108 MG/DL (70-105); TOTAL PROTEIN 7.5 GM/DL (6.4-8.2)
[2021-02-11 13:28] LABS: CARBON DIOXIDE 22 MMOL/L (21-32)
[2021-02-11 13:29] LABS: BILIRUBIN,TOTAL 0.9 MG/DL (0.1-1.0)
[2021-02-11 13:30] LABS: ALKALINE PHOSPHATASE 92 U/L (40-136)
[2021-02-11 13:31] LABS: CREATININE SERUM 0.76 MG/DL (0.60-1.30); GFR ESTIMATED 72
[2021-02-11 13:32] LABS: BUN/CREATININE RATIO 18
[2021-02-11 13:33] LABS: ALANINE AMINOTRANSFERASE 51 U/L (0-55)
[2021-02-11] MEDS ORDERED: APIX2.5T PO (14:35)
[2021-02-11] MEDS ORDERED: DILT240C91 PO (14:35)
[2021-02-11] MEDS ORDERED: METO50TA7 PO (14:35)
[2021-02-11] MEDS ORDERED: PANT40TA52 PO (14:35)
[2021-02-11] MEDS: APIXABAN 2.5 MG (ELIQUIS) TABLET PO SCH (21:25)
[2021-02-12 04:26] LABS: EOSINOPHILS % (AUTO) 1 % (0-10); MEAN CORPUSCULAR HEMOGLOBIN 31 pg (25-34)
[2021-02-12 04:28] LABS: BASOPHILS % (AUTO) 0 % (0-10); HEMATOCRIT 35 % (35-52); HEMOGLOBIN 11.3 g/dL (11.5-16.0); LYMPHOCYTES # (AUTO) 0.7 10^3/uL (1.0-4.0); LYMPHOCYTES % (AUTO) 15 % (12-44); MEAN CORPUSCULAR HGB CONC 32 g/dL (32-36); MEAN CORPUSCULAR VOLUME 96 fL (80-99); MEAN PLATELET VOLUME 11.7 fL (9.0-12.2); MONOCYTES # (AUTO) 0.9 10^3/uL (0.0-1.0); MONOCYTES % (AUTO) 18 % (0-12); NEUTROPHILS # (AUTO) 3.2 10^3/uL (1.8-7.8); NEUTROPHILS % (AUTO) 65 % (42-75); PLATELET COUNT 134 10^3/uL (130-400)
[2021-02-12 04:58] LABS: POTASSIUM 3.9 MMOL/L (3.6-5.0)
[2021-02-12 04:59] LABS: CALCIUM 8.7 MG/DL (8.5-10.1)
[2021-02-12 05:03] LABS: PHOSPHORUS 3.1 MG/DL (2.3-4.7)
[2021-02-12 05:04] LABS: CREATININE SERUM 0.69 MG/DL (0.60-1.30)
[2021-02-12 05:09] LABS: BAND NEUTROPHILS 1 %; EOSINOPHILS % (MANUAL) 1 %; LYMPHOCYTES % (MANUAL) 8 %; MONOCYTES % (MANUAL) 16 %; NEUTROPHILS % (MANUAL) 74 %
[2021-02-12] MEDS ORDERED: KCL 20 MEQ TAB (K-DUR) PO SCH (06:00)
[2021-02-12] MEDS ORDERED: POTASSIUM CL 10MEQ/50ML IVPB 50 ML IV SCH (06:00)
[2021-02-12] MEDS ORDERED: MAGNESIUM 1 GM/100 ML IVPB 100 ML IV SCH (06:00)
[2021-02-12] MEDS ORDERED: DIGOXIN 0.125 MG (LANOXIN) TAB PO SCH (09:00)
[2021-02-12] MEDS ORDERED: meTOproloL SUCCINATE 50 MG (TOPROL XL) TAB PO SCH (09:00)
--- NOTE | 2021-02-12 09:01 | Tele-ICU Progress Note ---
Subjective Date Seen by a Provider: Feb 12, 2021 Time Seen by a Provider: 08:15 Subjective/Events-last exam This virtual visit was conducted using real time audio/video. Thank you for asking us to see this patient for Afib/RVR. Pt is admitted directly from boiler attendant's office. PE: HR 80 afib O2 sat 96% on RA HEENT: No obvious masses, adenopathy or JVD. Chest: clear to auscultation. CV: Irreg. S1 S2 No murmur or added sounds. Abd: Non-tender. Bowel sounds Y. : Unremarkable. Sarmiento N. ENGINE ROOM OPERATOR/psychiatric: Alert and oriented, grossly intact. No obvious focal findings. Extremities: No edema. Capillary refill < 3 seconds. Skin: unremarkable. Results: Labs and imaging pending A/P: Afib/RVR; Cardizem drip converting to PO. Hb 11.3. Video assessment done using teleICU camera, rest of exam as per RN. Critical Care: critically ill patient. cont Dig., Metoprolol and Eliquis. Discussed with ALMA Degroot. Consider transfer. . Asked RN to reach out to eICU if any questions or concerns later. Time spent with patient/coordination of care with other health professionals (mins): 15 Sepsis Event Evaluation Height, Weight, BMI Height: 4'11.00" Weight: 116lbs. 0.0oz. 52.349885kw; 23.20 BMI Method:Stated Exam Exam Patient acknowledged, consented, and participated in this virtual visit which was conducted using real time audio/video Vital Signs Date Time Temp Pulse Resp B/P (MAP) Pulse Ox O2 Delivery O2 Flow Rate FiO2 02/12/21 07:45 36.8 Room Air 02/12/21 07:45 96 Room Air 02/12/21 06:00 75 22 96/59 Room Air 02/12/21 05:00 83 23 107/60 Room Air 02/12/21 04:02 Room Air 02/12/21 04:00 69 21 111/79 Room Air 02/12/21 04:00 36.3 02/12/21 03:00 71 22 117/79 96 Room Air 02/12/21 02:00 71 24 111/64 95 Room Air 02/12/21 01:00 69 23 124/67 88 Room Air 02/12/21 01:00 53 02/12/21 00:00 36.8 67 22 100/59 90 Room Air 02/12/21 00:00 70 22 116/62 96 Room Air 02/11/21 23:51 Room Air 02/11/21 23:00 63 22 119/80 95 Room Air 02/11/21 22:00 67 22 100/59 90 Room Air 02/11/21 21:00 80 21 111/58 91 Room Air 02/11/21 20:00 Room Air 02/11/21 20:00 36.4 02/11/21 20:00 78 25 107/70 91 Room Air 02/11/21 19:27 36.4 02/11/21 19:00 95 02/11/21 19:00 128 21 113/60 93 Room Air 02/11/21 18:13 104 22 130/77 93 Room Air 02/11/21 17:11 130 28 108/84 92 Room Air 02/11/21 16:38 Room Air 02/11/21 16:00 74 28 123/74 93 Room Air 02/11/21 16:00 36.7 02/11/21 15:00 85 24 134/112 94 Room Air 02/11/21 14:00 96 28 118/76 95 Room Air 02/11/21 13:35 Room Air 02/11/21 13:00 114 28 128/82 94 Room Air 02/11/21 13:00 84 02/11/21 12:45 116 21 121/97 93 Room Air 02/11/21 12:35 36.3 02/11/21 11:31 120 136/97 02/11/21 11:25 Room Air I & O 02/12/21 06:59 Intake Total 470 ml Balance 470 ml Height & Weight Height: 4'11.00" Weight: 116lbs. 0.0oz. 52.912110zf; 23.20 BMI Method:Stated General Appearance: No Apparent Distress Capillary Refill: Less Than 3 Seconds Peripheral Pulses: 1+ Dorsalis Pedis (R), 1+ Left Dors-Pedis (L) Results Lab Laboratory Tests 02/11/21 12:50 02/12/21 04:17 Assessment/Plan Assessment/Plan See free text. Critical Care: Critically Ill Patient MAYELA LOPEZ MD Feb 12, 2021 09:01
[2021-02-12] MEDS: APIXABAN 2.5 MG (ELIQUIS) TABLET PO SCH (09:06)
--- NOTE | 2021-02-12 12:01 | Cardiology History & Physical ---
HPI-Cardiology Cardiology Consultation Date of Consultation 02/12/21 Date of Admission Time Seen by Provider: 10:50 Indication: Afib with RVR HPI Patient is an 85 y/o female with history of PAF, HTN. Presented to the clinic with complaints of increased shortness of breath and peripheral edema. Noted to be tachycardic still and was admitted to ICU for AFib with RVR and started on Cardizem gtt. Was recently seen in ER on 01/29/21 for afib with RVR, has been noncompliant with her medications at home. Denies any chest pain or dizziness. Today, HR is better controlled and patient is feeling better, peripheral edema improving and reports improvement in her dyspnea. PMH-Cardiology Immunizations Up To Date Date of Pneumonia Vaccine: Feb 12, 2015 Seasonal Allergies Seasonal Allergies: No Surgeries Yes (HYST/BSO; ANKLE FX/ORIF) Respiratory Yes Cardiovascular Yes 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, Hypertension Neurological No Reproductive System Hx Reproductive Disorders: No Hysterectomy, Menopausal Genitourinary Yes Bladder Infection Gastrointestinal Yes Chronic Constipation Musculoskeletal No Endocrine Yes Hypothyroidsim HEENT Yes Cataract Loss of Vision: Bilateral Hearing Impairment: Denies Cancer No Psychosocial No Integumentary No Blood Transfusions No Adverse Rxn to Transfusion: No Social History Patient Social History Marrital Status: single Smoking: Never smoker Dip or chew tobacco?: No Have you traveled recently?: No Alcohol Use?: No Family Hx Significant Family History: No Pertinent Family Hx Family History: Alzheimer's disease 19 FATHER, Onset:50's - 60 G8 BROTHER, Onset:50's - 60 Cardiovascular disease 19 FATHER, Onset:50's - 60 G8 BROTHER, Onset:50's - 60 ROS-Cardiology Review of Systems General: No Night Sweats; Fatigue, Malaise HEENT: No Visual Changes, No Eye Pain Pulmonary: Dyspnea; No Cough Cardiovascular: Edema; No: Chest Pain, Palpitations, Paroxysmal Noc. Dyspnea, Lt Headedness Gastrointestinal: No: Nausea, Vomiting, Abdominal Pain Genitourinary: No Dysuria, No Frequency Musculoskeletal: No: back pain Neurological: Weakness Home Medications & Allergies Allergies: Coded Allergies: No Known Drug Allergies (Unverified , 02/12/18) Home Medication List Reviewed: Yes Exam-Cardiology Vital Signs Vital Signs Date Time Temp Pulse Resp B/P (MAP) Pulse Ox O2 Delivery O2 Flow Rate FiO2 02/12/21 12:00 96 Room Air 02/12/21 09:00 72 29 106/75 02/12/21 07:45 36.8 Exam General Appearance: Alert, Oriented X3 HEENT: Atraumatic, PERRLA Respiratory: Clear to Auscultation, Normal Air Movement Cardiovascular: Other (irregulary irregular) Abdominal: Normal Bowel Sounds, Soft Extremities: No Clubbing, No Edema, Other (+1 edema BLE) Skin: No Rashes, No Significant Lesion Neuro: Cranial Nerves 3-12 NL Psych/Mental Status: Other (Patient appears anxious) Results Labs Labs Laboratory Tests 02/12/21 04:17: White Blood Count 5.0, Red Blood Count 3.68L, Hemoglobin 11.3L, Hematocrit 35, M tremayne Corpuscular Volume 96, Mean Corpuscular Hemoglobin 31, Mean Corpuscular Hemoglobin Concent 32, Red Cell Distribution Width 14.8H, Platelet Count 134, Mean Platelet Volume 11.7, Immature Granulocyte % (Auto) 1, Neutrophils (%) (Auto) 65, Lymphocytes (%) (Auto) 15, Monocytes (%) (Auto) 18H, Eosinophils (%) (Auto) 1, Basophils (%) (Auto) 0, Neutrophils # (Auto) 3.2, Lymphocytes # (Auto) 0.7L, Monocytes # (Auto) 0.9, Eosinophils # (Auto) 0.0, Basophils # (Auto) 0.0, Immature Granulocyte # (Auto) 0.1, Neutrophils % (Manual) 74, Lymphocytes % (Manual) 8, Monocytes % (Manual) 16, Eosinophils % (Manual) 1, Band Neutrophils 1, Percent Immature Platelet Fraction 6.6, Sodium Level 136, Potassium Level 3 .9, Chloride Level 105, Carbon Dioxide Level 21, Anion Gap 10, Blood Urea Nitrogen 11, Creatinine 0.69, Estimat Glomerular Filtration Rate 81, BUN/Creatinine Ratio 16, Glucose Level 100, Calcium Level 8.7, Phosphorus Level 3.1, Magnesium Level 2.0 Microbiology 02/11/21 MRSA Screen - Final, Complete MRSA not isolated A/P-Cardiology Admission Diagnosis AFib with RVR HTN SUJATA Admission Status: Observation Assessment/Plan Paroxysmal atrial fibrillation/ flutter, appears to be more persistent at this time. Was hospitalized last month for Afib with RVR, ANMOL showed echogenic density in the left atrial appendage, suspicious of a thrombus, unable to perform cardioversion. Admitted for afib with RVR, responded well to IV Cardizem and digoxin. HR is much better controlled. Has been noncompliant with medications at home. Discussed the importance of compliance with medications. Echocardiogram done on 08/20/2020 showing normal left ventricular size, EF 55 to 60%, grade 2 diastolic dysfunction, moderate to severe MR, mild AR, moderate severe TR, PA pressure 50 to 55 mmHg ANMOL was done on 01/16/2021 showing dilated left atrium and left atrial appendage with echogenic density in the left atrial appendage suspicious of a thrombus, dilated right atrium, mild LVH with normal ejection fraction 60%, moderate to moderately severe mitral regurgitation, aortic valve sclerosis. Reaction to the metal of the loop recorder. Unable to tolerate it and it was extracted. [id number] score of 4, yearly risk of stroke without oral anticoagulation is 4 percent, patient is maintained on Eliquis 2.5 mg twice daily. Intermittent ringing in ears History of GI bleed with blood in her stool, patient reports occasional episode of bright red blood in her stool. Refusing colonoscopy. No active bleeding at this time. Continue to monitor. Hypertension, controlled. Continue to monitor blood pressure/heart rate. Nonobstructive carotid artery stenosis per carotid duplex done July 2020. Family history of heart disease. Increased confusion, mainly at night, possible dementia, discussed with patient and family, recommend f/u with PCP This is Jaqui Aparicio PA-C, as a scribe for Dr. Wise. Patient was seen and evaluated with Jaqui, she was admitted yesterday for atrial fibrillation with rapid ventricular response, started on Cardizem drip, heart rate became better, switch her to oral Cardizem. This morning she is feeling better. No new complaint. No complication. We discussed going home. Hospital course: Patient was started on Cardizem drip, I added digoxin then restarted Cardizem orally. Heart rate is better, sitting comfortably, I will continue current medication and planning to discharge her home today. Educated in length on compliance with medication taking her medication regularly. Final diagnosis: Atrial fibrillation Tachycardia Palpitation Hypertension JAQUI LOWE Feb 12, 2021 12:01 JIAN WISE MD Feb 12, 2021 13:45
[2021-02-12] MEDS ORDERED: DIGO125T18 PO (13:42)
[2021-02-12] MEDS ORDERED: DILT240C91 PO (13:42)
[2021-02-12 14:30] VITALS: BP 124/49
== END 2021-02-12 14:30 | disposition home or self-care (01) | DRG 310 ==
LOC: ICU 11:11 → INTOOBSV 11:11 → OBSVTOIN 11:11 → UNDOADMOB 11:11 → EDSTATUS 15:52 → UNDODISIN 02-12 14:30
PROVIDERS: ADMIT Internal Medicine Cardiovascular Disease; ATTEND Internal Medicine Cardiovascular Disease
DX: I48.0 Paroxysmal atrial fibrillation (principal); I10 Essential (primary) hypertension; I65.29 Occlusion and stenosis of unspecified carotid artery; E03.9 Hypothyroidism, unspecified; I48.92 Unspecified atrial flutter; H93.13 Tinnitus, bilateral; Z82.49 Family history of ischemic heart disease and other diseases of the circulatory system; F03.90 Unspecified dementia, unspecified severity, without behavioral disturbance, psychotic disturbance, mood disturbance, and anxiety; Z79.01 Long term (current) use of anticoagulants; Z79.899 Other long term (current) drug therapy; Z91.14 Patient's other noncompliance with medication regimen
CPT/HCPCS: 36415; 80048; 80053; 80162; 83735; 84100; 85007; 85027; 87081; 93005

== ENCOUNTER 2021-04-14 00:46 | Emergency (ER) | payer MEDICARE ==
[~2021-04-14] VITALS: Ht 150 cm; Wt 43.0 kg
[2021-04-14 01:01] LABS: BASOPHILS % (AUTO) 1 % (0-10); EOSINOPHILS # (AUTO) 0.2 10^3/uL (0.0-0.3); EOSINOPHILS % (AUTO) 2 % (0-10); HEMATOCRIT 46 % (35-52); LYMPHOCYTES # (AUTO) 1.1 10^3/uL (1.0-4.0); LYMPHOCYTES % (AUTO) 15 % (12-44); MEAN CORPUSCULAR HEMOGLOBIN 30 pg (25-34); MEAN CORPUSCULAR HGB CONC 33 g/dL (32-36); MEAN CORPUSCULAR VOLUME 92 fL (80-99); MEAN PLATELET VOLUME 12.1 fL (9.0-12.2); MONOCYTES # (AUTO) 1.3 10^3/uL (0.0-1.0); MONOCYTES % (AUTO) 17 % (0-12); NEUTROPHILS # (AUTO) 4.8 10^3/uL (1.8-7.8); NEUTROPHILS % (AUTO) 64 % (42-75); PLATELET COUNT 201 10^3/uL (130-400); WHITE BLOOD COUNT 7.5 10^3/uL (4.3-11.0)
[2021-04-14 01:19] LABS: ALBUMIN 4.4 GM/DL (3.2-4.5)
[2021-04-14 01:20] LABS: POTASSIUM 3.9 MMOL/L (3.6-5.0)
[2021-04-14 01:21] LABS: CALCIUM 9.9 MG/DL (8.5-10.1)
[2021-04-14 01:22] LABS: TOTAL PROTEIN 8.7 GM/DL (6.4-8.2)
[2021-04-14 01:26] LABS: CREATININE SERUM 0.85 MG/DL (0.60-1.30)
[2021-04-14 01:45] LABS: CLARITY,URINE CLEAR; COLOR,URINE YELLOW; GLUCOSE, URINE (UA) NEGATIVE (NEGATIVE); KETONES,URINE 2+ (NEGATIVE); LEUKOCYTE ESTERASE ,URINE TRACE (NEGATIVE); NITRITE,URINE NEGATIVE (NEGATIVE); PROTEIN,URINE 1+ (NEGATIVE)
[2021-04-14 01:52] LABS: BACTERIA,URINE TRACE /HPF; BILIRUBIN,URINE 2+ (NEGATIVE); RBC,URINE 0-2 /HPF; WBC,URINE RARE /HPF
[2021-04-14] MEDS ORDERED: LACTATED RINGERS 1,000 ML IV ONE (02:00)
--- NOTE | 2021-04-14 06:12 | ED General ---
General Chief Complaint: General Problems/Pain Stated Complaint: LIGHTHEADED Nursing Triage Note: PT AMB TO ED BY EMS WITH C/O DIZZYNESS. PT REPORTS SHE WAS LAYING IN BED AND WHEN SHE TRIED TO SIT UP, SHE FELT VERY DIZZY AND "SAW AN ORANGE AND PURPLE RING." PT AMB FROM EMS TRUCK TO ROOM 3 W/O DIFFICULTY. PT STATES SHE THINKS SHE MAY HAVE DEMENTIA AND THAT SHE LIVES ALONE. PT DENIES SOB, RUIZ, FEVER, PAIN, N/V/D. STATES SHE HASN'T FELT LIKE THIS BEFORE AND WAS WORRIED SHE MAY BE HAVING A STROKE. Source of Information: Patient, EMS, Family, Old Records Exam Limitations: Other (Dementia) History of Present Illness Date Seen by Provider: Apr 14, 2021 Time Seen by Provider: 00:48 Initial Comments This 85-year-old woman presents to the emergency room via EMS with complaints of dizziness. She has dementia and lives alone. When questioned further she describes her dizziness as a lightheadedness when moving her head or standing. She also describes a vague odd sensation on the right side of the head and seeing purple and orange rings. Patient states she was staying at [facility] home when the symptoms started. She believes it is the month of July. She denies chest pain or shortness of breath. No fever. I was eventually able to talk with her son. He states she has rather advanced dementia and lives severo ne. They are trying to find placement for her. They do have a neighbor who checks on her as well as family. He does not believe she is a danger to herself at this time. She has had a history of atrial fibrillation with multiple visits to the ER and admissions related to A. fib and RVR. Allergies and Home Medications Allergies Coded Allergies: No Known Drug Allergies (Unverified , 02/12/18) Patient Home Medication List Home Medication List Reviewed: Yes Apixaban (Eliquis) 2.5 Mg Tablet, 2.5 MG PO BID, (Reported) Entered as Reported by: EMILIA RIVERA on 02/11/21 1435 Digoxin (Digox) 125 Mcg Tablet, 0.125 MG PO DAILY Prescribed by: JIAN STEPHENSON on 02/12/21 1342 Diltiazem HCl (Diltiazem 24Hr ER) 240 Mg Cap.er.24h, 240 MG PO BID Prescribed by: JIAN STEPHENSON on 02/12/21 1342 Metoprolol Succinate (Metoprolol Succinate) 50 Mg Tab.er.24h, 50 MG PO BID, (Reported) Entered as Reported by: EMILIA RIVERA on 02/11/21 1435 Pantoprazole Sodium (Pantoprazole Sodium) 40 Mg Tablet.dr, 40 MG PO DAILY, (Reported) Entered as Reported by: EMILIA RIVERA on 02/11/21 1435 Review of Systems Review of Systems Constitutional: no symptoms reported EENTM: no symptoms reported Respiratory: no symptoms reported Cardiovascular: see HPI Gastrointestinal: no symptoms reported Genitourinary: no symptoms reported Musculoskeletal: no symptoms reported Skin: no symptoms reported Psychiatric/Neurological: See HPI Hematologic/Lymphatic: No Symptoms Reported Immunological/Allergic: no symptoms reported Past Mzkabbn-Octift-Bdjqyl Hx Patient Social History Tobacco Use?: No Use of E-Cig and/or Vaping dev: No Substance use?: No Alcohol Use?: No Pt feels they are or have been: No Immunizations Up To Date Influenza Vaccine Up-to-Date: No; Not Current First/Initial COVID19 Vaccinat: N/A Seasonal Allergies Seasonal Allergies: No Past Medical History Surgery/Hospitalization HX: HYSTERECTOMY, APPY, CHOLY Surgeries: Yes (HYST/BSO; ANKLE FX/ORIF) Appendectomy, Hysterectomy, Oophorectomy, Orthopedic Respiratory: Yes Asthma Currently Using CPAP: No Currently Using BIPAP: No Cardiac: Yes 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, Hypertension Neurological: No Reproductive Disorders: No [employer] History: Hysterectomy, Menopausal Genitourinary: Yes Bladder Infection Gastrointestinal: Yes Chronic Constipation Musculoskeletal: No Endocrine: Yes Hypothyroidsim HEENT: Yes Cataract Loss of Vision: Bilateral Hearing Impairment: Denies Cancer: No Psychosocial: No Integumentary: No Blood Disorders: No Adverse Reaction/Blood Tranf: No Family Medical History Alzheimer's disease 19 FATHER, Onset:50's - 60 G8 BROTHER, Onset:50's - 60 Cardiovascular disease 19 FATHER, Onset:50's - 60 G8 BROTHER, Onset:50's - 60 No Pertinent Family Hx Physical Exam Vital Signs Vital Signs - First Documented 04/14/21 00:47 Temp 35.9 Pulse 78 Resp 12 B/P (MAP) 159/94 (115) Pulse Ox 94 O2 Delivery Room Air Capillary Refill : Less Than 3 Seconds Height, Weight, BMI Height: 4'11.00" Weight: 116lbs. 0.0oz. 52.877970sc; 19.00 BMI Method:Stated General Appearance: No Apparent Distress, WD/WN HEENT: PERRL/EOMI, TMs Normal, Normal ENT Inspection Neck: Normal Inspection, Non Tender; No Carotid Bruit, No JVD Respiratory: Lungs Clear, Normal Breath Sounds, No Accessory Muscle Use Cardiovascular: Regular Rate, Rhythm, No Edema, No Murmur Gastrointestinal: Non Tender, Soft Extremity: Normal Inspection, No Pedal Edema Neurologic/Psychiatric: Alert, No Motor/Sensory Deficits, Normal Mood/Affect, digital measurement advisor II-XII Norm as Tested, Other (Patient has confusion and is disoriented at baseline according to history given by family. No focal deficits appreciated.) Skin: Normal Color, Warm/Dry Progress/Results/Core Measures Suspected Sepsis SIRS Temperature: Pulse: 78 Respiratory Rate: 12 Laboratory Tests 04/14/21 00:50: White Blood Count 7.5 Blood Pressure 159 /94 Mean: 115 Laboratory Tests 04/14/21 00:50: Creatinine 0.85, Platelet Count 201, Total Bilirubin 1.0 Results/Orders Lab Results Laboratory Tests Test 04/14/21 00:50 04/14/21 01:39 Range/Units White Blood Count 7.5 4.3-11.0 10^3/uL Red Blood Count 5.00 3.80-5.11 10^6/uL Hemoglobin 15.0 11.5-16.0 g/dL Hematocrit 46 35-52 % Mean Corpuscular Volume 92 80-99 fL Mean Corpuscular Hemoglobin 30 25-34 pg Mean Corpuscular Hemoglobin Concent 33 32-36 g/dL Red Cell Distribution Width 14.1 10.0-14.5 % Platelet Count 201 130-400 10^3/uL Mean Platelet Volume 12.1 9.0-12.2 fL Immature Granulocyte % (Auto) 2 % Neutrophils (%) (Auto) 64 42-75 % Lymphocytes (%) (Auto) 15 12-44 % Monocytes (%) (Auto) 17 H 0-12 % Eosinophils (%) (Auto) 2 0-10 % Basophils (%) (Auto) 1 0-10 % Neutrophils # (Auto) 4.8 1.8-7.8 10^3/uL Lymphocytes # (Auto) 1.1 1.0-4.0 10^3/uL Monocytes # (Auto) 1.3 H 0.0-1.0 10^3/uL Eosinophils # (Auto) 0.2 0.0-0.3 10^3/uL Basophils # (Auto) 0.0 0.0-0.1 10^3/uL Immature Granulocyte # (Auto) 0.2 H 0.0-0.1 10^3/uL Sodium Level 137 135-145 MMOL/L Potassium Level 3.9 3.6-5.0 MMOL/L Chloride Level 99 98-107 MMOL/L Carbon Dioxide Level 21 21-32 MMOL/L Anion Gap 17 H 5-14 MMOL/L Blood Urea Nitrogen 12 7-18 MG/DL Creatinine 0.85 0.60-1.30 MG/DL Estimat Glomerular Filtration Rate 63 BUN/Creatinine Ratio 14 Glucose Level 115 H 70-105 MG/DL Calcium Level 9.9 8.5-10.1 MG/DL Corrected Calcium 9.6 8.5-10.1 MG/DL Total Bilirubin 1.0 0.1-1.0 MG/DL Aspartate Amino Transf (AST/SGOT) 20 5-34 U/L Alanine Aminotransferase (ALT/SGPT) 23 0-55 U/L Alkaline Phosphatase 123 40-136 U/L Total Protein 8.7 H 6.4-8.2 GM/DL Albumin 4.4 3.2-4.5 GM/DL Digoxin Level 1.21 0.80-2.00 NG/ML Urine Color YELLOW Urine Clarity CLEAR Urine pH 6.0 5-9 Urine Specific [place] >=1.030 1.016-1.022 Urine Protein 1+ H NEGATIVE Urine Glucose (UA) NEGATIVE NEGATIVE Urine Ketones 2+ H NEGATIVE Urine Nitrite NEGATIVE NEGATIVE Urine Bilirubin 2+ H NEGATIVE Urine Urobilinogen 1.0 < = 1.0 MG/DL Urine Leukocyte Esterase TRACE H NEGATIVE Urine RBC (Auto) 1+ H NEGATIVE Urine RBC 0-2 /HPF Urine WBC RARE /HPF Urine Squamous Epithelial Cells 5-10 /HPF Urine Crystals NONE /LPF Urine Bacteria TRACE /HPF Urine Casts NONE /LPF Urine Mucus LARGE H /LPF Urine Culture Indicated NO My Orders Orders - ROSALIA FRANCO MD Cbc With Automated Diff (04/14/21 00:53) Comprehensive Metabolic Panel (04/14/21 00:53) Ua Culture If Indicated (04/14/21 00:53) Ed Iv/Invasive Line Start (04/14/21 00:53) Ekg Tracing (04/14/21 00:55) Monitor-Rhythm Ecg Trace Only (04/14/21 00:55) Digoxin (04/14/21 00:56) Lactated Ringers (Lr 1000 Ml Iv Solution (04/14/21 02:00) Medications Given in ED Current Medications Medications Dose Ordered Sig/Elle Route Start Time Stop Time Status Last Admin Dose Admin Lactated Ringer's 1,000 ml @ 0 mls/hr Q0M ONCE IV 04/14/21 02:00 04/14/21 02:01 DC 04/14/21 02:12 0 MLS/HR Vital Signs/I&O 04/14/21 04/14/21 00:47 05:57 Temp 35.9 Pulse 78 85 87 95 Resp 12 B/P (MAP) 159/94 (115) 156/89 154/101 142/100 Pulse Ox 94 O2 Delivery Room Air Capillary Refill : Less Than 3 Seconds Blood Pressure Mean: 115 Progress Note : Progress Note Work-up was essentially unremarkable. Orthostatic blood pressures were normal. I discussed the situation with patient's family. They are trying to find her placement in a facility due to her worsening dementia. Patient is being discharged home with instructions for follow-up closely with her primary care provider. Ketones were elevated in the urine. A liter of LR was infused. ECG Initial ECG Impression Date: Apr 14, 2021 Initial ECG Impression Time: 00:56 Initial ECG Rate: 77 Initial ECG Rhythm: A Fib/Flutter Initial ECG Impression: 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 Comment Atrial fibrillation with no STEMI. No abnormal intervals or axis deviation. Departure Impression Primary Impression: Lightheadedness Additional Impression: Dementia Qualified Codes: F03.90 - Unspecified dementia without behavioral disturbance Disposition: 01 HOME, SELF-CARE Condition: Stable Departure-Patient Inst. Referrals: LUH RUVALCABA MD (PCP/Family) Primary Care Physician Patient Instructions: Dementia (Including Alzheimer Disease) Add. Discharge Instructions: Follow-up with your primary care provider and rn informatics as soon as possible. Please call this morning for an appointment. Call with questions or concerns. Return to the ER if you have worsening symptoms. All discharge instructions reviewed with patient and/or family. Voiced understanding. Copy Copies To 1: L[facility] RUVALCABA MD Copies To 2: JIAN STEPHENSON MD, JOSHUA T MD Apr 14, 2021 06:12
[2021-04-14 07:11] VITALS: BP 141/85
== END 2021-04-14 07:11 | disposition home or self-care (01) ==
LOC: EDUNIT# 00:46 → ER 00:48
DX: R42 Dizziness and giddiness (principal); F03.90 Unspecified dementia, unspecified severity, without behavioral disturbance, psychotic disturbance, mood disturbance, and anxiety; I10 Essential (primary) hypertension; I48.91 Unspecified atrial fibrillation; J45.909 Unspecified asthma, uncomplicated; Z79.01 Long term (current) use of anticoagulants; Z79.899 Other long term (current) drug therapy
CPT/HCPCS: 36415; 80053; 80162; 81000; 85025; 93005; 93041

== ENCOUNTER 2022-03-31 12:35 | Inpatient (IN) | payer MEDICARE, MEDICAID ==
[~2022-03-31] VITALS: Ht 149.9 cm; Wt 52.6 kg
[2022-03-31] VITALS (8 sets, daily range): BP systolic 139–153; BP diastolic 70–93
--- NOTE | 2022-03-31 12:59 | ED Abdominal Pain ---
General Chief Complaint: Abdominal/GI Problems Stated Complaint: RT SIDE PAIN Source of Information: Patient, EMS Exam Limitations: No Limitations History of Present Illness Date Seen by Provider: Mar 31, 2022 Time Seen by Provider: 12:40 Initial Comments This is a 86 yo female who presented to ED via [facility] from home wit h right sided hip pain. EMS reports she lives at home and daughter activated EMS due to right-sided pain past 3 days. Denies any falls, trauma, injury to site. She has history of dementia and is a poor historian. Limited HPI was obtained from EMS. Patient denies any fever, chills, cough, shortness of breath, nausea, vomiting, diarrhea. She does have a history of atrial fibril lation and is anticoagulated with Eliquis 2.5 mg twice daily. Allergies and Home Medications Allergies Coded Allergies: No Known Drug Allergies (Unverified , 02/12/18) Patient Home Medication List Home Medication List Reviewed: Yes Apixaban (Eliquis) 2.5 Mg Tablet, 2.5 MG PO BID, (Reported) Entered as Reported by: EMILIA RIVERA on 02/11/21 1435 Digoxin (Digox) 125 Mcg Tablet, 0.125 MG PO DAILY Prescribed by: JIAN STEPHENSON on 02/12/21 1342 Diltiazem HCl (Diltiazem 24Hr ER) 240 Mg Cap.er.24h, 240 MG PO BID Prescribed by: JIAN STEPHENSON on 02/12/21 1342 Metoprolol Succinate (Metoprolol Succinate) 50 Mg Tab.er.24h, 50 MG PO BID, (Reported) Entered as Reported by: EMILIA RIVERA on 02/11/21 1435 Pantoprazole Sodium (Pantoprazole Sodium) 40 Mg Tablet.dr, 40 MG PO DAILY, (Reported) Entered as Reported by: EMILIA RIVERA on 02/11/21 1435 Review of Systems Review of Systems Constitutional: see HPI Past Riwlrep-Idvssm-Wbeked Hx Immunizations Up To Date First/Initial COVID19 Vaccinat: N/A Seasonal Allergies Seasonal Allergies: No Past Medical History Surgery/Hospitalization HX: HYSTERECTOMY, APPY, CHOLY Surgeries: Yes (HYST/BSO; ANKLE FX/ORIF) Appendectomy, Hysterectomy, Oophorectomy, Orthopedic Respiratory: Yes Asthma Currently Using CPAP: No Currently Using BIPAP: No Cardiac: Yes 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, Hypertension Neurological: No Reproductive Disorders: No LAB RN History: Hysterectomy, Menopausal Genitourinary: Yes Bladder Infection Gastrointestinal: Yes Chronic Constipation Musculoskeletal: No Endocrine: Yes Hypothyroidsim HEENT: Yes Cataract Loss of Vision: Bilateral Hearing Impairment: Denies Cancer: No Psychosocial: No Integumentary: No Blood Disorders: No Adverse Reaction/Blood Tranf: No Family Medical History Alzheimer's disease 19 FATHER, Onset:50's - 60 G8 BROTHER, Onset:50's - 60 Cardiovascular disease 19 FATHER, Onset:50's - 60 G8 BROTHER, Onset:50's - 60 No Pertinent Family Hx Physical Exam Vital Signs Vital Signs - First Documented 03/31/22 12:35 Temp 37.2 Pulse 93 Resp 20 B/P (MAP) 139/70 (93) Pulse Ox 93 O2 Delivery Room Air Capillary Refill : Height/Weight/BMI Height: 4'11.00" Weight: 116lbs. 0.0oz. 52.484333jb; 19.00 BMI Method:Stated General Appearance: WD/WN, no apparent distress, thin HEENT: PERRL/EOMI, normal ENT inspection, pharynx normal Neck: non-tender, full range of motion, supple, normal inspection Respiratory: chest non-tender, lungs clear, normal breath sounds, no respiratory distress, no accessory muscle use Cardiovascular: no edema, irregularly irregular Peripheral Pulses: 2+ Dorsalis Pedis (R), 2+ Left Dors-Pedis (L) Gastrointestinal: normal bowel sounds, soft, rebound, tenderness Extremities: normal range of motion, non-tender, normal inspection Neurologic/Psychiatric: no motor/sensory deficits, alert, normal mood/affect; No oriented x 3 (Person, place and situation. Unable to recall year or president ) Skin: normal color, warm/dry Focused Exam Lactate Level 03/31/22 16:05: Lactic Acid Level 2.58*H Lactic Acid Level Laboratory Tests Test 03/31/22 14:10 03/31/22 16:05 Lactic Acid Level 2.84 MMOL/L (0.50-2.00) *H 2.58 MMOL/L (0.50-2.00) *H Progress/Results/Core Measures Results/Orders Lab Results Laboratory Tests Test 03/31/22 12:55 03/31/22 12:59 03/31/22 14:00 03/31/22 14:10 Range/Units Prothrombin Time 16.4 H 12.2-14.7 SEC INR Comment 1.3 0.8-1.4 Activated Partial Thromboplast Time 28 24-35 SEC Sodium Level 137 137 135-145 MMOL/L Potassium Level 3.8 3.8 3.6-5.0 MMOL/L Chloride Level 99 101 98-107 MMOL/L Carbon Dioxide Level 29 28 21-32 MMOL/L Anion Gap 9 8 5-14 MMOL/L Blood Urea Nitrogen 24 H 24 H 7-18 MG/DL Creatinine 0.75 0.75 0.60-1.30 MG/DL Estimat Glomerular Filtration Rate 77 77 BUN/Creatinine Ratio 32 32 Glucose Level 89 94 70-105 MG/DL Calcium Level 9.5 9.8 8.5-10.1 MG/DL Corrected Calcium 9.4 9.8 8.5-10.1 MG/DL Total Bilirubin 1.5 H 1.5 H 0.1-1.0 MG/DL Aspartate Amino Transf (AST/SGOT) 28 27 5-34 U/L Alanine Aminotransferase (ALT/SGPT) 46 46 0-55 U/L Alkaline Phosphatase 97 94 40-136 U/L Total Protein 7.4 7.8 6.4-8.2 GM/DL Albumin 4.1 4.0 3.2-4.5 GM/DL Procalcitonin 0.43 H <0.10 NG/ML White Blood Count 28.8 H 4.3-11.0 10^3/uL Red Blood Count 4.29 3.80-5.11 10^6/uL Hemoglobin 13.5 11.5-16.0 g/dL Hematocrit 40 35-52 % Mean Corpuscular Volume 94 80-99 fL Mean Corpuscular Hemoglobin 32 25-34 pg Mean Corpuscular Hemoglobin Concent 34 32-36 g/dL Red Cell Distribution Width 13.4 10.0-14.5 % Platelet Count 117 L 130-400 10^3/uL Mean Platelet Volume 12.6 H 9.0-12.2 fL Immature Granulocyte % (Auto) 4 % Neutrophils (%) (Auto) 77 H 42-75 % Lymphocytes (%) (Auto) 4 L 12-44 % Monocytes (%) (Auto) 14 H 0-12 % Eosinophils (%) (Auto) 0 0-10 % Basophils (%) (Auto) 0 0-10 % Neutrophils # (Auto) 22.1 H 1.8-7.8 10^3/uL Lymphocytes # (Auto) 1.1 1.0-4.0 10^3/uL Monocytes # (Auto) 4.2 H 0.0-1.0 10^3/uL Eosinophils # (Auto) 0.1 0.0-0.3 10^3/uL Basophils # (Auto) 0.1 0.0-0.1 10^3/uL Immature Granulocyte # (Auto) 1.3 H 0.0-0.1 10^3/uL Neutrophils % (Manual) 75 % Lymphocytes % (Manual) 3 % Monocytes % (Manual) 13 % Eosinophils % (Manual) 0 % Basophils % (Manual) 0 % Band Neutrophils 9 % Percent Immature Platelet Fraction 13.2 H 0.0-7.6 % Blood Morphology Comment NORMAL Urine Color ORANGE Urine Clarity CLOUDY Urine pH 6.0 5-9 Urine Specific [place] >=1.030 1.016-1.022 Urine Protein 2+ H NEGATIVE Urine Glucose (UA) NEGATIVE NEGATIVE Urine Ketones NEGATIVE NEGATIVE Urine Nitrite NEGATIVE NEGATIVE Urine Bilirubin NEGATIVE NEGATIVE Urine Urobilinogen 1.0 < = 1.0 MG/DL Urine Leukocyte Esterase NEGATIVE NEGATIVE Urine RBC (Auto) 2+ H NEGATIVE Urine RBC 5-10 H /HPF Urine WBC RARE /HPF Urine Squamous Epithelial Cells RARE /HPF Urine Crystals NONE /LPF Urine Bacteria NEGATIVE /HPF Urine Casts NONE /LPF Urine Mucus NEGATIVE /LPF Urine Culture Indicated CULTURE PENDING Lactic Acid Level 2.84 *H 0.50-2.00 MMOL/L Test 03/31/22 16:05 Range/Units Lactic Acid Level 2.58 *H 0.50-2.00 MMOL/L My Orders Orders - ADRIÁN DICKERSON [employer]ET[employer] COMMUNICATIONS MANAGER Cbc With Automated Diff (03/31/22 12:47) Comprehensive Metabolic Panel (03/31/22 12:47) Ekg Tracing (03/31/22 12:47) Chest 1 View, Ap/Pa Only (03/31/22 12:47) Ct Abdomen/Pelvis W (03/31/22 12:47) Manual Differential (03/31/22 12:59) Comprehensive Metabolic Panel (03/31/22 13:40) Blood Culture (03/31/22 13:40) Sputum Culture (03/31/22 13:40) Urinalysis (03/31/22 13:40) Urine Culture (03/31/22 13:40) Protime With Inr (03/31/22 13:40) Partial Thromboplastin Time (03/31/22 13:40) Ed Iv/Invasive Line Start (03/31/22 13:40) Lactic Acid Analyzer (03/31/22 13:40) Ns Iv 1000 Ml (Sodium Chloride 0.9%) (03/31/22 13:45) Ceftriaxone 1 Gm Pre-Mix (Rocephin 1 Gm (03/31/22 14:15) Procalcitonin (Pct) (03/31/22 14:17) Fentanyl Inj (Sublimaze Injection) (03/31/22 15:15) Ns Iv 500 Ml (Sodium Chloride 0.9%) (03/31/22 15:45) Ns Iv 1000 Ml (Sodium Chloride 0.9%) (03/31/22 16:45) Metronidazole 500mg/100ml Ivpb (Flagyl 5 (03/31/22 17:45) Ed Admission (Communication) (03/31/22 20:45) Medications Given in ED Current Medications Medications Dose Ordered Sig/Elle Route Start Time Stop Time Status Last Admin Dose Admin Ceftriaxone Sodium/Dextrose 50 ml @ 100 mls/hr ONCE ONCE IV 03/31/22 14:15 03/31/22 14:44 DC 03/31/22 15:04 100 MLS/HR Fentanyl Citrate 25 mcg ONCE ONCE IVP 03/31/22 15:15 03/31/22 15:16 DC 03/31/22 15:36 25 MCG Metronidazole 100 ml @ 100 mls/hr ONCE ONCE IV 03/31/22 17:45 03/31/22 18:44 DC 03/31/22 18:45 100 MLS/HR Sodium Chloride 500 ml @ 0 mls/hr Q0M ONCE IV 03/31/22 15:45 03/31/22 15:46 DC 03/31/22 15:42 1,000 MLS/HR Sodium Chloride 1,000 ml @ 0 mls/hr Q0M ONCE IV 03/31/22 16:45 03/31/22 16:46 DC 03/31/22 16:43 1,000 MLS/HR Vital Signs/I&O 03/31/22 03/31/22 12:35 20:47 Temp 37.2 36.6 Pulse 93 90 Resp 20 18 B/P (MAP) 139/70 (93) 139/69 Pulse Ox 93 96 O2 Delivery Room Air Room Air 03/31/22 23:59 Intake Total 2650 ml Balance 2650 ml Diagnostic Imaging Diagonstic Imaging: Xray Comments [facility], [place] NAME: GRABIEL WINKLER [facility] REC#: [id number] PT STATUS: REG ER : 1935 PHYSICIAN: ADRIÁN DICKERSON APRN ADMIT DATE: 03/31/22/ER Signed Date of Exam:03/31/22 CHEST 1 VIEW, AP/PA ONLY CLINICAL INDICATION: Patient with abdominal and GI problems. EXAM: Portable chest x-ray upright view. COMPARISON: Chest x-ray dated 01/29/2021. FINDINGS: There is increased interstitial thickening again seen throughout both lungs with both lung bases affected the most. There is no significant change to the groundglass amorphous opacities involving both lower lung gutierres. There is no interval lung infiltrate. There is no pleural effusion or pneumothorax. Pulmonary vasculature and cardiac silhouette are within normal limits. There are degenerative spurs involving the spine. IMPRESSION: 1: Stable chest x-ray exam with no interval lung infiltrate. 2: There are increased lung markings throughout both lungs which may be related to chronic interstitial disease, superimposed chronic lung opacities may be considered. Dictated by: Dictated on workstation # [id number] Dict: 03/31/22 1322 Trans: 03/31/221707 AS6 [id number] Interpreted by: MALA JOHN MD Electronically signed by: MALA JOHN MD 03/31/221707 Diagonstic Imaging: CT Comments [facility] [place] [place] NAME: GRABIEL WINKLER [facility] REC#: [id number] PT STATUS: REG ER : 1935 PHYSICIAN: ADRIÁN DICKERSON APRN ADMIT DATE: 03/31/22/ER Signed Date of Exam:03/31/22 CT ABDOMEN/PELVIS W EXAMINATION: CT abdomen and pelvis with intravenous contrast. TECHNIQUE: Multiple contiguous axial images were obtained through the abdomen and pelvis after the uneventful administration of intravenous contrast. All CT scans use one or more of the following dose optimizing techniques: Automated exposure control, MA and/or KvP adjustment based on patient size and exam type or iterative reconstruction. HISTORY: Right lower quadrant pain. COMPARISON: 01/16/2021. FINDINGS: Limited views of the lower thorax show pulmonary edema. There is a cyst in the liver. No suspicious liver lesions. There is hyperenhancement of the gallbladder fossa related to marked wall thickening and mucosal hyperenhancement of the gallbladder in keeping with acute cholecystitis. There is no biliary ductal dilation. Pancreas is normal. Spleen is normal. Adrenal glands are normal. There are simple cysts in the left kidney. No suspicious renal lesions. There is no hydronephrosis. Urinary bladder is normal. Bowel is normal in caliber without obstruction or inflammation. Small amount of free fluid is present. There is also free fluid around the gallbladder. No abdominal or pelvic lymphadenopathy. Aorta is normal in caliber without aneurysm. There are no suspicious osseous lesions. IMPRESSION: 1. Marked wall thickening of the gallbladder with mucosal hyperenhancement and adjacent fluid. No loculated drainable collection. Findings are consistent with cholecystitis. Dictated by: Dictated on workstation # [id number] Dict: 03/31/22 1637 Trans: 03/31/221701 [id number] Interpreted by: MAG SHERMAN MD Electronically signed by: MAG SHERMAN MD 03/31/22 170 Departure Communication (Admissions) Time/Spoke to Admitting Phy: 18:45 Dr. Lizama Time/Spoke to Consulting Phy: 17:10 Dr. Reyes Impression Primary Impression: Sepsis Additional Impressions: Cholecystitis HTN (hypertension) Disposition: ADMITTED INPATIENT Condition: Stable Admissions Decision to Admit Reason: Admit from ER (General) Decision to Admit/Date: Mar 31, 2022 Time/Decision to Admit Time: 16:45 Departure-Patient Inst. Referrals: LUH RUVALCABA MD (PCP/Family) Primary Care Physician ADRIÁN DICKERSON MARKETING COMMUNICATIONS MANAGER Mar 31, 2022 12:59
[2022-03-31 13:02] LABS: BASOPHILS # (AUTO) 0.1 10^3/uL (0.0-0.1); BASOPHILS % (AUTO) 0 % (0-10); EOSINOPHILS # (AUTO) 0.1 10^3/uL (0.0-0.3); EOSINOPHILS % (AUTO) 0 % (0-10); HEMATOCRIT 40 % (35-52); PLATELET COUNT 117 10^3/uL (130-400)
[2022-03-31 13:04] LABS: HEMOGLOBIN 13.5 g/dL (11.5-16.0); LYMPHOCYTES # (AUTO) 1.1 10^3/uL (1.0-4.0); LYMPHOCYTES % (AUTO) 4 % (12-44); MEAN CORPUSCULAR HEMOGLOBIN 32 pg (25-34); MEAN CORPUSCULAR HGB CONC 34 g/dL (32-36); MEAN CORPUSCULAR VOLUME 94 fL (80-99); MEAN PLATELET VOLUME 12.6 fL (9.0-12.2); MONOCYTES # (AUTO) 4.2 10^3/uL (0.0-1.0); MONOCYTES % (AUTO) 14 % (0-12); NEUTROPHILS # (AUTO) 22.1 10^3/uL (1.8-7.8); NEUTROPHILS % (AUTO) 77 % (42-75); WHITE BLOOD COUNT 28.8 10^3/uL (4.3-11.0)
[2022-03-31 13:23] LABS: BILIRUBIN,TOTAL 1.5 MG/DL (0.1-1.0); CALCIUM 9.8 MG/DL (8.5-10.1); CREATININE SERUM 0.75 MG/DL (0.60-1.30); POTASSIUM 3.8 MMOL/L (3.6-5.0); TOTAL PROTEIN 7.8 GM/DL (6.4-8.2)
--- NOTE | 2022-03-31 13:30 | Diagnostic Imaging Report ---
CLINICAL INDICATION: Patient with abdominal and GI problems. EXAM: Portable chest x-ray upright view. COMPARISON: Chest x-ray dated 01/29/2021. FINDINGS: There is increased interstitial thickening again seen throughout both lungs with both lung bases affected the most. There is no significant change to the groundglass amorphous opacities involving both lower lung gutierres. There is no interval lung infiltrate. There is no pleural effusion or pneumothorax. Pulmonary vasculature and cardiac silhouette are within normal limits. There are degenerative spurs involving the spine. IMPRESSION: 1: Stable chest x-ray exam with no interval lung infiltrate. 2: There are increased lung markings throughout both lungs which may be related to chronic interstitial disease, superimposed chronic lung opacities may be considered. Dictated by: Dictated on workstation # [id number]
[2022-03-31 13:33] LABS: BAND NEUTROPHILS 9 %; BASOPHILS % (MANUAL) 0 %; EOSINOPHILS % (MANUAL) 0 %; LYMPHOCYTES % (MANUAL) 3 %; MONOCYTES % (MANUAL) 13 %; NEUTROPHILS % (MANUAL) 75 %; RBC MORPH NORMAL
[2022-03-31] MEDS ORDERED: NS IV 1000 ML 1,000 ML IV SCH (13:45)
[2022-03-31 14:03] LABS: BILIRUBIN,URINE NEGATIVE (NEGATIVE); CLARITY,URINE CLOUDY; COLOR,URINE ORANGE; GLUCOSE, URINE (UA) NEGATIVE (NEGATIVE); KETONES,URINE NEGATIVE (NEGATIVE); LEUKOCYTE ESTERASE ,URINE NEGATIVE (NEGATIVE); NITRITE,URINE NEGATIVE (NEGATIVE); PROTEIN,URINE 2+ (NEGATIVE)
[2022-03-31 14:11] LABS: BACTERIA,URINE NEGATIVE /HPF; SQUAMOUS EPITHELIAL CELL,UR RARE /HPF; WBC,URINE RARE /HPF
[2022-03-31] MEDS ORDERED: cefTRIAXone 1 GM PRE-MIX 50 ML IV ONE (14:15)
[2022-03-31 14:32] LABS: INR 1.3 (0.8-1.4); PROTHROMBIN TIME PATIENT 16.4 SEC (12.2-14.7)
[2022-03-31 14:38] LABS: ALBUMIN 4.1 GM/DL (3.2-4.5); BILIRUBIN,TOTAL 1.5 MG/DL (0.1-1.0); CALCIUM 9.5 MG/DL (8.5-10.1); CREATININE SERUM 0.75 MG/DL (0.60-1.30); POTASSIUM 3.8 MMOL/L (3.6-5.0); TOTAL PROTEIN 7.4 GM/DL (6.4-8.2)
[2022-03-31] MEDS ORDERED: fentaNYL INJ 100 MCG/2 ML AMP IVP ONE (15:15)
[2022-03-31] MEDS ORDERED: NS IV 500 ML 500 ML IV ONE (15:45)
--- NOTE | 2022-03-31 16:42 | Diagnostic Imaging Report ---
EXAMINATION: CT abdomen and pelvis with intravenous contrast. TECHNIQUE: Multiple contiguous axial images were obtained through the abdomen and pelvis after the uneventful administration of intravenous contrast. All CT scans use one or more of the following dose optimizing techniques: Automated exposure control, MA and/or KvP adjustment based on patient size and exam type or iterative reconstruction. HISTORY: Right lower quadrant pain. COMPARISON: 01/16/2021. FINDINGS: Limited views of the lower thorax show pulmonary edema. There is a cyst in the liver. No suspicious liver lesions. There is hyperenhancement of the gallbladder fossa related to marked wall thickening and mucosal hyperenhancement of the gallbladder in keeping with acute cholecystitis. There is no biliary ductal dilation. Pancreas is normal. Spleen is normal. Adrenal glands are normal. There are simple cysts in the left kidney. No suspicious renal lesions. There is no hydronephrosis. Urinary bladder is normal. Bowel is normal in caliber without obstruction or inflammation. Small amount of free fluid is present. There is also free fluid around the gallbladder. No abdominal or pelvic lymphadenopathy. Aorta is normal in caliber without aneurysm. There are no suspicious osseous lesions. IMPRESSION: 1. Marked wall thickening of the gallbladder with mucosal hyperenhancement and adjacent fluid. No loculated drainable collection. Findings are consistent with cholecystitis. Dictated by: Dictated on workstation # [id number]
[2022-03-31] MEDS ORDERED: NS IV 1000 ML 1,000 ML IV ONE (16:45)
[2022-03-31] MEDS ORDERED: metroNIDAZOLE 500MG/100ML IVPB 100 ML IV ONE (17:45)
[2022-03-31] MEDS ORDERED: NS IV 1000 ML 1,000 ML ONE (21:41)
[2022-03-31] MEDS ORDERED: ONDANSETRON 4 MG/2 ML (SDV) Z0FRAN IV PRN (21:45)
[2022-03-31] MEDS ORDERED: BISACODYL 10 MG SUPP (DULCOLAX) PR PRN (21:45)
[2022-03-31] MEDS ORDERED: diphenhydrAMINE 50 MG/ML INJ (BENADRYL) IVP PRN (21:45)
[2022-03-31] MEDS ORDERED: WATER (STERILE) FOR INJ 10 ML BTL INJ SCH (21:45)
[2022-03-31] MEDS ORDERED: LORazepam INJ 2 MG/ML (ATIVAN) VIAL IVP PRN (21:45)
[2022-03-31] MEDS ORDERED: ACETAMINOPHEN 325 MG TABLET PO PRN (21:45)
[2022-03-31] MEDS ORDERED: LACTULOSE SYRUP 10GM/15ML (ENULOSE) 30ML UDC PO PRN (21:45)
[2022-03-31] MEDS ORDERED: CALCIUM CARBONATE 500 MG (TUMS) TAB.CHEW PO PRN (21:45)
[2022-03-31] MEDS ORDERED: MILK OF MAGNESIA 400 MG/5 ML 30 ML UDC PO PRN (21:45)
[2022-03-31] MEDS ORDERED: diphenhydrAMINE 25 MG TAB (BENADRYL) PO PRN (21:45)
[2022-03-31] MEDS ORDERED: ANTACID SUSP 30 ML UDC (MYLANTA) PO PRN (21:45)
[2022-03-31] MEDS ORDERED: ZIPRASIDONE 20 MG INJ (GEODON) VIAL IM PRN (21:45)
[2022-03-31] MEDS ORDERED: ONDANSETRON 4 MG (ZOFRAN) ORAL DISSOLVE TAB PO PRN (21:45)
[2022-03-31] MEDS ORDERED: polyethylene glycoL POWDER 17 GM (MIRALAX) PACK PO PRN (21:45)
[2022-03-31] MEDS: NS IV 1000 ML 1,000 ML IV SCH (21:46)
[2022-03-31] MEDS: cefTRIAXone 1 GM PRE-MIX 50 ML IV SCH (21:47)
[2022-03-31] MEDS ORDERED: RT-ALBUTEROL SULF 2.5 MG/3 ML PRE-MIX VIAL INH PRN (22:15)
--- NOTE | 2022-03-31 23:27 | Consultation - Surgery ---
History of Present Illness History of Present Illness Patient Consulted On(joseph/time) 03/31/22 17:22 Date Seen by Provider: Mar 31, 2022 Time Seen by Provider: 17:22 History of Present Illness Consult requested for sepsis, acute cholecystitis Patient is an 86 year old female with afib with roasterman anticoagulation. She has been having sharp abdominal pain on the right side of abdomen for at least 3 days she states and thinks for a week. Rates it at 10/10 pain. Movement or touching the right side of abdomen causes pain. Laying still helps a little. She has not had appetite. Just wanting to feel better. No nausea or emesis. Denies fevers, sweats chills shortness of breath or chest pain. Never had episodes of this before. Ct scan abdomen/pelvis: 1. Marked wall thickening of the gallbladder with mucosal hyperenhancement and adjacent fluid. No loculated drainable collection. Findings are consistent with cholecystitis. Allergies and Home Medications Allergies Coded Allergies: No Known Drug Allergies (Unverified , 02/12/18) Patient Home Medication List Home Medication List Reviewed: Yes Apixaban (Eliquis) 2.5 Mg Tablet, 2.5 MG PO BID, (Reported) Entered as Reported by: EMILIA RIVERA on 02/11/21 1435 Digoxin (Digox) 125 Mcg Tablet, 0.125 MG PO DAILY Prescribed by: JIAN STEPHENSON on 02/12/21 1342 Diltiazem HCl (Diltiazem 24Hr ER) 240 Mg Cap.er.24h, 240 MG PO BID Prescribed by: JIAN STEPHENSON on 02/12/21 1342 Metoprolol Succinate (Metoprolol Succinate) 50 Mg Tab.er.24h, 50 MG PO BID, (Reported) Entered as Reported by: EMILIA RIVERA on 02/11/21 1435 Pantoprazole Sodium (Pantoprazole Sodium) 40 Mg Tablet.dr, 40 MG PO DAILY, (Reported) Entered as Reported by: EMILIA RIVERA on 02/11/21 1435 Past Hmpypug-Qffsce-Udrxsi Hx Patient Social History Smoking Status: Never a Smoker 2nd Hand Smoke Exposure: Yes Recent Hopitalizations: No Alcohol Use?: No Have you traveled recently?: No Immunizations Up To Date Date of Pneumonia Vaccine: Feb 12, 2015 Seasonal Allergies Seasonal Allergies: No Surgeries History of Surgeries: Yes (HYST/BSO; ANKLE FX/ORIF) Surgeries: Appendectomy, Hysterectomy, Oophorectomy, Orthopedic Respiratory History of Respiratory Disorde: Yes Respiratory Disorders: Asthma Cardiovascular History of Cardiac Disorders: Yes Cardiac Disorders: 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, Hypertension Neurological History of Neurological Disord: No Reproductive System Hx Reproductive Disorders: No MANAGER RESPIRATORY History: Hysterectomy, Menopausal Genitourinary History of Genitourinary Disor: Yes Genitourinary Disorders: Bladder Infection Gastrointestinal History of Gastrointestinal Di: Yes Gastrointestinal Disorders: Chronic Constipation Musculoskeletal History of Musculoskeletal Dis: No Endocrine History of Endocrine Disorders: Yes Endocrine Disorders: Hypothyroidsim HEENT History of HEENT Disorders: Yes HEENT Disorders: Cataract Loss of Vision: Bilateral Hearing Impairment: Denies Cancer History of Cancer: No Psychosocial History of Psychiatric Problem: No Integumentary History of Skin or Integumenta: No Blood Transfusions History of Blood Disorders: No Adverse Reaction to a Blood Tr: No Reviewed Nursing Assessment Reviewed/Agree w Nursing PMH: Yes Family Medical History Significant Family History: No Pertinent Family Hx Family Medial History: Alzheimer's disease 19 FATHER, Onset:50's - 60 G8 BROTHER, Onset:50's - 60 Cardiovascular disease 19 FATHER, Onset:50's - 60 G8 BROTHER, Onset:50's - 60 Review of Systems-General Constitutional: No chills, No diaphoresis EENTM: No blurred vision, No double vision Respiratory: No cough, No dyspnea on exertion Cardiovascular: No chest pain, No palpitations Gastrointestinal: abdominal pain (RUQ); No nausea, No vomiting Genitourinary: No decreased output, No discharge Musculoskeletal: No back pain, No joint pain Skin: No change in color, No change in hair/nails Psychiatric/Neurological: Denies Anxiety, Denies Depressed, Denies Emotional Problems All Other Systems Reviewed Negative Unless Noted: Yes (Negative excepted noted.) Physical Exam-General Problems Physical Exam Vital Signs Vital Signs - First Documented 03/31/22 03/31/22 03/31/22 12:35 21:15 22:03 Temp 37.2 Pulse 93 Resp 20 B/P (MAP) 139/70 (93) Pulse Ox 93 O2 Delivery Room Air O2 Flow Rate 2.00 FiO2 21 Capillary Refill : General Appearance: no apparent distress, thin HEENT: PERRL/EOMI, normal ENT inspection Neck: non-tender, supple Respiratory: chest non-tender, no respiratory distress, no accessory muscle use Cardiovascular: no JVD, irregularly irregular Gastrointestinal: soft, tenderness (right side of abdomen) Rectal: deferred Back: no CVA tenderness, no vertebral tenderness Extremities: non-tender, no pedal edema, no calf tenderness Neurologic/Psychiatric: alert, normal mood/affect; No oriented x 3 Skin: normal color, warm/dry Lymphatic: no adenopathy Data Review Labs Laboratory Tests 03/31/22 12:55: Prothrombin Time 16.4H, INR Comment 1.3, Activated Partial Thromboplast Time 28, Sodium Level 137, Potassium Level 3.8, Chloride Level 99, Carbon Dioxide Level 29, Anion Gap 9, Blood Urea Nitrogen 24H, Creatinine 0.75, Estimat Glomerular Filtration Rate 77, BUN/Creatinine Ratio 32, Glucose Level 89, Calcium Level 9.5, Corrected Calcium 9.4, Total Bilirubin 1.5H, Aspartate Amino Transf (AST/SGOT) 28, Alanine Aminotransferase (ALT/SGPT) 46, Alkaline Phosphatase 97, Total Protein 7.4, Albumin 4.1, Procalcitonin 0.43H 03/31/22 12:59: Sodium Level 137, Potassium Level 3.8, Chloride Level 101, Carbon Dioxide Level 28, Anion Gap 8, Blood Urea Nitrogen 24H, Creatinine 0.75, Estimat Glomerular Filtration Rate 77, BUN/Creatinine Ratio 32, Glucose Level 94, Calcium Level 9.8 , Corrected Calcium 9.8, Total Bilirubin 1.5H, Aspartate Amino Transf (AST/SGOT) 27, Alanine Aminotransferase (ALT/SGPT) 46, Alkaline Phosphatase 94, Total Protein 7.8, Albumin 4.0, White Blood Count 28.8H, Red Blood Count 4.29, Hemoglobin 13.5, Hematocrit 40, Mean Corpuscular Volume 94, Mean Corpuscular Hemoglobin 32, Mean Corpuscular Hemoglobin Concent 34, Red Cell Distribution Width 13.4, Platelet Count 117L, Mean Platelet Volume 12.6H, Immature Granulocyte % (Auto) 4, Neutrophils (%) (Auto) 77H, Lymphocytes (%) (Auto) 4L, Monocytes (%) (Auto) 14H, Eosinophils (%) (Auto) 0, Basophils (%) (Auto) 0, Ne utrophils # (Auto) 22.1H, Lymphocytes # (Auto) 1.1, Monocytes # (Auto) 4.2H, Eosinophils # (Auto) 0.1, Basophils # (Auto) 0.1, Immature Granulocyte # (Auto) 1.3H, Neutrophils % (Manual) 75, Lymphocytes % (Manual) 3, Monocytes % (Manual) 13, Eosinophils % (Manual) 0, Basophils % (Manual) 0, Band Neutrophils 9, Percent Immature Platelet Fraction 13.2H, Blood Morphology Comment NORMAL 03/31/22 14:00: Urine Color ORANGE, Urine Clarity CLOUDY, Urine pH 6.0, Urine Specific [place] >=1.030, Urine Protein 2+H, Urine Glucose (UA) NEGATIVE, Urine Ketones NEGATIVE, Urine Nitrite NEGATIVE, Urine Bilirubin NEGATIVE, Urine Urobilinogen 1.0, Urine Leukocyte Esterase NEGATIVE, Urine RBC (Auto) 2+H, Urine RBC 5-10H, Urine WBC RARE, Urine Squamous Epithelial Cells RARE, Urine Crystals NONE, Urine Bacteria NEGATIVE, Urine Casts NONE, Urine Mucus NEGATIVE, Urine Culture Indicated CULTURE PENDING 03/31/22 14:10: Lactic Acid Level 2.84*H 03/31/22 16:05: Lactic Acid Level 2.58*H 03/31/22 21:11: Lactic Acid Level 2.02*H Assessment/Plan Assessment/Plan Assessment/Plan sepsis acute cholecystitis long-term anticoagulation patient on rocephin/flagyl NPO IV fluids anticoagulation held, want to wait at least 24 hours since last dose to help make risks lower obtain consent for laparoscopic cholecystectomy with intraoperative cholangiogram all other indicated procedures. Clinical Quality Measures DVT/VTE Risk/Contraindication: Contraindications-Pharm: Other *list below* Other: operation DAYLIN MOTT DO Mar 31, 2022 23:27
[2022-04-01] VITALS (7 sets, daily range): BP systolic 139–158; BP diastolic 69–87
[2022-04-01] MEDS: metroNIDAZOLE 500MG/100ML IVPB 100 ML IV SCH ×3 (06:10→21:50)
[2022-04-01] MEDS: NS IV 1000 ML 1,000 ML IV SCH ×3 (06:10→21:51)
[2022-04-01 06:14] LABS: EOSINOPHILS % (AUTO) 0 % (0-10); MEAN CORPUSCULAR VOLUME 94 fL (80-99); MEAN PLATELET VOLUME 13.5 fL (9.0-12.2); PLATELET COUNT 97 10^3/uL (130-400)
[2022-04-01 06:16] LABS: BASOPHILS % (AUTO) 0 % (0-10); HEMATOCRIT 34 % (35-52); HEMOGLOBIN 11.4 g/dL (11.5-16.0); LYMPHOCYTES # (AUTO) 0.6 10^3/uL (1.0-4.0); LYMPHOCYTES % (AUTO) 3 % (12-44); MEAN CORPUSCULAR HEMOGLOBIN 31 pg (25-34); MEAN CORPUSCULAR HGB CONC 33 g/dL (32-36); MONOCYTES # (AUTO) 2.7 10^3/uL (0.0-1.0); MONOCYTES % (AUTO) 12 % (0-12); NEUTROPHILS # (AUTO) 17.4 10^3/uL (1.8-7.8); NEUTROPHILS % (AUTO) 80 % (42-75); WHITE BLOOD COUNT 21.8 10^3/uL (4.3-11.0)
--- NOTE | 2022-04-01 06:42 | Progress Note - Surgery ---
RICARDONARCISO 04/01/22 0642: Subjective Date Seen by a Provider: Apr 01, 2022 Time Seen by a Provider: 07:20 Subjective/Events-last exam Upon follow-up for cholecystitis, Heide is resting supine in bed; she states r-sided abdominal pain that becomes a 10/10 with any movement or light touch. She states no nausea, vomiting, fever, or chills. She reports that she had a bowel movement this AM, and that she does not have much of an appetite at this time. Lactic acid has continued to trend down, as well as WBC. Heide is presently NPO, with anticoagulation held for 24 hours prior to any surgical intervention. Review of Systems General: No Chills, No Night Sweats; Fatigue, Malaise HEENT: No Head Aches, No Visual Changes Pulmonary: No Dyspnea, No Cough Cardiovascular: No: Chest Pain, Palpitations Gastrointestinal: Abdominal Pain; No: Nausea, Vomiting Genitourinary: No Dysuria, No Frequency Neurological: Weakness Focused Exam Lactate Level 03/31/22 16:05: Lactic Acid Level 2.58*H 03/31/22 21:11: Lactic Acid Level 2.02*H 03/31/22 22:30: Lactic Acid Level 1.88 Respiratory: Chest Non Tender, Lungs Clear, Crackles, Decreased Breath Sounds Cardiovascular: Regular Rate, Rhythm, No Edema, No Gallop, No Murmur, Normal Peripheral Pulses Peripheral Pulses: 2+ Radial Pulses (L) Skin: normal color, warm/dry Objective Exam Vital Signs Date Time Temp Pulse Resp B/P (MAP) Pulse Ox O2 Delivery O2 Flow Rate FiO2 04/01/22 04:00 37.2 146 81 141/84 (103) 94 Nasal Cannula 3.00 04/01/22 01:00 106 04/01/22 00:00 36.9 124 22 141/84 (103) 93 Nasal Cannula 3.00 03/31/22 23:00 102 27 150/83 (105) 93 Nasal Cannula 2.00 03/31/22 22:45 107 29 153/84 (107) 97 Nasal Cannula 2.00 03/31/22 22:30 96 28 151/72 (98) 95 Nasal Cannula 2.00 03/31/22 22:15 85 32 146/74 (98) Nasal Cannula 2.00 03/31/22 22:03 37.2 93 93 21 03/31/22 22:00 96 31 140/93 (109) 95 Nasal Cannula 2.00 03/31/22 21:54 92 38 146/81 (102) Nasal Cannula 2.00 03/31/22 21:30 104 03/31/22 21:15 36.0 104 16 146/72 (96) 93 Nasal Cannula 2.00 03/31/22 20:47 36.6 90 18 139/69 96 Room Air 03/31/22 12:35 37.2 93 20 139/70 (93) 93 Room Air I & O 04/01/22 07:00 Intake Total 2650 ml Balance 2650 ml Capillary Refill : General Appearance: No Apparent Distress, WD/WN, Chronically ill, Thin HEENT: PERRL/EOMI, TMs Normal Neck: Full Range of Motion, Normal Inspection Respiratory: Chest Non Tender, Lungs Clear, Crackles, Decreased Breath Sounds Cardiovascular: Regular Rate, Rhythm, No Edema, No Gallop, No JVD, No Murmur, Normal Peripheral Pulses Peripheral Pulses: 2+ Radial Pulses (L) Gastrointestinal: normal bowel sounds, soft, rebound, tenderness Neurologic/Psychiatric: Normal Mood/Affect, Disoriented Skin: Normal Color, Warm/Dry Results Lab Laboratory Tests 03/31/22 12:55: Prothrombin Time 16.4H, INR Comment 1.3, Activated Partial Thromboplast Time 28, Sodium Level 137, Potassium Level 3.8, Chloride Level 99, Carbon Dioxide Level 29, Anion Gap 9, Blood Urea Nitrogen 24H, Creatinine 0.75, Estimat Glomerular Filtration Rate 77, BUN/Creatinine Ratio 32, Glucose Level 89, Calcium Level 9.5, Corrected Calcium 9.4, Total Bilirubin 1.5H, Aspartate Amino Transf (AST/SGOT) 28, Alanine Aminotransferase (ALT/SGPT) 46, Alkaline Phosphatase 97, Total Protein 7.4, Albumin 4.1, Procalcitonin 0.43H 03/31/22 12:59: Sodium Level 137, Potassium Level 3.8, Chloride Level 101, Carbon Dioxide Level 28, Anion Gap 8, Blood Urea Nitrogen 24H, Creatinine 0.75, Estimat Glomerular Filtration Rate 77, BUN/Creatinine Ratio 32, Glucose Level 94, Calcium Level 9.8, Corrected Calcium 9.8, Total Bilirubin 1.5H, Aspartate Amino Transf (AST/SG OT) 27, Alanine Aminotransferase (ALT/SGPT) 46, Alkaline Phosphatase 94, Total Protein 7.8, Albumin 4.0, White Blood Count 28.8H, Red Blood Count 4.29, Hemoglobin 13.5, Hematocrit 40, Mean Corpuscular Volume 94, Mean Corpuscular Hemoglobin 32, Mean Corpuscular Hemoglobin Concent 34, Red Cell Distribution Width 13.4, Platelet Count 117L, Mean Platelet Volume 12.6H, Immature Granulocyte % (Auto) 4, Neutrophils (%) (Auto) 77H, Lymphocytes (%) (Auto) 4L, Monocytes (%) (Auto) 14H, Eosinophils (%) (Auto) 0, Basophils (%) (Auto) 0, Neutrophils # (Auto) 22.1H, Lymphocytes # (Auto) 1.1, Monocytes # (Auto) 4.2H, Eosinophils # (Auto) 0.1, Basophils # (Auto) 0.1, Immature Granulocyte # (Auto) 1.3H, Neutrophils % (Manual) 75, Lymphocytes % (Manual) 3, Monocytes % (Manual) 13, Eosinophils % (Manual) 0, Basophils % (Manual) 0, Band Neutrophils 9, Percent Immature Platelet Fraction 13.2H, Blood Morphology Comment NORMAL 03/31/22 14:00: Urine Color ORANGE, Urine Clarity CLOUDY, Urine pH 6.0, Urine Specific Lyons >=1.030, Urine Protein 2+H, Urine Glucose (UA) NEGATIVE, Urine Ketones NEGATIVE, Urine Nitrite NEGATIVE, Urine Bilirubin NEGATIVE, Urine Urobilinogen 1.0, Urine Leukocyte Esterase NEGATIVE, Urine RBC (Auto) 2+H, Urine RBC 5-10H, Urine WBC RARE, Urine Squamous Epithelial Cells RARE, Urine Crystals NONE, Urine Bacteria NEGATIVE, Urine Casts NONE, Urine Mucus NEGATIVE, Urine Culture Indicated CULTURE PENDING 03/31/22 14:10: Lactic Acid Level 2.84*H 03/31/22 16:05: Lactic Acid Level 2.58*H 03/31/22 21:11: Lactic Acid Level 2.02*H 03/31/22 22:30: Lactic Acid Level 1.88 04/01/22 05:10: White Blood Count 21.8H, Red Blood Count 3.63L, Hemoglobin 11.4L, Hematocrit 34L , Mean Corpuscular Volume 94, Mean Corpuscular Hemoglobin 31, Mean Corpuscular Hemoglobin Concent 33, Red Cell Distribution Width 13.7, Platelet Count 97L, Mean Platelet Volume 13.5H, Immature Granulocyte % (Auto) 5, Neutrophils (%) (Auto) 80H, Lymphocytes (%) (Auto) 3L, Monocytes (%) (Auto) 12, Eosinophils (%) (Auto) 0, Basophils (%) (Auto) 0, Neutrophils # (Auto) 17.4H, Lymphocytes # (Auto) 0.6L, Monocytes # (Auto) 2.7H, Eosinophils # (Auto) 0.0, Basophils # (Auto) 0.0, Immature Granulocyte # (Auto) 1.0H, Percent Immature Platelet Fraction 12.0H Radiology Date of Exam:03/31/22 CHEST 1 VIEW, AP/PA ONLY CLINICAL INDICATION: Patient with abdominal and GI problems. EXAM: Portable chest x-ray upright view. COMPARISON: Chest x-ray dated 01/29/2021. FINDINGS: There is increased interstitial thickening again seen throughout both lungs with both lung bases affected the most. There is no significant change to the groundglass amorphous opacities involving both lower lung gutierres. There is no interval lung infiltrate. There is no pleural effusion or pneumothorax. Pulmonary vasculature and cardiac silhouette are within normal limits. There are degenerative spurs involving the spine. IMPRESSION: 1: Stable chest x-ray exam with no interval lung infiltrate. 2: There are increased lung markings throughout both lungs which may be related to chronic interstitial disease, superimposed chronic lung opacities may be considered. Date of Exam:03/31/22 CT ABDOMEN/PELVIS W EXAMINATION: CT abdomen and pelvis with intravenous contrast. TECHNIQUE: Multiple contiguous axial images were obtained through the abdomen and pelvis after the uneventful administration of intravenous contrast. All CT scans use one or more of the following dose optimizing techniques: Automated exposure control, MA and/or KvP adjustment based on patient size and exam type or iterative reconstruction. HISTORY: Right lower quadrant pain. COMPARISON: 01/16/2021. FINDINGS: Limited views of the lower thorax show pulmonary edema. There is a cyst in the liver. No suspicious liver lesions. There is hyperenhancement of the gallbladder fossa related to marked wall thickening and mucosal hyperenhancement of the gallbladder in keeping with acute cholecystitis. There is no biliary ductal dilation. Pancreas is normal. Spleen is normal. Adrenal glands are normal. There are simple cysts in the left kidney. No suspicious renal lesions. There is no hydronephrosis. Urinary bladder is normal. Bowel is normal in caliber without obstruction or inflammation. Small amount of free fluid is present. There is also free fluid around the gallbladder. No abdominal or pelvic lymphadenopathy. Aorta is normal in caliber without aneurysm. There are no suspicious osseous lesions. IMPRESSION: 1. Marked wall thickening of the gallbladder with mucosal hyperenhancement and adjacent fluid. No loculated drainable collection. Findings are consistent with cholecystitis. Assessment/Plan Assessment/Plan Assessment/Plan sepsis acute cholecystitis long-term anticoagulation patient on rocephin/flagyl NPO IV fluids anticoagulation held, want to wait at least 24 hours since last dose to help make risks lower obtain consent for laparoscopic cholecystectomy with intraoperative cholangiogram all other indicated procedures. Clinical Quality Measures DVT/VTE Risk/Contraindication: Contraindications-Pharm: Other *list below* Other: operation DAYLIN REYES DO 04/01/22 1700: Subjective Subjective/Events-last exam Still with pain. Right side of abdomen. WBC coming down slightly. Not nausea or vomiting . No new complaints. Denies fever sweats chills shortness of breath or chest pain. Objective Exam General Appearance: No Apparent Distress, Chronically ill, Thin HEENT: PERRL/EOMI, TMs Normal Neck: Full Range of Motion, Normal Inspection Respiratory: Chest Non Tender, Lungs Clear Cardiovascular: No JVD, Irregularly Irregular Gastrointestinal: soft, tenderness (right side of abdomen) Neurologic/Psychiatric: Alert, Disoriented Skin: Normal Color, Warm/Dry Lymphatic: No Adenopathy Assessment/Plan Assessment/Plan Assessment/Plan sepsis acute cholecystitis long-term anticoagulation right sided abdominal pain. patient on rocephin/flagyl Clear liquids today and npo after midnight. IV fluids anticoagulation held, want to wait at least 24 hours since last dose to help viki e risks lower risks to make this safest will plan surgery tomorrow. obtain consent for laparoscopic cholecystectomy with intraoperative cholangiogram all other indicated procedures. Supervisory-Addendum Brief Verification & Attestation Participated in pt care: history, MDM, physical Personally performed: exam, history, MDM, supervision of care Care discussed with: Medical Student Procedures: n/a Results interpretation: Verified all documentation Verification and Attestation of Medical Student E/M Service A medical student performed and documented this service in my presence. I reviewed and verified all information documented by the medical student and made modifications to such information, when appropriate. I personally performed the physical exam and medical decision making. Daylin Reyes, Apr 01, 2022,17:00 NARCISO SILVA Apr 01, 2022 06:42 DAYLIN REYES DO Apr 01, 2022 17:00
[2022-04-01 06:48] LABS: ALBUMIN 3.2 GM/DL (3.2-4.5); POTASSIUM 3.2 MMOL/L (3.6-5.0)
[2022-04-01 06:50] LABS: CALCIUM 8.4 MG/DL (8.5-10.1)
[2022-04-01 06:51] LABS: TOTAL PROTEIN 6.2 GM/DL (6.4-8.2)
[2022-04-01 06:53] LABS: BILIRUBIN,TOTAL 0.9 MG/DL (0.1-1.0)
[2022-04-01 06:54] LABS: CREATININE SERUM 0.59 MG/DL (0.60-1.30)
[2022-04-01] MEDS: DOCUSATE SODIUM 100 MG (COLACE) CAP PO SCH ×2 (09:00→20:23)
[2022-04-01] MEDS: SENNOSIDES 8.6 MG (SENOKOT) TAB PO SCH ×2 (09:00→20:24)
[2022-04-01] MEDS ORDERED: DILT240C87 PO (10:30)
[2022-04-01] MEDS ORDERED: DIGO125T3 PO (10:30)
--- NOTE | 2022-04-01 11:02 | History & Physical-Hospitalist ---
ANDREW VALENTINE 04/01/22 1102: History of Present Illness HPI/Chief Complaint CC: Acute cholecystitis HPI: Heide Flynn is an 86 yo female who was admitted to the cardiac step down unit from the ED for acute cholecystitis. The patient has a history of dementia, limiting history. Per ED note, the patient arrived with chief complaint of right hip pain for 3 days without history of falls or other trauma. Comprehensive evaluation in the ED revealed acute cholecystitis on CT Abdomen, prompting admission and surgical consult. CXR showed no infiltrate but increased lung markings throughout both lungs. On evaluation today, the patient is alert but only oriented to self. The patient states her hip pain is resolved at this time, and she does not have abdominal pain at rest. She endorses mild SOB at this time, which is not consistent with her baseline. The patient denies any chest pain, and denies any other concerns at this time. She states the only past surgery she recalls having is a hysterectomy. Source: patient, old records Exam Limitations: other (dementia) Date Seen 04/01/22 Time Seen by a Provider: 09:40 Attending Physician Haider Guerra MD PCP Admitting Physician: Elena Kowalski DO Attending Physician: Elena Kowalski DO Referring Physician Date of Admission Mar 31, 2022 at 20:50 Home Medications & Allergies Home Medications Reviewed patient Home Medication Reconciliation performed by pharmacy medication reconciliations sonography technician and/or nursing. Patients Allergies have been reviewed. Allergies Allergies Coded Allergies No Known Drug Allergies ([id number]) Past Nxbmxlw-Abcetz-Thodek Hx Patient Social History Tobacco Use?: No Smoking Status: Never a Smoker Use of E-Cig and/or Vaping dev: No Substance use?: No Alcohol Use?: No Pt feels they are or have been: No Immunizations Up To Date First/Initial COVID19 Vaccinat: N/A Tetanus Booster (TDap): Unknown Hepatitis A: Yes Date of Pneumonia Vaccine: Feb 12, 2015 Seasonal Allergies Seasonal Allergies: No Current Status Advance Directives: No Communicates: Verbally Primary Language: Gibraltarian Preferred Spoken Language: [place]tarian Past Medical History Surgeries: Appendectomy, Hysterectomy, Oophorectomy, Orthopedic Asthma Currently Using CPAP: No Currently Using BIPAP: No 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, 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: Hysterectomy, Menopausal Bladder Infection Chronic Constipation Hypothyroidsim Cataract Loss of Vision: Bilateral Hearing Impairment: Denies Blood Disorders: No Adverse Reaction/Blood Tranf: No PMHx: Atrial fibrillation SurgHx: Hysterectomy Ankle fracture repair Family Medical History Alzheimer's disease 19 FATHER, Onset:50's - 60 G8 BROTHER, Onset:50's - 60 Cardiovascular disease 19 FATHER, Onset:50's - 60 G8 BROTHER, Onset:50's - 60 No Pertinent Family Hx Review of Systems ROS-Unable to Obtain: limited due to dementia Constitutional: no symptoms reported EENTM: no symptoms reported Respiratory: short of breath Cardiovascular: no symptoms reported; No chest pain, No edema Gastrointestinal: abdominal pain (RUQ) Genitourinary: no symptoms reported Musculoskeletal: no symptoms reported Skin: no symptoms reported Physical Exam Physical Exam Vital Signs Vital Signs - First Documented 03/31/22 03/31/22 03/31/22 12:35 21:15 22:03 Temp 37.2 Pulse 93 Resp 20 B/P (MAP) 139/70 (93) Pulse Ox 93 O2 Delivery Room Air O2 Flow Rate 2.00 FiO2 21 Capillary Refill : Height, Weight, BMI Height: 4'11.00" Weight: 116lbs. 0.0oz. 52.414061nx; 17.44 BMI Method:Stated General Appearance: No Apparent Distress, Other (elderly, frail in appearance) Respiratory: Chest Non Tender, Lungs Clear, Normal Breath Sounds, No Accessory Muscle Use, No Respiratory Distress Cardiovascular: No Murmur, Normal Peripheral Pulses, Irregularly Irregular Gastrointestinal: Normal Bowel Sounds, No Pulsatile Mass, Soft, Tenderness (diffuse abdominal tenderness, most significant in the RUQ), Other (positive Emerson's sign) Results Results/Procedures Labs Laboratory Tests 03/31/22 12:55 03/31/22 12:59 04/01/22 05:10 Patient resulted labs reviewed. Imaging: Reviewed Imaging Report Imaging Date of Exam:03/31/22 CHEST 1 VIEW, AP/PA ONLY COMPARISON: Chest x-ray dated 01/29/2021. IMPRESSION: 1: Stable chest x-ray exam with no interval lung infiltrate. 2: There are increased lung markings throughout both lungs which may be related to chronic interstitial disease, superimposed chronic lung opacities may be considered. Date of Exam:03/31/22 CT ABDOMEN/PELVIS W COMPARISON: 01/16/2021. IMPRESSION: 1. Marked wall thickening of the gallbladder with mucosal hyperenhancement and adjacent fluid. No loculated drainable collection. Findings are consistent with cholecystitis. Assessment/Plan Admission Diagnosis Acute cholecystits Admission Status: Inpatient Order (span 2 midnights) Reason for Inpatient Admission: Acute cholecystitis Assessment and Plan 1. Acute cholecystitis: General surgery consulted. Eliquis to be held for 24 hours. Continue monitoring patient for possible rapid worsening. 2. Atrial fibrillation: Eliquis held for planned cholecystectomy. 3. Dementia 4. Right hip pain: Resolved 03/31. Analgesic regimen initiated. 5. Leukocytosis: Likely secondary to acute cholecystitis. Continue monitoring, recheck CBC in 24 hours. 6. Proteinuria, hematuria: Protein 2+, RBC 2+ on UA. Likely secondary to dehydration. Continue gentle hydration. Clinical Quality Measures DVT/VTE Risk/Contraindication: Contraindications-Pharm: Other *list below* Other: operation ELENA KOWALSKI DO 04/02/22 0447: History of Present Illness Source: patient Past Hggdmyp-Rcbeya-Tfjzum Hx Patient Social History Marrital Status: single Employed/Student: retired Family Medical History Alzheimer's disease 19 FATHER, Onset:50's - 60 G8 BROTHER, Onset:50's - 60 Cardiovascular disease 19 FATHER, Onset:50's - 60 G8 BROTHER, Onset:50's - 60 Review of Systems Constitutional: see HPI Physical Exam Physical Exam General Appearance: Other (elderly, frail in appearance) Respiratory: Lungs Clear, Normal Breath Sounds Cardiovascular: Irregularly Irregular Assessment/Plan Admission Diagnosis Acute cholecystitis Advanced age Frail status A. fib Patient considered high risk for complications from general anesthesia but no way to modify this risk Admission Status: Inpatient Order (span 2 midnights) Reason for Inpatient Admission: Acute cholecystitis Supervisory-Addendum Brief Verification & Attestation Participated in pt care: history, MDM, physical Personally performed: exam, history, MDM, supervision of care Care discussed with: Medical Student Procedures: n/a Results interpretation: Verified all documentation Verification and Attestation of Medical Student E/M Service A medical student performed and documented this service in my presence. I reviewed and verified all information documented by the medical student and made modifications to such information, when appropriate. I personally performed the physical exam and medical decision making. Elena Kowalski, Apr 02, 2022,04:45 ANDREW VALENTINE Apr 01, 2022 11:02 ELENA KOWALSKI DO Apr 02, 2022 04:47
[2022-04-01] MEDS: RT-ALBUTEROL SULF 2.5 MG/3 ML PRE-MIX VIAL INH SCH ×2 (14:45→19:24)
[2022-04-01] MEDS ORDERED: RT-ALBUTEROL SULF 2.5 MG/3 ML PRE-MIX VIAL INH PRN (15:00)
--- NOTE | 2022-04-01 16:02 | Consultation-Cardiology ---
HPI-Cardiology Cardiology Consultation Date of Consultation 04/01/22 Date of Admission Time Seen by Provider: 09:40 Indication: AFib with RVR HPI Patient is an 86 y/o female with history of PAF, HTN. Presented to the ER with complaints of right sided hip pain for the past week. Diagnosed with acute cholecystitis and scheduled for OR tomorrow. Denies any chest pain or dyspnea. C urrently she is in AFib with RVR. Home Medications & Allergies Allergies: Coded Allergies: No Known Drug Allergies (Unverified , 02/12/18) Home Medication List Reviewed: Yes [id number] Hx Patient Social History Employed/Student: retired Recreational Drug Use: No Smoking Status: Never a Smoker 2nd Hand Smoke Exposure: Yes Recent Hopitalizations: No Have you traveled recently?: No Alcohol Use?: No Immunizations Up To Date Date of Pneumonia Vaccine: Feb 12, 2015 Past Medical History PAF, HTN Family Medical History Significant Family History: No Pertinent Family Hx Family History: Alzheimer's disease 19 FATHER, Onset:50's - 60 G8 BROTHER, Onset:50's - 60 Cardiovascular disease 19 FATHER, Onset:50's - 60 G8 BROTHER, Onset:50's - 60 Review of Systems-General Review of Systems Constitutional: no symptoms reported EENTM: no symptoms reported Respiratory: short of breath Cardiovascular: no symptoms reported; No chest pain, No edema Gastrointestinal: abdominal pain (RUQ) Genitourinary: no symptoms reported Musculoskeletal: no symptoms reported Skin: no symptoms reported Psychiatric/Neurological: Denies Anxiety, Denies Depressed, Denies Emotional Problems All Other Systems Reviewed Negative Unless Noted: Yes (Negative excepted noted.) Reviewed Test Results Reviewed Test Results Lab Laboratory Tests 03/31/22 16:05: Lactic Acid Level 2.58*H 03/31/22 21:11: Lactic Acid Level 2.02*H 03/31/22 22:30: Lactic Acid Level 1.88 04/01/22 05:10: White Blood Count 21.8H, Red Blood Count 3.63L, Hemoglobin 11.4L, Hematocrit 34L , Mean Corpuscular Volume 94, Mean Corpuscular Hemoglobin 31, Mean Corpuscular Hemoglobin Concent 33, Red Cell Distribution Width 13.7, Platelet Count 97L, Mean Platelet Volume 13.5H, Immature Granulocyte % (Auto) 5, Neutrophils (%) (Auto) 80H, Lymphocytes (%) (Auto) 3L, Monocytes (%) (Auto) 12, Eosinophils (%) (Auto) 0, Basophils (%) (Auto) 0, Neutrophils # (Auto) 17.4H, Lymphocytes # (Auto) 0.6L, Monocytes # (Auto) 2.7H, Eosinophils # (Auto) 0.0, Basophils # (Auto) 0.0, Immature Granulocyte # (Auto) 1.0H, Percent Immature Platelet Fraction 12.0H, Sodium Level 136, Potassium Level 3.2L, Chloride Level 105, Carbon Dioxide Level 21, Anion Gap 10, Blood Urea Nitrogen 15, Creatinine 0.59L, Estimat Glomerular Filtration Rate 87, BUN/Creatinine Ratio 25, Glucose Level 87, Calcium Level 8.4L, Corrected Calcium 9.0, Total Bilirubin 0.9, Aspartate Amino Transf (AST/SGOT) 22, Alanine Aminotransferase (ALT/SGPT) 31, Alkaline Phosphatase 87, Total Protein 6.2L, Albumin 3.2 Microbiology 03/31/22 Blood Culture - Preliminary, Resulted No growth 03/31/22 Urine Culture - Final, Complete Gram Pos Mixed Bacterial Kim ECG Impression ECG Initial ECG Impression: 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 w/RVR Physical Exam Physical Exam Vital Signs Vital Signs - First Documented 03/31/22 03/31/22 03/31/22 12:35 21:15 22:03 Temp 37.2 Pulse 93 Resp 20 B/P (MAP) 139/70 (93) Pulse Ox 93 O2 Delivery Room Air O2 Flow Rate 2.00 FiO2 21 Capillary Refill : Height, Weight, BMI Height: 4'11.00" Weight: 116lbs. 0.0oz. 52.087527tv; 17.44 BMI Method:Stated General Appearance: No Apparent Distress, Other (elderly, frail in appearance) HEENT: PERRL/EOMI, TMs Normal Neck: Full Range of Motion, Normal Inspection Respiratory: Chest Non Tender, Lungs Clear, Normal Breath Sounds, No Accessory Muscle Use, No Respiratory Distress Cardiovascular: No Murmur, Normal Peripheral Pulses, Irregularly Irregular, Tachycardia Gastrointestinal: Normal Bowel Sounds, No Pulsatile Mass, Soft, Tenderness (diffuse abdominal tenderness, most significant in the RUQ), Other (positive Emerson's sign) Neurologic/Psychiatric: Normal Mood/Affect, Disoriented Skin: Normal Color, Warm/Dry A/P-Cardiology Admission Diagnosis AFib with RVR Acute cholecystitis HTN Dementia Assessment/Plan AFib with RVR, history of paroxysmal atrial fibrillation/ flutter, Maintained on Elquis 2.5 mg BID, Toprol XL 50mg BID, diltiazem 240 mg BID, and digoxin 0.125 mg daily I will restart home medication and monitor her HR. Continue to hold Eliquis in anticipation for surgery Acute cholecystitis, planning for OR in the morning. Echocardiogram done on 08/20/2020 showing normal left ventricular size, EF 55 to 60%, grade 2 diastolic dysfunction, moderate to severe MR, mild AR, moderate severe TR, PA pressure 50 to 55 mmHg. ANMOL was done on 01/16/2021 showing dilated left atrium and left atrial appendage with echogenic density in the left atrial appendage suspicious of a thrombus, dilated right atrium, mild LVH with normal ejection fraction 60%, moderate to moderately severe mitral regurgitation, aortic valve sclerosis. Reaction to the metal of the loop recorder. Unable to tolerate it and it was extracted. [id number] score of 4, yearly risk of stroke without oral anticoagulation is 4 percent, patient is maintained on Eliquis 2.5 mg twice daily. History of GI bleed with blood in her stool, patient reports occasional episode of bright red blood in her stool. Has refused colonoscopy in the past. No active bleeding at this time. Continue to monitor. Hypertension, controlled. Continue to monitor blood pressure/heart rate. Nonobstructive carotid artery stenosis Family history of heart disease. Dementia Thank you for allowing us to participate in the management of Ms. Flynn. This is Jaqui Aparicio PA-C, as a scribe for Dr. Wise. Patient was seen and evaluated with Jaqui, I interviewed and examined the patient. She is still in atrial fibrillation with rapid ventricular response, restarted Cardizem, Toprol and digoxin, monitor heart rate and blood pressure response Patient has stopped her Eliquis. Recommendation for Eliquis is to hold for 48 hours prior to abdominal surgery. Patient is considered at intermediate risk for perioperative cardiovascular comp lications, decision regarding the surgery, risk versus benefit is deferred to the surgeon. Her revised cardiac risk index is 1. She is class II risk, her 30 days risk of , [place] or cardiac arrest is 6% Clinical Quality Measures DVT/VTE Risk/Contraindication: Contraindications-Pharm: Other *list below* Other: operation JAQUI LOWE Apr 01, 2022 16:02 JIAN WISE MD Apr 01, 2022 16:57
[2022-04-01] MEDS: DIGOXIN 0.125 MG (LANOXIN) TAB PO SCH (16:26)
[2022-04-01] MEDS: cefTRIAXone 1 GM PRE-MIX 50 ML IV SCH (21:50)
[2022-04-02] VITALS (12 sets, daily range): BP systolic 101–147; BP diastolic 49–91
[2022-04-02] MEDS: NS IV 1000 ML 1,000 ML IV SCH ×3 (03:42→21:37)
[2022-04-02] MEDS: metroNIDAZOLE 500MG/100ML IVPB 100 ML IV SCH ×3 (05:46→22:32)
[2022-04-02 05:54] LABS: BASOPHILS % (AUTO) 0 % (0-10)
[2022-04-02 05:56] LABS: EOSINOPHILS % (AUTO) 0 % (0-10); HEMATOCRIT 36 % (35-52); LYMPHOCYTES # (AUTO) 0.7 10^3/uL (1.0-4.0); LYMPHOCYTES % (AUTO) 5 % (12-44); MEAN CORPUSCULAR HEMOGLOBIN 31 pg (25-34); MEAN CORPUSCULAR HGB CONC 33 g/dL (32-36); MEAN CORPUSCULAR VOLUME 94 fL (80-99); MONOCYTES # (AUTO) 1.4 10^3/uL (0.0-1.0); MONOCYTES % (AUTO) 9 % (0-12); NEUTROPHILS # (AUTO) 12.9 10^3/uL (1.8-7.8); NEUTROPHILS % (AUTO) 83 % (42-75); PLATELET COUNT 94 10^3/uL (130-400); WHITE BLOOD COUNT 15.6 10^3/uL (4.3-11.0)
[2022-04-02 06:16] LABS: ALBUMIN 3.1 GM/DL (3.2-4.5); POTASSIUM 2.6 MMOL/L (3.6-5.0)
[2022-04-02 06:18] LABS: CALCIUM 8.4 MG/DL (8.5-10.1)
[2022-04-02 06:19] LABS: TOTAL PROTEIN 6.3 GM/DL (6.4-8.2)
[2022-04-02 06:20] LABS: BILIRUBIN,TOTAL 1.4 MG/DL (0.1-1.0)
[2022-04-02 06:22] LABS: CREATININE SERUM 0.57 MG/DL (0.60-1.30)
--- NOTE | 2022-04-02 06:41 | Progress Note - Surgery ---
GREWALHernánNARCISO AMEZCUA 04/02/22 0641: Subjective Date Seen by a Provider: Apr 02, 2022 Time Seen by a Provider: 06:40 Subjective/Events-last exam Upon follow-up for management of acute cholecystitits, Heide was standing upright in the dark, with complaints of her IV falling out and subsequent ble eding down her right arm, gown, and floor. During this time, Heide stated "I am pooping my pants". Nursing was able to help clean her up and assist her to the bathroom. Patient is able to get up from bed and ambulate almost independently to the bathroom. She denies any pain, fever, or chills. We are taking her to the OR today for a laparoscopic cholecystectomy. Review of Systems General: No Chills, No Night Sweats; Fatigue, Malaise Gastrointestinal: Abdominal Pain; No: Nausea, Vomiting Genitourinary: No Dysuria, No Frequency Neurological: No: Weakness, Numbness Focused Exam Lactate Level 03/31/22 16:05: Lactic Acid Level 2.58*H 03/31/22 21:11: Lactic Acid Level 2.02*H 03/31/22 22:30: Lactic Acid Level 1.88 Respiratory: Chest Non Tender, Lungs Clear, Decreased Breath Sounds Cardiovascular: Regular Rate, Rhythm, No Edema, No Gallop, No Murmur Peripheral Pulses: 2+ Radial Pulses (L) Skin: normal color, warm/dry Objective Exam Vital Signs Date Time Temp Pulse Resp B/P (MAP) Pulse Ox O2 Delivery O2 Flow Rate FiO2 04/02/22 04:00 37.1 92 21 136/91 (106) 94 Nasal Cannula 3.00 04/02/22 01:00 122 04/02/22 00:00 37.0 94 24 136/70 (92) 98 Nasal Cannula 3.00 04/01/22 20:37 36.9 98 18 139/69 (92) 97 Nasal Cannula 3.00 04/01/22 20:00 97 Nasal Cannula 3.00 04/01/22 19:25 95 Nasal Cannula 3.00 04/01/22 19:00 100 04/01/22 16:30 37.6 105 27 147/87 (107) 98 Nasal Cannula 3.00 04/01/22 14:45 98 Nasal Cannula 3.00 04/01/22 13:00 128 04/01/22 12:00 36.2 115 28 148/70 (96) 97 Nasal Cannula 3.00 04/01/22 10:05 36.6 105 97 04/01/22 10:05 97 Nasal Cannula 3.00 04/01/22 08:01 97 3.00 04/01/22 08:00 36.6 105 28 158/77 (104) 97 Nasal Cannula 3.00 04/01/22 08:00 98 Nasal Cannula 3.00 04/01/22 07:00 120 I & O 04/02/22 07:00 Intake Total 1450 ml Balance 1450 ml Capillary Refill : General Appearance: No Apparent Distress, Cachetic, Other (elderly, frail in appearance) HEENT: PERRL/EOMI, TMs Normal Neck: Full Range of Motion, Normal Inspection Respiratory: Chest Non Tender, Lungs Clear, Normal Breath Sounds Cardiovascular: Regular Rate, Rhythm, No Edema, No Gallop, Irregularly Irregular Peripheral Pulses: 2+ Radial Pulses (L) Gastrointestinal: soft, tenderness (right side of abdomen) Neurologic/Psychiatric: Alert, Disoriented Skin: Normal Color, Warm/Dry Lymphatic: No Adenopathy Results Lab Laboratory Tests 04/02/22 05:27: White Blood Count 15.6H, Red Blood Count 3.89, Hemoglobin 12.0, Hematocrit 36, Mean Corpuscular Volume 94, Mean Corpuscular Hemoglobin 31, Mean Corpuscular Hemoglobin Concent 33, Red Cell Distribution Width 13.2, Platelet Count 94L, Mean Platelet Volume 13.0H, Immature Granulocyte % (Auto) 3, Neutrophils (%) (Auto) 83H, Lymphocytes (%) (Auto) 5L, Monocytes (%) (Auto) 9, Eosinophils (%) (Auto) 0, Basophils (%) (Auto) 0, Neutrophils # (Auto) 12.9H, Lymphocytes # (Auto) 0.7L, Monocytes # (Auto) 1.4H, Eosinophils # (Auto) 0.0, Basophils # (Auto) 0.0, Immature Granulocyte # (Auto) 0.5H, Percent Immature Platelet Fraction 11.3H, Sodium Level 136, Potassium Level 2.6L, Chloride Level 105, Carbon Dioxide Level 22, Anion Gap 9, Blood Urea Nitrogen 9, Creatinine 0.57L, Estimat Glomerular Filtration Rate 88, BUN/Creatinine Ratio 16, Glucose Level 85, Calcium Level 8.4L, Corrected Calcium 9.1, Total Bilirubin 1.4H, Aspartate Amino Transf (AST/SGOT) 16, Alanine Aminotransferase (ALT/SGPT) 24, Alkaline Phosphatase 88, Total Protein 6.3L, Albumin 3.1L Microbiology 04/01/22 MRSA Screen - Final, Complete No growth 03/31/22 Blood Culture - Preliminary, Resulted No growth 03/31/22 Urine Culture - Final, Complete Gram Pos Mixed Bacterial Kim Radiology Date of Exam:03/31/22 CHEST 1 VIEW, AP/PA ONLY CLINICAL INDICATION: Patient with abdominal and GI problems. EXAM: Portable chest x-ray upright view. COMPARISON: Chest x-ray dated 01/29/2021. FINDINGS: There is increased interstitial thickening again seen throughout both lungs with both lung bases affected the most. There is no significant change to the groundglass amorphous opacities involving both lower lung gutierres. There is no interval lung infiltrate. There is no pleural effusion or pneumothorax. Pulmonary vasculature and cardiac silhouette are within normal limits. There are degenerative spurs involving the spine. IMPRESSION: 1: Stable chest x-ray exam with no interval lung infiltrate. 2: There are increased lung markings throughout both lungs which may be related to chronic interstitial disease, superimposed chronic lung opacities may be considered. Assessment/Plan Assessment/Plan Assessment/Plan sepsis acute cholecystitis long-term anticoagulation right sided abdominal pain Patient on rocephin/flagyl Patient has been NPO since midnight On IV fluids Anticoagulation held for 24 hours to lower intraoperative risks. to make this safest will plan surgery tomorrow. Clinical Quality Measures DVT/VTE Risk/Contraindication: Contraindications-Pharm: Other *list below* Other: operation DAYLIN MOTT D DO 04/02/22 1410: Subjective Subjective/Events-last exam No new complaints. Still with abdominal pain. WBC coming down. Denies n/v fever sweats chills shortness of breath or chest pain. Objective Exam General Appearance: No Apparent Distress, Thin HEENT: PERRL/EOMI Neck: Normal Inspection, Supple Respiratory: Chest Non Tender, No Accessory Muscle Use, No Respiratory Distress Cardiovascular: No JVD, Irregularly Irregular Gastrointestinal: soft, tenderness (right side of abdomen) Extremity: Non Tender, No Calf Tenderness Neurologic/Psychiatric: Alert, Disoriented Skin: Normal Color, Warm/Dry Lymphatic: No Adenopathy Assessment/Plan Assessment/Plan Assessment/Plan sepsis acute cholecystitis long-term anticoagulation right sided abdominal pain Patient on rocephin/flagyl Patient has been NPO since midnight On IV fluids Anticoagulation held Obtain consent for lap paty c ioc today. Supervisory-Addendum Brief Verification & Attestation Participated in pt care: history, MDM, physical Personally performed: exam, history, MDM, supervision of care Care discussed with: Medical Student Procedures: n/a Results interpretation: Verified all documentation Verification and Attestation of Medical Student E/M Service A medical student performed and documented this service in my presence. I reviewed and verified all information documented by the medical student and made modifications to such information, when appropriate. I personally performed the physical exam and medical decision making. Daylin Mott, Apr 02, 2022,14:10 NARCISO SILVA Apr 02, 2022 06:41 DAYLIN MOTT DO Apr 02, 2022 14:10
[2022-04-02] MEDS: RT-ALBUTEROL SULF 2.5 MG/3 ML PRE-MIX VIAL INH SCH ×4 (07:42→20:01)
--- NOTE | 2022-04-02 07:48 | Progress Note - Hospitalist ---
Subjective HPI/CC On Admission Date Seen by Provider: Apr 02, 2022 Time Seen by Provider: 10:00 Subjective/Events-last exam Patient awake and alert Confusion noted Potassium supplemented with 80 IV Cholecystectomy to be performed today Review of Systems Gastrointestinal: Abdominal Pain Neurological: Confusion Focused Exam Lactate Level 03/31/22 16:05: Lactic Acid Level 2.58*H 03/31/22 21:11: Lactic Acid Level 2.02*H 03/31/22 22:30: Lactic Acid Level 1.88 Objective Exam Vital Signs Vital Signs Date Time Temp Pulse Resp B/P (MAP) Pulse Ox O2 Delivery O2 Flow Rate FiO2 04/03/22 01:00 114 04/03/22 00:00 36.9 14 121/77 (92) 94 OxyMask 4.00 03/31/22 22:03 21 Capillary Refill : General Appearance: No Apparent Distress, WD/WN, Chronically ill, Thin Respiratory: Lungs Clear, Normal Breath Sounds Cardiovascular: Irregularly Irregular, Tachycardia Neurologic/Psychiatric: Alert, Disoriented Results/Procedures Lab Laboratory Tests 04/02/22 05:27 Patient resulted labs reviewed. Imaging: Reviewed Imaging Report Assessment/Plan Assessment and Plan Assess & Plan/Chief Complaint 1. Acute cholecystitis: General surgery to perform cholecystectomy and holding Eliquis 2. Atrial fibrillation: Eliquis held for planned cholecystectomy. 3. Dementia 4. Right hip pain: Resolved 03/31. Analgesic regimen initiated. 5. Leukocytosis: Likely secondary to acute cholecystitis. Continue monitoring, recheck CBC in 24 hours. 6. Proteinuria, hematuria: Protein 2+, RBC 2+ on UA. Likely secondary to dehydration. Continue gentle hydration. Clinical Quality Measures DVT/VTE Risk/Contraindication: Contraindications-Pharm: Other *list below* Other: operation CHRISTINA KOWALSKI Apr 02, 2022 07:48
[2022-04-02] MEDS ORDERED: MAGNESIUM 1 GM/100 ML IVPB 100 ML IV ONE (08:00)
[2022-04-02] MEDS ORDERED: meTOprolol 5 MG/5 ML (LOPRESSOR) VIAL IV NR (08:00)
--- NOTE | 2022-04-02 08:01 | Cardiology Progress Note ---
Subjective Date Seen by Provider: Apr 02, 2022 Time Seen by Provider: 07:59 Subjective/Events-last exam Patient was seen at bedside, no new complaint. Still lethargic, borderline tachycardic Review of Systems General: No Chills, No Night Sweats; Fatigue, Malaise; No Appetite, No Other HEENT: No Head Aches, No Visual Changes, No Eye Pain, No Ear Pain, No Dysphasia, No Sinus Congestion, No Post Nasal Drip, No Sore Throat, No Other Pulmonary: No Dyspnea, No Cough, No Pleuritic Chest Pain, No Other Cardiovascular: No: Chest Pain, Palpitations, Orthopnea, Paroxysmal Noc. Dyspnea, Edema, Lt Headedness, Other Focused Exam Lactate Level 03/31/22 16:05: Lactic Acid Level 2.58*H 03/31/22 21:11: Lactic Acid Level 2.02*H 03/31/22 22:30: Lactic Acid Level 1.88 Objective-Cardiology Exam Last Set of Vital Signs Vital Signs 03/31/22 04/02/22 22:03 07:52 Temp 36.8 Pulse 90 Resp 18 B/P (MAP) 145/90 (108) Pulse Ox 96 O2 Delivery Nasal Cannula O2 Flow Rate 2.00 FiO2 21 I&O Intake and Output 04/02/22 00:00 Intake Total 1400 ml Balance 1400 ml Intake Oral 200 ml IV Total 1200 ml # Voids 6 # Bowel Movements 3 General: Alert, Oriented X3, Cooperative HEENT: Atraumatic, PERRLA Neck: Supple, No JVD, No Thyromegaly Lungs: Clear to Auscultation, Normal Air Movement Heart: Normal S1, Normal S2, No Murmurs, Other (Atrial fibrillation with rapid ventricular response) Abdomen: Normal Bowel Sounds, Soft, No Hepatosplenomegaly, No Masses, Other (Right upper quadrant tenderness) Extremities: No Clubbing, No Cyanosis, No Edema, Normal Pulses, No Tenderness/Swelling Skin: No Rashes, No Breakdown, No Significant Lesion Neuro: Normal Gait, Normal Speech, Strength at 5/5 X4 Ext, Normal Tone, Sensation Intact Psych/Mental Status: Mental Status NL, Mood NL Results Lab Laboratory Tests 04/02/22 05:27 A/P-Cardiology Admission Diagnosis AFib with RVR Acute cholecystitis HTN Dementia Assessment/Plan AFib with RVR, history of paroxysmal atrial fibrillation/ flutter, Patient back on Toprol-XL 50 twice daily and diltiazem CD2 140 mg twice daily and digoxin 0.125 mg daily Eliquis has been on hold, recommend holding for 48 hours prior to abdominal surgery Hypokalemia, given 40 mEq of KCl. Monitor electrolytes Acute cholecystitis, planning for OR per surgery Echocardiogram done on 08/20/2020 showing normal left ventricular size, EF 55 to 60%, grade 2 diastolic dysfunction, moderate to severe MR, mild AR, moderate severe TR, PA pressure 50 to 55 mmHg. ANMOL was done on 01/16/2021 showing dilated left atrium and left atrial appendage with echogenic density in the left atrial appendage suspicious of a thrombus, dilated right atrium, mild LVH with normal ejection fraction 60%, moderate to mo derately severe mitral regurgitation, aortic valve sclerosis. Reaction to the metal of the loop recorder. Unable to tolerate it and it was extracted. [id number] score of 4, yearly risk of stroke without oral anticoagulation is 4 percent, patient is maintained on Eliquis 2.5 mg twice daily. History of GI bleed with blood in her stool, patient reports occasional episode of bright red blood in her stool. Has refused colonoscopy in the past. No active bleeding at this time. Continue to monitor. Hypertension, controlled. Continue to monitor blood pressure/heart rate. Nonobstructive carotid artery stenosis Family history of heart disease. Dementia JIAN STEPHENSON MD Apr 02, 2022 08:01
[2022-04-02] MEDS: POTASSIUM CL 10MEQ/50ML IVPB 50 ML IV SCH ×8 (08:21→11:23)
[2022-04-02] MEDS: meTOproloL SUCCINATE 50 MG (TOPROL XL) TAB PO SCH ×2 (09:18→20:08)
[2022-04-02] MEDS: SENNOSIDES 8.6 MG (SENOKOT) TAB PO SCH ×2 (09:18→20:08)
[2022-04-02] MEDS: DOCUSATE SODIUM 100 MG (COLACE) CAP PO SCH ×2 (09:18→20:07)
[2022-04-02] MEDS: DIGOXIN 0.125 MG (LANOXIN) TAB PO SCH (09:18)
[2022-04-02] MEDS ORDERED: BUP/EPI 0.25% 1:200,000 (MARCAINE) 30 ML VIAL ONE (12:01)
[2022-04-02] MEDS ORDERED: SEVOFLURANE (ULTANE) 15 ML INHAL SOLN ONE ×2 (12:46→17:09)
[2022-04-02] MEDS ORDERED: proPOfol 200 MG/20 ML (DIPRIVAN) VIAL IV ONE (12:46)
[2022-04-02] MEDS ORDERED: ONDANSETRON 4 MG/2 ML (SDV) Z0FRAN ONE (12:46)
[2022-04-02] MEDS ORDERED: LIDOCAINE PF 2% 5 ML (XYLOCAINE) VIAL ONE (12:46)
[2022-04-02] MEDS ORDERED: ROCURONIUM 10 MG/ML 5 ML SYRINGE IV ONE (12:46)
[2022-04-02] MEDS ORDERED: fentaNYL INJ 100 MCG/2 ML AMP ONE (12:47)
[2022-04-02] MEDS ORDERED: LACTATED RINGERS 1,000 ML IV PRN (15:30)
[2022-04-02] MEDS ORDERED: PHENYLEPHRINE INJ 10 MG/ML (FOR PYXIS KITS ONLY) ONE (15:47)
[2022-04-02] MEDS ORDERED: GLYCOPYRROLATE 0.2 MG/ML (ROBINUL) 2 ML VIAL ONE (16:09)
[2022-04-02] MEDS ORDERED: SUGAMMADEX 500 MG/5 ML VIAL (BRIDION) IV ONE (16:09)
--- NOTE | 2022-04-02 17:23 | Diagnostic Imaging Report ---
INDICATION: Gallbladder disease. FINDINGS: A single fluoroscopic image was obtained. 13.5 seconds of fluoroscopy was utilized. There is normal caliber of the common bile duct. There is free flow of contrast into the duodenum. IMPRESSION: Intraoperative fluoroscopy as described. Dictated by: Dictated on workstation # [id number]
[2022-04-02] MEDS ORDERED: morphine INJ 10 MG/ML 1ML (SYR OR VIAL) ONE (17:27)
[2022-04-02] MEDS ORDERED: morphine INJ 10 MG/ML 1ML (SYR OR VIAL) IVP ONE (17:30)
[2022-04-02] MEDS ORDERED: ONDANSETRON 4 MG/2 ML (SDV) Z0FRAN IVP PRN (17:30)
--- NOTE | 2022-04-02 20:02 | Physician Query Clarification ---
Physician Query-General Query to Physician: The medical record reflects the following clinical scenario: The patient, in the setting of History/Risk factors, Advanced age, Appendicitis Clinical Findings Admission VS/Labs: HR 93, RR 20, BP 139/70, SpO2 93% Sat on RA T 37.2, WBC 28.8, lactic acid 2.84, then 2.58 then 2.2 then 1.88 Treatment ER: Normal saline 2.5 L, ceftriaxone IV, metronidazole IV, Question: Do you agree with the impression of Sepsis per Dr. Peter Reyes? 1. Yes; will document Sepsis, present on admission in the Progress Notes 2. No; will continue current documentation in the Progress Notes 3. Other; will document explanation of clinical findings 4. Clinically undetermined; no explanation for clinical findings Please clarify and document your clinical opinion in the Progress Notes and Discharge Summary including the definitive and/or presumptive diagnosis, (suspected or probable), related to the above clinical findings. Please include clinical findings supporting your diagnosis. In responding to this query, please exercise your independent professional judgment. The purpose of this communication is to more accurately reflect the complexity of your patients condition. The fact that a question is asked does not imply that any particular answer is desired or expected. Thank you for timely response to this clarification. Mita Hester RN, MSN Clinical Pigment Making Supervisor [phone] [email or web address] PHYSICIAN RESPONSE: Based on the clinical findings in the record, please respond to the query above on this document as an addendum. Physician Response: Physician Response 1 If you have questions please contact: Multimedia Coordinator: Ext: Thank you for your time and cooperation. Clinical Pigment Making Supervisor/Multimedia Coordinator This is a permanent part of the medical record MITA HESTER Apr 02, 2022 20:02 CHRISTINA KOWALSKI DO Apr 02, 2022 20:23
[2022-04-02] MEDS: cefTRIAXone 1 GM PRE-MIX 50 ML IV SCH (21:38)
[2022-04-02] MEDS: HYDROmorphone 2 MG/ML VIAL (DILAUDID) IV PRN (21:51)
[2022-04-03] VITALS: BP 121/77
[2022-04-03 04:00] VITALS: BP 121/78
[2022-04-03 05:29] LABS: BASOPHILS % (AUTO) 0 % (0-10); HEMATOCRIT 35 % (35-52)
[2022-04-03 05:32] LABS: EOSINOPHILS % (AUTO) 0 % (0-10); HEMOGLOBIN 11.4 g/dL (11.5-16.0); LYMPHOCYTES # (AUTO) 0.6 10^3/uL (1.0-4.0); LYMPHOCYTES % (AUTO) 5 % (12-44); MEAN CORPUSCULAR HEMOGLOBIN 31 pg (25-34); MEAN CORPUSCULAR HGB CONC 33 g/dL (32-36); MEAN CORPUSCULAR VOLUME 95 fL (80-99); MEAN PLATELET VOLUME 12.6 fL (9.0-12.2); MONOCYTES # (AUTO) 1.9 10^3/uL (0.0-1.0); MONOCYTES % (AUTO) 15 % (0-12); NEUTROPHILS # (AUTO) 9.8 10^3/uL (1.8-7.8); NEUTROPHILS % (AUTO) 78 % (42-75); PLATELET COUNT 110 10^3/uL (130-400); WHITE BLOOD COUNT 12.6 10^3/uL (4.3-11.0)
[2022-04-03] MEDS: metroNIDAZOLE 500MG/100ML IVPB 100 ML IV SCH ×3 (05:39→22:48)
[2022-04-03 05:47] LABS: ALBUMIN 2.8 GM/DL (3.2-4.5); POTASSIUM 3.3 MMOL/L (3.6-5.0)
[2022-04-03 05:48] LABS: CALCIUM 7.8 MG/DL (8.5-10.1)
[2022-04-03 05:49] LABS: TOTAL PROTEIN 5.6 GM/DL (6.4-8.2)
[2022-04-03 05:51] LABS: BILIRUBIN,TOTAL 0.8 MG/DL (0.1-1.0)
[2022-04-03 05:53] LABS: CREATININE SERUM 0.57 MG/DL (0.60-1.30)
--- NOTE | 2022-04-03 05:53 | Progress Note - Hospitalist ---
Subjective HPI/CC On Admission Date Seen by Provider: Apr 03, 2022 Time Seen by Provider: 11:00 Focused Exam Lactate Level Objective Exam Vital Signs Vital Signs Date Time Temp Pulse Resp B/P (MAP) Pulse Ox O2 Delivery O2 Flow Rate FiO2 04/04/22 04:00 37.2 65 24 113/61 (78) 95 OxyMask 4.00 03/31/22 22:03 21 Capillary Refill : Less Than 3 Seconds Results/Procedures Lab Patient resulted labs reviewed. Imaging: Reviewed Imaging Report Assessment/Plan Assessment and Plan Assess & Plan/Chief Complaint 1. Acute cholecystitis: General surgery to perform cholecystectomy and holding Eliquis 2. Atrial fibrillation: Eliquis held for planned cholecystectomy. 3. Dementia 4. Right hip pain: Resolved 03/31. Analgesic regimen initiated. 5. Leukocytosis: Likely secondary to acute cholecystitis. Continue monitoring, recheck CBC in 24 hours. 6. Proteinuria, hematuria: Protein 2+, RBC 2+ on UA. Likely secondary to dehydration. Continue gentle hydration. Clinical Quality Measures DVT/VTE Risk/Contraindication: Contraindications-Pharm: Other *list below* Other: operation CHRISTINA KOWALSKI DO Apr 03, 2022 05:53
[2022-04-03] MEDS ORDERED: POTASSIUM CL 10MEQ/50ML IVPB 400 ML IV ONE (06:32)
[2022-04-03] MEDS: NS IV 1000 ML 1,000 ML IV SCH ×2 (06:42→09:03)
[2022-04-03] MEDS: RT-ALBUTEROL SULF 2.5 MG/3 ML PRE-MIX VIAL INH SCH ×4 (06:46→18:36)
[2022-04-03] MEDS: POTASSIUM CL 10MEQ/50ML IVPB 50 ML IV SCH ×7 (06:52→13:00)
[2022-04-03] MEDS: HYDROmorphone 2 MG/ML VIAL (DILAUDID) IV PRN (06:58)
[2022-04-03 07:44] VITALS: BP 123/58
--- NOTE | 2022-04-03 08:14 | Progress Note - Surgery ---
RICARDONARCISO 04/03/22 0814: Subjective Date Seen by a Provider: Apr 03, 2022 Time Seen by a Provider: 08:14 Subjective/Events-last exam Upon follow-up s/p Heide au was sitting upright in bed, with nasal cannula in place at 2 L O2. Heide states that she has minimal abdominal pain, which is tender in character. Moreover, she states that her appetite is intact, and she is wanting to return to her regular diet. She had her last bowel movement this AM, which she states was soft and liquid in charcacter, and has been urinating without dysuria or frequency. Heide denies any nausea, vomiting, fever, or chills. Her H/H appears stable at 11.4/35. SHANNEN drain appears sero-sanguineous. PT continues to work with her to improve ambulation, supine to sitting, and transfer from bed to chair. Heide is diligently utilizing her incentive spirometer. I spent time counseling her to use it 10x/hour, and that the increased mucous she is coughing up may be 2/2 to improved aeration of lungs. She is pleasant and conversational today, and appears to energetic. Review of Systems General: No Chills, No Night Sweats, No Fatigue HEENT: No Head Aches, No Visual Changes Pulmonary: Cough (minimal and productive of mucous) Cardiovascular: No: Chest Pain, Palpitations Gastrointestinal: Abdominal Pain (minimal tenderness upon palpation diffusely); No: Nausea, Vomiting Genitourinary: No Dysuria, No Frequency Musculoskeletal: No: neck pain, shoulder pain Neurological: No: Numbness, Change in speech Focused Exam Lactate Level 03/31/22 16:05: Lactic Acid Level 2.58*H 03/31/22 21:11: Lactic Acid Level 2.02*H 03/31/22 22:30: Lactic Acid Level 1.88 Respiratory: Chest Non Tender, Normal Breath Sounds, No Accessory Muscle Use, No Respiratory Distress, Decreased Breath Sounds, Other (Course sounding) Cardiovascular: Regular Rate, Rhythm, No Edema, No Gallop, No JVD, No Murmur, Normal Peripheral Pulses Capillary Refill: Less Than 3 Seconds Peripheral Pulses: 2+ Radial Pulses (L) Skin: normal color, warm/dry, other (incisional wounds are intact, dry, and without purulence ) Objective Exam Vital Signs Date Time Temp Pulse Resp B/P (MAP) Pulse Ox O2 Delivery O2 Flow Rate FiO2 04/03/22 07:44 37.1 101 18 123/58 (79) 93 Nasal Cannula 2.00 04/03/22 06:56 93 Nasal Cannula 2.00 04/03/22 06:47 96 OxyMask 4.00 04/03/22 04:00 87 28 121/78 (92) 98 OxyMask 4.00 04/03/22 01:00 114 04/03/22 00:00 36.9 109 14 121/77 (92) 94 OxyMask 4.00 04/02/22 20:01 95 OxyMask 4.00 04/02/22 20:00 36.3 04/02/22 20:00 93 OxyMask 4.00 04/02/22 20:00 108 23 111/75 (87) 93 OxyMask 4.00 04/02/22 19:00 129 04/02/22 17:58 OxyMask 4.00 04/02/22 17:50 20 131/80 (97) 93 Nasal Cannula 4.00 04/02/22 17:45 Nasal Cannula 4.00 04/02/22 17:40 26 124/80 (95) 94 Face Tent 10.00 04/02/22 17:30 25 121/62 (81) 90 OxyMask 10.00 04/02/22 17:30 OxyMask 10.00 04/02/22 17:20 21 101/49 (66) 91 OxyMask 10.00 04/02/22 17:17 OxyMask 10.00 04/02/22 17:17 36.3 20 102/56 (71) 91 OxyMask 10.00 04/02/22 12:09 115 04/02/22 12:00 36.9 122 14 131/83 (99) 97 Room Air 04/02/22 11:06 99 Nasal Cannula 2.50 I & O 04/03/22 07:00 Intake Total 1090 ml Output Total 320 ml Balance 770 ml Capillary Refill : Less Than 3 Seconds General Appearance: No Apparent Distress, WD/WN, Chronically ill, Thin HEENT: PERRL/EOMI, Normal ENT Inspection Neck: Normal Inspection, Supple Respiratory: Lungs Clear, Normal Breath Sounds Cardiovascular: Irregularly Irregular, Tachycardia Peripheral Pulses: 2+ Radial Pulses (L) Gastrointestinal: soft; No distended, No guarding; tenderness (diffuse, minimal) Extremity: Normal Capillary Refill, Non Tender, No Calf Tenderness Neurologic/Psychiatric: Alert, Disoriented (AXO to person only, but acknowledges that she forgot the name of where she is) Skin: Normal Color, Warm/Dry Lymphatic: No Adenopathy Results Lab Laboratory Tests 04/03/22 05:10: White Blood Count 12.6H, Red Blood Count 3.68L, Hemoglobin 11.4L, Hematocrit 35, Mean Corpuscular Volume 95, Mean Corpuscular Hemoglobin 31, Mean Corpuscular Hemoglobin Concent 33, Red Cell Distribution Width 13.2, Platelet Count 110L, Mean Platelet Volume 12.6H, Immature Granulocyte % (Auto) 3, Neutrophils (%) (Auto) 78H, Lymphocytes (%) (Auto) 5L, Monocytes (%) (Auto) 15H, Eosinophils (%) (Auto) 0, Basophils (%) (Auto) 0, Neutrophils # (Auto) 9.8H, Lymphocytes # (Auto) 0.6L, Monocytes # (Auto) 1.9H, Eosinophils # (Auto) 0.0, Basophils # (Auto) 0.0, Immature Granulocyte # (Auto) 0.3H, Percent Immature Platelet Fraction 11.0H, Sodium Level 137, Potassium Level 3.3L, Chloride Level 109H, Carbon Dioxide Level 20L, Anion Gap 8, Blood Urea Nitrogen 12, Creatinine 0.57L, Estimat Glomerular Filtration Rate 88, BUN/Creatinine Ratio 21, Glucose Level 136H, Calcium Level 7.8L, Corrected Calcium 8.8, Total Bilirubin 0.8, Aspartate Amino Transf (AST/SGOT) 16, Alanine Aminotransferase (ALT/SGPT) 19, Alkaline Phosphatase 67, Total Protein 5.6L, Albumin 2.8L Microbiology 04/01/22 MRSA Screen - Final, Complete MRSA not isolated 03/31/22 Blood Culture - Preliminary, Resulted No growth 03/31/22 Urine Culture - Final, Complete Gram Pos Mixed Bacterial [facility] FLUOROSCOPY UP TO 1 HOUR INDICATION: Gallbladder disease. FINDINGS: A single fluoroscopic image was obtained. 13.5 seconds of fluoroscopy was utilized. There is normal caliber of the common bile duct. There is free flow of contrast into the duodenum. IMPRESSION: Intraoperative fluoroscopy as described. Assessment/Plan Assessment/Plan Assessment/Plan Sepsis Acute cholecystitis S/P Lap Carmita -Drainage sero-sanguineous -Minimal tenderness on palpitation -Incisions warm, dry, intact without purulence -recieving fluids, rocephin, flagyl -Utilizing IS 10x/hour -H/H relatively stable at 11.4/ 35 -Was 12/36 prior to surgery -Has calf compressors on Luekocytosis -Trending down from 15.6, and is presently 12.6 -Denies feeling of subjective fever, chills Chronic AFib on long-term anticoagulation -Consider restarting eliquis -Has had some tachychardia General debility -Continues to work with PT -Is able to sit up independently Productive cough -May be 2/2 to IS use and improved aeration of lungs -Will monitor Hypoxia: -on 2 L O2 NC from 4L by mask -O2 sat is around 93%, decreases to 88% with talking, movement -Consider increasing O2 or returing to mask Dementia: -AxO to person -Acknowledges memory deficit -Has been upset due to family dynamic at home . Clinical Quality Measures DVT/VTE Risk/Contraindication: Contraindications-Pharm: Other *list below* Other: operation DAYLIN REYES DO 04/03/22 2000: Subjective Subjective/Events-last exam Feeling better than yesterday. Less abdominal pain. Tolerating clears, wanting food. Drain serosang. Daughter at bedside.No new complaints. Objective Exam General Appearance: No Apparent Distress, Chronically ill, Thin HEENT: PERRL/EOMI, Normal ENT Inspection Neck: Non Tender, Supple Respiratory: Chest Non Tender, No Accessory Muscle Use, No Respiratory Distress Cardiovascular: No Edema, Irregularly Irregular Gastrointestinal: soft, tenderness (diffuse, minimal, incisions c/d/i, drain serosang) Extremity: Non Tender, No Calf Tenderness Neurologic/Psychiatric: Alert, Disoriented (AXO to person only, but acknowledges that she forgot the name of where she is) Skin: Normal Color, Warm/Dry Lymphatic: No Adenopathy Assessment/Plan Assessment/Plan Assessment/Plan Sepsis s/p lap carmita c ioc for acute cholecystitis/gangrenous gb dementia advance diet pain control continue abx shannen drain Supervisory-Addendum Brief Verification & Attestation Participated in pt care: history, MDM, physical Personally performed: exam, history, MDM, supervision of care Care discussed with: Medical Student Procedures: n/a Results interpretation: Verified all documentation Verification and Attestation of Medical Student E/M Service A medical student performed and documented this service in my presence. I reviewed and verified all information documented by the medical student and made modifications to such information, when appropriate. I personally performed the physical exam and medical decision making. Daylin Reyes, Apr 03, 2022,19:59 NARCISO SILVA Apr 03, 2022 08:14 DAYLIN REYES DO Apr 03, 2022 20:00
[2022-04-03] MEDS: meTOproloL SUCCINATE 50 MG (TOPROL XL) TAB PO SCH ×2 (09:05→21:00)
[2022-04-03] MEDS: DOCUSATE SODIUM 100 MG (COLACE) CAP PO SCH ×2 (09:05→21:29)
[2022-04-03] MEDS: DIGOXIN 0.125 MG (LANOXIN) TAB PO SCH (09:05)
[2022-04-03] MEDS: SENNOSIDES 8.6 MG (SENOKOT) TAB PO SCH ×2 (09:05→21:30)
--- NOTE | 2022-04-03 09:38 | Cardiology Progress Note ---
Subjective Date Seen by Provider: Apr 03, 2022 Time Seen by Provider: 09:37 Subjective/Events-last exam Patient was seen at bedside, laying down comfortably, feeling better. Review of Systems General: No Chills, No Night Sweats, No Fatigue, No Malaise, No Appetite, No Other HEENT: No Head Aches, No Visual Changes, No Eye Pain, No Ear Pain, No Dysphasia, No Sinus Congestion, No Post Nasal Drip, No Sore Throat, No Other Pulmonary: Dyspnea; No Cough, No Pleuritic Chest Pain, No Other Cardiovascular: No: Chest Pain, Palpitations, Orthopnea, Paroxysmal Noc. Dyspnea, Edema, Lt Headedness, Other Focused Exam Lactate Level 03/31/22 16:05: Lactic Acid Level 2.58*H 03/31/22 21:11: Lactic Acid Level 2.02*H 03/31/22 22:30: Lactic Acid Level 1.88 Objective-Cardiology Exam Last Set of Vital Signs Vital Signs 03/31/22 04/03/22 22:03 07:44 Temp 37.1 Pulse 101 Resp 18 B/P (MAP) 123/58 (79) Pulse Ox 93 O2 Delivery Nasal Cannula O2 Flow Rate 2.00 FiO2 21 I&O Intake and Output 04/03/22 00:00 Intake Total 900 ml Balance 900 ml Intake Oral 150 ml IV Total 750 ml # Voids 6 # Bowel Movements 4 General: Alert, Oriented X3, Cooperative HEENT: Atraumatic, PERRLA Neck: Supple, No JVD, No Thyromegaly Lungs: Clear to Auscultation, Normal Air Movement Heart: Normal S1, Normal S2, No Murmurs, Other (Atrial fibrillation with rapid ventricular response) Abdomen: Normal Bowel Sounds, Soft, No Hepatosplenomegaly, No Masses, Other (Right upper quadrant tenderness) Extremities: No Clubbing, No Cyanosis, No Edema, Normal Pulses, No Tenderness/Swelling Skin: No Rashes, No Breakdown, No Significant Lesion Neuro: Normal Gait, Normal Speech, Strength at 5/5 X4 Ext, Normal Tone, Sensation Intact Psych/Mental Status: Mental Status NL, Mood NL Results Lab Laboratory Tests 04/03/22 05:10 A/P-Cardiology Admission Diagnosis AFib with RVR Acute cholecystitis HTN Dementia Assessment/Plan Atrial fibrillation with borderline tachycardia, heart rate is better History of paroxysmal atrial fibrillation/flutter. Patient back on Toprol-XL 50 twice daily and diltiazem CD2 140 mg twice daily and digoxin 0.125 mg daily Restarting home medication, Will restart Eliquis when deemed reasonable by the surgeon Acute cholecystitis, status postcholecystectomy done on April 02, 2022, recovering slowly. Echocardiogram done on 08/20/2020 showing normal left ventricular size, EF 55 to 60%, grade 2 diastolic dysfunction, moderate to severe MR, mild AR, moderate severe TR, PA pressure 50 to 55 mmHg. ANMOL was done on 01/16/2021 showing dilated left atrium and left atrial appendage with echogenic density in the left atrial appendage suspicious of a thrombus, dilated right atrium, mild LVH with normal ejection fraction 60%, moderate to moderately severe mitral regurgitation, aortic valve sclerosis. Reaction to the metal of the loop recorder. Unable to tolerate it and it was extracted. [id number] score of 4, yearly risk of stroke without oral anticoagulation is 4 percent, patient is maintained on Eliquis 2.5 mg twice daily. History of GI bleed with blood in her stool, patient reports occasional episode of bright red blood in her stool. Has refused colonoscopy in the past. No active bleeding at this time. Continue to monitor. Hypertension, controlled. Continue to monitor blood pressure/heart rate. Nonobstructive carotid artery stenosis Family history of heart disease. Dementia JIAN STEPHENSON MD Apr 03, 2022 09:38
[2022-04-03 11:38] VITALS: BP 120/73
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
--- NOTE | 2022-04-03 13:25 | Physical Therapy Evaluation ---
PT Evaluation-General Medical Diagnosis Admission Date Mar 31, 2022 at 20:50 Medical Diagnosis: Acute cholecystitis Onset Date: Mar 31, 2022 Therapy Diagnosis Therapy Diagnosis: impaired mobility Height/Weight Height (Feet): 4 Height (Inches): 11.00 Weight (Pounds): 116 Weight (Ounces): 0.0 Precautions Precautions/Isolations: Fall Prevention, Standard Precautions Referral Physician: Elena Lizama DO Reason for Referral: Evaluation/Treatment Medical History Pertinent Medical History: Atrial Fib, Dementia Additional Medical History Past Medical History Surgeries: Appendectomy, Hysterectomy, Oophorectomy, Orthopedic Asthma Currently Using CPAP: No Currently Using BIPAP: No 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 8-Tdsqwseosb-eflafuc completes the activity by him/herself with no assistance from a helper. 5-Set-up or Clean-up Assistance-helper sets up or cleans up; patient completes activity. [place] assists only prior to or following the activity. 4-Supervision or Touching Assistance-helper provides verbal cues and/or touching/steadying and/or contact guard assistance as patient completes activity. Assistance may be provided throughout the activity or intermittently. 3-Partial/Moderate Assistance-helper does LESS THAN HALF the effort. [place] lifts, holds or supports trunk or limbs, but provides less than half the effort. 2-Substantial/Maximal Assistance-helper does MORE THAN HALF the effort. [place] lifts or holds trunk or limbs and provides more than half the effort. 1-Onvhauefy-hkagct does ALL the effort. Patient does none of the effort to complete the activity. Or, the assistance of 2 or more helpers is required for the patient to complete the activity. If activity was not attempted, code reason: 7-Patient Refused. 9-Not Applicable-not attempted and the patient did not perform the activity before the current illness, exacerbation or injury. 10-Not Attempted due to Environmental Limitations-(lack of equipment, weather restraints, etc.). 88-Not Attempted due to Medical Conditions or Safety Concerns. patient is unsure of this info PT Evaluation-Current Subjective Patient in bed pre tx, agrees to PT, has 9/10 pain in right abdomen, patient states she doesn't need any pain meds, nurse is aware. Pt/Family Goals none stated Objective Patient Orientation: Person, Confused Attachments: Oxygen, IV ROM/Strength ROM Lower Extremities WNL Strength Lower Extremities grossly 4/5 BLE Sensory Vision: Functional Hearing: Functional Hand Dominance: Right Sensation Right Lower Extremit: Intact Sensation Left Lower Extremity: Intact Transfers Roll Left to Right (QC): 4 Sit to Lying (QC): 3 Lying to Sitting/Side of Bed(Q: 4 Sit to Stand (QC): 4 Gait Does the Patient Walk?: Yes Mode of Locomotion: Walk Anticipated Mode of Locomotion: Walk Walk 10 feet (QC): 4 Distance: 40' Gait Assistive Device: FWW Comments/Gait Description CGA, slow but steady ambulation Balance Sitting Static: Normal Sitting Dynamic: Normal Standing Static: Fair Standing Dynamic: Fair Treatment BLE supine exercises x20 (AP, HS) Assessment/Needs Patient in bed post tx with nurse call, phone, tray, all needs met, bed alarm on. Patient has impaired mobility, strength, endurance. Min assist for sit to supine, otherwise just CGA for transfers and ambulation. Rehab Potential: Fair PT Phosphoric Acid Operator Goals Shelter Goals PT Phosphoric Acid Operator Goals Time Frame: Apr 10, 2022 Roll Left & Right (QC): 5 Sit to Lying (QC): 5 Lying-Sitting on Side/Bed(QC): 5 Sit to Stand (QC): 5 Walk 10 feet (QC): 5 Walk 50ft with 2 Turns (QC): 5 Walk 150 ft (QC): 5 PT Plan Problem List Problem List: Activity Tolerance, Functional Strength, Safety, Balance, Gait, Transfer, Bed Mobility, ROM Treatment/Plan Treatment Plan: Continue Plan of Care Treatment Plan: Bed Mobility, Education, Functional Activity Kaley, Functional Strength, Gait, Safety, Therapeutic Exercise, Transfers Treatment Duration: Apr 10, 2022 Frequency: 6 times per week Estimated Hrs Per Day: .25 hour per day Patient and/or Family Agrees t: Yes Safety Risks/Education Patient Education: Gait Training, Transfer Techniques, Correct Positioning, Safety Issues Teaching Recipient: Patient Teaching Methods: Demonstration, Discussion Response to Teaching: Reinforcement Needed Discharge Recommendations Plan Patient will perform bed mobility and transfer training, balance and endurance training, functional strengthening, stair training, gait training, and education, to improve functional mobility and independence at home. Therapy Discharge Recommendati: 24 Hour Supervision, Scheduled Assistance, Home & Family, Post Acute PT Time Time In: 1300 Time Out: 1314 DATE: Apr 03, 2022 Total Billed Treatment Time: 14 Total Billed Treatment 1 visit TORITO WANG PT Apr 03, 2022 13:25
--- NOTE | 2022-04-03 14:29 | Progress Note - Hospitalist ---
[facility] Subjective HPI/CC On Admission Date Seen by Provider: Apr 03, 2022 Time Seen by Provider: 11:05 Heide Flynn is an 86 yo female who was admitted to the cardiac step down unit from the ED for acute cholecystitis. The patient has a history of dementia. Subjective/Events-last exam She is s/p laparoscopic cholecystectomy with Dr. Reyes on 04/02. RYAN drain is in place with serosanguineous fluid. Today she presents sitting upright in bed and reports having abdominal pain that is characterized as soreness and tenderness mostly over the incisions. Her appetite is intact and she would like to return to a regular diet. Does complain of dry mouth. She is using her incentive spirometer, on demonstration it seems she is not able to take long inhales which may be limiting utility. Pt reports a cough today productive of mucous, no other associated symptoms. She reports she had a liquid BM this AM and has been urinating without issue. Denies SOB, n/v, CP. She is working with PT to improve general strength. WBC improved to 12.6 from 15.6 and hgb stable at 11.4. Hypokalemia improved to 3.3 from 2.6. Review of Systems General: No Chills HEENT: No Head Aches, No Sore Throat; Other (dry mouth) Pulmonary: No Dyspnea; Cough Cardiovascular: No: Chest Pain Gastrointestinal: Abdominal Pain; No: Nausea, Vomiting Genitourinary: No Dysuria, No Frequency Focused Exam Lactate Level 03/31/22 16:05: Lactic Acid Level 2.58*H 03/31/22 21:11: Lactic Acid Level 2.02*H 03/31/22 22:30: Lactic Acid Level 1.88 Objective Exam Vital Signs Vital Signs Date Time Temp Pulse Resp B/P (MAP) Pulse Ox O2 Delivery O2 Flow Rate FiO2 04/03/22 13:00 111 04/03/22 11:38 36.6 16 120/73 (89) 92 Nasal Cannula 2.00 03/31/22 22:03 21 Capillary Refill : Less Than 3 SecondsLess Than 3 Seconds General Appearance: No Apparent Distress, Chronically ill, Thin HEENT: PERRL/EOMI, Other (dry mucous membranes) Neck: Full Range of Motion Respiratory: Chest Non Tender, No Accessory Muscle Use, No Respiratory Distress, Wheezing Cardiovascular: No Edema, No Murmur, Normal Peripheral Pulses, Irregularly Irregular Gastrointestinal: Normal Bowel Sounds, Soft, Tenderness (incisions clean/dry/intact, TTP; RYAN drain with serosanguineous fluid) Extremity: No Calf Tenderness, No Pedal Edema, Slow Capillary Refill Neurologic/Psychiatric: Alert, Disoriented (oriented to self only) Skin: Normal Color, Warm/Dry Results/Procedures Lab Laboratory Tests 04/03/22 05:10 Patient resulted labs reviewed. Imaging: Reviewed Imaging Report Assessment/Plan Assessment and Plan Assess & Plan/Chief Complaint 1. Acute cholecystitis: POD #1 s/p laparascopic cholecystectomy, continue rocephin and flagyl 2. Atrial fibrillation: Eliquis held for cholecystectomy. Restart when appropriate per surgery. 3. Dementia: try to obtain advance directive 4. Right hip pain: Resolved 12/. Analgesic regimen initiated. 5. Leukocytosis: Likely secondary to acute cholecystitis. Improved 04/03 6. Proteinuria, hematuria: Protein 2+, RBC 2+ on UA. Likely secondary to dehydration. 7. Wheezing: likely secondary to fluid overload, DC fluids 8. Hypokalemia: continue supplementation Move to 4th floor given improved status and exam. Continue IS, PT, OT. Clinical Quality Measures DVT/VTE Risk/Contraindication: Contraindications-Pharm: Other *list below* Other: operation KOWALSKI,ELENA BUI 04/04/22 0528: Assessment/Plan Assessment and Plan Assess & Plan/Chief Complaint Improved Move to floor Supervisory-Addendum Brief Verification & Attestation Participated in pt care: history, MDM, physical Personally performed: exam, history, MDM, supervision of care Care discussed with: Medical Student Procedures: n/a Results interpretation: Verified all documentation Verification and Attestation of Medical Student E/M Service A medical student performed and documented this service in my presence. I reviewed and verified all information documented by the medical student and made modifications to such information, when appropriate. I personally performed the physical exam and medical decision making. Elena Kowalski, Apr 04, 2022,05:28 DESIRAE VELASQUEZ Apr 03, 2022 14:29 ELENA KOWALSKI DO Apr 04, 2022 05:28
--- NOTE | 2022-04-03 14:58 | Anesthesia-General Post-Op ---
General Patient Condition Mental Status/LOC: Same as Preop Cardiovascular: Satisfactory Nausea/Vomiting: Absent Respiratory: Satisfactory Pain: Controlled Complications: Absent Post Op Complications Complications None Follow Up Care/Instructions Patient Instructions None needed. Anesthesia/Patient Condition Patient Condition Patient is doing well, no complaints, stable vital signs, no apparent adverse anesthesia problems. No complications reported per nursing. DEX LOREDO CRNA Apr 03, 2022 14:58
[2022-04-03 15:21] VITALS: BP 113/49
[2022-04-03 20:00] VITALS: BP 123/68
[2022-04-03] MEDS ORDERED: HYDROcodone/APAP 5 MG/325 MG (LORTAB) TAB PO PRN (20:00)
[2022-04-03] MEDS: cefTRIAXone 1 GM PRE-MIX 50 ML IV SCH (21:32)
[2022-04-04] VITALS (8 sets, daily range): BP systolic 108–148; BP diastolic 58–80
[2022-04-04 05:33] LABS: EOSINOPHILS % (AUTO) 0 % (0-10); MEAN PLATELET VOLUME 12.3 fL (9.0-12.2); NEUTROPHILS # (AUTO) 8.2 10^3/uL (1.8-7.8)
[2022-04-04 05:35] LABS: BASOPHILS % (AUTO) 0 % (0-10); HEMATOCRIT 35 % (35-52); HEMOGLOBIN 11.5 g/dL (11.5-16.0); LYMPHOCYTES % (AUTO) 8 % (12-44); MEAN CORPUSCULAR HEMOGLOBIN 32 pg (25-34); MEAN CORPUSCULAR HGB CONC 33 g/dL (32-36); MEAN CORPUSCULAR VOLUME 96 fL (80-99); MONOCYTES # (AUTO) 2.6 10^3/uL (0.0-1.0); MONOCYTES % (AUTO) 22 % (0-12); NEUTROPHILS % (AUTO) 68 % (42-75); PLATELET COUNT 135 10^3/uL (130-400)
[2022-04-04] MEDS: metroNIDAZOLE 500MG/100ML IVPB 100 ML IV SCH ×3 (05:44→21:11)
[2022-04-04 05:48] LABS: BILIRUBIN,TOTAL 0.8 MG/DL (0.1-1.0); CALCIUM 8.4 MG/DL (8.5-10.1); CREATININE SERUM 0.67 MG/DL (0.60-1.30); POTASSIUM 4.3 MMOL/L (3.6-5.0); TOTAL PROTEIN 6.1 GM/DL (6.4-8.2)
--- NOTE | 2022-04-04 06:26 | Progress Note - Hospitalist ---
Subjective HPI/CC On Admission Date Seen by Provider: Apr 04, 2022 Time Seen by Provider: 11:00 Heide Flynn is an 86 yo female who was admitted to the cardiac step down unit from the ED for acute cholecystitis. The patient has a history of dementia. Subjective/Events-last exam Much improved Still very frail Lungs are coarse PT and OT ordered Moving to fourth floor Labs reviewed Review of Systems General: Fatigue, Malaise Gastrointestinal: Abdominal Pain Neurological: Confusion Objective Exam Vital Signs Vital Signs Date Time Temp Pulse Resp B/P (MAP) Pulse Ox O2 Delivery O2 Flow Rate FiO2 04/05/22 03:35 36.6 64 24 122/77 (92) 93 Nasal Cannula 3.00 04/04/22 06:56 36 Capillary Refill : Less Than 3 SecondsLess Than 3 Seconds General Appearance: No Apparent Distress, WD/WN, Chronically ill, Thin Respiratory: No Accessory Muscle Use, No Respiratory Distress, Crackles, Decreased Breath Sounds, Wheezing Cardiovascular: Regular Rate, Rhythm Neurologic/Psychiatric: Alert, Disoriented Results/Procedures Lab Patient resulted labs reviewed. Imaging: Reviewed Imaging Report Assessment/Plan Assessment and Plan Assess & Plan/Chief Complaint 1. Acute cholecystitis: POD #3 s/p laparascopic cholecystectomy, continue rocephin and flagyl 2. Atrial fibrillation: Eliquis held for cholecystectomy. Restarted 3. Dementia: try to obtain advance directive 4. Right hip pain: Resolved /. Analgesic regimen initiated. 5. Leukocytosis: Likely secondary to acute cholecystitis. Improved 04/03 6. Proteinuria, hematuria: Protein 2+, RBC 2+ on UA. Likely secondary to dehydration. 7. Wheezing: likely secondary to fluid overload, DC fluids 8. Hypokalemia: continue supplementation Move to 4th floor given improved status and exam. Continue IS, PT, OT. Clinical Quality Measures DVT/VTE Risk/Contraindication: Contraindications-Pharm: Other *list below* Other: operation CHRISTINA KOWALSKI DO Apr 04, 2022 06:26
--- NOTE | 2022-04-04 06:37 | OPERATIVE REPORT ---
DATE OF SERVICE: 04/02/2022 PREOPERATIVE DIAGNOSIS: Acute cholecystitis. POSTOPERATIVE DIAGNOSES Acute cholecystitis and highly gangrenous gallbladder. PROCEDURE: Laparoscopic cholecystectomy with intraoperative cholangiogram. SURGEON: Daylin Reyes DO CEMENTER HAND: Nazario Chiu DO, assisted in retraction, dissection, and closure. ANESTHESIA: General. ESTIMATED BLOOD LOSS: Minimal. COMPLICATIONS: None. INDICATIONS FOR PROCEDURE: The patient is an 86-year-old female that had right sided abdominal pain. CT scan was consistent with acute cholecystitis. She is on anticoagulation, so anticoagulation was held. The patient family and power of managing attorney was discussed risks and benefits of procedure and wished to proceed. Consent was signed and on the chart. DESCRIPTION OF PROCEDURE: The patient was taken to the operating suite. She was prepped and draped in a sterile fashion. Timeout was performed. Local anesthetic was infiltrated just below the umbilicus. An 11 blade scalpel was used to make a skin incision. Cautery was used to dissect down to the fascia, which was then grasped, elevated and opened. The abdomen was then entered. An 0 Vicryl was placed in a [id number] fashion for closure at the end of the case. The ____ trocar was inserted. Pneumoperitoneum was achieved. Large mass was ____ in omentum and adherent to the right abdominal wall was present with good visualization, a 5 mm trocar was placed in the subxiphoid region and two 5 mm trocars were placed in the right upper quadrant after the adherent tissue was taken off of the abdominal wall. The omentum was then removed off of the gallbladder, which was significantly inflamed, erythematous, distended and also some areas of gangrenous tissue when trying to be ____ one area of ruptured draining heavy purulent material from the gallbladder. Gallbladder was then able to be grasped and elevated over the liver. Significant adherence of fat to the gallbladder, which had to be bluntly taken down. Kitners were used to help do this as well along with [place] and cautery dissection. The cystic artery was able to be ____ anterior and was able to be dissected around. Clips were placed on the proximal and distal portions and then transected. The cystic duct was unable to be dissected out. Clip was placed on the distal portion. Scissors were used to partially transect the duct. Cholangiogram catheter was then inserted into the duct. Cholangiogram was performed. No filling defects. Contrast retrograde into the duodenum. The catheter was removed because of its proximal portion of the cystic duct, which was then transected. Hook cautery was used to dissect the gallbladder from the gallbladder fossa, continue to do hemostasis as we continued. Positive edema and then also had areas of significant fibrosis. Once removed, it was placed in an Endobag and removed through the 12 mm trocar site. The abdomen was again irrigated with copious amounts of irrigation. Surgicel was then placed in the gallbladder fossa after we were done, irrigating and suctioning. A 19 Justin drain was placed in the gallbladder fossa and brought out through the 5 mm ____ and 5 mm right upper quadrant trocar sites. This was secured with a 3-0 nylon. The abdomen desufflated. The trocars were removed. 0 Vicryl was placed at the beginning of the case was then tied. Both ____ ____ trocar site. Skin closed using 4-0 Monocryl in subcuticular fashion. The abdomen was then washed and dried. Skin Affix was placed over the incisions. The patient tolerated the procedure well with no complications, taken to recovery room in stable condition. Job ID: [id number] DocumentID: [id number] Dictated Date: 04/03/2022 19:11:44 National Sales Director Date: 04/04/2022 05:15:00 Dictated By: DAYLIN REYES DO
[2022-04-04] MEDS: RT-ALBUTEROL SULF 2.5 MG/3 ML PRE-MIX VIAL INH SCH ×4 (06:52→19:43)
--- NOTE | 2022-04-04 07:18 | Progress Note - Surgery ---
GREWALHernánNARCISO AMEZCUA 04/04/22 0718: Subjective Date Seen by a Provider: Apr 04, 2022 Time Seen by a Provider: 07:18 Subjective/Events-last exam Upon follow-up S/P Carlin Vizcarra, post-op day 3, Heide was laying supine in bed with with 4L by OxyMask. She has minimal diffuse tenderness near sirgical i ncisions upon movement, which improves with rest. She did have a fever around midnight of 37.6, with associated tachypnea; however, this seems to have improved. Surgical incisions are clean, dry, and intact, without purulence, and minimal (40ml) serosang drainage. She states her appetite is intact, and she is progressing to solid foods. She had her last bowel movement last night, and has had 100ml of output so far today. Heide has been utilizing her incentive spirometer, but has been taking shallow inhalations, which limits utility. She is conversational and pleasant. Review of Systems General: No Chills, No Night Sweats HEENT: No Head Aches, No Visual Changes Pulmonary: No Dyspnea, No Cough Cardiovascular: No: Chest Pain, Palpitations Gastrointestinal: Abdominal Pain (incisional tendernes upon movement or palpation); No: Nausea, Vomiting Genitourinary: No Dysuria, No Frequency; Other (Concern for oliguria) Musculoskeletal: No: neck pain, shoulder pain Neurological: Weakness, Confusion (Plesantly confused) Focused Exam Respiratory: Chest Non Tender, Lungs Clear, No Accessory Muscle Use, No Respiratory Distress, Decreased Breath Sounds (shallow breaths) Cardiovascular: Regular Rate, Rhythm, No Edema, No Gallop, No JVD, No Murmur, Normal Peripheral Pulses Capillary Refill: Less Than 3 Seconds Peripheral Pulses: 2+ Radial Pulses (L) Skin: normal color, warm/dry, other (Incisions warm, dry, intact, without purulence ) Objective Exam Vital Signs Date Time Temp Pulse Resp B/P (MAP) Pulse Ox O2 Delivery O2 Flow Rate FiO2 04/04/22 06:59 93 OxyMask 3.00 04/04/22 06:56 37.2 86 94 36 04/04/22 06:52 94 OxyMask 4.00 04/04/22 04:00 37.2 65 24 113/61 (78) 95 OxyMask 4.00 04/04/22 01:00 70 04/04/22 00:00 37.6 64 31 108/78 (88) 95 Nasal Cannula 4.00 04/03/22 20:00 37.1 75 24 123/68 (86) 96 Nasal Cannula 4.00 04/03/22 20:00 96 Nasal Cannula 4.00 04/03/22 19:00 58 04/03/22 18:36 87 Nasal Cannula 2.50 04/03/22 15:21 37.0 63 18 113/49 (70) 91 04/03/22 14:44 92 Nasal Cannula 2.50 04/03/22 13:00 111 04/03/22 11:38 36.6 70 16 120/73 (89) 92 Nasal Cannula 2.00 04/03/22 10:47 93 Nasal Cannula 2.50 04/03/22 08:00 93 OxyMask 4.00 04/03/22 07:44 37.1 101 18 123/58 (79) 93 Nasal Cannula 2.00 I & O 04/04/22 07:00 Intake Total 1100 ml Output Total 240 ml Balance 860 ml Capillary Refill : Less Than 3 SecondsLess Than 3 Seconds General Appearance: No Apparent Distress, Chronically ill, Thin HEENT: PERRL/EOMI, Normal ENT Inspection Neck: Non Tender, Supple Respiratory: Chest Non Tender, No Accessory Muscle Use, No Respiratory Distress Cardiovascular: No Edema, Irregularly Irregular Peripheral Pulses: 2+ Radial Pulses (L) Gastrointestinal: normal bowel sounds, soft, tenderness (diffuse, minimal, incisions c/d/i) Extremity: Non Tender, No Calf Tenderness Neurologic/Psychiatric: Alert, Disoriented (AXO to person only, but acknowledges that she forgot the name of where she is) Skin: Normal Color, Warm/Dry Lymphatic: No Adenopathy Results Lab Laboratory Tests 04/04/22 04:35: White Blood Count 12.0H, Red Blood Count 3.65L, Hemoglobin 11.5, Hematocrit 35, Mean Corpuscular Volume 96, Mean Corpuscular Hemoglobin 32, Mean Corpuscular Hemoglobin Concent 33, Red Cell Distribution Width 13.4, Platelet Count 135, Mean Platelet Volume 12.3H, Immature Granulocyte % (Auto) 2, Neutrophils (%) (Auto) 68, Lymphocytes (%) (Auto) 8L, Monocytes (%) (Auto) 22H, Eosinophils (%) (Auto) 0, Basophils (%) (Auto) 0, Neutrophils # (Auto) 8.2H, Lymphocytes # (Auto) 1.0, Monocytes # (Auto) 2.6H, Eosinophils # (Auto) 0.0, Basophils # (Auto) 0.0, Immature Granulocyte # (Auto) 0.2H, Percent Immature Platelet Fraction 9.5H, Sodium Level 136, Potassium Level 4.3, Chloride Level 108H, Carbon Dioxide Level 22, Anion Gap 6, Blood Urea Nitrogen 16, Creatinine 0.67, Estimat Glomerular Filtration Rate 85, BUN/Creatinine Ratio 24, Glucose Level 92, Calcium Level 8.4L, Corrected Calcium 9.2, Total Bilirubin 0.8, Aspartate Amino Transf (AST/SGOT) 16, Alanine Aminotransferase (ALT/SGPT) 19, Alkaline Phosphatase 67, Total Protein 6.1L, Albumin 3.0L Microbiology 04/01/22 MRSA Screen - Final, Complete MRSA not isolated 03/31/22 Blood Culture - Preliminary, Resulted No growth 03/31/22 Urine Culture - Final, Complete Gram Pos Mixed Bacterial Kim Assessment/Plan Assessment/Plan Assessment/Plan Sepsis Acute cholecystitis S/P Lap Carmita -Drainage sero-sanguineous -Minimal tenderness on palpitation -Incisions warm, dry, intact without purulence -recieving fluids, rocephin, flagyl -Utilizing IS 10x/hour -H/H remains stable from 04/03 -Has calf compressors on -Tolerating advanced diet Luekocytosis -Trending down from 15.6, and is presently 12 -Denies feeling of subjective fever, chills Chronic AFib on long-term anticoagulation -Consider restarting eliquis General debility -Continues to work with PT -Is able to sit up independently Productive cough -May be 2/2 to IS use and improved aeration of lungs =>Taking shallow breaths, which decreases utility of device -Will monitor Hypoxia: -on 4 L O2 by OxyMask -O2 sat is around 94% Dementia: -AxO to person -Acknowledges memory deficit -Has been upset due to family dynamic at home Clinical Quality Measures DVT/VTE Risk/Contraindication: Contraindications-Pharm: Other *list below* Other: operation RICK MOTT DO 04/05/22 1127: Subjective Subjective/Events-last exam Patient pleasantly confused at baseline. Patient drain serosang. Tolerating diet. Using IS. Wbc going down. Denies n/v fever sweats chills shortness of breath or chest pain. Objective Exam General Appearance: No Apparent Distress, Chronically ill, Thin HEENT: PERRL/EOMI, Normal ENT Inspection Neck: Non Tender, Supple Respiratory: Chest Non Tender, No Accessory Muscle Use, No Respiratory Distress Cardiovascular: No JVD, Irregularly Irregular Gastrointestinal: soft, tenderness (diffuse, minimal, incisions c/d/i) Extremity: Non Tender, No Calf Tenderness Neurologic/Psychiatric: Alert, Disoriented (AXO to person only, but acknowledges that she forgot the name of where she is) Skin: Normal Color, Warm/Dry Lymphatic: No Adenopathy Assessment/Plan Assessment/Plan Assessment/Plan s/p lap carmita c ioc advance diet continue abx restart eliquis follow labs. Supervisory-Addendum Brief Verification & Attestation Participated in pt care: history, MDM, physical Personally performed: exam, history, MDM, supervision of care Care discussed with: Medical Student Procedures: n/a Results interpretation: Verified all documentation Verification and Attestation of Medical Student E/M Service A medical student performed and documented this service in my presence. I reviewed and verified all information documented by the medical student and made modifications to such information, when appropriate. I personally performed the physical exam and medical decision making. Rick Mott, Apr 04, 2022,11:27 NARCISO SILVA Apr 04, 2022 07:18 RICK MOTT DO Apr 05, 2022 11:27
[2022-04-04] MEDS: SENNOSIDES 8.6 MG (SENOKOT) TAB PO SCH ×2 (08:50→19:50)
[2022-04-04] MEDS: DOCUSATE SODIUM 100 MG (COLACE) CAP PO SCH ×2 (08:50→19:49)
[2022-04-04] MEDS: DIGOXIN 0.125 MG (LANOXIN) TAB PO SCH (08:50)
[2022-04-04] MEDS: meTOproloL SUCCINATE 50 MG (TOPROL XL) TAB PO SCH ×2 (08:50→19:50)
[2022-04-04] MEDS: POTASSIUM CL 10MEQ/50ML IVPB 50 ML IV SCH (13:02)
--- NOTE | 2022-04-04 14:47 | Progress Note - Cardiology ---
Cardiology SOAP Progress Note Subjective: No cp or palp or syncope Gen weakness and malaise present No n/v/d No focal weakness Objective: I&O/Vital Signs 04/04/22 04/04/22 04/04/22 04/04/22 04:00 06:52 06:56 06:59 Temp 37.2 37.2 Pulse 65 86 Resp 24 B/P (MAP) 113/61 (78) Pulse Ox 95 94 94 93 O2 Delivery OxyMask OxyMask OxyMask O2 Flow Rate 4.00 4.00 3.00 FiO2 36 04/04/22 04/04/22 04/04/22 04/04/22 07:00 07:53 08:00 12:20 Temp 37.2 36.3 Pulse 86 90 73 Resp 22 14 B/P (MAP) 123/65 (84) 119/64 (82) Pulse Ox 93 93 O2 Delivery Nasal Cannula Nasal Cannula Nasal Cannula O2 Flow Rate 3.00 3.00 3.00 04/04/22 04/04/22 12:55 13:00 Pulse 80 O2 Delivery Nasal Cannula O2 Flow Rate 3.00 04/04/22 00:00 Intake Total 800 ml Output Total 100 ml Balance 700 ml Weight (Pounds): 116 Weight (Ounces): 0.0 Weight (Calculated Kilograms): 52.861130 Constitutional: AAO x 3, well-developed, other (thin-appearing) Respiratory: No accessory muscle use; other (fair to good, bilat air entry; diminished bs at bases) Cardiovascular: irregularly irregular, S1 and S2, systolic murmur (soft GISSELL at card base) Gastrointestional: No tender; soft; No guarding, No rebound; audible bowel s ounds Extremities: No clubbing, No cyanosis, No significant edema Neurologic/Psychiatric: oriented x 3, other (moves all limbs equally) Skin: normal color, warm/dry; No rash on exposed areas, No ulcerations on exposed areas Results/Procedures: Labs Laboratory Tests 04/04/22 04:35: White Blood Count 12.0H, Red Blood Count 3.65L, Hemoglobin 11.5, Hematocrit 35, Mean Corpuscular Volume 96, Mean Corpuscular Hemoglobin 32, Mean Corpuscular Hemoglobin Concent 33, Red Cell Distribution Width 13.4, Platelet Count 135, Mean Platelet Volume 12.3H, Immature Granulocyte % (Auto) 2, Neutrophils (%) (Auto) 68, Lymphocytes (%) (Auto) 8L, Monocytes (%) (Auto) 22H, Eosinophils (%) (Auto) 0, Basophils (%) (Auto) 0, Neutrophils # (Auto) 8.2H, Lymphocytes # (Auto) 1.0, Monocytes # (Auto) 2.6H, Eosinophils # (Auto) 0.0, Basophils # (Auto) 0.0, Immature Granulocyte # (Auto) 0.2H, Percent Immature Platelet Fraction 9.5H, Sodium Level 136, Potassium Level 4.3, Chloride Level 108H, Carbon Dioxide Level 22, Anion Gap 6, Blood Urea Nitrogen 16, Creatinine 0.67, Estimat Glomerular Filtration Rate 85, BUN/Creatinine Ratio 24, Glucose Level 92, Calcium Level 8.4L, Corrected Calcium 9.2, Total Bilirubin 0.8, Aspartate Amino Transf (AST/SGOT) 16, Alanine Aminotransferase (ALT/SGPT) 19, Alkaline Phosphatase 67, Total Protein 6.1L, Albumin 3.0L Microbiology 04/01/22 MRSA Screen - Final, Complete MRSA not isolated 03/31/22 Blood Culture - Preliminary, Resulted No growth 03/31/22 Urine Culture - Final, Complete Gram Pos Mixed Bacterial Kim Laboratory Tests 04/03/22 05:10 04/04/22 04:35 A/P: Assessment: PAF with RVR - Dr Wise treating with Toprol-XL 50 twice daily and diltiazem CD 240 mg twice daily and digoxin 0.125 mg daily for vent rate control. Pt tolerating well - Off Eliquis periop - TTE done on 08/20/2020: LVEF 55 to 60%, grade 2 diastolic dysfunction, moderate to severe MR, mild AR, moderate severe TR, PA pressure 50 to 55 mmHg. - ANMOL done on 01/16/2021: dilated left atrium and left atrial appendage with e chogenic density in the left atrial appendage suspicious of a thrombus, dilated right atrium, mild LVH with normal ejection fraction 60%, moderate to moderately severe mitral regurgitation, aortic valve sclerosis. Acute cholecystitis, status postcholecystectomy done on April 02, 2022 H/o intolerance/ allergy to the metal of the loop recorder. Unable to tolerate it and it was extracted. History of GI bleed with blood in her stool, patient reports occasional episode of bright red blood in her stool. Has refused colonoscopy in the past. No active bleeding at this time Hypertension, controlle Nonobstructive carotid artery stenosis - Dr Billie bhandari Family history of heart disease. Dementia Plan: * I reviewed the chart, and interviewed and examined the patient * Continue current regimen for rate control * Monitor on tele * Resume Eliquis if approved by the Surg svce * Adjust dose of Eliquis to age (86 yrs) and body wgt (50 kg) * Monitor labs ACACIA PALMER MD FACP FAC CCDS Apr 04, 2022 14:47
[2022-04-04] MEDS: cefTRIAXone 1 GM PRE-MIX 50 ML IV SCH (21:11)
[2022-04-05] MEDS: MELATONIN 3 MG TABLET PO PRN ×2 (00:38→19:27)
[2022-04-05 03:35] VITALS: BP 122/77
--- NOTE | 2022-04-05 06:41 | Progress Note - Hospitalist ---
Subjective HPI/CC On Admission Date Seen by Provider: Apr 05, 2022 Time Seen by Provider: 12:00 Heide Flynn is an 86 yo female who was admitted to the cardiac step down unit from the ED for acute cholecystitis. The patient has a history of dementia. Subjective/Events-last exam Patient doing better Less confused PT and OT consulted Lungs are improved Eating a little bit Review of Systems General: Fatigue, Malaise Objective Exam Vital Signs Vital Signs Date Time Temp Pulse Resp B/P (MAP) Pulse Ox O2 Delivery O2 Flow Rate FiO2 04/05/22 16:35 36.7 67 16 114/57 (76) 94 Nasal Cannula 3.00 04/04/22 06:56 36 Capillary Refill : Less Than 3 SecondsLess Than 3 Seconds General Appearance: No Apparent Distress, WD/WN, Chronically ill Respiratory: Lungs Clear, Normal Breath Sounds, Decreased Breath Sounds Cardiovascular: Regular Rate, Rhythm Neurologic/Psychiatric: Alert, Oriented x3, Disoriented Results/Procedures Lab Laboratory Tests 04/05/22 06:25 Patient resulted labs reviewed. Imaging: Reviewed Imaging Report Assessment/Plan Assessment and Plan Assess & Plan/Chief Complaint 1. Acute cholecystitis: POD #4 s/p laparascopic cholecystectomy, continue rocephin and flagyl 2. Atrial fibrillation: Eliquis held for cholecystectomy. Restarted 3. Dementia: try to obtain advance directive 4. Right hip pain: Resolved 03/31. Analgesic regimen initiated. 5. Leukocytosis: Likely secondary to acute cholecystitis. Improved 04/03 6. Proteinuria, hematuria: Protein 2+, RBC 2+ on UA. Likely secondary to dehydration. 7. Wheezing: likely secondary to fluid overload, DC fluids 8. Hypokalemia: continue supplementation Move to 4th floor given improved status and exam. Continue IS, PT, OT. Clinical Quality Measures DVT/VTE Risk/Contraindication: Contraindications-Pharm: Other *list below* Other: operation CHRISTINA KOWALSKI Apr 05, 2022 06:41
[2022-04-05 06:58] LABS: BASOPHILS % (AUTO) 0 % (0-10); EOSINOPHILS % (AUTO) 1 % (0-10); HEMATOCRIT 33 % (35-52); HEMOGLOBIN 10.8 g/dL (11.5-16.0); LYMPHOCYTES # (AUTO) 0.8 10^3/uL (1.0-4.0); LYMPHOCYTES % (AUTO) 10 % (12-44); MEAN CORPUSCULAR HEMOGLOBIN 31 pg (25-34); MEAN CORPUSCULAR HGB CONC 33 g/dL (32-36); MEAN CORPUSCULAR VOLUME 93 fL (80-99); MEAN PLATELET VOLUME 12.2 fL (9.0-12.2); MONOCYTES # (AUTO) 1.7 10^3/uL (0.0-1.0); MONOCYTES % (AUTO) 19 % (0-12); NEUTROPHILS # (AUTO) 5.9 10^3/uL (1.8-7.8); NEUTROPHILS % (AUTO) 68 % (42-75); PLATELET COUNT 141 10^3/uL (130-400); WHITE BLOOD COUNT 8.8 10^3/uL (4.3-11.0)
--- NOTE | 2022-04-05 07:07 | Progress Note - Surgery ---
CARMINAHernánNARCISO AMEZCUA 04/05/22 0707: Subjective Date Seen by a Provider: Apr 05, 2022 Time Seen by a Provider: 07:01 Subjective/Events-last exam Upon follow-up for Lap cholecystectomy, POD 5, Cecily is laying supine in bed with SCDs and 2 L by NC. She states that she has minimal pain, but only with any movement/exertion. She states that she is not hungry, though she has had intact appetite most days. She states she is not sure if she had a bowel movement, but has been when she urinates. She denies any fever, nausea, vomiting, or chills. Her RYAN drain demonstrates minimal serosang output. SHe continues to use her incentive spirometry, but as previously noted, she takes shallow breaths and has a hard time holding air on inhalation, thus limiting utility of IS. Incisions are clean, dry, intact, and without purulence or drainage. Review of Systems General: No Chills, No Night Sweats; Fatigue HEENT: No Head Aches, No Visual Changes Pulmonary: No Dyspnea, No Cough Cardiovascular: No: Chest Pain, Palpitations Gastrointestinal: Abdominal Pain (Very minimal, improved from yesterday); No: Nausea, Vomiting Genitourinary: No Dysuria, No Frequency Musculoskeletal: No: neck pain, shoulder pain Neurological: Weakness, Incoordination Focused Exam Respiratory: Chest Non Tender, Lungs Clear, No Accessory Muscle Use, No Respiratory Distress, Decreased Breath Sounds Cardiovascular: Regular Rate, Rhythm, No Gallop, No JVD, No Murmur, Normal Peripheral Pulses Capillary Refill: Less Than 3 Seconds Peripheral Pulses: 2+ Radial Pulses (R), 2+ Radial Pulses (L) Skin: normal color, warm/dry Objective Exam Vital Signs Date Time Temp Pulse Resp B/P (MAP) Pulse Ox O2 Delivery O2 Flow Rate FiO2 04/05/22 03:35 36.6 64 24 122/77 (92) 93 Nasal Cannula 3.00 04/05/22 01:00 63 04/04/22 23:13 36.7 85 24 135/80 (98) 91 Nasal Cannula 3.00 04/04/22 20:02 36.5 78 20 148/60 (89) 91 Room Air 04/04/22 19:55 91 Nasal Cannula 3.00 04/04/22 19:44 91 Nasal Cannula 3.00 04/04/22 19:00 82 04/04/22 16:00 36.3 71 18 128/58 (81) 94 Nasal Cannula 3.00 04/04/22 14:42 93 Nasal Cannula 3.00 04/04/22 13:00 80 04/04/22 12:55 Nasal Cannula 3.00 04/04/22 12:20 36.3 73 14 119/64 (82) 93 Nasal Cannula 3.00 04/04/22 08:00 Nasal Cannula 3.00 04/04/22 07:53 37.2 90 22 123/65 (84) 93 Nasal Cannula 3.00 I & O 04/05/22 07:00 Intake Total 1230 ml Output Total 195 ml Balance 1035 ml Capillary Refill : Less Than 3 SecondsLess Than 3 Seconds General Appearance: No Apparent Distress, WD/WN, Chronically ill, Thin HEENT: PERRL/EOMI, Normal ENT Inspection Neck: Non Tender, Supple Respiratory: No Accessory Muscle Use, No Respiratory Distress, Crackles, Decreased Breath Sounds, Wheezing Cardiovascular: Regular Rate, Rhythm Peripheral Pulses: 2+ Radial Pulses (L) Gastrointestinal: normal bowel sounds, soft, tenderness (diffuse, minimal, incisions c/d/i) Extremity: Non Tender, No Calf Tenderness Neurologic/Psychiatric: Alert, Disoriented Skin: Normal Color, Warm/Dry Lymphatic: No Adenopathy Results Lab Laboratory Tests 04/05/22 06:25: Microbiology 04/01/22 MRSA Screen - Final, Complete MRSA not isolated 03/31/22 Blood Culture - Preliminary, Resulted No growth 03/31/22 Urine Culture - Final, Complete Gram Pos Mixed Bacterial Kim Assessment/Plan Assessment/Plan Assessment/Plan Sepsis Acute cholecystitis S/P Lap Carmita -Drainage sero-sanguineous -Minimal tenderness on palpitation -Incisions warm, dry, intact without purulence -recieving fluids, rocephin, flagyl -Utilizing IS 10x/hour -H/H remains stable from 04/04 -Has calf compressors on -Tolerating advanced diet Luekocytosis -Trending down from 15.6, and is presently 12 -Denies feeling of subjective fever, chills Chronic AFib on long-term anticoagulation -Consider restarting eliquis General debility -Continues to work with PT -Is able to sit up independently Productive cough -May be 2/2 to IS use and improved aeration of lungs =>Taking shallow breaths, which decreases utility of device -Will monitor Hypoxia: -on 2 L O2 by NC -O2 sat is around 94% Dementia: -AxO to person -Acknowledges memory deficit -Has been upset due to family dynamic at home Clinical Quality Measures DVT/VTE Risk/Contraindication: Contraindications-Pharm: Other *list below* Other: operation DAYLIN REYES DO 04/05/22 1130: Subjective Subjective/Events-last exam Patient doing well. Tolerating diet. Wbc down. Not much appetitie. RYAN serosang. Using IS. Denies n/v fever sweats chills shortness of breath or chest pain. Objective Exam General Appearance: No Apparent Distress, Chronically ill HEENT: PERRL/EOMI, Normal ENT Inspection Neck: Non Tender, Supple Respiratory: Chest Non Tender, No Accessory Muscle Use, No Respiratory Distress Cardiovascular: Regular Rate, Rhythm Gastrointestinal: non tender, soft, tenderness (diffuse, minimal, incisions c/d/i) Extremity: Non Tender, No Calf Tenderness Neurologic/Psychiatric: Alert, Oriented x3, Disoriented Skin: Normal Color, Warm/Dry Lymphatic: No Adenopathy Assessment/Plan Assessment/Plan Assessment/Plan s/p lap carmita continues to improve tolerating diet home soon vs rehab/facility no family present to discuss yet. Eliquis restarted. wbc down. Supervisory-Addendum Brief Verification & Attestation Participated in pt care: history, MDM, physical Personally performed: exam, history, MDM, supervision of care Care discussed with: Medical Student Procedures: n/a Results interpretation: Verified all documentation Verification and Attestation of Medical Student E/M Service A medical student performed and documented this service in my presence. I reviewed and verified all information documented by the medical student and made modifications to such information, when appropriate. I personally performed the physical exam and medical decision making. Daylin Reyes, Apr 05, 2022,11:30 NARCISO SILVA Apr 05, 2022 07:07 DAYLIN REYES DO Apr 05, 2022 11:30
[2022-04-05 07:15] LABS: ALBUMIN 2.6 GM/DL (3.2-4.5); BILIRUBIN,TOTAL 0.6 MG/DL (0.1-1.0); CALCIUM 8.1 MG/DL (8.5-10.1); CREATININE SERUM 0.58 MG/DL (0.60-1.30); POTASSIUM 3.8 MMOL/L (3.6-5.0); TOTAL PROTEIN 5.4 GM/DL (6.4-8.2)
[2022-04-05 07:39] VITALS: BP 129/71
[2022-04-05] MEDS: RT-ALBUTEROL SULF 2.5 MG/3 ML PRE-MIX VIAL INH SCH ×4 (07:58→19:50)
[2022-04-05] MEDS: DOCUSATE SODIUM 100 MG (COLACE) CAP PO SCH ×2 (09:54→19:26)
[2022-04-05] MEDS: SENNOSIDES 8.6 MG (SENOKOT) TAB PO SCH ×2 (09:54→19:26)
[2022-04-05] MEDS: DIGOXIN 0.125 MG (LANOXIN) TAB PO SCH (09:54)
[2022-04-05] MEDS: meTOproloL SUCCINATE 50 MG (TOPROL XL) TAB PO SCH ×2 (09:54→19:26)
[2022-04-05] MEDS: APIXABAN 2.5 MG (ELIQUIS) TABLET PO SCH ×2 (09:54→19:26)
[2022-04-05 12:14] VITALS: BP 125/71
--- NOTE | 2022-04-05 14:24 | Progress Note - Cardiology ---
Cardiology SOAP Progress Note Subjective: Gen malaise and weakness present No focal weakness No n/v/d No cp No syncope or palp Shortness of breath with mild activity Objective: I&O/Vital Signs 04/05/22 04/05/22 04/05/22 04/05/22 03:35 07:00 07:39 07:59 Temp 36.6 36.6 Pulse 64 84 82 Resp 24 16 B/P (MAP) 122/77 (92) 129/71 (90) Pulse Ox 93 94 92 O2 Delivery Nasal Cannula Nasal Cannula Nasal Cannula O2 Flow Rate 3.00 3.00 3.00 04/05/22 04/05/22 04/05/22 04/05/22 08:00 11:49 11:52 12:14 Temp 36.0 Pulse 77 Resp 18 B/P (MAP) 125/71 (89) Pulse Ox 94 95 93 O2 Delivery Nasal Cannula Nasal Cannula Nasal Cannula Nasal Cannula O2 Flow Rate 3.00 3.00 2.00 2.00 04/05/22 12:49 Pulse 73 04/05/22 00:00 Intake Total 1130 ml Output Total 15 ml Balance 1115 ml Weight (Pounds): 116 Weight (Ounces): 0.0 Weight (Calculated Kilograms): [id number] Constitutional: AAO x 3, well-developed, other (appears relatively cachectic) Respiratory: No accessory muscle use; other (fair to good, bilat air entry; diminished bs at bases) Cardiovascular: irregularly irregular, S1 and S2, systolic murmur (soft GISSELL at card base) Gastrointestional: No tender; soft; No guarding, No rebound; audible bowel sounds Extremities: No clubbing, No cyanosis, No significant edema Neurologic/Psychiatric: oriented x 3, other (moves all limbs equally) Skin: normal color, warm/dry Results/Procedures: Labs Laboratory Tests 04/05/22 06:25: White Blood Count 8.8, Red Blood Count 3.48L, Hemoglobin 10.8L, Hematocrit 33L, Mean Corpuscular Volume 93, Mean Corpuscular Hemoglobin 31, Mean Corpuscular Hemoglobin Concent 33, Red Cell Distribution Width 13.6, Platelet Count 141, Mean Platelet Volume 12.2, Immature Granulocyte % (Auto) 3, Neutrophils (%) ( Auto) 68, Lymphocytes (%) (Auto) 10L, Monocytes (%) (Auto) 19H, Eosinophils (%) (Auto) 1, Basophils (%) (Auto) 0, Neutrophils # (Auto) 5.9, Lymphocytes # (Auto) 0.8L, Monocytes # (Auto) 1.7H, Eosinophils # (Auto) 0.0, Basophils # (Auto) 0.0, Immature Granulocyte # (Auto) 0.2H, Sodium Level 136, Potassium Level 3.8, Chloride Level 106, Carbon Dioxide Level 23, Anion Gap 7, Blood Urea Nitrogen 16, Creatinine 0.58L, Estimat Glomerular Filtration Rate 88, BUN/Creatinine Rat io 28, Glucose Level 91, Calcium Level 8.1L, Corrected Calcium 9.2, Total Bilir ubin 0.6, Aspartate Amino Transf (AST/SGOT) 13, Alanine Aminotransferase (ALT/SGPT) 14, Alkaline Phosphatase 58, Total Protein 5.4L, Albumin 2.6L Microbiology 04/01/22 MRSA Screen - Final, Complete MRSA not isolated 03/31/22 Blood Culture - Preliminary, Resulted No growth 03/31/22 Urine Culture - Final, Complete Gram Pos Mixed Bacterial Kim Laboratory Tests 04/04/22 04:35 04/05/22 06:25 A/P: Assessment: PAF with RVR - Dr Wise treating with Toprol-XL 50 twice daily and diltiazem CD 240 mg twice daily and digoxin 0.125 mg daily for vent rate control. Pt tolerating well - Off Eliquis periop - TTE done on 08/20/2020: LVEF 55 to 60%, grade 2 diastolic dysfunction, moderate to severe MR, mild AR, moderate severe TR, PA pressure 50 to 55 mmHg. - ANMOL done on 01/16/2021: dilated left atrium and left atrial appendage with echogenic density in the left atrial appendage suspicious of a thrombus, dilated right atrium, mild LVH with normal ejection fraction 60%, moderate to moderately severe mitral regurgitation, aortic valve sclerosis. Acute cholecystitis, status postcholecystectomy done on April 02, 2022 H/o intolerance/ allergy to the metal of the loop recorder. Unable to tolerate it and it was extracted. History of GI bleed with blood in her stool, patient reports occasional episode of bright red blood in her stool. Has refused colonoscopy in the past. No active bleeding at this time Hypertension, controlled Nonobstructive carotid artery stenosis - Dr Billie bhandari Family history of heart disease. Dementia - Med svce managing Cachectic appearance - Med svce managing Plan: * I reviewed the chart, and interviewed and examined the patient * Continue current regimen for rate control * Monitor on tele * Eliquis resumed and adjusted dose of Eliquis to age (86 yrs) and body wgt (50 kg) * Monitor labs ACACIA PALMER MD FACP FACC CCDS Apr 05, 2022 14:24
[2022-04-05 16:35] VITALS: BP 114/57
[2022-04-05 19:22] VITALS: BP 133/70
[2022-04-05 23:39] VITALS: BP 149/66
[2022-04-06] VITALS (7 sets, daily range): BP systolic 121–146; BP diastolic 67–75
[2022-04-06 06:03] LABS: BASOPHILS % (AUTO) 0 % (0-10); EOSINOPHILS # (AUTO) 0.1 10^3/uL (0.0-0.3); EOSINOPHILS % (AUTO) 1 % (0-10); HEMATOCRIT 34 % (35-52); HEMOGLOBIN 11.1 g/dL (11.5-16.0); LYMPHOCYTES % (AUTO) 11 % (12-44); MEAN CORPUSCULAR HEMOGLOBIN 31 pg (25-34); MEAN CORPUSCULAR HGB CONC 33 g/dL (32-36); MEAN CORPUSCULAR VOLUME 93 fL (80-99); MEAN PLATELET VOLUME 11.8 fL (9.0-12.2); MONOCYTES # (AUTO) 1.7 10^3/uL (0.0-1.0); MONOCYTES % (AUTO) 19 % (0-12); NEUTROPHILS # (AUTO) 5.7 10^3/uL (1.8-7.8); NEUTROPHILS % (AUTO) 66 % (42-75); PLATELET COUNT 179 10^3/uL (130-400); WHITE BLOOD COUNT 8.7 10^3/uL (4.3-11.0)
[2022-04-06 06:19] LABS: ALBUMIN 2.6 GM/DL (3.2-4.5); BILIRUBIN,TOTAL 0.6 MG/DL (0.1-1.0); CALCIUM 7.9 MG/DL (8.5-10.1); CREATININE SERUM 0.56 MG/DL (0.60-1.30); POTASSIUM 3.6 MMOL/L (3.6-5.0); TOTAL PROTEIN 5.4 GM/DL (6.4-8.2)
[2022-04-06 06:47] LABS: LYMPHOCYTES % (MANUAL) 12 %; MONOCYTES % (MANUAL) 18 %; NEUTROPHILS % (MANUAL) 70 %
[2022-04-06 06:48] LABS: RBC MORPH NORMAL
--- NOTE | 2022-04-06 06:59 | Progress Note - Surgery ---
GREWALHernánNARCISO AMEZCUA 04/06/22 0658: Subjective Date Seen by a Provider: Apr 06, 2022 Time Seen by a Provider: 06:58 Subjective/Events-last exam Upon follow up for acute cholecystitis S/P Lap Carmita POD#6, Heide is laying in bed supine with 2L O2 by ME. She reports that she is feeling more alert today. She states that her pain continues to improve, and is minimally provoked by palpation. Incisions continue to be clean, dry, and intact, without purulence or drainage. She states she has been continuing to use her incentive spirometer, though her breaths are still quite shallow. She denies having an appetite, but has been eating regularly. She did have a bowel movement last night. Heide denies any nausea, vomiting, chills, or fever. Review of Systems General: No Chills, No Night Sweats; Fatigue, Malaise HEENT: No Head Aches, No Visual Changes Pulmonary: No Dyspnea, No Cough Cardiovascular: No: Chest Pain, Palpitations Gastrointestinal: Abdominal Pain (Continues to improve, see HPI); No: Nausea, Vomiting Genitourinary: No Dysuria, No Frequency Musculoskeletal: No: neck pain, shoulder pain Neurological: Weakness; No: Numbness, Incoordination Focused Exam Respiratory: Chest Non Tender, Lungs Clear, No Accessory Muscle Use, No Respiratory Distress, Decreased Breath Sounds Cardiovascular: Regular Rate, Rhythm, No Edema, No Gallop, Normal Peripheral Pulses Capillary Refill: Less Than 3 Seconds Skin: normal color, warm/dry Objective Exam Vital Signs Date Time Temp Pulse Resp B/P (MAP) Pulse Ox O2 Delivery O2 Flow Rate FiO2 04/06/22 03:58 36.8 79 22 121/67 (85) 92 Nasal Cannula 2.00 04/06/22 01:00 76 04/05/22 23:39 36.8 76 24 149/66 (93) 91 Nasal Cannula 3.00 04/05/22 19:39 93 Nasal Cannula 2.00 04/05/22 19: 37.1 84 24 133/70 (91) 93 Nasal Cannula 3.00 04/05/22 19:00 77 04/05/22 16:35 36.7 67 16 114/57 (76) 94 Nasal Cannula 3.00 04/05/22 14:24 94 Nasal Cannula 2.00 04/05/22 12:49 73 04/05/22 12:14 36.0 77 18 125/71 (89) 93 Nasal Cannula 2.00 04/05/22 11:52 Nasal Cannula 2.00 04/05/22 11:49 95 Nasal Cannula 3.00 04/05/22 08:00 94 Nasal Cannula 3.00 04/05/22 07:59 92 Nasal Cannula 3.00 04/05/22 07:39 36.6 82 16 129/71 (90) 94 Nasal Cannula 3.00 04/05/22 07:00 84 I & O 04/06/22 07:00 Intake Total 1160 ml Output Total 985 ml Balance 175 ml Capillary Refill : Less Than 3 SecondsLess Than 3 Seconds General Appearance: No Apparent Distress, WD/WN, Chronically ill HEENT: PERRL/EOMI, Normal ENT Inspection Neck: Non Tender, Supple Respiratory: Lungs Clear, Normal Breath Sounds, Decreased Breath Sounds Cardiovascular: Regular Rate, Rhythm Peripheral Pulses: 2+ Radial Pulses (R), 2+ Radial Pulses (L) Gastrointestinal: non tender, soft, tenderness (diffuse, minimal, incisions c/d/i) Extremity: Non Tender, No Calf Tenderness Neurologic/Psychiatric: Alert, Disoriented (AXO 2) Skin: Normal Color, Warm/Dry Lymphatic: No Adenopathy Results Lab Laboratory Tests 04/06/22 05:45: White Blood Count 8.7, Red Blood Count 3.59L, Hemoglobin 11.1L, Hematocrit 34L, Mean Corpuscular Volume 93, Mean Corpuscular Hemoglobin 31, Mean Corpuscular Hemoglobin Concent 33, Red Cell Distribution Width 13.5, Platelet Count 179, Mean Platelet Volume 11.8, Immature Granulocyte % (Auto) 3, Neutrophils (%) (Auto) 66, Lymphocytes (%) (Auto) 11L, Monocytes (%) (Auto) 19H, Eosinophils (%) (Auto) 1, Basophils (%) (Auto) 0, Neutrophils # (Auto) 5.7, Lymphocytes # (Auto) 1.0, Monocytes # (Auto) 1.7H, Eosinophils # (Auto) 0.1, Basophils # (Auto) 0.0, Immature Granulocyte # (Auto) 0.3H, Neutrophils % (Manual) 70, Lymphocytes % (Manual) 12, Monocytes % (Manual) 18, Blood Morphology Comment NORMAL, Sodium Level 135, Potassium Level 3.6, Chloride Level 103, Carbon Dioxide Level 24, Anion Gap 8, Blood Urea Nitrogen 11, Creatinine 0.56L, Estimat Glomerular Filtration Rate 88, BUN/Creatinine Ratio 20, Glucose Level 94, Calcium Level 7.9L, Corrected Calcium 9.0, Total Bilirubin 0.6, Aspartate Amino Transf (AST/SGOT) 14, Alanine Aminotransferase (ALT/SGPT) 14, Alkaline Phosphatase 55, Total Protein 5.4L, Albumin 2.6L Microbiology 04/01/22 MRSA Screen - Final, Complete MRSA not isolated 03/31/22 Blood Culture - Preliminary, Resulted No growth 03/31/22 Urine Culture - Final, Complete Gram Pos Mixed Bacterial Kim Assessment/Plan Assessment/Plan Assessment/Plan Sepsis Acute cholecystitis S/P Lap Carmita -Drainage sero-sanguineous -Minimal tenderness on palpitation -Incisions warm, dry, intact without purulence -recieving fluids, rocephin, flagyl -Utilizing IS 10x/hour -H/H remains stable from 04/05 -Has calf compressors on -Tolerating advanced diet -Continues to improve, consider D/C in the near future Luekocytosis -Trending down from 15.6, and is presently 8.7 -Denies feeling of subjective fever, chills Chronic AFib on long-term anticoagulation -Eliquis has been restarted General debility -Continues to work with PT -Is able to sit up independently Productive cough -May be 2/2 to IS use and improved aeration of lungs =>Taking shallow breaths, which decreases utility of device -Will monitor Hypoxia: -on 2 L O2 by NC -O2 sat is around 92% Dementia: -AxO to person, place -Appears more alert today -Acknowledges memory deficit -Has been upset due to family dynamic at home Clinical Quality Measures DVT/VTE Risk/Contraindication: Contraindications-Pharm: Other *list below* Other: operation DAYLIN MOTT DO 04/06/221718: Subjective Subjective/Events-last exam feeling weak, but improving slowly. Tolerating diet, but not wanting much. Pain controlled. Using incentive spirometer. Denies n/v fever sweats chills shortness of breath or chest pain. Objective Exam General Appearance: No Apparent Distress, Chronically ill, Thin HEENT: PERRL/EOMI, Normal ENT Inspection Neck: Non Tender, Supple Respiratory: Chest Non Tender, No Accessory Muscle Use, No Respiratory Distress Cardiovascular: Regular Rate, Rhythm, No JVD Gastrointestinal: soft, tenderness ( minimal, incisions c/d/i, drain serous) Extremity: Non Tender, No Calf Tenderness Neurologic/Psychiatric: Alert, Disoriented (AXO 2) Skin: Normal Color, Warm/Dry Lymphatic: No Adenopathy Assessment/Plan Assessment/Plan Assessment/Plan s/p lap carmita for acute cholecystitis dementia debility continue current management diet as tolerates shannen drain to bulb suction try to increase strength trying to figure out placement safest for patient Supervisory-Addendum Brief Verification & Attestation Participated in pt care: history, MDM, physical Personally performed: exam, history, MDM, supervision of care Care discussed with: Medical Student Procedures: n/a Results interpretation: Verified all documentation Verification and Attestation of Medical Student E/M Service A medical student performed and documented this service in my presence. I reviewed and verified all information documented by the medical student and made modifications to such information, when appropriate. I personally performed the physical exam and medical decision making. Daylin Mott, Apr 06, 2022,17:19 NARCISO SILVA Apr 06, 2022 06:58 DAYLIN MOTT DO Apr 06, 2022 17:19
[2022-04-06] MEDS: RT-ALBUTEROL SULF 2.5 MG/3 ML PRE-MIX VIAL INH SCH ×3 (07:30→21:46)
--- NOTE | 2022-04-06 09:12 | Cardiology Progress Note ---
Subjective Date Seen by Provider: Apr 06, 2022 Time Seen by Provider: 08:40 Subjective/Events-last exam Patient is sitting up in bed, no new complaints. Denies any chest pain or dyspnea Review of Systems General: No Chills, No Night Sweats, No Fatigue, No Malaise, No Appetite, No Other HEENT: No Head Aches, No Visual Changes, No Eye Pain, No Ear Pain, No Dysphasia, No Sinus Congestion, No Post Nasal Drip, No Sore Throat, No Other Pulmonary: No Dyspnea, No Cough, No Pleuritic Chest Pain, No Other Cardiovascular: No: Chest Pain, Palpitations, Orthopnea, Paroxysmal Noc. Dyspnea, Edema, Lt Headedness, Other Objective-Cardiology Exam Last Set of Vital Signs Vital Signs 04/04/22 04/06/22 06:56 07:39 Temp 36.7 Pulse 82 Resp 19 B/P (MAP) 134/75 (94) Pulse Ox 95 O2 Delivery Nasal Cannula O2 Flow Rate 2.00 FiO2 36 I&O Intake and Output 04/06/22 00:00 Intake Total 1160 ml Output Total 845 ml Balance 315 ml Intake Oral 1160 ml Output Urine Total 750 ml Drainage Total 95 ml # Bowel Movements 1 General: Alert, Oriented X3, Cooperative HEENT: Atraumatic, PERRLA Neck: Supple, No JVD, No Thyromegaly Lungs: Clear to Auscultation, Normal Air Movement Heart: Normal S1, Normal S2, No Murmurs, Other (irregularly irregular) Abdomen: Normal Bowel Sounds, Soft, No Hepatosplenomegaly, No Masses, Other (Right upper quadrant tenderness) Extremities: No Clubbing, No Cyanosis, No Edema, Normal Pulses, No Tenderness/Swelling Skin: No Rashes, No Breakdown, No Significant Lesion Neuro: Normal Gait, Normal Speech, Strength at 5/5 X4 Ext, Normal Tone, Sensation Intact Psych/Mental Status: Mental Status NL, Mood NL Results Lab Laboratory Tests 04/06/22 05:45 A/P-Cardiology Admission Diagnosis AFib with RVR Acute cholecystitis HTN Dementia Assessment/Plan History of paroxysmal atrial fibrillation/flutter. Appear to be in persistent/permanent atrial fibrillation with controlled rate. Rate is controlled. Continue current medication Monitor heart rate and blood pressure [id number] score 4, continue on Eliquis 2.5 mg twice daily Acute cholecystitis, status postcholecystectomy done on April 02, 2022, rec overing slowly. Echocardiogram done on 08/20/2020 showing normal left ventricular size, EF 55 to 60%, grade 2 diastolic dysfunction, moderate to severe MR, mild AR, moderate severe TR, PA pressure 50 to 55 mmHg. ANMOL was done on 01/16/2021 showing dilated left atrium and left atrial appendage with echogenic density in the left atrial appendage suspicious of a thrombus, dilated right atrium, mild LVH with normal ejection fraction 60%, moderate to moderately severe mitral regurgitation, aortic valve sclerosis. Reaction to the metal of the loop recorder. Unable to tolerate it and it was extracted. History of GI bleed with blood in her stool, patient reports occasional episode of bright red blood in her stool. Has refused colonoscopy in the past. No active bleeding at this time. Continue to monitor. Hypertension, controlled. Continue to monitor blood pressure/heart rate. Nonobstructive carotid artery stenosis Family history of heart disease. Dementia Supervisory-Addendum Brief Supervisory Addendum Participated in pt care: history, MDM, physical Personally performed: exam, history, MDM Care discussed with: MALENA Results interpretation: Verified all documentation Notes: Patient was seen and evaluated with Jaqui, examination performed, management plan was discussed, agree with the current scribed note, I made few changes to the note using Italic font Patient was seen at bedside, laying down comfortably, feeling better Abdominal pain is improving Appetite is better Still in atrial fibrillation with controlled rate, continue current medication monitor JAQUI LOWE Apr 06, 2022 09:12 JIAN STEPHENSON MD Apr 06, 2022 09:27
[2022-04-06] MEDS: meTOproloL SUCCINATE 50 MG (TOPROL XL) TAB PO SCH ×2 (10:06→20:24)
[2022-04-06] MEDS: DOCUSATE SODIUM 100 MG (COLACE) CAP PO SCH ×2 (10:06→20:23)
[2022-04-06] MEDS: APIXABAN 2.5 MG (ELIQUIS) TABLET PO SCH ×2 (10:06→20:23)
[2022-04-06] MEDS: DIGOXIN 0.125 MG (LANOXIN) TAB PO SCH (10:06)
[2022-04-06] MEDS: SENNOSIDES 8.6 MG (SENOKOT) TAB PO SCH ×2 (10:06→20:24)
--- NOTE | 2022-04-06 13:44 | Occupational Ther Daily Note ---
OT Current Status-Daily Note Subjective Pt alert, lying in bed. Pt and visitor states that she had just been up to the bathroom with nrsg. Pt agrees to therapy. No c/o pain. Mental Status/Objective Patient Orientation: Person Attachments: IV ADL-Treatment Therapy Code Descriptions/Definitions Functional [place] Measure: 0=Not Assessed/NA 4=Minimal Assistance 1=Total Assistance 5=Supervision or Setup 2=Maximal Assistance 6=Modified [place] 3=Moderate Assistance 7=Complete IndependenceSCALE: Activities may be completed with or without assistive devices. 5-Gubbcpjmtx-myjjiew completes the activity by him/herself with no assistance from a helper. 5-Set-up or Clean-up Assistance-helper sets up or cleans up; patient completes activity. [place] assists only prior to or following the activity. 4-Supervision or Touching Assistance-helper provides verbal cues and/or touching/steadying and/or contact guard assistance as patient completes activity. Assistance may be provided throughout the activity or intermittently. 3-Partial/Moderate Assistance-helper does LESS THAN HALF the effort. [place] lifts, holds or supports trunk or limbs, but provides less than half the effort. 2-Substantial/Maximal Assistance-helper does MORE THAN HALF the effort. [place] lifts or holds trunk or limbs and provides more than half the effort. 9-Qjkuynsam-yfgudh does ALL the effort. Patient does none of the effort to complete the activity. Or, the assistance of 2 or more helpers is required for the patient to complete the activity. If activity was not attempted, code reason: 7-Patient Refused. 9-Not Applicable-not attempted and the patient did not perform the activity before the current illness, exacerbation or injury. 10-Not Attempted due to Environmental Limitations-(lack of equipment, weather restraints, etc.). 88-Not Attempted due to Medical Conditions or Safety Concerns. Other Treatment Pt given light resistance theraband with skilled instruction for correct technique to use. 3 B UE exercises given, 1 set 10 reps 1 set 5 reps. Pt fatigues quickly and required recovery breaks during sets. After session, pt lying in bed with call light/phone in reach. Safety measures in place. All needs met. Education OT Patient Education: Exercise program Teaching Recipient: Patient Teaching Methods: Demonstration, Discussion Response to Teaching: Verbalize Understanding, Return Demonstration, Reinforcement Needed OT Fpc Goals Fpc Goals Time Frame: Apr 17, 2022 Eating (QC): 5 Oral Hygiene (QC): 5 Toileting Hygiene (QC): 4 Shower/Bathe Self (QC): 4 Upper Body Dressing (QC): 4 Lower Body Dressing (QC): 4 On/Off Footwear (QC): 4 Additional Goals: 1-Demonstrate ADL Tasks, 2-Verbalize Understanding, 3- ImproveStrength/Kaley 1=Demonstrate adherence to instructed precautions during ADL tasks. 2=Patient will verbalize/demonstrate understanding of assistive devices/modific ations for ADL. 3=Patient will improve strength/tolerance for activity to enable patient to perform ADL's. OT Education/Plan Problem List/Assessment Assessment: Decreased Activ Tolerance, Decreased UE Strength Discharge Recommendations Plan/Recommendations: Continue POC Treatment Plan/Plan of Care Patient would benefit from OT for education, treatment and training to promote independence in ADL's, mobility, safety and/or upper extremity function for ADL's. Plan of Care: ADL Retraining, Caregiver Training, Cognitive Retraining, Functional Mobility, Group Exercise/Act as Ind, UE Funct Exercise/Act Treatment Duration: Apr 17, 2022 Frequency: 3 times per week (3-5x/week ) Estimated Hrs Per Day: .25 hour per day Rehab Potential: Fair Time Start Time: 13:19 Stop Time: 13:29 DATE: Apr 06, 2022 Total Time Billed (hr/min): 10 Billed Treatment Time 1 visit-EX 1 (10 min) JAGDISH NICOLAS Apr 06, 2022 13:44
--- NOTE | 2022-04-06 13:55 | Physical Therapy Daily Note ---
PT Daily Note-Current Subjective Patient in bed pre tx, agrees to PT, has no pain at rest but states she has significant pain with activity. Pain Section J - Health Conditions 1. Rarely or not at all 2. Occasionally 3. Frequently 4. Almost constantly 8. Unable to answer Pain Effect on Sleep: 2 Pain Interference with Therapy: 2 Pain Interference w/Day-to-Day: 2 Appearance Patient in recliner post tx with nurse call, phone, tray, all needs met. Mental Status Patient Orientation: Person, Confused Attachments: Oxygen Transfers SCALE: Activities may be completed with or without assistive devices. 7-Hgwwsctjxw-cloqzzw completes the activity by him/herself with no assistance from a helper. 5-Set-up or Clean-up Assistance-helper sets up or cleans up; patient completes activity. [place] assists only prior to or following the activity. 4-Supervision or Touching Assistance-helper provides verbal cues and/or touc lili/steadying and/or contact guard assistance as patient completes activity. Assistance may be provided throughout the activity or intermittently. 3-Partial/Moderate Assistance-helper does LESS THAN HALF the effort. [place] lifts, holds or supports trunk or limbs, but provides less than half the effort. 2-Substantial/Maximal Assistance-helper does MORE THAN HALF the effort. [place] lifts or holds trunk or limbs and provides more than half the effort. 9-Hkeqjdrxl-ziksiv does ALL the effort. Patient does none of the effort to complete the activity. Or, the assistance of 2 or more helpers is required for the patient to complete the activity. If activity was not attempted, code reason: 7-Patient Refused. 9-Not Applicable-not attempted and the patient did not perform the activity before the current illness, exacerbation or injury. 10-Not Attempted due to Environmental Limitations-(lack of equipment, weather restraints, etc.). 88-Not Attempted due to Medical Conditions or Safety Concerns. Roll Left & Right (QC): 6 Lying to Sitting/Side of Bed(Q: 6 Sit to Stand (QC): 4 Chair/Pnh-eg-Lynje Xfer(QC): 4 CGA with sit to stand and transfers Gait Training Distance: 100' Walk 10 feet (QC): 4 Walk 50 ft with 2 Turns(QC): 4 Gait Persons Needed: 1 Gait Assistive Device: FWW CGA, slow ambulation, some slight unsteadiness but no LOB Exercises Seated Therapy Exercises: Ankle pumps, Long arc quads, Hip flexion Seated Reps: 20 Treatments bed mobility and transfers, ambulation, LE ROM Assessment Current Status: Fair Progress improving endurance PT Child Monitor Goals Senior Living Goals PT Senior Living Goals Time Frame: Apr 10, 2022 Roll Left & Right (QC): 5 Sit to Lying (QC): 5 Lying-Sitting on Side/Bed(QC): 5 Sit to Stand (QC): 5 Walk 10 feet (QC): 5 Walk 50ft with 2 Turns (QC): 5 Walk 150 ft (QC): 5 PT Plan Problem List Problem List: Activity Tolerance, Functional Strength, Safety, Balance, Gait, Transfer, Bed Mobility, ROM Treatment/Plan Treatment Plan: Continue Plan of Care Treatment Plan: Bed Mobility, Education, Functional Activity Kaley, Functional Strength, Gait, Safety, Therapeutic Exercise, Transfers Treatment Duration: Apr 10, 2022 Frequency: 6 times per week Estimated Hrs Per Day: .25 hour per day Patient and/or Family Agrees t: Yes Safety Risks/Education Patient Education: Gait Training, Transfer Techniques, Correct Positioning, Safety Issues Teaching Recipient: Patient Teaching Methods: Demonstration, Discussion Response to Teaching: Reinforcement Needed Time Time In: 1326 Time Out: 1339 DATE: Apr 06, 2022 Total Billed Treatment Time: 13 Total Billed Treatment 1 visit FA TORITO BUNDY PT Apr 06, 2022 13:55
--- NOTE | 2022-04-06 15:34 | Progress Note ---
Subjective Subjective/Events-last exam Patient states that she is feeling better. She has been up moving around and states that she is short of breath with ambulation. Pain better controlled. She is still feeling weak. Review of Systems General: Fatigue Pulmonary: Dyspnea; No Cough Cardiovascular: No: Chest Pain, Palpitations Gastrointestinal: Abdominal Pain; No: Nausea, Vomiting, Diarrhea, Constipation Neurological: Weakness, Incoordination Objective Exam Last Set of Vital Signs Vital Signs Date Time Temp Pulse Resp B/P (MAP) Pulse Ox O2 Delivery O2 Flow Rate FiO2 04/06/22 12:53 71 04/06/22 11:43 36.8 19 136/74 (94) 94 Nasal Cannula 2.00 04/04/22 06:56 36 Capillary Refill : Less Than 3 SecondsLess Than 3 Seconds I&O Intake and Output 04/06/22 00:00 Intake Total 1160 ml Output Total 845 ml Balance 315 ml Intake Oral 1160 ml Output Urine Total 750 ml Drainage Total 95 ml # Bowel Movements 1 General: Alert (to self only (baseline)), No Acute Distress Lungs: Clear to Auscultation, Normal Air Movement Heart: Regular Rate Extremities: No Edema, No Tenderness/Swelling Neuro: Normal Speech Results/Procedures Lab Laboratory Tests 04/06/22 05:45: White Blood Count 8.7, Red Blood Count 3.59L, Hemoglobin 11.1L, Hematocrit 34L, Mean Corpuscular Volume 93, Mean Corpuscular Hemoglobin 31, Mean Corpuscular Hemoglobin Concent 33, Red Cell Distribution Width 13.5, Platelet Count 179, Mean Platelet Volume 11.8, Immature Granulocyte % (Auto) 3, Neutrophils (%) (Auto) 66, Lymphocytes (%) (Auto) 11L, Monocytes (%) (Auto) 19H, Eosinophils (%) (Auto) 1, Basophils (%) (Auto) 0, Neutrophils # (Auto) 5.7, Lymphocytes # (Auto) 1.0, Monocytes # (Auto) 1.7H, Eosinophils # (Auto) 0.1, Basophils # (Auto) 0.0, Immature Granulocyte # (Auto) 0.3H, Neutrophils % (Manual) 70, Lymphocytes % (Manual) 12, Monocytes % (Manual) 18, Blood Morphology Comment NORMAL, Sodium Level 135, Potassium Level 3.6, Chloride Level 103, Carbon Dioxide Level 24, Anion Gap 8, Blood Urea Nitrogen 11, Creatinine 0.56L, Estimat Glomerular Filtration Rate 88, BUN/Creatinine Ratio 20, Glucose Level 94, Calcium Level 7.9L, Corrected Calcium 9.0, Total Bilirubin 0.6, Aspartate Amino Transf (AST /SGOT) 14, Alanine Aminotransferase (ALT/SGPT) 14, Alkaline Phosphatase 55, Total Protein 5.4L, Albumin 2.6L Microbiology 04/01/22 MRSA Screen - Final, Complete MRSA not isolated 03/31/22 Blood Culture - Preliminary, Resulted No growth 03/31/22 Urine Culture - Final, Complete Gram Pos Mixed Bacterial Kim Assessment/Plan Assessment/Plan (1) Cholecystitis Status: Acute Assessment & Plan: - 04/06: S/p surgery, tolerating PO diet (2) Atrial fibrillation Status: Acute Assessment & Plan: 04/06: Rate controlled, OAC has been restarted since surgery (3) Dementia Status: Acute Assessment & Plan: 04/06: Seems to be close to baseline Qualifiers: (4) HTN (hypertension) Status: Chronic (5) Hypokalemia Status: Resolved (6) Physical debility Status: Acute Assessment & Plan: 04/06: PT/OT, lives home alone Clinical Quality Measures DVT/VTE Risk/Contraindication: Contraindications-Pharm: Other *list below* Other: operation MARY HURTADO MD Apr 06, 2022 15:34
[2022-04-06] MEDS: MELATONIN 3 MG TABLET PO PRN (20:23)
[2022-04-07 04:09] VITALS: BP 126/70
[2022-04-07 06:32] LABS: BASOPHILS % (AUTO) 0 % (0-10); EOSINOPHILS # (AUTO) 0.1 10^3/uL (0.0-0.3); EOSINOPHILS % (AUTO) 1 % (0-10); HEMATOCRIT 34 % (35-52); HEMOGLOBIN 11.1 g/dL (11.5-16.0); LYMPHOCYTES % (AUTO) 14 % (12-44); MEAN CORPUSCULAR HEMOGLOBIN 31 pg (25-34); MEAN CORPUSCULAR HGB CONC 33 g/dL (32-36); MEAN CORPUSCULAR VOLUME 93 fL (80-99); MEAN PLATELET VOLUME 11.8 fL (9.0-12.2); MONOCYTES # (AUTO) 1.4 10^3/uL (0.0-1.0); MONOCYTES % (AUTO) 19 % (0-12); NEUTROPHILS # (AUTO) 4.5 10^3/uL (1.8-7.8); NEUTROPHILS % (AUTO) 61 % (42-75); PLATELET COUNT 173 10^3/uL (130-400); WHITE BLOOD COUNT 7.3 10^3/uL (4.3-11.0)
[2022-04-07] MEDS: RT-ALBUTEROL SULF 2.5 MG/3 ML PRE-MIX VIAL INH SCH (06:33)
[2022-04-07 06:43] LABS: ALBUMIN 2.4 GM/DL (3.2-4.5); POTASSIUM 3.7 MMOL/L (3.6-5.0)
[2022-04-07 06:45] LABS: CALCIUM 7.9 MG/DL (8.5-10.1)
[2022-04-07 06:46] LABS: TOTAL PROTEIN 5.2 GM/DL (6.4-8.2)
[2022-04-07 06:47] LABS: BILIRUBIN,TOTAL 0.6 MG/DL (0.1-1.0)
[2022-04-07 06:49] LABS: CREATININE SERUM 0.51 MG/DL (0.60-1.30)
--- NOTE | 2022-04-07 07:21 | Progress Note - Surgery ---
RICARDONARCISO 04/07/22 0721: Subjective Date Seen by a Provider: Apr 07, 2022 Time Seen by a Provider: 07:16 Subjective/Events-last exam Upon follow up for acute cholecystitis S/P Lap Carmita POD#7, Heide is laying in bed supine with 2L O2 by AR. She states that she is 'so/so' today. She had a bowel movement this AM, and has been eating regular meals throughout the day. She denies any nausea, vomiting, fever, or chills. Her surgical incisions are clean, dry, and intact, without purulence or drainage. CURTIS drain has expressed 50 ml of serosang fluid thus far today. Patient is in a tough predicament with her home support--her DPOA is her neighbor, and appears to not have her best interests in mind. Heide was evaluated for inpatient rehab, but was denied placement. Presently, manager social media is working with her to find care home placement. Prior to admission for her cholecystitis, she lived independently and drove. Review of Systems General: No Chills, No Night Sweats HEENT: No Head Aches, No Visual Changes Pulmonary: No Dyspnea, No Cough Cardiovascular: No: Chest Pain, Palpitations Gastrointestinal: No: Nausea, Vomiting, Abdominal Pain Genitourinary: No Dysuria, No Frequency Musculoskeletal: No: neck pain, shoulder pain Neurological: No: Weakness, Numbness Focused Exam Respiratory: Chest Non Tender, Lungs Clear, No Accessory Muscle Use, No Respiratory Distress, Decreased Breath Sounds (patient tends to take shallow breaths) Cardiovascular: Regular Rate, Rhythm, No Edema, No Gallop, No JVD, No Murmur Peripheral Pulses: 2+ Radial Pulses (R), 2+ Radial Pulses (L) Skin: normal color, warm/dry Objective Exam Vital Signs Date Time Temp Pulse Resp B/P (MAP) Pulse Ox O2 Delivery O2 Flow Rate FiO2 04/07/22 06:33 95 Nasal Cannula 2.00 04/07/22 04:09 36.7 75 18 126/70 (88) 95 Nasal Cannula 2.00 04/07/22 01:00 50 04/06/22 23:28 36.4 81 18 133/68 (89) 97 Nasal Cannula 2.00 04/06/22 21:46 95 Nasal Cannula 2.00 04/06/22 20:30 36.9 78 18 132/68 (89) 97 Nasal Cannula 2.00 04/06/22 20:25 Nasal Cannula 2.00 04/06/22 19:01 76 04/06/22 18:36 36.5 81 96 36 04/06/22 15:58 36.5 81 20 146/68 (94) 96 Nasal Cannula 2.00 04/06/22 12:53 71 04/06/22 11:43 36.8 63 19 136/74 (94) 94 Nasal Cannula 2.00 04/06/22 08:00 95 Nasal Cannula 2.00 04/06/22 07:39 36.7 82 19 134/75 (94) 95 Nasal Cannula 2.00 04/06/22 07:31 92 Nasal Cannula 2.00 I & O 04/07/22 07:00 Intake Total 1290 ml Output Total 840 ml Balance 450 ml Capillary Refill : Less Than 3 SecondsLess Than 3 Seconds General Appearance: No Apparent Distress, Chronically ill, Thin HEENT: PERRL/EOMI, Normal ENT Inspection Neck: Non Tender, Supple Respiratory: Chest Non Tender, Lungs Clear, No Accessory Muscle Use, No Respiratory Distress, Decreased Breath Sounds (tends to breath shallow) Cardiovascular: Regular Rate, Rhythm, No Edema, No Gallop, No JVD Peripheral Pulses: 2+ Radial Pulses (R), 2+ Radial Pulses (L) Gastrointestinal: soft, tenderness ( minimal, incisions c/d/i, drain serous) Extremity: Non Tender, No Calf Tenderness Neurologic/Psychiatric: Alert, Oriented x3, No Motor/Sensory Deficits, Normal Mood/Affect, Disoriented (AXO 2) Skin: Normal Color, Warm/Dry Lymphatic: No Adenopathy Results Lab Laboratory Tests 04/07/22 05:45: White Blood Count 7.3, Red Blood Count 3.61L, Hemoglobin 11.1L, Hematocrit 34L, Mean Corpuscular Volume 93, Mean Corpuscular Hemoglobin 31, Mean Corpuscular Hemoglobin Concent 33, Red Cell Distribution Width 13.6, Platelet Count 173, Mean Platelet Volume 11.8, Immature Granulocyte % (Auto) 5, Neutrophils (%) (Auto) 61, Lymphocytes (%) (Auto) 14, Monocytes (%) (Auto) 19H, Eosinophils (%) (Auto) 1, Basophils (%) (Auto) 0, Neutrophils # (Auto) 4.5, Lymphocytes # (Auto) 1.0, Monocytes # (Auto) 1.4H, Eosinophils # (Auto) 0.1, Basophils # (Auto) 0.0, Immature Granulocyte # (Auto) 0.4H, Sodium Level 137, Potassium Level 3.7, Chloride Level 103, Carbon Dioxide Level 28, Anion Gap 6, Blood Urea Nitrogen 8, Creatinine 0.51L, Estimat Glomerular Filtration Rate 90, BUN/Creatinine Ratio 16, Glucose Level 88, Calcium Level 7.9L, Corrected Calcium 9.2, Total Bilirubin 0.6, Aspartate Amino Transf (AST/SGOT) 18, Alanine Aminotransferase (ALT/SGPT) 13, Alkaline Phosphatase 50, Total Protein 5.2L, Albumin 2.4L Microbiology 04/01/22 MRSA Screen - Final, Complete MRSA not isolated 03/31/22 Blood Culture - Final, Complete No growth 03/31/22 Urine Culture - Final, Complete Gram Pos Mixed Bacterial Kim Assessment/Plan Assessment/Plan Assessment/Plan s/p lap carmita for acute cholecystitis dementia debility continue current management diet as tolerates curtis drain to bulb suction try to increase strength In process of determining safest placement for patient =>denied inpatient rehab Will follow Clinical Quality Measures DVT/VTE Risk/Contraindication: Contraindications-Pharm: Other *list below* Other: operation DAYLIN REYES DO 04/08/22 0000: Subjective Subjective/Events-last exam tolerating diet. Pain controlled. Curtis drain serous. Denies inpt rehab. working on placement. Denies n/v fever sweats chills shortness of breath or chest pain at this time. Objective Exam General Appearance: No Apparent Distress, Chronically ill HEENT: PERRL/EOMI, Normal ENT Inspection Neck: Non Tender, Supple Respiratory: Chest Non Tender, No Accessory Muscle Use, No Respiratory Distress Cardiovascular: Regular Rate, Rhythm, No JVD Gastrointestinal: soft, tenderness ( minimal, incisions c/d/i, drain serous) Extremity: Non Tender, No Calf Tenderness Neurologic/Psychiatric: Alert, Normal Mood/Affect, Disoriented (AXO 2) Skin: Normal Color, Warm/Dry Lymphatic: No Adenopathy Assessment/Plan Assessment/Plan Assessment/Plan s/p lap carmita for acute cholecystitis dementia debility continue current management diet as tolerates curtis drain to bulb suction remove when less than 30 mL in 24 hrs. try to increase strength In process of determining safest placement for patient =>denied inpatient rehab Eric 1 week follow up. Supervisory-Addendum Brief Verification & Attestation Participated in pt care: history, MDM, physical Personally performed: exam, history, MDM, supervision of care Care discussed with: Medical Student Procedures: n/a Results interpretation: Verified all documentation Verification and Attestation of Medical Student E/M Service A medical student performed and documented this service in my presence. I reviewed and verified all information documented by the medical student and made modifications to such information, when appropriate. I personally performed the physical exam and medical decision making. Daylin Reyes, Apr 07, 2022,23:58 NARCISO SILVA Apr 07, 2022 07:21 DAYLIN REYES DO Apr 08, 2022 00:00
[2022-04-07 07:56] VITALS: BP 134/65
[2022-04-07 08:12] VITALS: BP 134/65
--- NOTE | 2022-04-07 08:20 | Cardiology Progress Note ---
Subjective Date Seen by Provider: Apr 07, 2022 Time Seen by Provider: 08:19 Subjective/Events-last exam Patient was seen at bedside, laying down in bed, feeling better. No new complaint. Review of Systems General: No Chills, No Night Sweats, No Fatigue, No Malaise, No Appetite, No Other HEENT: No Head Aches, No Visual Changes, No Eye Pain, No Ear Pain, No Dysphasia , No Sinus Congestion, No Post Nasal Drip, No Sore Throat, No Other Pulmonary: No Dyspnea, No Cough, No Pleuritic Chest Pain, No Other Cardiovascular: No: Chest Pain, Palpitations, Orthopnea, Paroxysmal Noc. Dyspnea, Edema, Lt Headedness, Other Objective-Cardiology Exam Last Set of Vital Signs Vital Signs 04/06/22 04/07/22 04/07/22 18:36 07:56 08:12 Temp 36.2 Pulse 96 Resp 16 B/P (MAP) 134/65 (88) Pulse Ox 95 O2 Delivery Nasal Cannula O2 Flow Rate 2.00 FiO2 36 I&O Intake and Output 04/07/22 00:00 Intake Total 1190 ml Output Total 910 ml Balance 280 ml Intake Oral 1190 ml Output Urine Total 800 ml Drainage Total 110 ml # Voids 2 # Bowel Movements 5 General: Alert (to self only (baseline)), No Acute Distress HEENT: Atraumatic, PERRLA Neck: Supple, No JVD, No Thyromegaly Lungs: Clear to Auscultation, Normal Air Movement Heart: Regular Rate Abdomen: Normal Bowel Sounds, Soft, No Hepatosplenomegaly, No Masses, Other (Right upper quadrant tenderness) Extremities: No Edema, No Tenderness/Swelling Skin: No Rashes, No Breakdown, No Significant Lesion Neuro: Normal Speech Psych/Mental Status: Mental Status NL, Mood NL Results Lab Laboratory Tests 04/07/22 05:45 A/P-Cardiology Admission Diagnosis AFib with RVR Acute cholecystitis HTN Dementia Assessment/Plan History of paroxysmal atrial fibrillation/flutter. Patient is in persistent/permanent atrial fibrillation with controlled rate. Rate is controlled. Continue current medication Monitor heart rate and blood pressure [id number] score 4, continue on Eliquis 2.5 mg twice daily Acute cholecystitis, status postcholecystectomy done on April 02, 2022, recovering slowly. Echocardiogram done on 08/20/2020 showing normal left ventricular size, EF 55 to 60%, grade 2 diastolic dysfunction, moderate to severe MR, mild AR, moderate severe TR, PA pressure 50 to 55 mmHg. ANMOL was done on 01/16/2021 showing dilated left atrium and left atrial appendage with echogenic density in the left atrial appendage suspicious of a thrombus, dilated right atrium, mild LVH with normal ejection fraction 60%, moderate to moderately severe mitral regurgitation, aortic valve sclerosis. Reaction to the metal of the loop recorder. Unable to tolerate it and it was extracted. History of GI bleed with blood in her stool, patient reports occasional episode of bright red blood in her stool. Has refused colonoscopy in the past. No active bleeding at this time. Continue to monitor. Hypertension, controlled. Continue to monitor blood pressure/heart rate. Nonobstructive carotid artery stenosis Family history of heart disease. Dementia JIAN STEPHENSON MD Apr 07, 2022 08:20
[2022-04-07] MEDS: DOCUSATE SODIUM 100 MG (COLACE) CAP PO SCH (09:37)
[2022-04-07] MEDS: SENNOSIDES 8.6 MG (SENOKOT) TAB PO SCH (09:38)
[2022-04-07] MEDS: APIXABAN 2.5 MG (ELIQUIS) TABLET PO SCH (09:54)
[2022-04-07] MEDS: DIGOXIN 0.125 MG (LANOXIN) TAB PO SCH (09:54)
[2022-04-07] MEDS: meTOproloL SUCCINATE 50 MG (TOPROL XL) TAB PO SCH (09:54)
--- NOTE | 2022-04-07 09:56 | Physical Therapy Daily Note ---
PT Daily Note-Current Subjective Patient agrees to PT. Pain Section J - Health Conditions 1. Rarely or not at all 2. Occasionally 3. Frequently 4. Almost constantly 8. Unable to answer Pain Effect on Sleep: 2 Pain Interference with Therapy: 2 Pain Interference w/Day-to-Day: 2 Mental Status Patient Orientation: Normal For Age Attachments: Oxygen Transfers SCALE: Activities may be completed with or without assistive devices. 4-Oroiewykxc-jiisesu completes the activity by him/herself with no assistance from a helper. 5-Set-up or Clean-up Assistance-helper sets up or cleans up; patient completes activity. [place] assists only prior to or following the activity. 4-Supervision or Touching Assistance-helper provides verbal cues and/or touching/steadying and/or contact guard assistance as patient completes activity. Assistance may be provided throughout the activity or intermittently. 3-Partial/Moderate Assistance-helper does LESS THAN HALF the effort. [place] lifts, holds or supports trunk or limbs, but provides less than half the effort. 2-Substantial/Maximal Assistance-helper does MORE THAN HALF the effort. [place] lifts or holds trunk or limbs and provides more than half the effort. 1-Pdmrowhko-yxfwzv does ALL the effort. Patient does none of the effort to complete the activity. Or, the assistance of 2 or more helpers is required for the patient to complete the activity. If activity was not attempted, code reason: 7-Patient Refused. 9-Not Applicable-not attempted and the patient did not perform the activity before the current illness, exacerbation or injury. 10-Not Attempted due to Environmental Limitations-(lack of equipment, weather restraints, etc.). 88-Not Attempted due to Medical Conditions or Safety Concerns. Lying to Sitting/Side of Bed(Q: 6 Sit to Stand (QC): 4 Chair/Ova-zy-Aysue Xfer(QC): 4 Toilet Transfer (QC): 4 (patient toilets independently) Gait Training Distance: 150' Walk 10 feet (QC): 4 Walk 50 ft with 2 Turns(QC): 4 Walk 150 ft (QC): 4 Gait Assistive Device: FWW safe and functional with no deviation on this date Exercises Seated Therapy Exercises: Ankle pumps, Long arc quads, Hip flexion Seated Reps: 15 Assessment Patient is up in recliner with needs met. Patient tolerated treatment well. PT Research Manufacturing Operator Goals Snf Goals PT Research Manufacturing Operator Goals Time Frame: Apr 10, 2022 Roll Left & Right (QC): 5 Sit to Lying (QC): 5 Lying-Sitting on Side/Bed(QC): 5 Sit to Stand (QC): 5 Walk 10 feet (QC): 5 Walk 50ft with 2 Turns (QC): 5 Walk 150 ft (QC): 5 PT Plan Treatment/Plan Treatment Plan: Continue Plan of Care Treatment Plan: Bed Mobility, Education, Functional Activity Kaley, Functional Strength, Gait, Safety, Therapeutic Exercise, Transfers Treatment Duration: Apr 10, 2022 Frequency: 6 times per week Estimated Hrs Per Day: .25 hour per day Patient and/or Family Agrees t: Yes Time Time In: 921 Time Out: 933 DATE: Apr 07, 2022 Total Billed Treatment Time: 12 Total Billed Treatment 1 visit FA 12 min MARIELLE SQUIRES PT Apr 07, 2022 09:56
--- NOTE | 2022-04-07 10:13 | Occupational Ther Daily Note ---
OT Current Status-Daily Note Subjective Pt alert, sitting in recliner. Pt agrees to therapy. Pt c/o pinching on lower left side, nrsg aware. Mental Status/Objective Patient Orientation: Person, Place, Time, Situation Attachments: Drains, IV ADL-Treatment Sit<-->Stand SBA. Ambulated to bathroom using FWW with SBA for managing O2 tubing. Pt stood at sink to complete oral care independently. Pt demonstrated understanding of light resistance theraband exercises by completing 2 B UE, 1 set 10 reps of horizontal shldr abd/add and bicep flex/ext. After session, pt sitting in recliner with call light/phone in reach. All needs met in room. Therapy Code Descriptions/Definitions Functional [place] Measure: 0=Not Assessed/NA 4=Minimal Assistance 1=Total Assistance 5=Supervision or Setup 2=Maximal Assistance 6=Modified [place] 3=Moderate Assistance 7=Complete IndependenceSCALE: Activities may be completed with or without assistive devices. 0-Ajqziozwtc-xtnrxjg completes the activity by him/herself with no assistance from a helper. 5-Set-up or Clean-up Assistance-helper sets up or cleans up; patient completes activity. Kimper assists only prior to or following the activity. 4-Supervision or Touching Assistance-helper provides verbal cues and/or touching/steadying and/or contact guard assistance as patient completes activity. Assistance may be provided throughout the activity or intermittently. 3-Partial/Moderate Assistance-helper does LESS THAN HALF the effort. Kimper lifts, holds or supports trunk or limbs, but provides less than half the effort. 2-Substantial/Maximal Assistance-helper does MORE THAN HALF the effort. Kimper lifts or holds trunk or limbs and provides more than half the effort. 8-Xudwnjnww-xhbvyy does ALL the effort. Patient does none of the effort to complete the activity. Or, the assistance of 2 or more helpers is required for the patient to complete the activity. If activity was not attempted, code reason: 7-Patient Refused. 9-Not Applicable-not attempted and the patient did not perform the activity before the current illness, exacerbation or injury. 10-Not Attempted due to Environmental Limitations-(lack of equipment, weather restraints, etc.). 88-Not Attempted due to Medical Conditions or Safety Concerns. OT [employer]itions [employer] Worker Goals [employer] Worker Goals Time Frame: Apr 17, 2022 Eating (QC): 5 Oral Hygiene (QC): 5 Toileting Hygiene (QC): 4 Shower/Bathe Self (QC): 4 Upper Body Dressing (QC): 4 Lower Body Dressing (QC): 4 On/Off Footwear (QC): 4 Additional Goals: 1-Demonstrate ADL Tasks, 2-Verbalize Understanding, 3- ImproveStrength/Kaley 1=Demonstrate adherence to instructed precautions during ADL tasks. 2=Patient will verbalize/demonstrate understanding of assistive devices/modifications for ADL. 3=Patient will improve strength/tolerance for activity to enable patient to perform ADL's. OT Education/Plan Problem List/Assessment Assessment: Decreased Activ Tolerance, Decreased UE Strength, Impaired Self- Care Skills Discharge Recommendations Plan/Recommendations: Continue POC Treatment Plan/Plan of Care Patient would benefit from OT for education, treatment and training to promote independence in ADL's, mobility, safety and/or upper extremity function for ADL's. Plan of Care: ADL Retraining, Caregiver Training, Cognitive Retraining, Functional Mobility, Group Exercise/Act as Ind, UE Funct Exercise/Act Treatment Duration: Apr 17, 2022 Frequency: 3 times per week (3-5x/week ) Estimated Hrs Per Day: .25 hour per day Rehab Potential: Fair Time Start Time: 09:54 Stop Time: 10:08 DATE: Apr 07, 2022 Total Time Billed (hr/min): 12 Billed Treatment Time 1 visit-ADL 1 (12 min) JAGDISH NICOLAS Apr 07, 2022 10:13
[2022-04-07 11:05] VITALS: BP 121/61
--- NOTE | 2022-04-07 11:20 | Discharge Summary ---
Discharge Summary Reconcile Patient Problems Problems Reviewed?: Yes Instructions for Patient [employer], Assessment/Instructions Acute cholecystitis S/p Lap paty Atrial fibrillation Dementia HTN Hypokalemia Debility Advanced age Physician to follow Patient: AMANDA Discharge Diet for Home: No Restrictions Hospital Course Date of Admission: Mar 31, 2022 at 20:50 Admission Diagnosis : Family Physician/Provider: Haider Guerra MD Date of Discharge: 04/07/22 Discharge Diagnosis: Acute Cholecystitis 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 Dementia HTN Hypokalemia Debility Advanced age Labs and Pending Lab Test: Laboratory Tests 04/07/22 05:45: White Blood Count 7.3, Red Blood Count 3.61L, Hemoglobin 11.1L, Hematocrit 34L, Mean Corpuscular Volume 93, Mean Corpuscular Hemoglobin 31, Mean Corpuscular Hemoglobin Concent 33, Red Cell Distribution Width 13.6, Platelet Count 173, Mean Platelet Volume 11.8, Immature Granulocyte % (Auto) 5, Neutrophils (%) (A uto) 61, Lymphocytes (%) (Auto) 14, Monocytes (%) (Auto) 19H, Eosinophils (%) (Auto) 1, Basophils (%) (Auto) 0, Neutrophils # (Auto) 4.5, Lymphocytes # (Auto) 1.0, Monocytes # (Auto) 1.4H, Eosinophils # (Auto) 0.1, Basophils # (Auto) 0.0, Immature Granulocyte # (Auto) 0.4H, Sodium Level 137, Potassium Level 3.7, Chloride Level 103, Carbon Dioxide Level 28, Anion Gap 6, Blood Urea Nitrogen 8, Creatinine 0.51L, Estimat Glomerular Filtration Rate 90, BUN/Creatinine Ratio 16, Glucose Level 88, Calcium Level 7.9L, Corrected Calcium 9.2, Total Bilirubin 0.6, Aspartate Amino Transf (AST/SGOT) 18, Alanine Aminotransferase (ALT/SGPT) 13, Alkaline Phosphatase 50, Total Protein 5.2L, Albumin 2.4L Microbiology 04/01/22 MRSA Screen - Final, Complete MRSA not isolated 03/31/22 Blood Culture - Final, Complete No growth 03/31/22 Urine Culture - Final, Complete Gram Pos Mixed Bacterial Kim Home Meds Active Reported Diltiazem ER (Diltiazem HCl) 240 Mg Capsule.er 240 Mg PO BID Digoxin 125 Mcg (0.125 Mg) Tablet 125 Mcg PO DAILY Eliquis (Apixaban) 2.5 Mg Tablet 2.5 Mg PO BID Pantoprazole Sodium 40 Mg Tablet.dr 40 Mg PO 1700 Metoprolol Succinate 50 Mg Tab.er.24h 50 Mg PO BID Consulations Dr Reyes: General Surgery Dr Wise: Cardiology Patient Allergies: Coded Allergies: No Known Drug Allergies (Unverified , 02/12/18) Height (Feet): 4 Height (Inches): 11.00 Weight (Pounds): 116 Weight (Ounces): 0.0 Continued Medications: Apixaban (Eliquis) 2.5 Mg Tablet 2.5 MG PO BID, TAB Digoxin (Digoxin) 125 Mcg (0.125 Mg) Tablet 125 MCG PO DAILY, TAB Diltiazem HCl (Diltiazem ER) 240 Mg Capsule.er 240 MG PO BID, CAP Metoprolol Succinate (Metoprolol Succinate) 50 Mg Tab.er.24h 50 MG PO BID, TAB Pantoprazole Sodium (Pantoprazole Sodium) 40 Mg Tablet.dr 40 MG PO 1700, TAB Home Health Need/Face to Face Date of Face to Face: Apr 07, 2022 Clinical Findings: Instability, Unsteady gait I have seen Pt [id number]: Yes Discharged To: Home Diagnosis/Conditions: See Above Patient is Homebound due to: CognItive deficits, John fall risk due to instabilty Homebound Status Due to the above stated illness, injury or surgical procedure (medical condition or diagnosis) and associated clinical findings, the patient is homebound because of his/her inability to leave home except with aid of a supportive device and/or person AND leaving the home requires a considerable and taxing effort or is medically contraindicated. Pt req the following assistanc: Aid of another person, Walker Home Health Nursing Orders Home Health Services Order: Nursing Services, Extrusion Machine Operator-Evaluate & Treat, Physical Therapy-Evaluate & Treat Home Health Infusion Therapy Line Start Date: Apr 02, 2022 Therapy Orders Therapy Orders: PT to assess for OT Therapy Specific Orders: Teach enviro modifications/safety, Gait training, Increase strength/endurance Certify Stmt I certify that this patient is under my care and that I, a nurse practitioner or a physician; a museum assistant working with me, had a face to face encounter that - meets the physician face to face encounter requirements with this patient as dated. Discharge Physical Exam General: Alert, No Acute Distress Lungs: Clear to Auscultation, Normal Air Movement Heart: Regular Rate, No Murmurs Abdomen: Normal Bowel Sounds, Soft, No Tenderness, No Masses Extremities: No Edema, No Tenderness/Swelling Neuro: Normal Speech Psych/Mental Status: Mental Status NL, Mood NL MARY HURTADO MD Apr 07, 2022 11:18
[2022-04-07 15:25] VITALS: BP 128/60
[2022-04-07] MEDS ORDERED: RT-ALBUTEROL SULF 2.5 MG/3 ML PRE-MIX VIAL INH SCH (21:00)
== END 2022-04-07 15:25 | disposition home health service (06) | DRG 854 ==
LOC: EDUNIT# 12:35 → ER 12:36 → EEVIPCON 20:50 → CSD 20:50 → 4TH 04-04 12:06
PROVIDERS: ADMIT Internal Medicine; ATTEND Family Medicine
PROC: BF502Z0 Other Imaging of Bile Ducts using Fluorescing Agent, Intraoperative (ICD-10-PCS; 2022-04-02)
PROC: 0FT44ZZ Resection of Gallbladder, Percutaneous Endoscopic Approach (ICD-10-PCS; principal; 2022-04-02 15:21)
DX: A41.9 Sepsis, unspecified organism (principal); K81.0 Acute cholecystitis; R64 Cachexia; K92.2 Gastrointestinal hemorrhage, unspecified; F03.90 Unspecified dementia, unspecified severity, without behavioral disturbance, psychotic disturbance, mood disturbance, and anxiety; K82.A1 Gangrene of gallbladder in cholecystitis; I48.0 Paroxysmal atrial fibrillation; I10 Essential (primary) hypertension; E86.0 Dehydration; E87.70 Fluid overload, unspecified; K59.09 Other constipation; E03.9 Hypothyroidism, unspecified; H54.7 Unspecified visual loss; I08.3 Combined rheumatic disorders of mitral, aortic and tricuspid valves; M25.551 Pain in right hip; E87.6 Hypokalemia; Z68.23 Body mass index [BMI] 23.0-23.9, adult; Z82.49 Family history of ischemic heart disease and other diseases of the circulatory system; Z79.01 Long term (current) use of anticoagulants
CPT/HCPCS: 36415; 71045; 74177; 76000; 80053; 81000; 83605; 83735; 84145; 85007; 85025; 85027; 85610; 85730; 87040; 87081; 87088; 93005; 94640; 94664; 94760; 94761

== ENCOUNTER 2022-04-08 21:03 | Emergency (ER) | payer MEDICARE, MEDICAID ==
[~2022-04-08 21:03] MED LIST changes: +DIGO125T3 PO; +DILT240C87 PO
--- NOTE | 2022-04-08 21:17 | ED Cough/URI ---
General Chief Complaint: Respiratory Problems Stated Complaint: SOA Nursing Triage Note: PT TO [facility] WITH C\\O SOB AFTER WAKING UP FROM [facility]. PT D\\C'D FROM HOSPITAL FROM [facility] YESTERDAY Source: patient Exam Limitations: no limitations History of Present Illness Date Seen by Provider: Apr 08, 2022 Allergies and Home Medications Allergies Coded Allergies: No Known Drug Allergies (Unverified , 02/12/18) Patient Home Medication List Apixaban (Eliquis) 2.5 Mg Tablet, 2.5 MG PO BID, (Reported) Entered as Reported by: EMILIA RIVERA on 02/11/21 1435 Digoxin (Digoxin) 125 Mcg (0.125 Mg) Tablet, 125 MCG PO DAILY, (Reported) Entered as Reported by: EMILIA RIVERA on 04/01/22 1030 Diltiazem HCl (Diltiazem ER) 240 Mg Capsule.er, 240 MG PO BID, (Reported) Entered as Reported by: EMILIA RIVERA on 04/01/22 1030 Metoprolol Succinate (Metoprolol Succinate) 50 Mg Tab.er.24h, 50 MG PO BID, (Reported) Entered as Reported by: EMILIA RIVERA on 02/11/21 1435 Pantoprazole Sodium (Pantoprazole Sodium) 40 Mg Tablet.dr, 40 MG PO 1700, (Reported) Entered as Reported by: EMILIA RIVERA on 02/11/21 1435 Discontinued Medications Digoxin (Digox) 125 Mcg Tablet, 0.125 MG PO DAILY Discontinued Reason: Duplicate Order Prescribed by: JIAN STEPHENSON on 02/12/21 1342 Diltiazem HCl (Diltiazem 24Hr ER) 240 Mg Cap.er.24h, 240 MG PO BID Discontinued Reason: Duplicate Order Prescribed by: JIAN STEPHENSON on 02/12/21 1342 Past Bqmtkah-Ibqtzm-Pjydtt Hx Patient Social History Tobacco Use?: No Use of E-Cig and/or Vaping dev: No Substance use?: No Alcohol Use?: No Pt feels they are or have been: No Immunizations Up To Date Influenza Vaccine Up-to-Date: No; Not Current First/Initial COVID19 Vaccinat: N/A Second COVID19 Vaccination Mason: N/A Third COVID19 Vaccination Date: N/A Seasonal Allergies Seasonal Allergies: No Past Medical History Surgery/Hospitalization HX: HYSTERECTOMY, APPY, CHOLY Surgeries: Yes (HYST/BSO; ANKLE FX/ORIF) Appendectomy, Hysterectomy, Oophorectomy, Orthopedic Respiratory: Yes Asthma Currently Using CPAP: No Currently Using BIPAP: No Cardiac: Yes 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, Hypertension Neurological: No Reproductive Disorders: No 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, 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 Genitourinary: Yes Bladder Infection Gastrointestinal: Yes Chronic Constipation Musculoskeletal: No Endocrine: Yes Hypothyroidsim HEENT: Yes Cataract Loss of Vision: Bilateral Hearing Impairment: Denies Cancer: No Psychosocial: No Integumentary: No Blood Disorders: No Adverse Reaction/Blood Tranf: No Family Medical History Alzheimer's disease 19 FATHER, Onset:50's - 60 G8 BROTHER, Onset:50's - 60 Cardiovascular disease 19 FATHER, Onset:50's - 60 G8 BROTHER, Onset:50's - 60 No Pertinent Family Hx Physical Exam Vital Signs - First Documented 04/08/22 04/08/22 21:08 21:10 Temp 35.9 Pulse 91 Resp 24 B/P (MAP) 137/72 (93) O2 Delivery Nasal Cannula O2 Flow Rate 2.00 Capillary Refill : Height: 4'11.00" Weight: 116lbs. 0.0oz. 52.855601vb; 19.47 BMI Method:Stated Progress/Results/Core Measures Suspected Sepsis SIRS Temperature: Pulse: 91 Respiratory Rate: 24 Laboratory Tests 04/08/22 21:35: White Blood Count 9.0 Blood Pressure 137 /72 Mean: 93 Laboratory Tests 04/08/22 21:35: Creatinine 0.53L, Platelet Count 252, Total Bilirubin 0.4 Results/Orders Lab Results Laboratory Tests Test 04/08/22 21:35 Range/Units White Blood Count 9.0 4.3-11.0 10^3/uL Red Blood Count 3.57 L 3.80-5.11 10^6/uL Hemoglobin 11.0 L 11.5-16.0 g/dL Hematocrit 33 L 35-52 % Mean Corpuscular Volume 93 80-99 fL Mean Corpuscular Hemoglobin 31 25-34 pg Mean Corpuscular Hemoglobin Concent 33 32-36 g/dL Red Cell Distribution Width 13.8 10.0-14.5 % Platelet Count 252 130-400 10^3/uL Mean Platelet Volume 10.6 9.0-12.2 fL Immature Granulocyte % (Auto) 3 % Neutrophils (%) (Auto) 66 42-75 % Lymphocytes (%) (Auto) 12 12-44 % Monocytes (%) (Auto) 19 H 0-12 % Eosinophils (%) (Auto) 1 0-10 % Basophils (%) (Auto) 0 0-10 % Neutrophils # (Auto) 5.9 1.8-7.8 10^3/uL Lymphocytes # (Auto) 1.1 1.0-4.0 10^3/uL Monocytes # (Auto) 1.7 H 0.0-1.0 10^3/uL Eosinophils # (Auto) 0.1 0.0-0.3 10^3/uL Basophils # (Auto) 0.0 0.0-0.1 10^3/uL Immature Granulocyte # (Auto) 0.3 H 0.0-0.1 10^3/uL Sodium Level 138 135-145 MMOL/L Potassium Level 3.3 L 3.6-5.0 MMOL/L Chloride Level 104 98-107 MMOL/L Carbon Dioxide Level 24 21-32 MMOL/L Anion Gap 10 5-14 MMOL/L Blood Urea Nitrogen 10 7-18 MG/DL Creatinine 0.53 L 0.60-1.30 MG/DL Estimat Glomerular Filtration Rate 89 BUN/Creatinine Ratio 19 Glucose Level 105 70-105 MG/DL Calcium Level 7.8 L 8.5-10.1 MG/DL Corrected Calcium 8.8 8.5-10.1 MG/DL Total Bilirubin 0.4 0.1-1.0 MG/DL Aspartate Amino Transf (AST/SGOT) 16 5-34 U/L Alanine Aminotransferase (ALT/SGPT) 14 0-55 U/L Alkaline Phosphatase 54 40-136 U/L Total Protein 5.3 L 6.4-8.2 GM/DL Albumin 2.7 L 3.2-4.5 GM/DL My Orders Orders - ADRIÁN DICKERSON [employer]PORATE DIRECTOR OF HUMAN RESOURCES Chest 1 View, Ap/Pa Only (04/08/22 21:13) Ed Iv/Invasive Line Start (04/08/22 21:26) Cbc With Automated Diff (04/08/22 21:26) Comprehensive Metabolic Panel (04/08/22 21:26) Vital Signs/I&O 04/08/22 04/08/22 21:08 21:10 Temp 35.9 Pulse 91 Resp 24 B/P (MAP) 137/72 (93) O2 Delivery Nasal Cannula O2 Flow Rate 2.00 Capillary Refill : Blood Pressure Mean: 93 Departure Impression Primary Impression: Postop check Disposition: 01 HOME, SELF-CARE Condition: Stable Departure-Patient Inst. Decision time for Depature: 22:05 Referrals: LUH RUVALCABA MD (PCP/Family) Primary Care Physician Patient Instructions: Cough, Adult (DC) Add. Discharge Instructions: Plan: 1. Use incentive spirometer 10 inhalations every 4 hours while awake. 2. Continue to monitor the output of your RYAN drain if you notice any increased volume, change in color (red/green/brown), return to ER. 3. Follow up with your surgeon as directed. 4. Return for any new, concerning, or worsening symptoms. All discharge instructions reviewed with patient and/or family. Voiced understanding. ADRIÁN DICKERSON [employer]ATE DIRECTOR [employer] Apr 08, 2022 21:17
--- NOTE | 2022-04-08 21:38 | Diagnostic Imaging Report ---
Chest 1 view, AP/PA only Indication: Lung crackles. Comparison: 03/31/2022. Findings: Bilateral perihilar and basilar interstitial opacities persist. Small right pleural effusion may be present. No pneumothorax. Stable borderline cardiomegaly. Impression: 1. Stable appearance of lungs which may be due to mild interstitial pulmonary edema. 2. Potential small right pleural effusion. Dictated by: Dictated on workstation # [id number]
[2022-04-08 21:40] LABS: BASOPHILS % (AUTO) 0 % (0-10); EOSINOPHILS # (AUTO) 0.1 10^3/uL (0.0-0.3); EOSINOPHILS % (AUTO) 1 % (0-10); HEMATOCRIT 33 % (35-52); LYMPHOCYTES # (AUTO) 1.1 10^3/uL (1.0-4.0); LYMPHOCYTES % (AUTO) 12 % (12-44); MEAN CORPUSCULAR HEMOGLOBIN 31 pg (25-34); MEAN CORPUSCULAR HGB CONC 33 g/dL (32-36); MEAN CORPUSCULAR VOLUME 93 fL (80-99); MEAN PLATELET VOLUME 10.6 fL (9.0-12.2); MONOCYTES # (AUTO) 1.7 10^3/uL (0.0-1.0); MONOCYTES % (AUTO) 19 % (0-12); NEUTROPHILS # (AUTO) 5.9 10^3/uL (1.8-7.8); NEUTROPHILS % (AUTO) 66 % (42-75); PLATELET COUNT 252 10^3/uL (130-400)
[2022-04-08 21:49] LABS: ALBUMIN 2.7 GM/DL (3.2-4.5); POTASSIUM 3.3 MMOL/L (3.6-5.0)
[2022-04-08 21:50] LABS: CALCIUM 7.8 MG/DL (8.5-10.1)
[2022-04-08 21:52] LABS: TOTAL PROTEIN 5.3 GM/DL (6.4-8.2)
[2022-04-08 21:53] LABS: BILIRUBIN,TOTAL 0.4 MG/DL (0.1-1.0)
[2022-04-08 21:55] LABS: CREATININE SERUM 0.53 MG/DL (0.60-1.30)
[2022-04-08 23:13] VITALS: BP 140/71
== END 2022-04-08 23:13 | disposition home or self-care (01) ==
LOC: EDUNIT# 21:03 → ER 21:05
DX: Z48.815 Encounter for surgical aftercare following surgery on the digestive system (principal)
CPT/HCPCS: 36415; 71045; 80053; 85025

== ENCOUNTER 2022-04-13 13:50 | Emergency (ER) | payer MEDICARE, MEDICAID ==
[~2022-04-13] VITALS: Ht 152 cm; Wt 41.2 kg
[2022-04-13] MEDS ORDERED: NS IV 500 ML 500 ML IV ONE (14:15)
--- NOTE | 2022-04-13 14:20 | ED GI ---
General Chief Complaint: Abdominal/GI Problems Stated Complaint: DRAIN FROM GALL BLADDER SURGERY | FALL Nursing Triage Note: PT WAS SENT OVER BY [facility] DR. RUVALCABA FOR ASSESSMENT. PT C/O ABDOMINAL PAIN THAT STARTED 04/11/22 POST FALL IN HER LIVING ROOM. PT DENIES HEAD INJURY. PT HAD GALLBLADDER REMOVAL ABOUT A WEEK AGO AND FALL HAS CAUSED LOWER ABDOMINAL PAIN. LAST BM THIS MORNING. PT WAS BROUGHT TO ROOM 06 VIA WC. FRIEND AT BEDSIDE. History of Present Illness Date Seen by Provider: Apr 13, 2022 Time Seen by Provider: 13:55 Initial Comments 86-year-old female presents for generalized abdominal pain that started 2 days ago that started after a fall. She was admitted here on 03/31/22 sepsis/cholecystitis and had a cholecystectomy on 04/03/2022. She was discharged to home with drain in place. Neighbor is caregiver and reports >120 mls/[address] Jagdish Ruvalcaba evaluated her earlier today and referred her to ED. History of Afib, on Digoxin and Eliquis. She reports weakness and loosing her balance causing a fall 2 days, no LOC or head injury. Dr. Ruvalcaba has discussed LTC and patient is agreeable, neighbor is unable to provide the amount of assistance she is now requiring. She has eaten minimal food the last few days, reports limited appetite. Denies N/V/D. Timing/Duration: 2-3 Days Severity/Quality: Mild Location: Generalized Abdomen Radiation: No Radiation Associated Symptoms: No Back Pain, No Chest Pain, No Diaphoresis, No Fever/Chills; Fatigue; No Headache, No Heartburn, No Nausea/Vomiting, No Shortness of Air; Weakness Allergies and Home Medications Allergies Coded Allergies: No Known Drug Allergies (Unverified , 02/12/18) Patient Home Medication List Home Medication List Reviewed: Yes Apixaban (Eliquis) 2.5 Mg Tablet, 2.5 MG PO BID, (Reported) Entered as Reported by: EMILIA RIVERA on 02/11/21 1435 Digoxin (Digoxin) 125 Mcg (0.125 Mg) Tablet, 125 MCG PO DAILY, (Reported) Entered as Reported by: EMILIA RIVERA on 04/01/22 1030 Diltiazem HCl (Diltiazem ER) 240 Mg Capsule.er, 240 MG PO BID, (Reported) Entered as Reported by: EMILIA RIVERA on 04/01/22 1030 Metoprolol Succinate (Metoprolol Succinate) 50 Mg Tab.er.24h, 50 MG PO BID, (Reported) Entered as Reported by: EMILIA RIVERA on 02/11/21 1435 Nitrofurantoin Monohyd/M-Cryst (Macrobid 100 mg Capsule) 100 Mg Capsule, 1 TAB PO BID Prescribed by: SHI BLANCO on 04/13/22 1528 Pantoprazole Sodium (Pantoprazole Sodium) 40 Mg Tablet.dr, 40 MG PO 1700, (Reported) Entered as Reported by: EMILIA RIVERA on 02/11/21 1435 Review of Systems Review of Systems Constitutional: see HPI, weakness EENTM: No Symptoms Reported, See HPI Gastrointestinal: See HPI, Abdominal Pain Genitourinary: No Symptoms Reported, See HPI All Other Systems Reviewed Negative Unless Noted: Yes Past Azufcbn-Qnyycn-Qwrwlg Hx Patient Social History Tobacco Use?: No Substance use?: No Alcohol Use?: No Pt feels they are or have been: No Immunizations Up To Date First/Initial COVID19 Vaccinat: N/A Second COVID19 Vaccination Mason: N/A Third COVID19 Vaccination Date: N/A Seasonal Allergies Seasonal Allergies: No Past Medical History Surgery/Hospitalization HX: HYSTERECTOMY, APPY, CHOLY, PLATE IN RT ANKLE. 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 Genitourinary: Yes Bladder Infection Gastrointestinal: Yes Chronic Constipation Musculoskeletal: No Endocrine: Yes Hypothyroidsim HEENT: Yes Cataract Loss of Vision: Bilateral Hearing Impairment: Denies Cancer: No Psychosocial: No Integumentary: No Blood Disorders: No Adverse Reaction/Blood Tranf: No Family Medical History Reviewed Nursing Family Hx Alzheimer's disease 19 FATHER, Onset:50's - 60 G8 BROTHER, Onset:50's - 60 Cardiovascular disease 19 FATHER, Onset:50's - 60 G8 BROTHER, Onset:50's - 60 No Pertinent Family Hx Physical Exam Vital Signs Vital Signs - First Documented 04/13/22 13:55 Temp 36.7 Pulse 73 Resp 16 B/P (MAP) 137/61 (86) Pulse Ox 98 O2 Delivery Room Air Capillary Refill : Less Than 3 Seconds Height/Weight/BMI Height: 4'11.00" Weight: 116lbs. 0.0oz. [id number]; 17.00 BMI Method:Stated General Appearance: WD/WN, no apparent distress, thin HEENT: normal ENT inspection, pharynx normal, other (oral mucosa pink and dry) Neck: non-tender, full range of motion, supple, normal inspection Respiratory: chest non-tender, lungs clear, normal breath sounds Cardiovascular: normal peripheral pulses, regular rate, rhythm Gastrointestinal: normal bowel sounds, soft, tenderness (minimal at incision sites, no erythema, warmth or drainage. Drain site clear, approx 45 ml of serosangenous drainage collected. ) Neurologic/Psychiatric: no motor/sensory deficits, alert, normal mood/affect, oriented x 3 Skin: normal color, warm/dry Progress/Results/Core Measures Results/Orders Lab Results Laboratory Tests Test 04/13/22 14:25 04/13/22 14:47 Range/Units White Blood Count 11.5 H 4.3-11.0 10^3/uL Red Blood Count 3.77 L 3.80-5.11 10^6/uL Hemoglobin 11.6 11.5-16.0 g/dL Hematocrit 35 35-52 % Mean Corpuscular Volume 94 80-99 fL Mean Corpuscular Hemoglobin 31 25-34 pg Mean Corpuscular Hemoglobin Concent 33 32-36 g/dL Red Cell Distribution Width 13.8 10.0-14.5 % Platelet Count 319 130-400 10^3/uL Mean Platelet Volume 11.0 9.0-12.2 fL Immature Granulocyte % (Auto) 2 % Neutrophils (%) (Auto) 72 42-75 % Lymphocytes (%) (Auto) 9 L 12-44 % Monocytes (%) (Auto) 15 H 0-12 % Eosinophils (%) (Auto) 2 0-10 % Basophils (%) (Auto) 0 0-10 % Neutrophils # (Auto) 8.3 H 1.8-7.8 10^3/uL Lymphocytes # (Auto) 1.0 1.0-4.0 10^3/uL Monocytes # (Auto) 1.7 H 0.0-1.0 10^3/uL Eosinophils # (Auto) 0.2 0.0-0.3 10^3/uL Basophils # (Auto) 0.0 0.0-0.1 10^3/uL Immature Granulocyte # (Auto) 0.3 H 0.0-0.1 10^3/uL Prothrombin Time 15.7 H 12.2-14.7 SEC INR Comment 1.2 0.8-1.4 Activated Partial Thromboplast Time 29 24-35 SEC Sodium Level 133 L 135-145 MMOL/L Potassium Level 3.8 3.6-5.0 MMOL/L Chloride Level 98 98-107 MMOL/L Carbon Dioxide Level 22 21-32 MMOL/L Anion Gap 13 5-14 MMOL/L Blood Urea Nitrogen 13 7-18 MG/DL Creatinine 0.65 0.60-1.30 MG/DL Estimat Glomerular Filtration Rate 85 BUN/Creatinine Ratio 20 Glucose Level 94 70-105 MG/DL Calcium Level 8.3 L 8.5-10.1 MG/DL Corrected Calcium 9.1 8.5-10.1 MG/DL Total Bilirubin 0.7 0.1-1.0 MG/DL Aspartate Amino Transf (AST/SGOT) 23 5-34 U/L Alanine Aminotransferase (ALT/SGPT) 23 0-55 U/L Alkaline Phosphatase 57 40-136 U/L C-Reactive Protein High Sensitivity 5.91 H 0.00-0.50 MG/DL Total Protein 6.4 6.4-8.2 GM/DL Albumin 3.0 L 3.2-4.5 GM/DL Amylase Level 37 25-125 U/L Digoxin Level 1.58 0.80-2.00 NG/ML Urine Color ORANGE Urine Clarity CLOUDY Urine pH 6.0 5-9 Urine Specific [place] >=1.030 1.016-1.022 Urine Protein 2+ H NEGATIVE Urine Glucose (UA) NEGATIVE NEGATIVE Urine Ketones 2+ H NEGATIVE Urine Nitrite NEGATIVE NEGATIVE Urine Bilirubin 2+ H NEGATIVE Urine Urobilinogen 0.2 < = 1.0 MG/DL Urine Leukocyte Esterase 1+ H NEGATIVE Urine RBC (Auto) 3+ H NEGATIVE Urine RBC 50-100 H /HPF Urine WBC 5-10 H /HPF Urine Squamous Epithelial Cells 10-25 H /HPF Urine Crystals NONE /LPF Urine Bacteria MODERATE H /HPF Urine Casts NONE /LPF Urine Mucus MODERATE H /LPF Urine Yeast FEW H /HPF Urine Culture Indicated YES My Orders Orders - SHI BLANCO Amylase (04/13/22 14:05) Cbc With Automated Diff (04/13/22 14:05) Comprehensive Metabolic Panel (04/13/22 14:05) Hs C Reactive Protein (04/13/22 14:05) Protime With Inr (04/13/22 14:05) Partial Thromboplastin Time (04/13/22 14:05) Ua Culture If Indicated (04/13/22 14:05) Ed Iv/Invasive Line Start (04/13/22 14:05) Ns Iv 500 Ml (Sodium Chloride 0.9%) (04/13/22 14:15) Digoxin (04/13/22 14:10) Urine Culture (04/13/22 14:47) Medications Given in ED Current Medications Medications Dose Ordered Sig/Elle Route Start Time Stop Time Status Last Admin Dose Admin Sodium Chloride 500 ml @ 0 mls/hr Q0M ONCE IV 04/13/22 14:15 04/13/22 14:16 DC 04/13/22 14:13 500 MLS/HR Vital Signs/I&O 04/13/22 13:55 Temp 36.7 Pulse 73 Resp 16 B/P (MAP) 137/61 (86) Pulse Ox 98 O2 Delivery Room Air Blood Pressure Mean: 86 Progress Progress Note : Time: 13:55 Progress Note Patient assessed, will obtain labs, normal saline 500 mL per IV. Patient has no other complaints at this time. 1425 Labs reviewed with patient and caregiver. Digoxin therapeutic. Discussed plans for d/c to home, contact Dr. Ruvalcaba for LTC placement. Return precautions reviewed. Departure Impression Primary Impression: Weakness generalized Additional Impressions: Hx of cholecystectomy Urinary tract infection Qualified Codes: N30.01 - Acute cystitis with hematuria Disposition: HOME, SELF-CARE Condition: Improved Departure-Patient Inst. Decision time for Depature: 15:10 Referrals: JAGDISH RUVALCABA MD (PCP) Primary Care Physician LUH RUVALCABA MD (Family) Primary Care Physician Patient Instructions: Cholecystectomy (DC), Urinary Tract Infection, Adult (DC) Add. Discharge Instructions: Increase fluid intake, 16 oz ever 2-3 hours while awake. Take medications, as prescribed. Start antibiotic and take as directed. Continue to empty drain every 8 hours and document the amount. Take totals to Dr. Reyes's appt. Keep scheduled follow up with Dr. Reyes. Follow up with Dr. Ruvalcaba to discuss intermediate placement. Small Frequent meals. Return to Emergency Dept for new, urgent healthcare needs. All discharge instructions reviewed with patient and/or family. Voiced understanding. Scripts Nitrofurantoin Monohyd/M-Cryst (Macrobid 100 mg Capsule) 100 Mg Capsule 1 TAB PO BID, #10 CAP 0 Refills Prov: SHI BLANCO 04/13/22 Copy Copies To 1: JAGDISH RUVALCABA MD, AMY ARNP Apr 13, 2022 14:20
[2022-04-13 14:35] LABS: BASOPHILS % (AUTO) 0 % (0-10); EOSINOPHILS # (AUTO) 0.2 10^3/uL (0.0-0.3); EOSINOPHILS % (AUTO) 2 % (0-10); HEMATOCRIT 35 % (35-52); HEMOGLOBIN 11.6 g/dL (11.5-16.0); LYMPHOCYTES % (AUTO) 9 % (12-44); MEAN CORPUSCULAR HEMOGLOBIN 31 pg (25-34); MEAN CORPUSCULAR HGB CONC 33 g/dL (32-36); MEAN CORPUSCULAR VOLUME 94 fL (80-99); MONOCYTES # (AUTO) 1.7 10^3/uL (0.0-1.0); MONOCYTES % (AUTO) 15 % (0-12); NEUTROPHILS # (AUTO) 8.3 10^3/uL (1.8-7.8); NEUTROPHILS % (AUTO) 72 % (42-75); PLATELET COUNT 319 10^3/uL (130-400); WHITE BLOOD COUNT 11.5 10^3/uL (4.3-11.0)
[2022-04-13 14:47] LABS: INR 1.2 (0.8-1.4); PROTHROMBIN TIME PATIENT 15.7 SEC (12.2-14.7)
[2022-04-13 14:48] LABS: POTASSIUM 3.8 MMOL/L (3.6-5.0)
[2022-04-13 14:49] LABS: CALCIUM 8.3 MG/DL (8.5-10.1)
[2022-04-13 14:50] LABS: TOTAL PROTEIN 6.4 GM/DL (6.4-8.2)
[2022-04-13 14:52] LABS: BILIRUBIN,TOTAL 0.7 MG/DL (0.1-1.0)
[2022-04-13 14:54] LABS: CLARITY,URINE CLOUDY; COLOR,URINE ORANGE; GLUCOSE, URINE (UA) NEGATIVE (NEGATIVE); KETONES,URINE 2+ (NEGATIVE); LEUKOCYTE ESTERASE ,URINE 1+ (NEGATIVE); NITRITE,URINE NEGATIVE (NEGATIVE); PROTEIN,URINE 2+ (NEGATIVE)
[2022-04-13 14:54] LABS: CREATININE SERUM 0.65 MG/DL (0.60-1.30)
[2022-04-13 15:13] LABS: BILIRUBIN,URINE 2+ (NEGATIVE); RBC,URINE 50-100 /HPF
[2022-04-13 15:14] LABS: BACTERIA,URINE MODERATE /HPF; YEAST,URINE FEW /HPF
[2022-04-13] MEDS ORDERED: NITR-65 PO (15:28)
[2022-04-13 15:47] VITALS: BP 126/63
== END 2022-04-13 15:48 | disposition home or self-care (01) ==
LOC: EDUNIT# 13:50 → ER 13:52
DX: N39.0 Urinary tract infection, site not specified (principal); R53.1 Weakness; I48.91 Unspecified atrial fibrillation; Z90.49 Acquired absence of other specified parts of digestive tract; Z79.01 Long term (current) use of anticoagulants; Z28.310 Unvaccinated for COVID-19
CPT/HCPCS: 36415; 80053; 80162; 81000; 82150; 85025; 85610; 85730; 86141; 87088; 99282